=== PATIENT | female | born 1965 | race African-American/Black ===

== ENCOUNTER 2018-04-07 16:48 | Emergency (ER) | payer OTHER ==
[~2018-04-07] VITALS: Ht 157.5 cm; Wt 99.8 kg
--- OUTSIDE RECORDS SUMMARY | 2018-04-07 16:50 | XMS REPORT | Clinical Summary ---
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 Active potassium chloride Take 10 mEq 0 (K-DUR,KLOR-CON) 10 MEQ by mouth CR tablet daily. Active BUMETanide (BUMEX) 2 MG Take 1 mg by 0 tablet mouth daily. Active eletriptan (RELPAX) 40 MG Take 40 mg by 0 tablet mouth once as needed for migraine. May repeat in 2 hours if unresolved. Do not exceed 80 mg in 24 hours. Active diazePAM (VALIUM) 5 MG Take 10 mg by 0 tablet mouth every 6 (six) hours as needed for anxiety. Active ipratropium-albuterol Inhale 2 0 (COMBIVENT RESPIMAT) puffs 4 20-100 mcg/actuation mist (four) times inhaler a day. Active lxlaerj-jjuxmrxonfrkx-ztm Take 1 tablet 0 feine (EXCEDRIN MIGRAINE) by mouth 250-250-65 mg per tablet every 6 (six) hours as needed for headaches. Active meropenem 1 g in sodium Infuse 1 g 1 each 0 chloride 0.9 % MBP 100 mL into a venous 9 IVPB catheter every 8 (eight) hours. 02/28/2018 Discontinued esomeprazole (NexIUM) 20 Take 40 mg by 0 MG capsule mouth daily before breakfast. 07/29/2017 traMADol (ULTRAM) 50 mg Take 1 tablet 20 tablet 0 tablet (50 mg total) 8 by mouth every 6 (six) hours as needed for moderate pain for up to 10 doses. 08/23/2017 ibuprofen (ADVIL,MOTRIN) Take 1 tablet 30 tablet 0 600 MG tablet (600 mg 8 total) by mouth every 6 (six) hours as needed for moderate pain for up to 30 days. 08/23/2017 methocarbamol (ROBAXIN) Take 1 tablet 20 tablet 0 500 MG tablet (500 mg 8 total) by mouth 2 (two) times a day for 30 days. 02/28/2018 Discontinued meloxicam (MOBIC) 7.5 mg Take 15 mg by 0 tablet mouth daily as needed. 02/28/2018 Discontinued acetaminophen-codeine Take 1 tablet 0 (TYLENOL WITH CODEINE #4) by mouth 2 300-60 mg per tablet (two) times a day as needed for moderate pain. 03/27/2018 acetaminophen (TYLENOL) Take 2 0 325 MG tablet tablets (650 9 mg total) by mouth every 4 (four) hours as needed for mild pain, headaches or fever for up to 30 days. 03/27/2018 meclizine (ANTIVERT) 25 Take 1 tablet 0 mg tablet (25 mg total) 9 by mouth every 8 (eight) hours as needed for dizziness for up to 30 days. 03/27/2018 ondansetron ODT Take 1 tablet 0 (ZOFRAN-ODT) 4 MG (4 mg total) 9 disintegrating tablet by mouth every 8 (eight) hours as needed for nausea or vomiting for up to 30 days. 03/27/2018 ondansetron (ZOFRAN) 4 Infuse 2 mL 20 mL 0 mg/2 mL injection (4 mg total) 9 into a venous catheter every 8 (eight) hours as needed for nausea or vomiting for up to 30 days. 03/05/2018 fluconazole (DIFLUCAN) Take 1 tablet 0 200 MG tablet (200 mg 9 total) by mouth daily for 7 days. 03/27/2018 clonIDINE (CATAPRES) 0.1 Take 1 tablet 0 MG tablet (0.1 mg 9 total) by mouth every 8 (eight) hours as needed for high blood pressure (SBP > 160) for up to 30 days. 03/27/2018 hydrALAZINE (APRESOLINE) Take 1 tablet 0 25 MG tablet (25 mg total) 9 by mouth every 6 (six) hours as needed (SBP > 180) for up to 30 days. 03/27/2018 enoxaparin (LOVENOX) 40 Inject 0.4 mL 12 mL 0 mg/0.4 mL syringe (40 mg total) 9 under the skin daily for 30 days. 03/27/2018 sennosides-docusate Take 1 tablet 60 tablet 0 sodium (SENOKOT-S) 8.6-50 by mouth 2 9 mg per tablet (two) times a day for 30 days. 03/11/2018 HYDROcodone-acetaminophen Take 1 tablet 0 (NORCO) 5-325 mg per by mouth 9 tablet every 6 (six) hours as needed for severe pain for up to 14 days. Max Daily Amount: 4 tablets 03/28/2018 pantoprazole (PROTONIX) Take 1 tablet 30 tablet 0 40 MG EC tablet (40 mg total) 9 by mouth daily for 30 days. 03/27/2018 sodium chloride 0.45 % Infuse 125 500 mL 0 solution mL/hr into a 9 venous catheter continuously for 30 days. 02/28/2018 phenazopyridine Take 1 tablet 10 tablet 0 (PYRIDIUM) 100 MG tablet (100 mg 9 total) by mouth 3 (three) times daily after meals for 3 days. Active Problems Problem Noted Date Pyelonephritis 02/23/2018 Acute left-sided thoracic back pain 02/23/2018 Essential hypertension 02/23/2018 Encounters Care Team Description Date Type Specialty N/A 02/28/2018 Intake Access Niya Whitmore MD 02/27/2018 Telephone Urology 02/23/2018 Travel Azalia Bunn DO Asbury, James F., MD Pyelonephritis (Primary Dx) 02/22/2018 [facility] General Internal Medicine - Encounter 02/28/2018 Consuelo Coronel MD Flank pain (Primary Dx); Sciatica of left side; Peripheral edema 07/24/2017 Emergency Emergency Medicine after 04/06/2017 Social History Date Tobacco Use Types Packs/Day Years Used Never Smoker Smokeless Tobacco: Never Used Tobacco Cessation: Counseling Given: No Alcohol Use Drinks/Week oz/Week Comments No Sex Assigned at Date Recorded Not on file Industry Job Start Date Occupation Not on file Not on file Not on file Travel End Travel History Travel Start No recent travel history available. Last Filed Vital Signs Time Taken Vital Sign Reading 02/28/2018 7:39 AM PLAYER SERVICES REPRESENTATIVE Blood Pressure 133/75 02/28/2018 1:05 PM PLAYER SERVICES REPRESENTATIVE Pulse 99 02/28/2018 7:39 AM PLAYER SERVICES REPRESENTATIVE Temperature 36.4 C (97.6 F) 02/28/2018 1:05 PM PLAYER SERVICES REPRESENTATIVE Respiratory Rate 19 02/28/2018 7:39 AM PLAYER SERVICES REPRESENTATIVE Oxygen Saturation 95% - Inhaled Oxygen - Concentration 02/27/2018 4:50 AM PLAYER SERVICES REPRESENTATIVE Weight 90.4 kg (199 lb 4.8 oz) 02/22/2018 9:36 PM PLAYER SERVICES REPRESENTATIVE Height 160 cm (5' 3") 02/27/2018 4:50 AM PLAYER SERVICES REPRESENTATIVE Body Mass Index 35.3 Plan of Treatment Health Maintenance Due Date Last Done Comments CERVICAL CANCER SCREENING 1986 BREAST CANCER SCREENING 12/13/2015 COLON CANCER SCREENING 12/13/2015 SHINGLES VACCINES (1 of 12/13/2015 2) INFLUENZA VACCINE 09/17/2017 Procedures Comments Procedure Name Priority Date/Time Associated Diagnosis CT UROGRAM Routine 02/28/2018 11:03 AM PLAYER SERVICES REPRESENTATIVE ESTIMATED GFR Routine 02/28/2018 6:03 AM PLAYER SERVICES REPRESENTATIVE COMPREHENSIVE METABOLIC Routine 02/28/2018 PANEL 6:03 AM PLAYER SERVICES REPRESENTATIVE HC COMPLETE BLD COUNT Routine 02/28/2018 W/AUTO DIFF 6:03 AM PLAYER SERVICES REPRESENTATIVE HC COMPLETE BLD COUNT Routine 02/25/2018 W/AUTO DIFF 7:43 AM PLAYER SERVICES REPRESENTATIVE ESTIMATED GFR Routine 02/25/2018 4:00 AM PLAYER SERVICES REPRESENTATIVE BASIC METABOLIC PANEL Routine 02/25/2018 4:00 AM PLAYER SERVICES REPRESENTATIVE URINALYSIS SCREEN AND Routine 02/24/2018 MICROSCOPY, WITH REFLEX 4:30 PM PLAYER SERVICES REPRESENTATIVE TO CULTURE URINE CULTURE Routine 02/24/2018 4:30 PM PLAYER SERVICES REPRESENTATIVE GRAM STAIN Routine 02/24/2018 4:30 PM PLAYER SERVICES REPRESENTATIVE ESTIMATED GFR Routine 02/24/2018 4:50 AM PLAYER SERVICES REPRESENTATIVE VITAMIN D 25 HYDROXY Routine 02/24/2018 LEVEL 4:50 AM PLAYER SERVICES REPRESENTATIVE THYROID STIMULATING Routine 02/24/2018 HORMONE 4:50 AM PLAYER SERVICES REPRESENTATIVE PREALBUMIN LEVEL Routine 02/24/2018 4:50 AM PLAYER SERVICES REPRESENTATIVE PHOSPHORUS LEVEL Routine 02/24/2018 4:50 AM PLAYER SERVICES REPRESENTATIVE MAGNESIUM LEVEL Routine 02/24/2018 4:50 AM PLAYER SERVICES REPRESENTATIVE BASIC METABOLIC PANEL Routine 02/24/2018 4:50 AM PLAYER SERVICES REPRESENTATIVE HC COMPLETE BLD COUNT Routine 02/24/2018 W/AUTO DIFF 4:50 AM PLAYER SERVICES REPRESENTATIVE STREP SCREEN CULTURE Routine 02/22/2018 11:28 PM PLAYER SERVICES REPRESENTATIVE GROUP A STREP, RAPID Routine 02/22/2018 ANTIGEN 11:28 PM PLAYER SERVICES REPRESENTATIVE GGT Routine 02/22/2018 11:27 PM PLAYER SERVICES REPRESENTATIVE ESTIMATED GFR STAT 02/22/2018 11:27 PM PLAYER SERVICES REPRESENTATIVE AMYLASE LEVEL STAT 02/22/2018 11:27 PM PLAYER SERVICES REPRESENTATIVE COMPREHENSIVE METABOLIC STAT 02/22/2018 PANEL 11:27 PM PLAYER SERVICES REPRESENTATIVE HC COMPLETE BLD COUNT STAT 02/22/2018 W/AUTO DIFF 11:27 PM [employer]ER [employer] REPRESENTATIVE CT RENAL STONE PROTOCOL STAT 02/22/2018 10:30 PM PLAYER SERVICES REPRESENTATIVE URINALYSIS STAT 02/22/2018 9:48 PM PLAYER SERVICES REPRESENTATIVE US DUPLEX VENOUS LOWER STAT 07/24/2017 EXTREMITY LEFT 7:[address] RENAL STONE PROTOCOL STAT 07/24/2017 6:39 PM CDT ZZESTIMATED GFR STAT 07/24/2017 6:26 PM CDT AMYLASE LEVEL STAT 07/24/2017 6:26 PM CDT COMPREHENSIVE METABOLIC STAT 07/24/2017 PANEL 6:26 PM CDT HC COMPLETE BLD COUNT STAT 07/24/2017 W/AUTO DIFF 6:26 PM CDT URINALYSIS STAT 07/24/2017 5:30 PM CDT after 04/06/2017 Results * CT Urogram (02/28/2018 11:03 AM PLAYER SERVICES REPRESENTATIVE) Narrative Performed At EXAMINATION:CT UROGRAM RADIANT CLINICAL HISTORY:Hematuriaunknown cause, CT UROGRAM TECHNIQUE:CT of the abdomen and pelvis was performed without contrast utilizing renal stone protocol. Subsequently, postcontrast CT of the abdomen and pelvis was obtained with multiphase renal mass and CT urogram protocol. Sagittal and coronal computerized reformatted images were also obtained. CT scans are performed using radiation dose reduction techniques. Technical factors are evaluated and adjusted to ensure appropriate moderation of exposure. Automated dose management technology is applied to adjust radiation exposure while achieving a diagnostic quality image. COMPARISON:CT stone protocol 02/22/2018 IMPRESSION: Abdomen: 1.Precontrast imaging demonstrates no nephrolithiasis or hydronephrosis. Post contrast imaging demonstrates no renal mass. There is a focal scarring at the mid to upper pole the right kidney. There are subcentimeter cysts bilaterally. No enhancing urothelial lesions are seen. Excretory/urographic phase images demonstrate no filling defects in the renal collecting systems or ureters bilaterally. There is satisfactory opacification of the ureters. 2.Liver, spleen, pancreas, adrenals are within normal limits. The gallbladder is unremarkable. 3.The bowel is unobstructed. The appendix is normal in appearance. 4.The abdominal aorta is normal in caliber. There is no regional adenopathy. Pelvis: 1.The urinary bladder is unremarkable. 2.The uterus is grossly unremarkable. There is no adnexal mass. 3.No suspicious osseous lesions are seen. [facility]-[id number] Procedure Note Interface, Radiology Results Incoming - 02/28/2018 1:03 PM PLAYER SERVICES REPRESENTATIVE EXAMINATION: CT UROGRAM CLINICAL HISTORY: Hematuria unknown cause, CT UROGRAM TECHNIQUE: CT of the abdomen and pelvis was performed without contrast utilizing renal stone protocol. Subsequently, postcontrast CT of the abdomen and pelvis was obtained with multiphase renal mass and CT urogram protocol. Sagittal and coronal computerized reformatted images were also obtained. CT scans are performed using radiation dose reduction techniques. Technical factors are evaluated and adjusted to ensure appropriate moderation of exposure. Automated dose management technology is applied to adjust radiation exposure while achieving a diagnostic quality image. COMPARISON: CT stone protocol 02/22/2018 IMPRESSION: Abdomen: 1. Precontrast imaging demonstrates no nephrolithiasis or hydronephrosis. Post contrast imaging demonstrates no renal mass. There is a focal scarring at the mid to upper pole the right kidney. There are subcentimeter cysts bilaterally. No enhancing urothelial lesions are seen. Excretory/urographic phase images demonstrate no filling defects in the renal collecting systems or ureters bilaterally. There is satisfactory opacification of the ureters. 2. Liver, spleen, pancreas, adrenals are within normal limits. The gallbladder is unremarkable. 3. The bowel is unobstructed. The appendix is normal in appearance. 4. The abdominal aorta is normal in caliber. There is no regional adenopathy. Pelvis: 1. The urinary bladder is unremarkable. 2. The uterus is grossly unremarkable. There is no adnexal mass. 3. No suspicious osseous lesions are seen. [facility]-[id number] Performing Organization Address City/State/Zipcode Phone Number [facility] [address] [place] [address] * Estimated GFR (02/28/2018 6:03 AM PLAYER SERVICES REPRESENTATIVE) Only the most recent of 4 results within the time period is included. Estimated GFR 90 mL/min/1.73 m2 [facility] Comment: HOSPITAL CatergoryUnitsInte rpretation G1 >=90 Normal or high G2 60-89Mildly decreased [id number] Mildly to moderately decreased [id number] Moderately to severely decreased G4 15-29Severely decreased G5 <15Kidney failure The eGFR was calculated using the Chronic Kidney Disease Epidemiology Collaboration (CKD-EPI) equation. Interpretation is based on recommendations of the National Kidney Foundation-Kidney Disease Outcomes Quality Initiative (NKF-KDOQI) published in 2014. Specimen Plasma specimen Performing Organization Address City/State/Zipcode Phone Number [facility] DEPARTMENT [address] [place] [address] PATHOLOGY AND GENOMIC MEDICINE [address] * CBC with platelet and differential (02/28/2018 6:03 AM PLAYER SERVICES REPRESENTATIVE) Only the most recent of 5 results within the time period is included. WBC 8.19 4.50 - 11.00 k/uL [facility] RBC 4.85 4.20 - 5.50 m/uL [facility] HGB 13.6 12.0 - 16.0 g/dL [facility] HCT 43.0 37.0 - 47.0 % [facility] MCV 88.7 82.0 - 100.0 fL [facility] MCH 28.0 27.0 - 34.0 pg [facility] MCHC 31.6 31.0 - 37.0 g/dL [facility] RDW - SD 42.4 37.0 - 55.0 fL [facility] MPV 9.9 8.8 - 13.2 fL [facility] Platelet count 425 (H) 150 - 400 k/uL [facility] Nucleated RBC 0.00 /100 WBC [facility] Neutrophils 44.3 39.0 - 69.0 % [facility] Lymphocytes 42.7 25.0 - 45.0 % [facility] Monocytes 9.5 0.0 - 10.0 % [facility] Eosinophils 2.6 0.0 - 5.0 % [facility] Basophils 0.5 0.0 - 1.0 % [facility] Immature granulocytes 0.4Comment: "Immature 0.0 - 1.0 % [facility] granulocytes" (promyelocytes, HOSPITAL myelocytes, metamyelocytes) Specimen Blood Performing Organization Address City/[facility]/Zipcode Phone Number [facility] [address] [place] [address] PATHOLOGY AND GENOMIC MEDICINE [address] * Comprehensive metabolic panel (02/28/2018 6:03 AM PLAYER SERVICES REPRESENTATIVE) Only the most recent of 3 results within the time period is included. Sodium 127 (L) 135 - 148 mEq/L [facility] Potassium 4.3 3.5 - 5.0 mEq/L [facility] Chloride 92 (L) 98 - 112 mEq/L [facility] CO2 27 24 - 31 mEq/L [facility] Anion gap 8@ANIO 7 - 15 mEq/L [facility] BUN 14 6 - 20 mg/dL [facility] Creatinine 0.86 0.50 - 0.90 mg/dL [facility] Glucose 127 (H) 65 - 99 mg/dL [facility] Calcium 10.2 8.3 - 10.2 mg/dL [facility] Protein 8.0 6.3 - 8.3 g/dL [facility] Comment: HOSPITAL 4.6-7.0 g/dL 1 week 4.4-7.6 g/dL 7 months-1year 5.1-7.3 g/dL 1-2 years5.6-7 .5 g/dL >3 years6.0-8 .0 g/dL 18-150 6.3-8.3 g/dL Albumin 3.7 3.5 - 5.0 g/dL [facility] A/G ratio 0.9 0.7 - 3.8 [facility] Alkaline phosphatase 99 35 - 104 U/L [facility] AST 29 10 - 35 U/L [facility] ALT 47 5 - 50 U/L [facility] Total bilirubin 0.6 0.0 - 1.2 mg/dL [facility] Specimen Plasma specimen Performing Organization Address City/State/Zipcode Phone Number [facility] DEPARTMENT OF [address] [place] [address] PATHOLOGY AND GENOMIC MEDICINE [address] * Basic metabolic panel (02/25/2018 4:00 AM PLAYER SERVICES REPRESENTATIVE) Only the most recent of 2 results within the time period is included. Sodium 141 135 - 148 mEq/L [facility] Potassium 4.1 3.5 - 5.0 mEq/L [facility] Chloride 101 98 - 112 mEq/L [facility] CO2 28 24 - 31 mEq/L [facility] Anion gap 12@ANIO 7 - 15 mEq/L [facility] BUN 21 (H) 6 - 20 mg/dL [facility] Creatinine 1.05 (H) 0.50 - 0.90 mg/dL [facility] Glucose 89 65 - 99 mg/dL [facility] Calcium 9.4 8.3 - 10.2 mg/dL [facility] Specimen Plasma specimen Performing Organization Address City/[facility]/Zipcode Phone Number [facility] DEPARTMENT [address] [address] PATHOLOGY AND GENOMIC MEDICINE [address] * Urinalysis screen and microscopy, with reflex to culture (02/24/2018 4:30 PM PLAYER SERVICES REPRESENTATIVE) Specimen site Catheterized [facility] Color, UA Dania [facility] Appearance, UA Clear [facility] Specific gravity, UA 1.015 1.001 - 1.035 [facility] pH, UA 5.0 5.0 - 8.5 [facility] Protein, UA Negative Negative [facility] Glucose, UA Negative Negative [facility] Ketones, UA Negative Negative [facility] Bilirubin, UA Negative Negative [facility] Blood, UA Small (A) Negative [facility] Nitrite, UA Positive (A) Negative [facility] Urobilinogen, UA 4.0 (A) <2.0 [facility] Leukocyte esterase, UA Small (A) Negative [facility] Epithelial cells, UA 1 /HPF [facility] WBC, UA 8 (H) 0 - 4 /HPF [facility] RBC, UA 2 0 - 5 /HPF [facility] Bacteria, UA Few None seen [facility] Yeast, UA None seen [facility] Yeast with pseudohyphae, None seen [facility] Specimen Urine Performing Organization Address City/[facility] Phone Number [facility] DEPARTMENT [address] [address] PATHOLOGY AND GENOMIC MEDICINE [address] * Gram stain (02/24/2018 4:30 PM PLAYER SERVICES REPRESENTATIVE) Gram stain result Few WBC's [facility] Few Gram positive rods [facility] Comment: Specimen Information Specimen Source: Urine Specimen Site: Catheterized Specimen Urine - Catheterized Performing Organization Address City/[facility]/Zipcode Phone Number [facility] DEPARTMENT [address] [address] PATHOLOGY AND GENOMIC MEDICINE [address] * Urine culture (02/24/2018 4:30 PM PLAYER SERVICES REPRESENTATIVE) Urine culture isolate Mixed ba <=10-3 col/cc [facility] Comment: HOSPITAL Specimen Information Specimen Source: Urine Specimen Site: Catheterized Specimen Urine - Catheterized Performing Organization Address [facility]r Phone Number [facility] [place] [address] PATHOLOGY AND GENOMIC MEDICINE [address] * Vitamin D 25 hydroxy level (02/24/2018 4:50 AM PLAYER SERVICES REPRESENTATIVE) Vitamin D, 25-hydroxy 16.1 (L) 30.0 - 150.0 ng/mL [facility] Comment: HOSPITAL This assay reports the sum of 25-hydroxy vitamin D3 and 25-hydroxy vitamin D2. Reference range: 0-17 years: Deficiency: less than 20ng/mL Optimum level: greater than or equal to 20 ng/mL. 18 years and older: Deficiency: less than 20ng/mL Insufficiency: 20-29 ng/mL Optimum Level: 30-80 ng/mL The assay reportable range is 3.4155.9 ng/mL. Levels higher than 150 ng/mL may be associated with toxicity. If toxicity is clinically suspected and the reported result is >155.9 ng/mL,contact lab for alternative methods to obtain a definitivelevel. If separate quantitation of 25-hydroxy vitamin D3 and 25-hydroxy vitamin D2 is needed, please contact lab for alternative methods. Specimen Blood Performing Organization Address [facility] Phone Number [facility] [place] [address] PATHOLOGY AND GENOMIC MEDICINE [address] * Thyroid stimulating hormone (02/24/2018 4:50 AM PLAYER SERVICES REPRESENTATIVE) TSH 0.16 (L) 0.27 - 4.20 uIU/mL [facility] Specimen Plasma specimen Performing Organization Address [facility] Centercode Phone Number [facility] [place] [place] [address] PATHOLOGY AND GENOMIC MEDICINE [address] * Prealbumin level (02/24/2018 4:50 AM PLAYER SERVICES REPRESENTATIVE) Prealbumin 22 16 - 32 mg/dL [facility] Specimen Serum Performing Organization Address City/State/Zipcode Phone Number [facility] [place] [place] [address] PATHOLOGY AND GENOMIC MEDICINE [address] * Phosphorus level (02/24/2018 4:50 AM PLAYER SERVICES REPRESENTATIVE) Phosphorus 3.5 2.4 - 4.5 mg/dL [facility] Specimen Plasma specimen Performing Organization Address City/[facility]/Zipcode Phone Number [facility] [place] [place] [address] PATHOLOGY AND GENOMIC MEDICINE [address] * Magnesium level (02/24/2018 4:50 AM PLAYER SERVICES REPRESENTATIVE) Magnesium 2.0 1.6 - 2.6 mg/dL [facility] Specimen Plasma specimen Performing Organization Address City/[facility] Phone Number [facility] [place] [place] [address] PATHOLOGY AND GENOMIC MEDICINE [address] * Group A strep, rapid antigen (02/22/2018 11:28 PM PLAYER SERVICES REPRESENTATIVE) Group A strep, rapid Negative for Group A [facility] antigen result Streptococcus antigen. [facility] Comment: [facility] Specimen Information Specimen Source: Throat Specimen Site: Not otherwise specified Specimen Throat - Not otherwise specified Performing Organization Address City/[facility] [place] [address] PATHOLOGY AND GENOMIC MEDICINE, [address] * Strep screen culture (02/22/2018 11:28 PM PLAYER SERVICES REPRESENTATIVE) Strep screen culture No beta hemolytic Streptococci [facility] Comment: Specimen Information Specimen Source: Throat Specimen Site: Not otherwise specified Specimen Throat - Not otherwise specified Performing Organization Address City/[facility]/Zipcode Phone Number [facility] [place] [place] [address] PATHOLOGY AND GENOMIC MEDICINE [address] * GGT (02/22/2018 11:27 PM PLAYER SERVICES REPRESENTATIVE) GGT 117 (H) 0 - 39 U/L [facility] Specimen Plasma specimen Performing Organization Address City/State/Zipcode Phone Number [facility] DEPARTMENT OF [address] [place] [address] PATHOLOGY AND GENOMIC MEDICINE [facility] [address] [place] [address] HOSPITAL * Amylase level (02/22/2018 11:27 PM PLAYER SERVICES REPRESENTATIVE) Only the most recent of 2 results within the time period is included. Amylase 76 14 - 97 U/L [facility] Specimen Plasma specimen Performing Organization Address City/State/[place]code [place] [address] [place] [address] PATHOLOGY AND GENOMIC MEDICINE, [facility] [id number] [place] [address] [facility] * CT Renal Stone Protocol (02/22/2018 10:30 PM PLAYER SERVICES REPRESENTATIVE) Only the most recent of 2 results within the time period is included. Narrative Performed At EXAMINATION:CT RENAL STONE PROTOCOL [facility] CLINICAL HISTORY:left flank pain COMPARISON:CT renal stone protocol dated 07/24/2017 TECHNIQUE:CT of the abdomen and pelvis without intravenous contrast. Absence of intravenous contrast decreases sensitivity for detection of focal lesions and vascular pathology. CT imaging was performed with iterative reconstruction techniques and/or automated exposure control to reduce radiation dose. FINDINGS: LOWER THORAX:The visualized heart and pericardium appear unremarkable.There is minimal subpleural atelectasis/scarring in the dependent portions of both lungs.There is no pleural effusion. There are a few tiny subpleural nodules in the left lower lobe, likely infectious/inflammatory in etiology. HEPATOBILIARY:The liver appears unremarkable.The gallbladder appears unremarkable.There is no biliary ductal dilatation. SPLEEN:No splenomegaly. PANCREAS:No focal masses or ductal dilation. ADRENALS:No adrenal nodules. KIDNEYS:There is no urolithiasis.There is no hydroureter/hydronephrosis.There is no solid mass. PELVIC ORGANS:Unremarkable. GI TRACT:L tiny There is no gastrointestinal distention to suggest obstruction. There is no definite pathologic gastrointestinal wall thickening, with note made that the absence of enteral contrast and underdistention limit evaluation. There is no pneumatosis intestinalis. There are a few scattered small colonic diverticula without evidence of acute diverticulitis.A radiodense tablet is seen within a loop of small bowel in the lower abdomen (series 2 image 124); correlate with ingestion history. There is increased fecal retention, suggestive of constipation. The appendix appears normal. PERITONEUM/RETROPERITONEUM:There is no free intraperitoneal air. There is no free fluid or focal drainable collection. LYMPHATIC: There is no lymphadenopathy. VESSELS: Unremarkable. BONES AND SOFT TISSUES:Unremarkable. IMPRESSION: No evidence of urolithiasis or hydroureter/hydronephrosis. No acute gastrointestinal pathology. [facility]-[id number] Procedure Note Interface, Radiology Results Incoming - 02/22/2018 10:44 PM PLAYER SERVICES REPRESENTATIVE EXAMINATION: CT RENAL STONE PROTOCOL CLINICAL HISTORY: left flank pain COMPARISON: CT renal stone protocol dated 07/24/2017 TECHNIQUE: CT of the abdomen and pelvis without intravenous contrast. Absence of intravenous contrast decreases sensitivity for detection of focal lesions and vascular pathology. CT imaging was performed with iterative reconstruction techniques and/or automated exposure control to reduce radiation dose. FINDINGS: LOWER THORAX: The visualized heart and pericardium appear unremarkable. There is minimal subpleural atelectasis/scarring in the dependent portions of both lungs. There is no pleural effusion. There are a few tiny subpleural nodules in the left lower lobe, likely infectious/inflammatory in etiology. HEPATOBILIARY: The liver appears unremarkable. The gallbladder appears unremarkable. There is no biliary ductal dilatation. SPLEEN: No splenomegaly. PANCREAS: No focal masses or ductal dilation. ADRENALS: No adrenal nodules. KIDNEYS: There is no urolithiasis. There is no hydroureter/hydronephrosis. There is no solid mass. PELVIC ORGANS: Unremarkable. GI TRACT: L tiny There is no gastrointestinal distention to suggest obstruction. There is no definite pathologic gastrointestinal wall thickening, with note made that the absence of enteral contrast and underdistention limit evaluation. There is no pneumatosis intestinalis. There are a few scattered small colonic diverticula without evidence of acute diverticulitis. A radiodense tablet is seen within a loop of small bowel in the lower abdomen (series 2 image 124); correlate with ingestion history. There is increased fecal retention, suggestive of constipation. The appendix appears normal. PERITONEUM/RETROPERITONEUM: There is no free intraperitoneal air. There is no free fluid or focal drainable collection. LYMPHATIC: There is no lymphadenopathy. VESSELS: Unremarkable. BONES AND SOFT TISSUES: Unremarkable. IMPRESSION: No evidence of urolithiasis or hydroureter/hydronephrosis. No acute gastrointestinal pathology. [facility]-[id number] Performing Organization Address City/State/Zipcode Phone Number [facility] [address] [place] [address] * Urinalysis (02/22/2018 9:48 PM PLAYER SERVICES REPRESENTATIVE) Only the most recent of 2 results within the time period is included. Glucose, UA Negative Negative [facility] Bilirubin, UA Negative Negative [facility] Ketones, UA Negative Negative [facility] Specific gravity, UA 1.015 1.001 - 1.035 [facility] Blood, UA Small (A) Negative [facility] pH, UA 6.0 5.0 - 8.5 [facility] Protein, UA Negative Negative [facility] Urobilinogen, UA <2.0 <2.0 [facility] Nitrite, UA Negative Negative [facility] Leukocyte esterase, UA Trace (A) Negative [facility] Color, UA Yellow [facility] Appearance, UA Clear [facility] Specimen Urine Performing Organization Address City/State/Zipcode Phone Number DEPARTMENT OF [address] [place] [address] PATHOLOGY AND GENOMIC MEDICINE, [address] * Pv duplex venous lower extremity (07/24/2017 7:23 PM CDT) Narrative Performed At EXAMINATION:US DUPLEX VENOUS LOWER EXTREMITY LEFT [facility] CLINICAL HISTORY: Leftr o dvt COMPARISON:None. TECHNIQUE:Grayscale, color Doppler, and spectral waveform analysis of the left lower extremity deep venous system was performed. The common femoral, superficial femoral, proximal deep femoral, greater saphenous, and popliteal veins were evaluated. The calf veins were also evaluated. FINDINGS: The left common femoral, superficial femoral, and popliteal veins are compressible. They demonstrate normal venous waveforms and response to augmentation. There is flow in the visualized calf veins.The right common femoral vein is patent. There is no evidence of a popliteal or Quinn's cyst. IMPRESSION: Normal left lower extremity venous Doppler examination. There is no evidence of deep venous thrombosis. [id number] Procedure Note Interface, Radiology Results Incoming - 07/24/2017 7:29 PM CDT EXAMINATION: US DUPLEX VENOUS LOWER EXTREMITY LEFT CLINICAL HISTORY: Left r o dvt COMPARISON: None. TECHNIQUE: Grayscale, color Doppler, and spectral waveform analysis of the left lower extremity deep venous system was performed. The common femoral, superficial femoral, proximal deep femoral, greater saphenous, and popliteal veins were evaluated. The calf veins were also evaluated. FINDINGS: The left common femoral, superficial femoral, and popliteal veins are compressible. They demonstrate normal venous waveforms and response to augmentation. There is flow in the visualized calf veins.The right common femoral vein is patent. There is no evidence of a popliteal or Quinn's cyst. IMPRESSION: Normal left lower extremity venous Doppler examination. There is no evidence of deep venous thrombosis. [id number] Performing Organization Address City/State/Zipcode Phone Number [facility] [address] [place] [address] * Estimated GFR (07/24/2017 6:26 PM CDT) GFR Non Af Amer 58 (A) mL/min/1.73 m2 DEPARTMENT OF PATHOLOGY AND GENOMIC MEDICINE, [facility] GFR Af Amer 71 mL/min/1.73 m2 DEPARTMENT OF Comment: PATHOLOGY AND Chronic kidney disease: <60 [facility], mL/min/1.73m2 [facility] Kidney failure: <15 [facility] mL/min/1.73m2 The estimated GFR is calculated from the IDMS-traceable Modification of Diet in Renal Disease Equation. The accuracy of the calculation is poor when the creatinine is normal. Calculated values >90 mL/min/1.73m2 are not reported. This equation has not been validated in children (<18 years), women, the elderly (>70 years), or ethnic groups other than Caucasians and Americans. Specimen Plasma specimen Performing Organization Address City/State/Zipcode Phone Number [place] [place] [phone] [place] [address] PATHOLOGY AND GENOMIC MEDICINE, [facility] after 04/06/2017 Insurance Payer Benefit Subscriber ID Type Phone Address Plan / Group [employer] xxxxxxxxx [facility] [facility] Advance Directives Patient has advance care planning documents, and code status on file. For more i nformation, please contact: Jose Rowley [address] [place] [address] Date Inactivated Comments Code Status Date Activated 03/01/2018 1:40 AM Full Code 02/23/2018 8:01 AM Code Status decision reached by: Patient
--- OUTSIDE RECORDS SUMMARY | 2018-04-07 16:51 | XMS REPORT | Continuity of Care Document ---
Author Author [facility] Interface Address Unknown Phone Unavailable Problems Problem Status Onset Date Classification Date Reported Comments Source SOB Active Problem 11/22/2015 [facility] HTN Active Problem 11/22/2015 [facility] Chest pain Active Problem 11/22/2015 [facility] Obesity Active Problem 11/22/2015 [facility] Edema Active Problem 11/22/2015 [facility] Pre-operative cardiovascular examination Active Diagnosis 10/19/2015 [facility] Medications Medication Details Route Status Patient Instructions Ordering Provider Order Date Source Toprol XL 1 tablet orally Active 25 MG orally Once a day [facility] 07/28/2015 [facility] Cons Relpax 1 tablet as needed one time Orally Active 40 MG Orally Once a day [facility] Cons Cefprozil 1 tablet Orally Active 500 MG Orally Once a day [facility] Cons Vitamin D2 1 tablet Orally Active 53183 Orally one a week [facility] Cons MethylPREDNISolone Unknown Orally Active 4 MG Orally [facility] Losartan Potassium 1 tablet Orally No Longer Active 50 MG Orally Once a day [facility] Acetaminophen-Codeine 1 tablet as needed Orally Active 300-60 MG Orally every 6 hrs [facility] Cons Tramadol-Acetaminophen 2 tablets as needed Orally Active 37.5- 325 MG Orally every 6 hrs [facility] Naproxen 1 tablet as needed Orally Active 500 MG Orally every 12 hrs [facility] Combivent Respimat 1 puff Inhalation Active 20-100 MCG/ACT Inhalation Four times a day [facility] Cons Nexium 1 capsule Orally Active 40 MG Orally Once a day [facility] Cons Singulair 1 tablet in the evening Orally Active 10 MG Orally Once a day [facility] Diazepam 1 tablet Orally Active 5 MG Orally as needed (prn) [facility] Ibuprofen 1 tablet Orally Active 800 MG Orally prn [facility] Aspirin 1 tablet Orally Active 81 MG Orally Once a day [facility] Cons Allergies, Adverse Reactions, Alerts Substance Category Reaction Severity Reaction type Status Date Reported Comments Source N.K.D.A. Adverse Reaction Info Not Available Adverse Reaction Active 10/17/2015 [facility] Immunizations Immunization Date Given Site Status Last Updated Comments Source Results Order Name Results Value Reference Range Date Interpretation Comments Source Vital Signs Vital Sign Value Date Comments Source Weight 198 10/17/2015 [facility] Height 62.5 10/17/2015 [facility] Heart Rate 76 10/17/2015 [facility] Diastolic (mm Hg) 70 10/17/2015 [facility] Systolic (mm Hg) 118 10/17/2015 [facility] Weight 195 07/28/2015 [facility] Height 62.5 07/28/2015 [facility] Heart Rate 76 07/28/2015 [facility] Diastolic (mm Hg) 80 07/28/2015 [facility] Systolic (mm Hg) 126 07/28/2015 [facility] Weight 195 07/04/2015 [facility] Height 62.5 07/04/2015 [facility] Heart Rate 75 07/04/2015 [facility] Diastolic (mm Hg) 82 07/04/2015 [facility] Systolic (mm Hg) 120 07/04/2015 [facility] Encounters Location Location Details Encounter Type Encounter Number Reason For Visit Attending Provider ADM Date DC Date Status Source [employer], JAKE Consult [id number] 07/04/2015 07/04/2015 [facility] Cons [employer], JAKE Consult [id number] 07/04/2015 07/04/2015 [facility] [employer], JAKE Consult [id number] 07/04/2015 07/04/2015 [facility] [employer], JAKE Consult [id number] 07/04/2015 07/04/2015 [facility] [employer], JAKE Consult [id number] 07/04/2015 07/04/2015 [facility] [employer], JAKE Consult [id number] 07/04/2015 07/04/2015 [facility] [place] [employer] [place] Consult [id number] 07/04/2015 07/04/2015 Cardiology [facility] Sn[facility]inder, [place] Consult [id number] 07/04/2015 07/04/2015 Cardiology [facility] Snag [employer]inder, [place] [facility] follow-up [id number] 07/28/2015 07/28/2015 Cardiology [facility] Snag [employer]inder, [place] [facility] follow-up [id number] 07/28/2015 07/28/2015 Cardiology [facility] Snag [employer]inder, [place] [facility] follow-up [id number] 07/28/2015 07/28/2015 Cardiology [facility] Snag [employer]inder, [place] [facility] follow-up [id number] 07/28/2015 07/28/2015 Cardiology [facility] Snag Grinder, PA [facility] follow-up [id number] 07/28/2015 07/28/2015 Cardiology [facility] Snag [employer]inder, [place] [facility] follow-up [id number] 07/28/2015 07/28/2015 Cardiology [facility] Snag [employer]inder, [place] [facility] follow-up [id number] 07/28/2015 07/28/2015 Cardiology [facility] [employer], [place] Refill [id number] 08/31/2015 08/31/2015 Cardiology [facility] [employer], [place] Refill [id number] 08/31/2015 08/31/2015 [facility] [employer] [place] Refill [id number] 08/31/2015 08/31/2015 [facility]iology [facility] [employer] [place] Refill [id number] 08/31/2015 08/31/2015 [facility] [employer] [place] Refill [id number] 08/31/2015 08/31/2015 [facility]iology [facility] [facility] [place] Refill [id number] 08/31/2015 08/31/2015 Cardiology [facility] Sn[employer], [place] Unknown [id number] 09/19/2015 09/19/2015 Cardiology [facility] [employer], [place] Unknown [id number] 09/19/2015 09/19/2015 Cardiology [facility], [place] Unknown [id number] 09/19/2015 09/19/2015 Cardiology [facility], [place] Unknown [id number] 09/19/2015 09/19/2015 Cardiology [facility], [place] Unknown [id number] 09/19/2015 09/19/2015 Cardiology [facility], [place] Refill [id number] 10/09/2015 10/09/2015 [facility] [employer] [place] Refill [id number] 10/09/2015 10/09/2015 [facility]iology [facility] [employer] [place] Refill [id number] 10/09/2015 10/09/2015 [facility]iology Cons [facility] [employer] [place] Refill [id number] 10/09/2015 10/09/2015 Cardiology [facility] [place] [employer] [place] Follow-Up [id number] 10/17/2015 10/17/2015 [facility]iology [facility] [place] [employer] [place] Follow-Up [id number] 10/17/2015 10/17/2015 Cardiology Cons [place] [employer] Follow-Up [id number] 10/17/2015 10/17/2015 Cardiology Cons [place] [employer] refill [id number] 11/16/2015 11/16/2015 Cardiology Cons [place] [employer] refill [id number] 11/16/2015 11/16/2015 Cardiology Cons [place] [employer] Unknown [id number] 11/21/2015 11/21/2015 [facility] Cons Procedures Procedure Code Date Perfomer Comments Source
--- OUTSIDE RECORDS SUMMARY | 2018-04-07 16:51 | XMS REPORT ---
Author Cathy Dunlap Organization [employer] Address Unknown Phone Unavailable Care Team Providers Care General Laborer Name Role Phone Cathy Abarca Unavailable Encounters Encounter Location Date Consult [employer] Machine Operator, JAKE July 04, 2015 C-lite follow-up [employer] Machine Operator, JAKE July 28, 2015 Refill [facility] [employer], [place] August 31, 2015 Problems Problem Type Condition ICD-9 Code Onset Dates Condition Status Problem SOB (shortness of breath) R06.02 Active Problem HTN (hypertension) I10 Active Problem Chest pain R07.9 Active Assessment Chest pain R07.9 Active Problem Obesity E66.9 Active Problem Edema R60.9 Active Medications Medication Code System Code Instructions Start Date End Date Status Dosage Toprol XL [facility] [address]-64 25 MG orally Once a day July 28, 2015 Active 1 tablet Social History Social History Element Qualifiers Date Reported Tobacco: . Status: nonsmoker August 22, 2015 Marital Status: . August 22, 2015 Alcohol: . Non Drinker August 22, 2015 Occupation: . student August 22, 2015 Summary Purpose [employer] Submission
--- OUTSIDE RECORDS SUMMARY | 2018-04-07 16:51 | XMS REPORT ---
Author Author Cathy Abarca [facility] [employer] Address Unknown Phone Unavailable Care Team Providers Care Ship Steward Name Role Phone Cathy Abarca Unavailable Allergies, Adverse Reactions, Alerts Substance Reaction Event Type N.K.D.A. Info Not Available Non Drug Allergy Encounters Encounter Location Date Unknown [facility] [employer], JAKE Sep 19, 2015 Refill [facility] [employer]keeper [employer], JAKE Oct 09, 2015 Follow-Up [facility] [employer] [facility], JAKE Oct 17, 2015 Consult [facility] [employer]keeper Head, JAKE July 04, 2015 C-lite follow-up [facility] [employer]keeper Head, JAKE July 28, 2015 Refill [facility] [employer], JAKE August 31, 2015 Problems Problem Type Condition ICD-9 Code Onset Dates Condition Status Assessment Edema R60.9 Active Assessment HTN (hypertension) I10 Active Assessment Obesity E66.9 Active Assessment Pre-operative cardiovascular examination Z01.810 Active Problem SOB (shortness of breath) R06.02 Active Problem HTN (hypertension) I10 Active Problem Chest pain R07.9 Active Assessment Chest pain R07.9 Active Assessment SOB (shortness of breath) R06.02 Active Problem Obesity E66.9 Active Problem Edema R60.9 Active Medications Medication Code System Code Instructions Start Date End Date Status Dosage Nexium [facility] [address]-67 40 MG Orally Once a day Active 1 capsule Vitamin D2 [facility] 69351-[address] 08228 Orally one a week Active 1 tablet Aspirin [facility] [address]-07 81 MG Orally Once a day Active 1 tablet Singulair [facility] [address]-84 10 MG Orally Once a day Active 1 tablet in the evening Combivent Respimat [facility] [address]-22 20-100 MCG/ACT Inhalation Four times a day Active 1 puff Relpax [facility] [address]-16 40 MG Orally Once a day Active 1 tablet as needed one time Diazepam [facility] [address]-94 5 MG Orally as needed (prn) Active 1 tablet Toprol XL [facility] [address]-63 25 MG orally Once a day July 28, 2015 Active 1 tablet Acetaminophen-Codeine [facility] [address]-91 300-60 MG Orally every 6 hrs Active 1 tablet as needed Social History Social History Element Qualifiers Date Reported Tobacco: . Status: nonsmoker Oct 17, 2015 Marital Status: . Oct 17, 2015 Alcohol: . Non Drinker Oct 17, 2015 Occupation: . student Oct 17, 2015 Vital Signs Date/Time: Oct 17, 2015 Weight 198 lbs Height 62.5 in Cardiac Monitoring Heart Rate 76 /min Blood Pressure Diastolic 70 mm Hg Blood Pressure Systolic 118 mm Hg Summary Purpose eClinicalWorks Submission
--- OUTSIDE RECORDS SUMMARY | 2018-04-07 16:51 | XMS REPORT ---
Author Cathy Dunlap Organization [employer] Address Unknown Phone Unavailable Care Team Providers Care Shear Operator Name Role Phone Cathy Abarca Unavailable Encounters Encounter Location Date Unknown [place] [employer], [place] Sep 19, 2015 Refill [facility] [employer] [facility] [place] Oct 09, 2015 Consult [facility] [employer] Conductor, JAKE July 04, 2015 C-[facility] follow-up [facility] [employer] Conductor, JAKE July 28, 2015 Refill [place] [employer] [place] August 31, 2015 Problems Problem Type Condition ICD-9 Code Onset Dates Condition Status Problem SOB (shortness of breath) R06.02 Active Problem HTN (hypertension) I10 Active Problem Chest pain R07.9 Active Problem Obesity E66.9 Active Problem Edema R60.9 Active Medications Medication Code System Code Instructions Start Date End Date Status Dosage Toprol XL MEDISPAN [address]-62 25 MG orally Once a day July 28, 2015 Active 1 tablet Social History Social History Element Qualifiers Date Reported Tobacco: . Status: nonsmoker Sep 29, 2015 Marital Status: . Sep 29, 2015 Alcohol: . Non Drinker Sep 29, 2015 Occupation: . student Sep 29, 2015 Summary Purpose eClinicalWorks Submission
--- OUTSIDE RECORDS SUMMARY | 2018-04-07 16:51 | XMS REPORT ---
Author Author Cathy Abarca [facility] [place] eClinicalWorks Address Unknown Phone Unavailable Care Team Providers Care Time Piece Repairer Name Role Phone Cathy Abarca CP Unavailable Allergies, Adverse Reactions, Alerts Substance Reaction Event Type N.K.D.A. Info Not Available Non Drug Allergy Encounters Encounter Location Date Consult [place] Assembly Manager, JAKE July 04, 2015 C-lite follow-up [place] Assembly Manager, JAKE July 28, 2015 Problems Problem Type Condition ICD-9 Code Onset Dates Condition Status Assessment Edema R60.9 Active Assessment HTN (hypertension) I10 Active Assessment Obesity E66.9 Active Problem SOB (shortness of breath) R06.02 Active Problem HTN (hypertension) I10 Active Problem Chest pain R07.9 Active Assessment Chest pain R07.9 Active Assessment SOB (shortness of breath) R06.02 Active Problem Obesity E66.9 Active Problem Edema R60.9 Active Medications Medication Code System Code Instructions Start Date End Date Status Dosage Nexium [facility] [address]-75 40 MG Orally Once a day Active 1 capsule Relpax [facility] [address]-26 40 MG Orally Once a day Active 1 tablet as needed one time Losartan Potassium [facility] [address]-33 50 MG Orally Once a day Inactive 1 tablet Singulair [facility] [address]-10 10 MG Orally Once a day Active 1 tablet in the evening Aspirin [facility] [address]-22 81 MG Orally Once a day Active 1 tablet Vitamin D2 [facility] 682[address]84[address] 95173 Orally one a week Active 1 tablet Acetaminophen-Codeine [facility] [address]-78 300-60 MG Orally every 6 hrs Active 1 tablet as needed Toprol XL [facility] [address]-65 25 MG orally Once a day July 28, 2015 Active 1 tablet Combivent Respimat [facility] [address]-47 20-100 MCG/ACT Inhalation Four times a day Active 1 puff Diazepam [facility] [address]-96 5 MG Orally as needed (prn) Active 1 tablet Social History Social History Element Qualifiers Date Reported Tobacco: . Status: nonsmoker July 28, 2015 Marital Status: . July 28, 2015 Alcohol: . Non Drinker July 28, 2015 Occupation: . student July 28, 2015 Vital Signs Date/Time: July 28, 2015 Weight 195 lbs Height 62.5 in Cardiac Monitoring Heart Rate 76 /min Blood Pressure Diastolic 80 mm Hg Blood Pressure Systolic 126 mm Hg Summary Purpose eClinicalWorks Submission
--- OUTSIDE RECORDS SUMMARY | 2018-04-07 16:51 | XMS REPORT ---
Author Cathy Dunlap Organization eClinicalWorks Address Unknown Phone Unavailable Care Team Providers Care Stationary Engineer Apprentice Name Role Phone Cathy Abarca Unavailable Encounters Encounter Location Date Unknown [place] [employer] [place] Sep 19, 2015 Refill [place] [facility] Oct 09, 2015 Follow-Up [place] [employer] [facility], [place] Oct 17, 2015 refill [place] [employer] [facility] Nov 16, 2015 Consult [place] [employer] [facility], JAKE July 04, 2015 [facility] follow[place] [facility] [place] July 28, 2015 Refill [place] [facility] [place] August 31, 2015 Unknown [place] [facility] [place] Nov 21, 2015 Problems Problem Type Condition ICD-9 Code Onset Dates Condition Status Problem SOB (shortness of breath) R06.02 Active Problem HTN (hypertension) I10 Active Problem Chest pain R07.9 Active Problem Obesity E66.9 Active Problem Edema R60.9 Active Social History Social History Element Qualifiers Date Reported Tobacco: . Status: nonsmoker Oct 17, 2015 Marital Status: . Oct 17, 2015 Alcohol: . Non Drinker Oct 17, 2015 Occupation: . student Oct 17, 2015 Summary Purpose eClinicalWorks Submission
--- OUTSIDE RECORDS SUMMARY | 2018-04-07 16:51 | XMS REPORT ---
Author Author Cathy Abarca Organization eClinicalWorks Address Unknown Phone Unavailable Care Team Providers Care Sales And Retail Management Recruiter Name Role Phone Cathy Abarca CP Unavailable Encounters Encounter Location Date Unknown [place] [employer] Roller Person, [place]KE Sep 19, 2015 Refill [place] [employer] Roller Person, [place]KE Oct 09, 2015 Follow-Up [place] Asphalt Roller Person, JAKE Oct 17, 2015 refill [place] [employer] Roller Person, [place]KE Nov 16, 2015 Consult [place] Asphalt Roller Person, JAKE July 04, 2015 [facility] follow-up [place] As[employer] Roller Person, JAKE July 28, 2015 Refill [place] [place] [place] August 31, 2015 Problems Problem Type Condition ICD-9 Code Onset Dates Condition Status Problem SOB (shortness of breath) R06.02 Active Problem HTN (hypertension) I10 Active Problem Chest pain R07.9 Active Problem Obesity E66.9 Active Problem Edema R60.9 Active Medications Medication Code System Code Instructions Start Date End Date Status Dosage Toprol XL [facility] [address]-44 25 MG orally Once a day July 28, 2015 Active 1 tablet Social History Social History Element Qualifiers Date Reported Tobacco: . Status: nonsmoker Oct 17, 2015 Marital Status: . Oct 17, 2015 Alcohol: . Non Drinker Oct 17, 2015 Occupation: . student Oct 17, 2015 Summary Purpose eClinicalWorks Submission
--- OUTSIDE RECORDS SUMMARY | 2018-04-07 16:51 | XMS REPORT ---
Author Author Cathy Abarca [facility] eClinicalWorks Address Unknown Phone Unavailable Care Team Providers Care Sales Representative Publications Name Role Phone Cathy Abarca CP Unavailable Allergies, Adverse Reactions, Alerts Substance Reaction Event Type N.K.D.A. 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 Problems Problem Type Condition ICD-9 Code Onset Dates Condition Status Assessment SOB (shortness of breath) R06.02 Active Assessment HTN (hypertension) I10 Active Assessment Chest pain R07.9 Active Assessment Obesity E66.9 Active Assessment Edema R60.9 Active Medications Medication Code System Code Instructions Start Date End Date Status Dosage Relpax [facility] [address]-94 40 MG Orally Once a day Active 1 tablet as needed one time Cefprozil [facility] [address]-56 500 MG Orally Once a day Active 1 tablet Vitamin D2 [facility] 24548-984[address] 88247 Orally one a week Active 1 tablet MethylPREDNISolone [facility] [address]-80 4 MG Orally Active Unknown Losartan Potassium [facility] [address]-63 50 MG Orally Once a day Active 1 tablet Acetaminophen-Codeine [facility] [address]-14 300-60 MG Orally every 6 hrs Active 1 tablet as needed Tramadol-Acetaminophen [facility] [address]-59 37.5-325 MG Orally every 6 hrs Active 2 tablets as needed Naproxen [facility] [address]-34 500 MG Orally every 12 hrs Active 1 tablet as needed Combivent Respimat [facility] [address]-15 20-100 MCG/ACT Inhalation Four times a day Active 1 puff Nexium [facility] [address]-43 40 MG Orally Once a day Active 1 capsule Singulair [facility] [address]-73 10 MG Orally Once a day Active 1 tablet in the evening Diazepam [facility] [address]-16 5 MG Orally daily Active 1 tablet Ibuprofen [facility] [address]-01 800 MG Orally prn Active 1 tablet Social History Social History Element Qualifiers Date Reported Tobacco: . Status: nonsmoker July 04, 2015 Marital Status: . July 04, 2015 Alcohol: . Non Drinker July 04, 2015 Occupation: . student July 04, 2015 Vital Signs Date/Time: July 04, 2015 Weight 195 lbs Height 62.5 in Cardiac Monitoring Heart Rate 75 /min Blood Pressure Diastolic 82 mm Hg Blood Pressure Systolic 120 mm Hg Summary Purpose eClinicalWorks Submission
--- OUTSIDE RECORDS SUMMARY | 2018-04-07 16:51 | XMS REPORT ---
Author Cathy Dunlap Organization eClinicalWorks Address Unknown Phone Unavailable Care Team Providers Care Guest Relations Coordinator Name Role Phone Cathy Abarca Unavailable Encounters Encounter Location Date Unknown [place] Flute Polisher, JAKE Sep 19, 2015 Consult [place] Flute Polisher, JAKE July 04, 2015 C-[facility] follow-up [place] [employer] July 28, 2015 Refill [place] Flute Polisher, JAKE August 31, 2015 Problems Problem Type Condition ICD-9 Code Onset Dates Condition Status Problem SOB (shortness of breath) R06.02 Active Problem HTN (hypertension) I10 Active Problem Chest pain R07.9 Active Problem Obesity E66.9 Active Problem Edema R60.9 Active Medications Medication Code System Code Instructions Start Date End Date Status Dosage Toprol XL [facility] [address]-42 25 MG orally Once a day July 28, 2015 Active 1 tablet Social History Social History Element Qualifiers Date Reported Tobacco: . Status: nonsmoker August 22, 2015 Marital Status: . August 22, 2015 Alcohol: . Non Drinker August 22, 2015 Occupation: . student August 22, 2015 Summary Purpose eClinicalWorks Submission
[2018-04-07] MEDS ORDERED: HYDROCODONE/APAP 5MG-325MG TAB PO ONE (17:15)
[2018-04-07] MEDS ORDERED: DEXAMETHASONE 10MG/ML PF INJ INJ ONE (17:15)
== END 2018-04-07 17:39 | disposition home or self-care (01) ==
LOC: FSED 16:48
DX: M54.42 Lumbago with sciatica, left side (principal); S39.012A Strain of muscle, fascia and tendon of lower back, initial encounter
CPT/HCPCS: 99284

== ENCOUNTER 2018-05-26 17:40 | Emergency (ER) | payer OTHER ==
[~2018-05-26] VITALS: Ht 157.5 cm; Wt 89.8 kg
--- OUTSIDE RECORDS SUMMARY | 2018-05-26 17:43 | XMS REPORT | Clinical Summary ---
Author Author [facility] Address Unknown Phone Unavailable Care Team Providers Care [employer] Name Role Phone Micaela Pierson MD PCP [...] mist (four) times inhaler a day. Active jmocuwq-bvsmeomrishva-cld Take 1 tablet 0 feine (EXCEDRIN MIGRAINE) [...] James F., MD Pyelonephritis (Primary Dx) 02/22/2018 [facility] General Internal Medicine - Encounter 02/28/2018 Consuelo Coronel MD Flank pain (Primary Dx); Sciatica of left side; Peripheral edema 07/24/2017 Emergency Emergency Medicine after 05/25/2017 Social History Date Tobacco Use Types Packs/Day [...] Taken Vital Sign Reading 02/28/2018 7:39 AM ADMINISTRATIVE SUPPORT COORDINATOR Blood Pressure 133/75 02/28/2018 1:05 PM ADMINISTRATIVE SUPPORT COORDINATOR Pulse 99 02/28/2018 7:39 AM ADMINISTRATIVE SUPPORT COORDINATOR Temperature 36.4 C (97.6 F) 02/28/2018 1:05 PM ADMINISTRATIVE SUPPORT COORDINATOR Respiratory Rate 19 02/28/2018 7:39 AM ADMINISTRATIVE SUPPORT COORDINATOR Oxygen Saturation 95% - Inhaled Oxygen - Concentration 02/27/2018 4:50 AM ADMINISTRATIVE SUPPORT COORDINATOR Weight 90.4 kg (199 lb 4.8 oz) 02/22/2018 9:36 PM ADMINISTRATIVE SUPPORT COORDINATOR Height 160 cm (5' 3") 02/27/2018 4:50 AM ADMINISTRATIVE SUPPORT COORDINATOR Body Mass Index 35.3 Plan of Treatment Health Maintenance Due Date Last Done Comments CERVICAL CANCER SCREENING 1986 BREAST CANCER SCREENING 12/13/2015 COLON CANCER SCREENING 12/13/2015 SHINGLES VACCINES (#1) 12/13/2015 INFLUENZA VACCINE 09/17/2018 Procedures Comments Procedure Name Priority Date/Time Associated Diagnosis CT UROGRAM Routine 02/28/2018 11:03 AM ADMINISTRATIVE SUPPORT COORDINATOR ESTIMATED GFR Routine 02/28/2018 6:03 AM ADMINISTRATIVE SUPPORT COORDINATOR COMPREHENSIVE METABOLIC Routine 02/28/2018 PANEL 6:03 AM ADMINISTRATIVE SUPPORT COORDINATOR HC COMPLETE BLD COUNT Routine 02/28/2018 W/AUTO DIFF 6:03 AM ADMINISTRATIVE SUPPORT COORDINATOR HC COMPLETE BLD COUNT Routine 02/25/2018 W/AUTO DIFF 7:43 AM ADMINISTRATIVE SUPPORT COORDINATOR ESTIMATED GFR Routine 02/25/2018 4:00 AM ADMINISTRATIVE SUPPORT COORDINATOR BASIC METABOLIC PANEL Routine 02/25/2018 4:00 AM ADMINISTRATIVE SUPPORT COORDINATOR URINALYSIS SCREEN AND Routine 02/24/2018 MICROSCOPY, WITH REFLEX 4:30 PM ADMINISTRATIVE SUPPORT COORDINATOR TO CULTURE URINE CULTURE Routine 02/24/2018 4:30 PM ADMINISTRATIVE SUPPORT COORDINATOR GRAM STAIN Routine 02/24/2018 4:30 PM ADMINISTRATIVE SUPPORT COORDINATOR ESTIMATED GFR Routine 02/24/2018 4:50 AM ADMINISTRATIVE SUPPORT COORDINATOR VITAMIN D 25 HYDROXY Routine 02/24/2018 LEVEL 4:50 AM ADMINISTRATIVE SUPPORT COORDINATOR THYROID STIMULATING Routine 02/24/2018 HORMONE 4:50 AM ADMINISTRATIVE SUPPORT COORDINATOR PREALBUMIN LEVEL Routine 02/24/2018 4:50 AM ADMINISTRATIVE SUPPORT COORDINATOR PHOSPHORUS LEVEL Routine 02/24/2018 4:50 AM ADMINISTRATIVE SUPPORT COORDINATOR MAGNESIUM LEVEL Routine 02/24/2018 4:50 AM ADMINISTRATIVE SUPPORT COORDINATOR BASIC METABOLIC PANEL Routine 02/24/2018 4:50 AM ADMINISTRATIVE SUPPORT COORDINATOR HC COMPLETE BLD COUNT Routine 02/24/2018 W/AUTO DIFF 4:50 AM ADMINISTRATIVE SUPPORT COORDINATOR STREP SCREEN CULTURE Routine 02/22/2018 11:28 PM ADMINISTRATIVE SUPPORT COORDINATOR GROUP A STREP, RAPID Routine 02/22/2018 ANTIGEN 11:28 PM ADMINISTRATIVE SUPPORT COORDINATOR GGT Routine 02/22/2018 11:27 PM ADMINISTRATIVE SUPPORT COORDINATOR ESTIMATED GFR STAT 02/22/2018 11:27 PM ADMINISTRATIVE SUPPORT COORDINATOR AMYLASE LEVEL STAT 02/22/2018 11:27 PM ADMINISTRATIVE SUPPORT COORDINATOR COMPREHENSIVE METABOLIC STAT 02/22/2018 PANEL 11:27 PM ADMINISTRATIVE SUPPORT COORDINATOR HC COMPLETE BLD COUNT STAT 02/22/2018 W/AUTO DIFF 11:27 PM ADMINISTRATIVE SUPPORT COORDINATOR CT RENAL STONE PROTOCOL STAT 02/22/2018 10:30 PM ADMINISTRATIVE SUPPORT COORDINATOR URINALYSIS STAT 02/22/2018 9:48 PM ADMINISTRATIVE SUPPORT COORDINATOR US DUPLEX VENOUS LOWER STAT 07/24/2017 EXTREMITY LEFT 7:[address] RENAL STONE PROTOCOL STAT 07/24/2017 6:39 PM CDT ZZESTIMATED GFR STAT 07/24/2017 6:26 PM CDT AMYLASE LEVEL STAT 07/24/2017 6:26 PM CDT COMPREHENSIVE METABOLIC STAT 07/24/2017 PANEL 6:26 PM CDT HC COMPLETE BLD COUNT STAT 07/24/2017 W/AUTO DIFF 6:26 PM CDT URINALYSIS STAT 07/24/2017 5:30 PM CDT after 05/25/2017 Results * CT Urogram (02/28/2018 11:03 AM ADMINISTRATIVE SUPPORT COORDINATOR) Narrative Performed At EXAMINATION:CT UROGRAM [facility] [...] mass. 3.No suspicious osseous lesions are seen. [facility]-[id number] Procedure Note Interface, Radiology Results Incoming - 02/28/2018 1:03 PM ADMINISTRATIVE SUPPORT COORDINATOR EXAMINATION: CT UROGRAM CLINICAL HISTORY: Hematuria unknown [...] 3. No suspicious osseous lesions are seen. [facility]-[id number] Performing Organization Address City/State/Zipcode Phone Number [facility] [address] [place] [address] * Estimated GFR (02/28/2018 6:03 AM ADMINISTRATIVE SUPPORT COORDINATOR) Only the most recent of 4 results within the time period is included. Estimated GFR 90 mL/min/1.73 m2 [facility] Comment: HOSPITAL CatergoryUnitsInte rpretation G1 >=90 Normal or high G2 60-89Mildly decreased [id number] Mildly to moderately decreased T3v10-44 Moderately to severely decreased G4 15-29Severely decreased G5 <15Kidney failure The eGFR was calculated using the Chronic Kidney Disease Epidemiology Collaboration (CKD-EPI) equation. Interpretation is based on recommendations of the National Kidney Foundation-Kidney Disease Outcomes Quality Initiative (NKF-KDOQI) published in 2014. Specimen Plasma specimen Performing Organization Address City/State/Zipcode Phone Number [facility] DEPARTMENT [address] [place] [address] PATHOLOGY AND GENOMIC MEDICINE [address] * CBC with platelet and differential (02/28/2018 6:03 AM ADMINISTRATIVE SUPPORT COORDINATOR) Only the most recent of 5 results within the time period is included. WBC 8.19 4.50 - 11.00 k/uL [facility] RBC 4.85 4.20 - 5.50 m/uL [facility] HGB 13.6 12.0 - 16.0 g/dL [facility] HCT 43.0 37.0 - 47.0 % [facility] MCV 88.7 82.0 - 100.[address] [facility] MCH 28.0 27.0 - 34.[address] [facility] MCHC 31.6 31.0 - 37.0 g/dL [facility] RDW - SD 42.4 37.0 - 55.[address] [facility] MPV 9.9 8.8 - 13.[address] [facility] Platelet count 425 (H) 150 - 400 k/uL [facility] Nucleated RBC 0.00 /[address] [facility] Neutrophils 44.3 39.0 - 69.0 % [facility] Lymphocytes 42.7 25.0 - 45.0 % [facility] Monocytes 9.5 0.0 - 10.0 % [facility] Eosinophils 2.6 0.0 - 5.0 % [facility] Basophils 0.5 0.0 - 1.0 % [facility] Immature granulocytes 0.4Comment: "Immature 0.0 - 1.0 % [facility] granulocytes" (promyelocytes, HOSPITAL myelocytes, metamyelocytes) Specimen Blood Performing Organization Address City/State/Zipcode Phone Number [facility] DEPARTMENT [address] [place] [address] PATHOLOGY AND GENOMIC MEDICINE [address] * Comprehensive metabolic panel (02/28/2018 6:03 AM ADMINISTRATIVE SUPPORT COORDINATOR) Only the most recent of 3 results within the time period is included. Sodium 127 (L) 135 - 148 mEq/L [facility] Potassium 4.3 3.5 - 5.0 mEq/L [facility] Chloride 92 (L) 98 - 112 mEq/L [facility] CO2 27 24 - 31 mEq/L [facility] Anion gap 8@ANIO 7 - 15 mEq/L [facility] BUN 14 6 - 20 mg/dL [facility] Creatinine 0.86 0.50 - 0.90 mg/dL [facility] Glucose 127 (H) 65 - 99 mg/dL [facility] Calcium 10.2 8.3 - 10.2 mg/dL [facility] Protein 8.0 6.3 - 8.3 g/dL [facility] Comment: HOSPITAL 4.6-7.0 g/dL 1 week 4.4-7.6 g/dL 7 months-1year 5.1-7.3 g/dL 1-2 years5.6-7 .5 g/dL >3 years6.0-8 .0 g/dL 18-150 6.3-8.3 g/dL Albumin 3.7 3.5 - 5.0 g/dL [facility] A/G ratio 0.9 0.7 - 3.8 [facility] Alkaline phosphatase 99 35 - 104 U/L [facility] AST 29 10 - 35 U/L [facility] ALT 47 5 - 50 U/L [facility] Total bilirubin 0.6 0.0 - 1.2 mg/dL [facility] Specimen Plasma specimen Performing Organization Address City/State/Zipcode Phone Number [facility] DEPARTMENT OF [address] [place] [address] PATHOLOGY AND GENOMIC MEDICINE [address] * Basic metabolic panel (02/25/2018 4:00 AM ADMINISTRATIVE SUPPORT COORDINATOR) Only the most recent of 2 results within the time period is included. Sodium 141 135 - 148 mEq/L [facility] Potassium 4.1 3.5 - 5.0 mEq/L [facility] Chloride 101 98 - 112 mEq/L [facility] CO2 28 24 - 31 mEq/L [facility] Anion gap 12@ANIO 7 - 15 mEq/L [facility] BUN 21 (H) 6 - 20 mg/dL [facility] Creatinine 1.05 (H) 0.50 - 0.90 mg/dL [facility] Glucose 89 65 - 99 mg/dL [facility] Calcium 9.4 8.3 - 10.2 mg/dL [facility] Specimen Plasma specimen Performing Organization Address City/[facility] Phone Number [facility] [place] [address] PATHOLOGY AND GENOMIC MEDICINE [address] * Urinalysis screen and microscopy, with reflex to culture (02/24/2018 4:30 PM ADMINISTRATIVE SUPPORT COORDINATOR) Specimen site Catheterized [facility] Color, UA Dania [facility] Appearance, UA Clear [facility] Specific gravity, UA 1.015 1.001 - 1.035 [facility] pH, UA 5.0 5.0 - 8.5 [facility] Protein, UA Negative Negative [facility] Glucose, UA Negative Negative [facility] Ketones, UA Negative Negative [facility] Bilirubin, UA Negative Negative [facility] Blood, UA Small (A) Negative [facility] Nitrite, UA Positive (A) Negative [facility] Urobilinogen, UA 4.0 (A) <2.0 [facility] Leukocyte esterase, UA Small (A) Negative [facility] Epithelial cells, UA 1 /HPF [facility] WBC, UA 8 (H) 0 - 4 /HPF [facility] RBC, UA 2 0 - 5 /HPF [facility] Bacteria, UA Few None seen [facility] Yeast, UA None seen [facility] Yeast with pseudohyphae, None seen [facility] Specimen Urine Performing Organization Address City/[facility] Hospital[facility] Phone Number [facility] DEPARTMENT [address] [address] PATHOLOGY AND GENOMIC MEDICINE [address] * Gram stain (02/24/2018 4:30 PM ADMINISTRATIVE SUPPORT COORDINATOR) Gram stain result Few WBC's [facility] Gram positive rods [facility] Comment: Specimen Information Specimen Source: Urine Specimen Site: Catheterized Specimen Urine - Catheterized Performing Organization Address City/[facility]/Zipcode Phone Number [facility] DEPARTMENT [address] [address] PATHOLOGY AND GENOMIC MEDICINE [address] * Urine culture (02/24/2018 4:30 PM ADMINISTRATIVE SUPPORT COORDINATOR) Urine culture isolate Mixed ba <=10-3 col/cc [facility] Comment: HOSPITAL Specimen Information Specimen Source: Urine Specimen Site: Catheterized Specimen Urine - Catheterized Performing Organization Address [facility] Phone Number [facility] [place] [address] PATHOLOGY AND GENOMIC MEDICINE [address] * Vitamin D 25 hydroxy level (02/24/2018 4:50 AM ADMINISTRATIVE SUPPORT COORDINATOR) Vitamin D, 25-hydroxy 16.1 (L) 30.0 - 150.0 ng/mL [facility] Comment: HOSPITAL This assay reports the sum [...] alternative methods. Specimen Blood Performing Organization Address [facility] Phone Number [facility] [place] [address] PATHOLOGY AND GENOMIC MEDICINE [address] * Thyroid stimulating hormone (02/24/2018 4:50 AM ADMINISTRATIVE SUPPORT COORDINATOR) TSH 0.16 (L) 0.27 - 4.20 uIU/mL [facility] Specimen Plasma specimen Performing Organization Address City/[facility]/Zipcode Phone Number [facility] [place] [address] PATHOLOGY AND GENOMIC MEDICINE [address] * Prealbumin level (02/24/2018 4:50 AM ADMINISTRATIVE SUPPORT COORDINATOR) Prealbumin 22 16 - 32 mg/dL [facility] Specimen Serum Performing Organization Address City/State/Zipcode Phone Number [facility] [place] [address] PATHOLOGY AND GENOMIC MEDICINE [address] * Phosphorus level (02/24/2018 4:50 AM ADMINISTRATIVE SUPPORT COORDINATOR) Phosphorus 3.5 2.4 - 4.5 mg/dL [facility] Specimen Plasma specimen Performing Organization Address City/[facility]/Zipcode Phone Number [facility] [place] [address] PATHOLOGY AND GENOMIC MEDICINE [address] * Magnesium level (02/24/2018 4:50 AM ADMINISTRATIVE SUPPORT COORDINATOR) Magnesium 2.0 1.6 - 2.6 mg/dL [facility] Specimen Plasma specimen Performing Organization Address City/[facility] [place] Phone Number [facility] [place] [address] PATHOLOGY [address] [facility] MEDICINE [address] * Group A strep, rapid antigen (02/22/2018 11:28 PM ADMINISTRATIVE SUPPORT COORDINATOR) Group A strep, rapid Negative for Group A [facility] antigen result Streptococcus antigen. [facility] Comment: [facility] Specimen Information Specimen Source: Throat Specimen Site: Not otherwise specified Specimen Throat - Not otherwise specified Performing Organization Address City/[facility] [place] [address] PATHOLOGY AND GENOMIC MEDICINE, [address] * Strep screen culture (02/22/2018 11:28 PM ADMINISTRATIVE SUPPORT COORDINATOR) Strep screen culture No beta hemolytic Streptococci [facility] Comment: Specimen Information Specimen Source: Throat Specimen Site: Not otherwise specified Specimen Throat - Not otherwise specified Performing Organization Address City/[facility]/Zipcode Phone Number [facility] [place] [address] PATHOLOGY AND GENOMIC MEDICINE [address] * GGT (02/22/2018 11:27 PM ADMINISTRATIVE SUPPORT COORDINATOR) GGT 117 (H) 0 - 39 U/L [facility] Specimen Plasma specimen Performing Organization Address City/State/Zipcode Phone Number [facility] DEPARTMENT OF [address] [place] [address] PATHOLOGY AND GENOMIC MEDICINE [facility] [address] [place] [address] HOSPITAL * Amylase level (02/22/2018 11:27 PM ADMINISTRATIVE SUPPORT COORDINATOR) Only the most recent of 2 results within the time period is included. Amylase 76 14 - 97 U/L [facility] Specimen Plasma specimen Performing Organization Address City/State/Zipcode Phone Number [facility] [place] [address] [place] [address] PATHOLOGY AND GENOMIC MEDICINE, [facility] [id number] [place] [address] [facility] * CT Renal Stone Protocol (02/22/2018 10:30 PM ADMINISTRATIVE SUPPORT COORDINATOR) Only the most recent of 2 results [...] urolithiasis or hydroureter/hydronephrosis. No acute gastrointestinal pathology. [facility]-[id number] Procedure Note Interface, Radiology Results Incoming - 02/22/2018 10:44 PM ADMINISTRATIVE SUPPORT COORDINATOR EXAMINATION: CT RENAL STONE PROTOCOL CLINICAL HISTORY: [...] urolithiasis or hydroureter/hydronephrosis. No acute gastrointestinal pathology. [facility]-[id number] Performing Organization Address City/State/Zipcode Phone Number [facility] [address] [place] [address] * Urinalysis (02/22/2018 9:48 PM ADMINISTRATIVE SUPPORT COORDINATOR) Only the most recent of 2 results within the time period is included. Glucose, UA Negative Negative [facility] Bilirubin, UA Negative Negative [facility] Ketones, UA Negative Negative [facility] Specific gravity, UA 1.015 1.001 - 1.035 [facility] Blood, UA Small (A) Negative [facility] pH, UA 6.0 5.0 - 8.5 [facility] Protein, UA Negative Negative [facility] Urobilinogen, UA <2.0 <2.0 [facility] Nitrite, UA Negative Negative [facility] Leukocyte esterase, UA Trace (A) Negative [facility] Color, UA Yellow [facility] Appearance, UA Clear [facility] Specimen Urine Performing Organization Address City/State/Zipcode Phone Number DEPARTMENT OF [address] [place] [address] PATHOLOGY AND GENOMIC MEDICINE, [address] * Pv duplex venous lower extremity [...] is no evidence of deep venous thrombosis. [id number] Procedure Note Interface, Radiology Results Incoming - [...] is no evidence of deep venous thrombosis. [id number] Performing Organization Address City/State/Zipcode Phone Number [facility] [address] [place] [address] * Estimated GFR (07/24/2017 6:26 PM CDT) GFR Non Af Amer 58 (A) mL/min/1.73 m2 DEPARTMENT OF PATHOLOGY AND GENOMIC MEDICINE, [facility] GFR Af Amer 71 mL/min/1.73 m2 DEPARTMENT OF Comment: PATHOLOGY AND Chronic kidney disease: <60 [facility], mL/min/1.73m2 [facility] Kidney failure: <15 [facility] mL/min/1.73m2 The estimated GFR is calculated [...] specimen Performing Organization Address City/State/Zipcode Phone Number [address] [address] [facility] after 05/25/2017 Insurance Payer Benefit Subscriber ID Type Phone Address Plan / Group [employer] xxxxxxxxx [facility] [facility] Advance Directives Patient has advance care planning documents, and code status on file. For more i nformation, please contact: Jose Rowley [address] [place] [address] Date Inactivated Comments Code Status Date Activated 03/01/2018 1:40 AM Full Code 02/23/2018 8:01 AM Code Status decision reached by: Patient
--- OUTSIDE RECORDS SUMMARY | 2018-05-26 17:44 | XMS REPORT | CCD ---
Author Author Auto Generated Organization [facility] Address Unknown Phone Unavailable Care Team Providers Care Reinstatement Clerk Name Role Phone Harsha Emmanuel CP Allergies, Adverse Reactions, Alerts Substance Reaction Status NKDA Active Medications Medication Instructions Start Date End Date Status DuoNeb inhalation 3 ml, Route: INHALATION, Drug Form: 10/10/2012 10/11/2012 Discontinued solution SOLN, Dosing Weight 83.636, kg, PRN, PRN Respiratory Protocol, Start date: 10/10/12 18:27:00, Duration: 30 day, Stop date: 11/09/12 18:26:00 ipratropium CFC free 2 puff, INHALATION, QID, 13 gm, 10/10/2012 Ordered 17 mcg/inh Substitution Allowed, Maintenance, inhalation aerosol AERO dexamethasone 8 mg, Route: IM, ONCE, Dosing 10/10/2012 10/10/2012 Completed Weight 83.636, kg, Priority: STAT, Start date: 10/10/12 19:23:00, Stop date: 10/10/12 19:23:00 Tylenol 650 mg, Route: PO, Drug form: LIQ, 10/10/2012 10/10/2012 Completed ONCE, Dosing Weight 83.636, kg, Start date: 10/10/12 19:31:00, Stop date: 10/10/12 19:31:00 acetaminophen-hydroc 15 ml, Route: PO, Drug Form: ELIX, 10/10/2012 10/10/2012 Completed odone 334 mg-5 mg/10 Dosing Weight 83.636, kg, ONCE, mL oral elixir STAT, Start date: 10/10/12 18:44:00, Stop date: 10/10/12 18:44:00 Zofran ODT 4 mg, 1 tab, Route: PO, Drug form: 10/10/2012 10/10/2012 Completed TABDIS, ONCE, Dosing Weight 83.636, kg, Priority: STAT, Start date: 10/10/12 18:44:00, Stop date: 10/10/12 18:44:00 Zithromax Z-Sumit 250 250 mg, PO, Daily, Take 2 tablets 10/10/2012 10/15/2012 Ordered mg oral tablet by mouth the first day then 1 tablet by mouth days 2-5, 6 tab, Substitution Allowed Take 2 tablets by mouth the first day then 1 tablet by mouth days 2-5 predniSONE 20 mg 60 mg, 3 tab, PO, Daily, Take 3 10/10/2012 10/15/2012 Ordered oral tablet tablets for 60 mg dose, 15 tab, Substitution Allowed Take 3 tablets for 60 mg dose Vital Signs Most recent to oldest [Reference Range]: 1 2 Height 157.48 cm (10/10/2012 16:44:00) Temperature Oral [96.4-99.1 DegF] 97.9 DegF (10/10/2012 20:37:00) 97.8 DegF (10/10/2012 16:44:00) Systolic Blood Pressure [90-140 mmHg] 128 mmHg (10/10/2012 20:37:00) 104 mmHg (10/10/2012 16:44:00) Diastolic Blood Pressure [60-90 mmHg] 84 mmHg (10/10/2012 20:37:00) 73 mmHg (10/10/2012 16:44:00) Respiratory Rate [14-20 BRMIN] 18 BRMIN (10/10/2012 20:37:00) 18 BRMIN (10/10/2012 16:44:00) Peripheral Pulse Rate [60-100 bpm] 84 bpm (10/10/2012 20:37:00) 90 bpm (10/10/2012 16:44:00) Weight 83.636 kg (10/10/2012 16:44:00)
--- OUTSIDE RECORDS SUMMARY | 2018-05-26 17:44 | XMS REPORT | Summary of Care ---
Author Organization Unknown Address Unknown Phone Unavailable Encounter [facility] Casandra(JAVI) [id number] Date(s): 07/27/13 - 07/27/13 [facility] [address] Discharge Disposition: Home Physician Attending: Jefferson Sheets MD Physician_Referring: Jefferson Sheets MD Reason for Visit 784.8 Vital Signs 1 2 3 Most recent to oldest [Reference Range]: 157.48 cm (07/26/13 4:03 PM) Height 129 mmHg (07/27/13 1:30 PM) 129 mmHg (07/27/13 1:15 PM) 119 mmHg (07/27/13 1:00 PM) Systolic Blood Pressure [90-140 mmHg] 74 mmHg (07/27/13 1:30 PM) 74 mmHg (07/27/13 1:15 PM) 71 mmHg (07/27/13 1:00 PM) Diastolic Blood Pressure [60-90 mmHg] 18 BRMIN (07/27/13 11:45 AM) 18 BRMIN (07/27/13 11:37 AM) 14 BRMIN (07/27/13 11:15 AM) Respiratory Rate [14-20 BRMIN] 85 kg (07/26/13 4:03 PM) Weight 34.27 m2 (07/26/13 4:03 PM) Body Mass Index Problem List Condition Effective Dates Status Health Status Informant Acid Active reflux(Confirmed) Anemia(Confirmed) Active Asthma(Confirmed) Active Frequent Active UTI(Confirmed) Allergies, Adverse Reactions, Alerts Substance Reaction Severity Status NKDA Active Medications acetaminophen 1,000 mg, 100 mL, Route: IVPB, Drug form: INJ, ONCE, Dosing Weight 85, kg, PRN P ain Score 1-3, Start date: 07/27/13 10:51:00, Duration: 1 doses or times, Stop d ate: Limited # of times Notes: Infuse over 15 minutes Do not exceed 4gm/day of acetaminophen Start Date: 07/27/13 Stop Date: 07/27/13 Status: Completed dexamethasone 4 mg, 1 mL, Route: IVP, Drug form: INJ, ONCE, Dosing Weight 85, kg, PRN Nausea & Vomiting, Start date: 07/27/13 10:51:00 Notes: Concentration: 4mg/ml Start Date: 07/27/13 Stop Date: 07/27/13 Status: Discontinued fentaNYL 50 microgram, 1 mL, Route: IVP, Drug form: INJ, Q5Min, Dosing Weight 85, kg, PRN Pain Score 7-10, Start date: 07/27/13 10:51:00, Duration: 2 doses or times, Stop date: Limited # of times Notes: (Same as: Sublimaze) Preservative free. Start Date: 07/27/13 Stop Date: 07/27/13 Status: Discontinued flumazenil 0.2 mg, 2 mL, Route: IVP, Drug form: INJ, PRN, Dosing Weight 85, kg, PRN Benzodi azepine Reversal, Initial dose, Start date: 07/27/13 10:51:00, Duration: 30 day, Stop date: 08/26/13 10:50:00 Notes: (Same as: Romazicon) Start Date: 07/27/13 Stop Date: 07/27/13 Status: Discontinued hydrALAZINE 10 mg, 0.5 mL, Route: IVP, Drug form: INJ, Q20Min, Dosing Weight 85, kg, PRN Natalia vated BP, Start date: 07/27/13 10:51:00, Duration: 2 doses or times, Stop date: Limited # of times Notes: (Same as: Apresoline)Push over 5 minutes Start Date: 07/27/13 Stop Date: 07/27/13 Status: Discontinued ketorolac 30 mg, 1 mL, Route: IVP, Drug form: INJ, ONCE, Dosing Weight 85, kg, Start date: 07/27/13 10:51:00, Duration: 1 doses or times, Stop date: 07/27/13 10:51:00 Notes: (Same as:Toradol) IV bolus must be given >15 seconds. Give IM administration slowly and deeply into the muscle. Not for use > 4 days Start Date: 07/27/13 Stop Date: 07/27/13 Status: Completed Lactated Ringers Injection IV 1,000 mL 1,000 mL, Rate: 125 ml/hr, Infuse over: 8 hr, Route: IV, Dosing Weight 85 kg, To norbert Volume: 1,000, Start date: 07/27/13 10:51:00, Duration: 30 day, Stop date: 0 08/26/13 10:50:00 Start Date: 07/27/13 Stop Date: 07/27/13 Status: Discontinued meperidine 12.5 mg, 0.25 mL, Route: IVP, Drug form: INJ, Q30Min, Dosing Weight 85, kg, PRN Other -See Comment, For shivering, Start date: 07/27/13 10:51:00, Duration: 2 do ses or times, Stop date: Limited # of times Notes: (Same As: Demerol) Start Date: 07/27/13 Stop Date: 07/27/13 Status: Discontinued metoprolol 1 mg, 1 mL, Route: IVP, Drug form: INJ, Q5Min, Dosing Weight 85, kg, PRN Other - See Comment, Start date: 07/27/13 10:51:00, Duration: 5 doses or times, Stop sukhi e: Limited # of times Notes: (Same as: Lopressor)Push over 2 minutes Start Date: 07/27/13 Stop Date: 07/27/13 Status: Discontinued morphine Sulfate 2 mg, 1 mL, Route: IVP, Drug form: INJ, Q5Min, Dosing Weight 85, kg, PRN Pain Sc ore 4-6, Start date: 07/27/13 10:51:00, Duration: 5 doses or times, Stop date: L imited # of times Notes: (Same as:MORPhine Sulfate) Start Date: 07/27/13 Stop Date: 07/27/13 Status: Discontinued naloxone 0.04 mg, 0.1 mL, Route: IVP, Drug form: INJ, Q2MIN, Dosing Weight 85, kg, PRN Na rcotic Reversal, Start date: 07/27/13 10:51:00, Duration: 8 doses or times, Stop date: Limited # of times Notes: (Same as: Narcan) Start Date: 07/27/13 Stop Date: 07/27/13 Status: Discontinued ondansetron 4 mg, 2 mL, Route: IVP, Drug form: INJ, ONCE, Dosing Weight 85, kg, PRN Nausea & Vomiting, Start date: 07/27/13 10:51:00 Notes: (Same as: Zofran) Start Date: 07/27/13 Stop Date: 07/27/13 Status: Discontinued oxyCODONE 10 mg, 2 tab, Route: PO, Drug form: TAB, Q4H, Dosing Weight 85, kg, PRN Pain Sco re 7-10, Start date: 07/27/13 10:51:00, Duration: 30 day, Stop date: 08/26/13 10 :50:00 Notes: (Same as: OxyIR) Start Date: 07/27/13 Stop Date: 07/27/13 Status: Discontinued oxyCODONE 5 mg, 1 tab, Route: PO, Drug form: TAB, Q4H, Dosing Weight 85, kg, PRN Pain Scor e 4-6, Start date: 07/27/13 10:51:00, Duration: 30 day, Stop date: 08/26/13 10:5 0:00 Notes: (Same as: OxyIR) Start Date: 07/27/13 Stop Date: 07/27/13 Status: Discontinued promethazine 6.25 mg, 0.25 mL, Route: IM, Drug form: INJ, ONCE, Dosing Weight 85, kg, PRN Ronan sea & Vomiting, Start date: 07/27/13 10:51:00 Notes: Do not give IV push. (Same as: Phenergan) Start Date: 07/27/13 Stop Date: 07/27/13 Status: Discontinued Results URINE CHEM Most recent to 1 oldest [Reference Range]: U Preg [Negative] Negative (07/27/13 7:05 AM) Medications Administered During Your Visit No data available for this section Immunizations No data available for this section Social History Social History Type Response Smoking Status Former smoker, Exposure to Tobacco Smoke None, Cigarette Smoking Last 365 Days No, Reg Smoking Cessation Counseling Yes
--- OUTSIDE RECORDS SUMMARY | 2018-05-26 17:44 | XMS REPORT | Summary of Care ---
Author Author [facility] Organization [facility] Address Unknown Phone Unavailable Encounter HQ Casandra(JAVI) [id number] Date(s): 04/14/18 - 04/15/18 [facility] [address] [place] [address]- Discharge Disposition: Home or Self Care Attending Physician: Jyotsna Toscano MD Admitting Physician: Jyotsna Toscano MD Referring Physician: Jyotsna Toscano MD Vital Signs 1 2 3 Most recent to oldest [Reference Range]: 158.75 cm (04/10/18 11:11 AM) Height 98.2 DegF (04/15/18 4:00 PM) 98.5 DegF (04/15/18 7:52 AM) 98.4 DegF (04/14/18 10:46 PM) Temperature Oral [96.4-99.1 DegF] 130/76 mmHg (04/15/18 4:00 PM) 132/86 mmHg (04/15/18 7:52 AM) 130/76 mmHg (04/14/18 10:46 PM) Blood Pressure [90-140/60-90 mmHg] 16 BRMIN (04/15/18 4:00 PM) 18 BRMIN (04/15/18 8:45 AM) 18 BRMIN (04/15/18 7:52 AM) Respiratory Rate [14-20 BRMIN] 64 bpm (04/15/18 7:52 AM) 86 bpm (04/14/18 10:46 PM) 87 bpm (04/14/18 4:56 PM) Peripheral Pulse Rate [60-100 bpm] 92.983 kg (04/10/18 11:11 AM) Weight 36.9 m2 (04/10/18 11:11 AM) Body Mass Index Problem List Condition Effective Dates Status Health Status Informant Acid Active reflux(Confirmed) Anemia(Confirmed) Active Anxiety Active depression(Confirmed ) Asthma(Confirmed) Active Cervical Active dysplasia(Confirmed) Frequent Active UTI(Confirmed) HTN - Active Hypertension(Confirm ed) SOBOE - Shortness of Active breath on exertion(Confirmed) Allergies, Adverse Reactions, Alerts Substance Reaction Severity Status Ashli Active Medications acetaminophen 1,000 mg, 2 tab, Route: PO, Drug form: TAB, Q6Hnow, Dosing Weight 92.983, kg, St art date: 04/14/18 11:00:00 PRODUCT STRATEGY DIRECTOR, Duration: 30 day, Stop date: 05/14/18 5:00:00 C DT Notes: Max acetaminophen 4000 mg/day (4 gm/day). (Same as: Tylenol Extra Streng ) Start Date: 04/14/18 Stop Date: 04/15/18 Status: Discontinued Al hydroxide/Mg hydroxide/simethicone 200 mg-200 mg-20 mg/5 mL oral suspension 30 mL, Route: PO, Drug Form: SUSP, Dosing Weight 92.983, kg, Q4H, PRN Indigestio n, Start date: 04/14/18 10:19:00 PRODUCT STRATEGY DIRECTOR, Duration: 30 day, Stop date: 05/14/18 10:1 8:00 CDT Notes: (aluminum hydroxide-magnesium hyd-simethicone 561-032-49hd/5ml 30 ml ud S US) Start Date: 04/14/18 Stop Date: 04/15/18 Status: Discontinued albuterol 0.083% inhalation solution 2.5 mg, 3.01 mL, Route: NEB, Drug form: SOLN, RQ4H, Dosing Weight 92.983, kg, WI N Respiratory Pathway, Start date: 04/14/18 18:22:00 PRODUCT STRATEGY DIRECTOR, Duration: 30 day, Stop date: 05/14/18 18:21:00 CDT Notes: SEE RT DOCUMENTATION (Same as: Isabelle) Start Date: 04/14/18 Stop Date: 04/15/18 Status: Discontinued albuterol 0.5% inhalation solution NEB, RQ4H, PRN Respiratory Pathway, 0 Refill(s) Start Date: 04/15/18 Status: Ordered ANES acetaminophen 1,000 mg, 2 tab, Route: PO, Drug form: TAB, ONCE, Dosing Weight 92.983, kg, PRN Pain Score 1-3, Start date: 04/14/18 10:49:00 PRODUCT STRATEGY DIRECTOR Notes: Max acetaminophen 4000 mg/day (4 gm/day). (Same as: Tylenol Extra Streng th) Start Date: 04/14/18 Stop Date: 04/14/18 Status: Discontinued ANES diphenhydrAMINE 12.5 mg, 0.25 mL, Route: IVP, Drug form: INJ, Q6H, Dosing Weight 92.983, kg, PRN Itching, Start date: 04/14/18 10:49:00 PRODUCT STRATEGY DIRECTOR, Stop date: 04/15/18 0:00:00 PRODUCT STRATEGY DIRECTOR Notes: (Same as: Benadryl) Start Date: 04/14/18 Stop Date: 04/14/18 Status: Discontinued ANES fentaNYL 50 microgram, 1 mL, Route: IVP, Drug form: INJ, Q5Min, Dosing Weight 92.983, kg, PRN Pain Score 7-10, Priority: Routine, Start date: 04/14/18 10:49:00 PRODUCT STRATEGY DIRECTOR, Dura tion: 2 doses or times, Stop date: 04/15/18 0:00:00 PRODUCT STRATEGY DIRECTOR Notes: (Same as: Sublimaze) Preservative free. Start Date: 04/14/18 Stop Date: 04/14/18 Status: Discontinued ANES flumazenil 0.2 mg, 2 mL, Route: IVP, Drug form: INJ, PRN, Dosing Weight 92.983, kg, PRN Rusty zodiazepine Reversal, Initial dose, Start date: 04/14/18 10:49:00 PRODUCT STRATEGY DIRECTOR, Stop date : 04/15/18 0:00:00 PRODUCT STRATEGY DIRECTOR Notes: (Same as: Romazicon) Start Date: 04/14/18 Stop Date: 04/14/18 Status: Discontinued ANES hydrALAZINE 10 mg, 0.5 mL, Route: IVP, Drug form: INJ, Q20Min, Dosing Weight 92.983, kg, PRN Elevated BP, Start date: 04/14/18 10:49:00 PRODUCT STRATEGY DIRECTOR, Duration: 2 doses or times, Stop date: 04/15/18 0:00:00 PRODUCT STRATEGY DIRECTOR Notes: (Same as: Apresoline)Push over 5 minutes Start Date: 04/14/18 Stop Date: 04/14/18 Status: Discontinued ANES HYDROmorphone 0.5 mg, 0.5 mL, Route: IVP, Drug form: INJ, Q5Min, Dosing Weight 92.983, kg, PRN Pain Score 7-10, Start date: 04/14/18 10:49:00 PRODUCT STRATEGY DIRECTOR, Duration: 4 doses or times, Stop date: 04/15/18 0:00:00 PRODUCT STRATEGY DIRECTOR Notes: Same as: Dilaudid Start Date: 04/14/18 Stop Date: 04/14/18 Status: Discontinued ANES labetalol 10 mg, 2 mL, Route: IVP, Drug form: INJ, Q5Min, Dosing Weight 92.983, kg, PRN El evated BP, Start date: 04/14/18 10:49:00 PRODUCT STRATEGY DIRECTOR, Duration: 5 doses or times, Stop d ate: 04/15/18 0:00:00 PRODUCT STRATEGY DIRECTOR Notes: (Same as: Normodyne, Trandate)Push over 2 minutes Give bolus over 2-3 mi nutes. Start Date: 04/14/18 Stop Date: 04/14/18 Status: Discontinued ANES meperidine 12.5 mg, 0.25 mL, Route: IVP, Drug form: INJ, Q30Min, Dosing Weight 92.983, kg, PRN Other -See Comment, For shivering, Start date: 04/14/18 10:49:00 PRODUCT STRATEGY DIRECTOR, Durati on: 2 doses or times, Stop date: 04/15/18 0:00:00 PRODUCT STRATEGY DIRECTOR Notes: (Same As: Demerol) Start Date: 04/14/18 Stop Date: 04/14/18 Status: Discontinued ANES naloxone 0.4 mg, 1 mL, Route: IVP, Drug form: INJ, Q2MIN, Dosing Weight 92.983, kg, PRN N arcotic Reversal, Start date: 04/14/18 10:49:00 PRODUCT STRATEGY DIRECTOR, Duration: 8 doses or times, Stop date: 04/15/18 0:00:00 PRODUCT STRATEGY DIRECTOR Notes: Same as Narcan Start Date: 04/14/18 Stop Date: 04/14/18 Status: Discontinued ANES ondansetron 4 mg, Route: IVP, ONCE, Dosing Weight 92.983, kg, PRN Nausea & Vomiting, Start date: 04/14/18 10:49:00 PRODUCT STRATEGY DIRECTOR Start Date: 04/14/18 Stop Date: 04/14/18 Status: Completed ANES oxyCODONE 5 mg, 1 tab, Route: PO, Drug form: TAB, Q4H, Dosing Weight 92.983, kg, PRN Pain Score 4-6, Start date: 04/14/18 10:49:00 PRODUCT STRATEGY DIRECTOR, Stop date: 04/15/18 0:00:00 PRODUCT STRATEGY DIRECTOR Notes: (Same as: Roxicodone) Start Date: 04/14/18 Stop Date: 04/14/18 Status: Discontinued ANES oxyCODONE 10 mg, 2 tab, Route: PO, Drug form: TAB, Q4H, Dosing Weight 92.983, kg, PRN Pain Score 7-10, Start date: 04/14/18 10:49:00 PRODUCT STRATEGY DIRECTOR, Stop date: 04/15/18 0:00:00 PRODUCT STRATEGY DIRECTOR Notes: (Same as: Roxicodone) Start Date: 04/14/18 Stop Date: 04/14/18 Status: Discontinued bumetanide 1 mg oral tablet 1 mg=1 tab, PO, Daily, # 30 tab, 0 Refill(s) Start Date: 04/10/18 Status: Ordered cefOXitin (ANES) Route: IV, Drug form: INJ, ONCE, Stop date: 04/14/18 9:18:00 PRODUCT STRATEGY DIRECTOR Start Date: 04/14/18 Stop Date: 04/14/18 Status: Completed cefOXitin + sterile water 20 mL 2 gm, Route: IVPB, ABXQ6H, Dosing Weight 92.983, kg, Start date: 04/14/18 14:00: 00 PRODUCT STRATEGY DIRECTOR, Duration: 3 doses or times, Stop date: 04/15/18 2:00:00 PRODUCT STRATEGY DIRECTOR, ABX Indicat ion: Surgical Prophylaxis Notes: (Same As: Mefoxin) MEDICATION WASTE Product Size: 2000 mgProduct Wasted: ___ mg Start Date: 04/14/18 Stop Date: 04/15/18 Status: Completed Combivent Respimat CFC free 100 mcg-20 mcg/inh inhalation aerosol Route: INHALATION, Drug Form: AERO, Dosing Weight 92.983, kg, PRN, PRN Wheezing, Start date: 04/14/18 17:09:00 PRODUCT STRATEGY DIRECTOR, Duration: 30 day, Stop date: 05/14/18 18:08: 00 CDT Start Date: 04/14/18 Stop Date: 04/14/18 Status: Deleted dexamethasone (ANES) Route: IV, Drug form: INJ, ONCE, Stop date: 04/14/18 9:59:00 PRODUCT STRATEGY DIRECTOR Start Date: 04/14/18 Stop Date: 04/14/18 Status: Completed docusate-senna 50 mg-8.6 mg oral tablet 1 tab, PO, BID, 0 Refill(s) Start Date: 04/15/18 Status: Ordered docusate-senna 50 mg-8.6 mg oral tablet 1 tab, Route: PO, Drug Form: TAB, Dosing Weight 92.983, kg, BID, Start date: 9:00:00 PRODUCT STRATEGY DIRECTOR, Duration: 30 day, Stop date: 05/14/18 17:00:00 CDT Notes: (Same as Kathryn) Equiv. to Yasmine-Colace. Start Date: 04/15/18 Stop Date: 04/15/18 Status: Discontinued DuoNeb inhalation solution 3 mL, Route: NEB, Drug Form: SOLN, RBID, PRN Wheezing, Start date: 04/14/18 18:2 3:00 PRODUCT STRATEGY DIRECTOR, Duration: 30 day, Stop date: 05/14/18 18:22:00 CDT Notes: (Same as: Duoneb) Start Date: 04/14/18 Stop Date: 04/15/18 Status: Discontinued fentaNYL (ANES) Route: IV, Drug form: INJ, ONCE, Stop date: 04/14/18 9:03:00 PRODUCT STRATEGY DIRECTOR Start Date: 04/14/18 Stop Date: 04/14/18 Status: Completed glycopyrrolate (ANES) Route: IV, Drug form: INJ, ONCE, Stop date: 04/14/18 10:39:00 PRODUCT STRATEGY DIRECTOR Start Date: 04/14/18 Stop Date: 04/14/18 Status: Completed ibuprofen 600 mg oral tablet 600 mg=1 tab, PO, Q6H, PRN Pain, take with food, # 30 tab, 0 Refill(s) Start Date: 04/15/18 Stop Date: 04/26/18 Status: Ordered ketOROLAC 30 mg, 1 mL, Route: IVP, Drug form: INJ, Q6Hnow, Dosing Weight 92.983, kg, Start date: 04/14/18 11:00:00 PRODUCT STRATEGY DIRECTOR, Duration: 24 hr, Stop date: 04/15/18 5:00:00 PRODUCT STRATEGY DIRECTOR Notes: (Same as:Toradol) IV bolus must be given >15 seconds. Give IM administration slowly and deeply into the muscle.Not for use > 4 days MEDICATION WASTE Product Size: 30 mgProduct Wasted: ___ mg Start Date: 04/14/18 Stop Date: 04/15/18 Status: Completed ketOROLAC (ANES) IV, ONCE Start Date: 04/14/18 Stop Date: 04/14/18 Status: Completed Lactated Ringers Injection IV (ANES) 1000 mL Route: IV, Total Volume: 1,000, Start date: 04/14/18 7:52:00 PRODUCT STRATEGY DIRECTOR, Stop date: 8:52:00 PRODUCT STRATEGY DIRECTOR Start Date: 04/14/18 Stop Date: 04/14/18 Status: Completed Lactated Ringers Injection IV 1,000 mL 1,000 mL, Rate: 25 ml/hr, Infuse over: 40 hr, Route: IV, Dosing Weight 92.983 kg , Total Volume: 1,000, Start date: 04/14/18 7:29:00 PRODUCT STRATEGY DIRECTOR, Duration: 1 day, Stop d ate: 04/15/18 7:28:00 PRODUCT STRATEGY DIRECTOR, 2.06, m2 Start Date: 04/14/18 Stop Date: 04/14/18 Status: Discontinued Lactated Ringers Injection IV 1,000 mL 1,000 mL, Rate: 125 ml/hr, Infuse over: 8 hr, Route: IV, Dosing Weight 92.983 kg , Total Volume: 1,000, Start date: 04/14/18 10:19:00 PRODUCT STRATEGY DIRECTOR, Duration: 30 day, Stop date: 05/14/18 10:18:00 CDT, 2.06, m2 Start Date: 04/14/18 Stop Date: 04/15/18 Status: Discontinued lidocaine (ANES) Route: IV, Drug form: INJ, ONCE, Stop date: 04/14/18 9:03:00 PRODUCT STRATEGY DIRECTOR Start Date: 04/14/18 Stop Date: 04/14/18 Status: Completed losartan 50 mg, 1 tab, Route: PO, Drug form: TAB, Daily, Dosing Weight 92.983, kg, Start date: 04/15/18 9:00:00 PRODUCT STRATEGY DIRECTOR, Duration: 30 day, Stop date: 05/14/18 9:00:00 CDT Notes: (Same as: Eyal) Start Date: 04/15/18 Stop Date: 04/15/18 Status: Discontinued meperidine (ANES) Route: IV, Drug form: INJ, ONCE, Stop date: 04/14/18 10:39:00 PRODUCT STRATEGY DIRECTOR Start Date: 04/14/18 Stop Date: 04/14/18 Status: Completed midazolam (ANES) Route: IV, Drug form: SOLN, ONCE, Stop date: 04/14/18 8:28:00 PRODUCT STRATEGY DIRECTOR Start Date: 04/14/18 Stop Date: 04/14/18 Status: Completed morphine Sulfate 2 mg, 1 mL, Route: IVP, Drug form: SOLN, Q4H, Dosing Weight 92.983, kg, PRN Pain Score 7-10, Start date: 04/14/18 10:19:00 PRODUCT STRATEGY DIRECTOR, Duration: 30 day, Stop date: 10:18:00 CDT Start Date: 04/14/18 Stop Date: 04/15/18 Status: Discontinued Motrin 600 mg, 1 tab, Route: PO, Drug form: TAB, Q6H-02, Dosing Weight 92.983, kg, Star t date: 04/15/18 8:00:00 PRODUCT STRATEGY DIRECTOR, Duration: 30 day, Stop date: 05/15/18 2:00:00 CDT Notes: (Same as: Motrin)"Do Not Crush" Take with food. Start Date: 04/15/18 Stop Date: 04/15/18 Status: Discontinued neostigmine (ANES) Route: IV, Drug form: INJ, ONCE, Stop date: 04/14/18 10:39:00 PRODUCT STRATEGY DIRECTOR Start Date: 04/14/18 Stop Date: 04/14/18 Status: Completed ondansetron 4 mg, 2 mL, Route: IVP, Drug form: INJ, Q8H, Dosing Weight 92.983, kg, PRN Nause a & Vomiting, Start date: 04/14/18 10:19:00 PRODUCT STRATEGY DIRECTOR, Duration: 30 day, Stop date: 05/14/18 10:18:00 CDT Notes: (Same as: Zofran) MEDICATION WASTE Product Size: 4 mgProduct Was jennifer: ___ mg Start Date: 04/14/18 Stop Date: 04/15/18 Status: Discontinued ondansetron (ANES) Route: IV, Drug form: INJ, ONCE, Stop date: 04/14/18 10:14:00 PRODUCT STRATEGY DIRECTOR Start Date: 04/14/18 Stop Date: 04/14/18 Status: Completed oxyCODONE 5 mg immediate release 5 mg, 1 tab, Route: PO, Drug form: TAB, Q4H, Dosing Weight 92.983, kg, PRN Pain Score 4-6, Start date: 04/14/18 10:19:00 PRODUCT STRATEGY DIRECTOR, Duration: 30 day, Stop date: 05/14 10:18:00 CDT Notes: (Same as: Roxicodone) Start Date: 04/14/18 Stop Date: 04/15/18 Status: Discontinued oxyCODONE 5 mg immediate release 10 mg, 2 tab, Route: PO, Drug form: TAB, Q4H, Dosing Weight 92.983, kg, PRN Pain Score 7-10, Start date: 04/14/18 10:19:00 PRODUCT STRATEGY DIRECTOR, Duration: 30 day, Stop date: 10:18:00 CDT Notes: (Same as: Roxicodone) Start Date: 04/14/18 Stop Date: 04/15/18 Status: Discontinued potassium chloride 20 mEq oral tablet, extended release 20 mEq=1 tab, PO, Daily, # 30 tab, 3 Refill(s) Start Date: 04/10/18 Status: Ordered promethazine 12.5 mg, 1 tab, Route: PO, Drug form: TAB, Q4H, Dosing Weight 92.983, kg, PRN Na usea & Vomiting, Start date: 04/14/18 10:19:00 PRODUCT STRATEGY DIRECTOR, Duration: 30 day, Stop date: 05/14/18 10:18:00 CDT Notes: (Same as: Phenergan) Start Date: 04/14/18 Stop Date: 04/15/18 Status: Discontinued propofol (ANES) Route: IV, Drug form: INJ, ONCE, Stop date: 04/14/18 9:03:00 PRODUCT STRATEGY DIRECTOR Start Date: 04/14/18 Stop Date: 04/14/18 Status: Completed Proventil HFA 90 mcg/inh inhalation aerosol with adapter 180 microgram, 2 puff, Route: INHALER, Drug Form: AERO/A, Dosing Weight 92.983, kg, Q4H, PRN as needed for wheezing, Start date: 04/14/18 17:09:00 PRODUCT STRATEGY DIRECTOR, Duration : 30 day, Stop date: 05/14/18 17:08:00 CDT Start Date: 04/14/18 Stop Date: 04/14/18 Status: Deleted rocuronium (ANES) Route: IV, Drug form: INJ, ONCE, Stop date: 04/14/18 8:58:00 PRODUCT STRATEGY DIRECTOR Start Date: 04/14/18 Stop Date: 04/14/18 Status: Completed Tylenol with Codeine #4 oral tablet 1 - 2 tab, PO, Q6H, PRN Pain, X 4 day, # 32 tab, 0 Refill(s) Start Date: 04/15/18 Stop Date: 04/19/18 Status: Ordered Tylenol with Codeine #4 oral tablet 1 tab, PO, Q4H, PRN Pain Score 4-6, # 30 tab, 0 Refill(s) Start Date: 04/15/18 Stop Date: 04/26/18 Status: Ordered Tylenol with Codeine #4 oral tablet 1 tab, Route: PO, Drug Form: TAB, Dosing Weight 92.983, kg, Q4H, PRN Pain Score 4-6, Start date: 04/15/18 7:53:00 PRODUCT STRATEGY DIRECTOR, Duration: 30 day, Stop date: 05/15/18 7:5 2:00 CDT Notes: Do not exceed 4gm/day of acetaminophen. (Same as: Tylenol with Codeine # 4) Start Date: 04/15/18 Stop Date: 04/15/18 Status: Discontinued Results BLOOD BANK RESULTS Most recent to 1 2 oldest [Reference Range]: ABO/Rh B POS *Unknown* (04/10/18 11:38 AM) Antibody Scrn Negative (04/10/18 11:38 AM) ELECTROLYTES Most recent to 1 2 oldest [Reference Range]: Sodium Lvl [135-145 144 mEq/L mEq/L] (04/10/18 11:38 AM) Potassium Lvl 3.5 mEq/L [3.5-5.1 mEq/L] (04/10/18 11:38 AM) Chloride Lvl [95-109 107 mEq/L mEq/L] (04/10/18 11:38 AM) CO2 [24-32 mEq/L] 27 mEq/L (04/10/18 11:38 AM) AGAP [10.0-20.0 13.5 mEq/L mEq/L] (04/10/18 11:38 AM) CHEM PANEL Most recent to 1 2 oldest [Reference Range]: Creatinine Lvl 0.93 mg/dL [0.50-1.40 mg/dL] (04/10/18 11:38 AM) eGFR 82 mL/min/1.73m2 1 *NA* (04/10/18 11:38 AM) BUN [7-22 mg/dL] 26 mg/dL *HI* (04/10/18 11:38 AM) B/C Ratio [6-25] 28 *HI* (04/10/18 11:38 AM) Glucose Lvl [70-99 84 mg/dL mg/dL] (04/10/18 11:38 AM) Total Protein 7.2 g/dL [6.4-8.4 g/dL] (04/10/18 11:38 AM) Albumin Lvl [3.5-5.0 3.2 g/dL g/dL] *LOW* (04/10/18 11:38 AM) Globulin [2.7-4.2 4.0 g/dL g/dL] (04/10/18 11:38 AM) A/G Ratio [0.7-1.6] 0.8 (04/10/18 11:38 AM) Calcium Lvl 8.3 mg/dL [8.5-10.5 mg/dL] *LOW* (04/10/18 11:38 AM) ALT [0-65 unit/L] 25 unit/L (04/10/18 11:38 AM) AST [0-37 unit/L] 17 unit/L (04/10/18 11:38 AM) Alk Phos [39-136 73 unit/L unit/L] (04/10/18 11:38 AM) Bili Total [0.2-1.3 0.3 mg/dL mg/dL] (04/10/18 11:38 AM) 1Result Comment: The eGFR is calculated using the CKD-EPI formula. In most young, healthy individuals the eGFR will be >90 mL/min/1.73m2. The eGFR declines with age. An eGFR of 60-89 may be normal in some populations, particularly the elderly, for whom the CKD-EPI formula has not been extensively validated. Use of the eGFR is not recommended in the following populations: Individuals with unstable creatinine concentrations, including patients and those with serious co-morbid conditions. Patients with extremes in muscle mass or diet. The data above are obtained from the National Kid[employer] Disease Education Program ( NKDEP) which additionally recommends that when the eGFR is used in patients with extremes of body mass index for purposes of drug dosing, the eGFR should be mul tiplied by the estimated BMI. URINE CHEM Most recent to 02 18 oldest [Reference Range]: U Preg [Negative] Negative (04/14/18 6:38 AM) IMMUNOLOGY Most recent to 02 18 oldest [Reference Range]: Treponemal Ab Reactive [Non-Reactive] *ABN* (04/10/18 11:38 AM) RPR [Non-Reactive] Non-Reactive (04/10/18 11:38 AM) T pallidum Ab [Non Reactive Reactive] *ABN* (04/10/18 11:38 AM) HIV Ag/Ab 4th Gen Negative [Negative] *NA* (04/10/18 11:38 AM) Hep Bs Ag [Negative] Negative *NA* (04/10/18 11:38 AM) Hep C Ab Negative *NA* (04/10/18 11:38 AM) HEMATOLOGY Most recent to 02 18 oldest [Reference Range]: WBC [3.7-10.4 K/CMM] 14.5 K/CMM 11.9 K/CMM *HI* *HI* (04/15/18 4:05 AM) (04/10/18 11:38 AM) RBC [4.20-5.40 4.07 M/CMM 4.33 M/CMM M/CMM] *LOW* (04/10/18 11:38 AM) (04/15/18 4:05 AM) Hgb [12.0-16.0 g/dL] 11.6 g/dL 12.3 g/dL *LOW* (04/10/18 11:38 AM) (04/15/18 4:05 AM) Hct [36.0-48.0 %] 34.5 % 37.4 % *LOW* (04/10/18 11:38 AM) (04/15/18 4:05 AM) MCV [80.0-98.0 fL] 84.8 fL 86.3 fL (04/15/18 4:05 AM) (04/10/18 11:38 AM) MCH [27.0-31.0 pg] 28.4 pg 28.4 pg (04/15/18 4:05 AM) (04/10/18 11:38 AM) MCHC [32.0-36.0 33.5 g/dL 32.9 g/dL g/dL] (04/15/18 4:05 AM) (04/10/18 11:38 AM) RDW [11.5-14.5 %] 14.2 % 14.1 % (04/15/18 4:05 AM) (04/10/18 11:38 AM) MPV [7.4-10.4 fL] 8.0 fL 8.3 fL (04/15/18 4:05 AM) (04/10/18 11:38 AM) Platelet [133-450 383 K/CMM 438 K/CMM K/CMM] (04/15/18 4:05 AM) (04/10/18 11:38 AM) Segs [45.0-75.0 %] 75.6 % 37.8 % *HI* *LOW* (04/15/18 4:05 AM) (04/10/18 11:38 AM) Lymphocytes 16.3 % 51.5 % [20.0-40.0 %] *LOW* *HI* (04/15/18 4:05 AM) (04/10/18 11:38 AM) Monocytes [2.0-12.0 7.5 % 8.9 % %] (04/15/18 4:05 AM) (04/10/18 11:38 AM) Eosinophils [0.0-4.0 0.2 % 1.0 % %] (04/15/18 4:05 AM) (04/10/18 11:38 AM) Basophils [0.0-1.0 0.4 % 0.8 % %] (04/15/18 4:05 AM) (04/10/18 11:38 AM) Neutrophils # 10.9 K/CMM 4.5 K/CMM [1.5-8.1 K/CMM] *HI* (04/10/18 11:38 AM) (04/15/18 4:05 AM) Lymphocytes # 2.4 K/CMM 6.1 K/CMM [1.0-5.5 K/CMM] (04/15/18 4:05 AM) *HI* (04/10/18 11:38 AM) Monocytes # [0.0-0.8 1.1 K/CMM 1.1 K/CMM K/CMM] *HI* *HI* (04/15/18 4:05 AM) (04/10/18 11:38 AM) Eosinophils # 0.1 K/CMM [0.0-0.5 K/CMM] (04/10/18 11:38 AM) Basophils # [0.0-0.2 0.1 K/CMM 0.1 K/CMM K/CMM] (04/15/18 4:05 AM) (04/10/18 11:38 AM) Immunizations No data available for this section Procedures Procedure Date Related Diagnosis Body Site Status Excision of vocal cord polyp 07/27/14 Completed Ankle joint operations 2004 Completed Dilation and curettage Completed Fibroids Completed Social History Social History Type Response Employment/School Status: Unemployed. Alcohol Current, Type Wine. Frequency: 1-2 times per month. Smoking Status Former smoker; Exposure to Tobacco Smoke None; Cigarette Smoking Last 365 Days No; Reg Smoking Cessation Counseling Yes entered on: 04/14/18 Assessment and Plan No data available for this section
--- OUTSIDE RECORDS SUMMARY | 2018-05-26 17:44 | XMS REPORT | Continuity of Care Document ---
Author Author [facility] Interface Address Unknown Phone Unavailable Problems Problem Status Onset Date Classification Date Reported Comments Source UNK Active 03/18/2018 [facility] UNK Active 03/18/2018 [facility] ACUTE PYELONEPHRITIS Active 02/28/2018 [facility] ACUTE PYELONEPHRITIS Active 02/28/2018 [facility] Radial styloid tenosynovitis [de Quervain] 10/12/2017 04/24/2018 [facility] Strain of muscle, fascia and tendon of lower back, subsequent encounter 09/12/2017 03/26/2018 [facility] STRAIN OF MUSCLE FACIA, TENDON LB Active 08/04/2017 [facility] Pelvic and perineal pain 05/06/2017 08/06/2017 [facility] DX: R10.2=PELVIC AND PERINEAL PAIN Active 04/24/2017 [facility] R87.810 Active 10/12/2015 [facility] 795.05 Active 09/22/2014 [facility] 784.8 Active 07/26/2013 [facility] 784.8/ 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 07/08/2013 [facility] SORE THROAT Active 10/08/2012 [facility] Low back pain 03/26/2018 [facility] Muscle weakness 03/26/2018 [facility] Lumbago with sciatica, left side 03/26/2018 [facility] Acid reflux Active Problem 04/17/2018 [facility] Anemia Active Problem 04/17/2018 [facility] Anxiety depression Active Problem 04/17/2018 [facility] Asthma Active Problem 04/17/2018 [facility] Cervical dysplasia Active Problem 04/17/2018 [facility] Frequent UTI Active Problem 04/17/2018 [facility] HTN - Hypertension Active Problem 04/17/2018 [facility] SOBOE - Shortness of breath on exertion Active Problem 04/17/2018 [facility] Other specified joint disorders, right wrist 04/24/2018 [facility] Primary osteoarthritis, right wrist 04/24/2018 [facility] Localized edema 04/24/2018 [facility] Acid reflux Active Problem 04/24/2018 [facility] Anemia Active Problem 04/24/2018 [facility] Anxiety depression Active Problem 04/24/2018 [facility] Asthma Active Problem 04/24/2018 [facility] Cervical dysplasia Active Problem 04/24/2018 [facility] Frequent UTI Active Problem 04/24/2018 [facility] HTN - Hypertension Active Problem 04/24/2018 [facility] SOBOE - Shortness of breath on exertion Active Problem 04/24/2018 [facility] SOB Active Problem 11/22/2015 [facility] HTN Active Problem 11/22/2015 [facility] Chest pain Active Problem 11/22/2015 [facility] Obesity Active Problem 11/22/2015 [facility] Edema Active Problem 11/22/2015 [facility] Pre-operative cardiovascular examination Active Diagnosis 10/19/2015 [facility] Medications Medication Details Route Status Patient Instructions Ordering Provider Order Date Source Docusate Sodium 50 MG / sennosides, ALF 8.6 MG Oral Tablet 1 tab, PO, BID, 0 Refill(s) Active 04/15/2018 [facility] Acetaminophen 300 MG / Codeine Phosphate 60 MG Oral Tablet [Tylenol with Codeine #4] 1 - 2 tab, PO, Q6H, PRN Pain, X 4 day, # 32 tab, 0 Refill(s) Active 04/15/2018 [facility] Albuterol 1 MG/ML Inhalant Solution NEB, RQ4H, PRN Respiratory Pathway, 0 Refill(s) Active 04/15/2018 [facility] ibuprofen 600 mg oral tablet 600 mg=1 tab, PO, Q6H, PRN Pain, take with food, # 30 tab, 0 Refill(s) Active 04/15/2018 [facility] Docusate Sodium 50 MG / sennosides, ALF 8.6 MG Oral Tablet 1 tab, Route: PO, Drug Form: TAB, Dosing Weight 92.983, kg, BID, Start date: 04/15/18 9:00:00 CL[employer] STRETCHER, Duration: 30 day, Stop date: 05/14/18 17:00:00 CDTNotes: (Same as Anabellaot-S) Equiv. to Yasmine-Colace. Inactive 04/15/2018 [facility] Losartan 50 mg, 1 tab, Route: PO, Drug form: TAB, Daily, Dosing Weight 92.983, kg, Start date: 04/15/18 9:00:00 CLOTH STRETCHER, Duration: 30 day, Stop date: 05/14/18 9:00:00 CDTNotes: (Same as: Cozaar) Inactive 04/15/2018 [facility] Motrin 600 mg, 1 tab, Route: PO, Drug form: TAB, Q6H-02, Dosing Weight 92.983, kg, Start date: 04/15/18 8:00:00 CL[employer] STRETCHER, Duration: 30 day, Stop date: 05/15/18 2:00:00 CDTNotes: (Same as: Motrin) "Do Not Crush" Take with food. Inactive 04/15/2018 [facility] Acetaminophen 300 MG / Codeine Phosphate 60 MG Oral Tablet [Tylenol with Codeine #4] 1 tab, Route: PO, Drug Form: TAB, Dosing Weight 92.983, kg, Q4H, PRN Pain Score 4-6, Start date: 04/15/18 7:53:00 CLOTH STRETCHER, Duration: 30 day, Stop date: 05/15/18 7:52:00 CDTNotes: Do not exceed 4gm/day of ac etaminophen. (Same as: Tylenol with Codeine # 4) Inactive 04/15/2018 [facility] DuoNeb inhalation solution 3 mL, Route: NEB, Drug Form: SOLN, RBID, PRN Wheezing, Start date: 04/14/18 18:23:00 CL[employer] STRETCHER, Duration: 30 day, Stop date: 05/14/18 18:22:00 CDTNotes: (Same as: Duoneb) No Longer Active 04/15/2018 [facility] Albuterol 0.83 MG/ML Inhalant Solution 2.5 mg, 3.01 mL, Route: NEB, Drug form: SOLN, RQ4H, Dosing Weight 92.983, kg, PRN Respiratory Pathway, Start date: 04/14/18 18:22:00 CLOTH STRETCHER, Duration: 30 day, Stop date: 05/14/18 18:21:00 CDTNotes: SEE RT DOCUMENTATION (Same as: Proventil) No Longer Active 04/15/2018 [facility] 120 ACTUAT Albuterol 0.1 MG/ACTUAT / Ipratropium Beck[place] 0.02 MG/ACTUAT Metered Dose Inhaler [Combivent 20/100] Route: INHALATION, Drug Form: AERO, Dosing Weight 92.983, kg, PRN, PRN Wheezing, Start date: 04/14/18 17:09:00 CLOTH STRETCHER, Duration: 30 day, Stop date: 05/14/18 18:08:00 CDT Inactive 04/14/2018 [facility] 200 ACTUAT Albuterol 0.09 MG/ACTUAT Metered Dose Inhaler [Proventil] 180 microgram, 2 puff, Route: INHALER, Drug Form: AERO/A, Dosing Weight 92.983, kg, Q4H, PRN as needed for wheezing, Start date: 04/14/18 17:09:00 CLOTH STRETCHER, Duration: 30 day, Stop date: 05/14/18 17:08:00 CDT Inactive 04/14/2018 [facility] Cefoxitin 2 gm, Route: IVPB, ABXQ6H, Dosing Weight 92.983, kg, Start date: 04/14/18 14:00:00 CLOTH STRETCHER, Duration: 3 doses or times, Stop date: 04/15/18 2:00:00 CLOTH STRETCHER, ABX Indication: Surgical ProphylaxisNotes: (Same As: Mefoxin) MEDICATION WASTE Product Size: 2000 mg Product Wasted: ___ mg No Longer Active 04/14/2018 [facility] Acetaminophen 1,000 mg, 2 tab, Route: PO, Drug form: TAB, Q6Hnow, Dosing Weight 92.983, kg, Start date: 04/14/18 11:00:00 CLOTH STRETCHER, Duration: 30 day, Stop date: 05/14/18 5:00:00 CDTNotes: Max acetaminophen 4000 mg/day (4 gm/day). (Same as: Tylenol Extra Strength) No Longer Active 04/14/2018 [facility] Ketorolac 30 mg, 1 mL, Route: IVP, Drug form: INJ, Q6Hnow, Dosing Weight 92.983, kg, Start date: 04/14/18 11:00:00 CLOTH STRETCHER, Duration: 24 hr, Stop date: 04/15/18 5:00:00 CSTNotes: (Same as:Toradol) IV bolus must be given > 15 seconds. Give IM administration slowly and deeply into the muscle. Not for use > 4 days MEDICATION WASTE Product Size: 30 mg Product Wasted: ___ mg No Longer Active 04/14/2018 [facility] Meperidine 12.5 mg, 0.25 mL, Route: IVP, Drug form: INJ, Q30Min, Dosing Weight 92.983, kg, PRN Other -See Comment, For shivering, Start date: 04/14/18 10:49:00 CL[employer] STRETCHER, Duration: 2 doses or times, Stop date: 04/15/18 0:00:00 CSTNotes: (Same As: Demerol) Inactive 04/14/2018 [facility] Ondansetron 4 mg, Route: IVP, ONCE, Dosing Weight 92.983, kg, PRN Nausea & Vomiting, Start date: 04/14/18 10:49:00 CL[employer] STRETCHER Inactive 04/14/2018 [facility] Labetalol 10 mg, 2 mL, Route: IVP, Drug form: INJ, Q5Min, Dosing Weight 92.983, kg, PRN Elevated BP, Start date: 04/14/18 10:49:00 CL[employer] STRETCHER, Duration: 5 doses or times, Stop date: 04/15/18 0:00:00 CSTNotes: (Same as: Normodyne, Trandate) Push over 2 minutes Give bolus over 2-3 minutes. Inactive 04/14/2018 [facility] Hydralazine 10 mg, 0.5 mL, Route: IVP, Drug form: INJ, Q20Min, Dosing Weight 92.983, kg, PRN Elevated BP, Start date: 04/14/18 10:49:00 CL[employer] STRETCHER, Duration: 2 doses or times, Stop date: 04/15/18 0:00:00 CSTNotes: (Same as: Apresoline) Push over 5 minutes Inactive 04/14/2018 [facility] Oxycodone 5 mg, 1 tab, Route: PO, Drug form: TAB, Q4H, Dosing Weight 92.983, kg, PRN Pain Score 4-6, Start date: 04/14/18 10:49:00 CLOTH STRETCHER, Stop date: 04/15/18 0:00:00 CSTNotes: (Same as: Roxicodone) Inactive 04/14/2018 [facility] Flumazenil 0.2 mg, 2 mL, Route: IVP, Drug form: INJ, PRN, Dosing Weight 92.983, kg, PRN Benzodiazepine Reversal, Initial dose, Start date: 04/14/18 10:49:00 CLOTH STRETCHER, Stop date: 04/15/18 0:00:00 CSTNotes: (Same as: Romazicon) Inactive 04/14/2018 [facility] Acetaminophen 1,000 mg, 2 tab, Route: PO, Drug form: TAB, ONCE, Dosing Weight 92.983, kg, PRN Pain Score 1-3, Start date: 04/14/18 10:49:00 CSTNotes: Max acetaminophen 4000 mg/day (4 gm/day). (Same as: Tylenol Extra Strength) Inactive 04/14/2018 [facility] Diphenhydramine 12.5 mg, 0.25 mL, Route: IVP, Drug form: INJ, Q6H, Dosing Weight 92.983, kg, PRN Itching, Start date: 04/14/18 10:49:00 CLOTH STRETCHER, Stop date: 04/15/18 0:00:00 CSTNotes: (Same as: Benadryl) Inactive 04/14/2018 [facility] Fentanyl 50 microgram, 1 mL, Route: IVP, Drug form: INJ, Q5Min, Dosing Weight 92.983, kg, PRN Pain Score 7-10, Priority: Routine, Start date: 04/14/18 10:49:00 CLOTH STRETCHER, Duration: 2 doses or times, Stop date: 04/15/18 0:00:00 CSTNotes: (Same as: Sublimaze) Preservative free. Inactive 04/14/2018 [facility] Hydromorphone 0.5 mg, 0.5 mL, Route: IVP, Drug form: INJ, Q5Min, Dosing Weight 92.983, kg, PRN Pain Score 7-10, Start date: 04/14/18 10:49:00 CLOTH STRETCHER, Duration: 4 doses or times, Stop date: 04/15/18 0:00:00 CSTNotes: Same as: Dilaudid Inactive 04/14/2018 [facility] Naloxone 0.4 mg, 1 mL, Route: IVP, Drug form: INJ, Q2MIN, Dosing Weight 92.983, kg, PRN Narcotic Reversal, Start date: 04/14/18 10:49:00 CLOTH STRETCHER, Duration: 8 doses or times, Stop date: 04/15/18 0:00:00 CSTNotes: Same as Narcan Inactive 04/14/2018 [facility] glycopyrrolate (ANES) Route: IV, Drug form: INJ, ONCE, Stop date: 04/14/18 10:39:00 CLOTH STRETCHER Inactive 04/14/2018 [facility] meperidine (ANES) Route: IV, Drug form: INJ, ONCE, Stop date: 04/14/18 10:39:00 CLOTH STRETCHER Inactive 04/14/2018 [facility] neostigmine (ANES) Route: IV, Drug form: INJ, ONCE, Stop date: 04/14/18 10:39:00 CLOTH STRETCHER Inactive 04/14/2018 [facility] Aluminum Hydroxide 40 MG/ML / Magnesium Hydroxide 40 MG/ML / Simethicone 4 MG/ML Oral Suspension 30 mL, Route: PO, Drug Form: SUSP, Dosing Weight 92.983, kg, Q4H, PRN Indigestion, Start date: 04/14/18 10:19:00 CL[employer] STRETCHER, Duration: 30 day, Stop date: 05/14/18 10:18:00 CDTNotes: (aluminum hydroxide-magnesium hyd-simethicone [phone]/5ml 30 ml ud TREVON) No Longer Active 04/14/2018 [facility] Ondansetron 4 mg, 2 mL, Route: IVP, Drug form: INJ, Q8H, Dosing Weight 92.983, kg, PRN Nausea & Vomiting, Start date: 04/14/18 10:19:00 CLOTH STRETCHER, Duration: 30 day, Stop date: 05/14/18 10:18:00 CDTNotes: (Same as: Zofran) MEDICATION WASTE Product Size: 4 mg Product Wasted: ___ mg No Longer Active 04/14/2018 [facility] Promethazine 12.5 mg, 1 tab, Route: PO, Drug form: TAB, Q4H, Dosing Weight 92.983, kg, PRN Nausea & Vomiting, Start date: 04/14/18 10:19:00 CLOTH STRETCHER, Duration: 30 day, Stop date: 05/14/18 10:18:00 CDTNotes: (Same as: Phenergan) No Longer Active 04/14/2018 [facility] Morphine 2 mg, 1 mL, Route: IVP, Drug form: SOLN, Q4H, Dosing Weight 92.983, kg, PRN Pain Score 7-10, Start date: 04/14/18 10:19:00 CLOTH STRETCHER, Duration: 30 day, Stop date: 05/14/18 10:18:00 CDT No Longer Active 04/14/2018 [facility] Oxycodone Hydrochloride 5 MG Oral Tablet 5 mg, 1 tab, Route: PO, Drug form: TAB, Q4H, Dosing Weight 92.983, kg, PRN Pain Score 4-6, Start date: 04/14/18 10:19:00 CLOTH STRETCHER, Duration: 30 day, Stop date: 05/14/18 10:18:00 CDTNotes: (Same as: Roxicodone) No Longer Active 04/14/2018 [facility] Calcium Chloride 0.0014 MEQ/ML / Potassium Chloride 0.004 MEQ/ML / Sodium Chloride 0.103 MEQ/ML / Sodium Lactate 0.028 MEQ/ML Injectable Solution 1,000 mL, Rate: 125 ml/hr, Infuse over: 8 hr, Route: IV, Dosing Weight 92.983 kg, Total Volume: 1,000, Start date: 04/14/18 10:19:00 CLOTH STRETCHER, Duration: 30 day, Stop date: 05/14/18 10:18:00 CDT, 2.06, m2 No Longer Active 04/14/2018 [facility] ketOROLAC (ANES) IV, ONCE Inactive 04/14/2018 [facility] ondansetron (ANES) Route: IV, Drug form: INJ, ONCE, Stop date: 04/14/18 10:14:00 CLOTH STRETCHER Inactive 04/14/2018 [facility] dexamethasone (ANES) Route: IV, Drug form: INJ, ONCE, Stop date: 04/14/18 9:59:00 CLOTH STRETCHER Inactive 04/14/2018 [facility] cefOXitin (ANES) Route: IV, Drug form: INJ, ONCE, Stop date: 04/14/18 9:18:00 CLOTH STRETCHER Inactive 04/14/2018 [facility] propofol (ANES) Route: IV, Drug form: INJ, ONCE, Stop date: 04/14/18 9:03:00 CLOTH STRETCHER Inactive 04/14/2018 [facility] fentaNYL (ANES) Route: IV, Drug form: INJ, ONCE, Stop date: 04/14/18 9:03:00 CLOTH STRETCHER Inactive 04/14/2018 [facility] lidocaine (ANES) Route: IV, Drug form: INJ, ONCE, Stop date: 04/14/18 9:03:00 CLOTH STRETCHER Inactive 04/14/2018 [facility] rocuronium (ANES) Route: IV, Drug form: INJ, ONCE, Stop date: 04/14/18 8:58:00 CLOTH STRETCHER Inactive 04/14/2018 [facility] midazolam (ANES) Route: IV, Drug form: SOLN, ONCE, Stop date: 04/14/18 8:28:00 CLOTH STRETCHER Inactive 04/14/2018 [facility] Lactated Ringers Injection IV (ANES) 1000 mL Route: IV, Total Volume: 1,000, Start date: 04/14/18 7:52:00 CLOTH STRETCHER, Stop date: 04/14/18 8:52:00 CLOTH STRETCHER Inactive 04/14/2018 [facility] Calcium Chloride 0.0014 MEQ/ML / Potassium Chloride 0.004 MEQ/ML / Sodium Chloride 0.103 MEQ/ML / Sodium Lactate 0.028 MEQ/ML Injectable Solution 1,000 mL, Rate: 25 ml/hr, Infuse over: 40 hr, Route: IV, Dosing Weight 92.983 kg, Total Volume: 1,000, Start date: 04/14/18 7:29:00 CLOTH STRETCHER, Duration: 1 day, Stop date: 04/15/18 7:28:00 CLOTH STRETCHER, 2.06, m2 Inactive 04/14/2018 [facility] potassium chloride 20 mEq oral tablet, extended release 20 mEq=1 tab, PO, Daily, # 30 tab, 3 Refill(s) Active 04/10/2018 [facility] bumetanide 1 mg oral tablet 1 mg=1 tab, PO, Daily, # 30 tab, 0 Refill(s) Active 04/10/2018 [facility] Toprol XL 1 tablet orally Active 25 MG orally Once a day [place] 07/28/2015 [facility] Ketorolac 30 mg, Route: IVP, Q6H, Dosing Weight 86.818, kg, Start date: 11/15/14 12:00:00, Duration: 4 day, Stop date: 11/19/14 6:00:00 No Longer Active 11/15/2014 [facility] Ondansetron 4 mg, Route: IVP, ONCE, Dosing Weight 86.818, kg, PRN Nausea & Vomiting, Start date: 11/15/14 9:00:00 Inactive 11/15/2014 [facility] Naloxone 0.04 mg, Route: IVP, Q2MIN, Dosing Weight 86.818, kg, PRN Narcotic Reversal, Start date: 11/15/14 9:00:00, Duration: 8 doses or times, Stop date: Limited # of times Inactive 11/15/2014 [facility] Flumazenil 0.2 mg, Route: IVP, PRN, Dosing Weight 86.818, kg, PRN Benzodiazepine Reversal, Initial dose, Start date: 11/15/14 9:00:00, Duration: 30 day, Stop date: 12/15/14 8:59:00 Inactive 11/15/2014 [facility] Meperidine 12.5 mg, Route: IVP, Q30Min, Dosing Weight 86.818, kg, PRN Other -See Comment, For shivering, Start date: 11/15/14 9:00:00, Duration: 2 doses or times, Stop date: Limited # of times Inactive 11/15/2014 [facility] Hydromorphone 0.5 mg, Route: IVP, Q5Min, Dosing Weight 86.818, kg, PRN Pain Score 7-10, Start date: 11/15/14 9:00:00, Duration: 4 doses or times, Stop date: Limited # of times Inactive 11/15/2014 [facility] Fentanyl 25 microgram, Route: IVP, Q5Min, Dosing Weight 86.818, kg, PRN Pain Score 4-6, Start date: 11/15/14 9:00:00, Duration: 4 doses or times, Stop date: Limited # of times Inactive 11/15/2014 [facility] Oxycodone 5 mg, Route: PO, Drug form: TAB, Q4H, Dosing Weight 86.818, kg, PRN Pain Score 4-6, Start date: 11/15/14 9:00:00, Duration: 30 day, Stop date: 12/15/14 8:59:00 Inactive 11/15/2014 [facility] Labetalol 10 mg, Route: IVP, Q5Min, Dosing Weight 86.818, kg, PRN Elevated BP, Start date: 11/15/14 9:00:00, Duration: 5 doses or times, Stop date: Limited # of times Inactive 11/15/2014 [facility] Hydralazine 10 mg, Route: IVP, Q20Min, Dosing Weight 86.818, kg, PRN Elevated BP, Start date: 11/15/14 9:00:00, Duration: 2 doses or times, Stop date: Limited # of times Inactive 11/15/2014 [facility] Promethazine 6.25 mg, Route: IVPB, ONCE, Dosing Weight 86.818, kg, PRN Nausea & Vomiting, Start date: 11/15/14 9:00:00 Inactive 11/15/2014 [facility] Acetaminophen 300 MG / Codeine Phosphate 30 MG Oral Tablet [Tylenol with Codeine #3] 1 - 2 tab, PO, Q4H, PRN Pain, X 3 day, # 20 tab, 0 Refill(s) Active 11/15/2014 [facility] Morphine 2 mg, Route: IVP, Q3H, Dosing Weight 86.818, kg, PRN Pain Score 1-3, Start date: 11/15/14 8:51:00, Duration: 30 day, Stop date: 12/15/14 8:50:00 No Longer Active 11/15/2014 [facility] Acetaminophen 650 mg, Route: PO, Drug form: TAB, Q4H, Dosing Weight 86.818, kg, PRN Pain 1-3/Temp > 100.4 F, Start date: 11/15/14 8:51:00, Duration: 30 day, Stop date: 12/15/14 8:50:00 No Longer Active 11/15/2014 [facility] acetaminophen-codeine #3 2 tab, Route: PO, Drug Form: TAB, Dosing Weight 86.818, kg, Q4H, PRN Pain Score 4-6, Start date: 11/15/14 8:51:00, Duration: 30 day, Stop date: 12/15/14 8:50:00 No Longer Active 11/15/2014 [facility] Calcium Chloride 0.0014 MEQ/ML / Potassium Chloride 0.004 MEQ/ML / Sodium Chloride 0.103 MEQ/ML / Sodium Lactate 0.028 MEQ/ML Injectable Solution 1,000 mL, Rate: 25 ml/hr, Infuse over: 40 hr, Route: IV, Dosing Weight 86.818 kg, Total Volume: 1,000, Start date: 11/15/14 7:23:00, Duration: 30 day, Stop date: 12/15/14 7:22:00 Inactive 11/15/2014 [facility] Cefazolin 2 gm, Route: IVPB, ONCALL, Dosing Weight 86.818, kg, Start date: 11/15/14 7:00:00, Duration: 30 day, Stop date: 12/15/14 6:59:00 Inactive 11/15/2014 [facility] Excedrine migraine Excedrine migraine, PO, PRN, Refill(s) 0 Active 10/28/2014 [facility] Albuterol 0.83 MG/ML Inhalant Solution 2.49 mg=3 mL, NEB, Q6H, PRN as needed for shortness of breath, # 120 ea, 3 Refill(s) Active 10/28/2014 [facility] Ibuprofen 200 MG / Pseudoephedrine Hydrochloride 30 MG Oral Tablet [Advil Cold and Sinus] 1 tab, PO, BID, PRN Cough/Congestion, # 60 tab, 0 Refill(s) Active 10/28/2014 [facility] diazepam 10 mg oral tablet 10 mg=1 tab, PO, Daily, 0 Refill(s) Active 10/28/2014 [facility] ibuprofen 600 mg oral tablet 600 mg=1 tab, PO, Q8H, PRN pain, # 30 tab, 0 Refill(s) Active 10/28/2014 [facility] Mobic 7.5 mg, PO, Daily, 0 Refill(s) Active 10/28/2014 [facility] Ciprofloxacin 500 MG Oral Tablet [Cipro] 500 mg=1 tab, PO, Q12H, # 28 tab, 0 Refill(s) Active 10/28/2014 [facility] lisinopril 10 mg oral tablet 10 mg=1 tab, PO, Daily, # 30 tab, 0 Refill(s) Active 10/28/2014 [facility] tramadol hydrochloride 50 MG Oral Tablet 50 mg=1 tab, PO, Q6H, PRN Pain, # 40 tab, 0 Refill(s) Active 10/28/2014 [facility] Naloxone 0.04 mg, 0.1 mL, Route: IVP, Drug form: INJ, Q2MIN, Dosing Weight 85, kg, PRN Narcotic Reversal, Start date: 07/27/13 10:51:00, Duration: 8 doses or times, Stop date: Limited # of timesNotes: (Same as: Narcan) Inactive 07/27/2013 [facility] Promethazine 6.25 mg, 0.25 mL, Route: IM, Drug form: INJ, ONCE, Dosing Weight 85, kg, PRN Nausea & Vomiting, Start date: 07/27/13 10:51:00Notes: Do not give IV push. (Same as: Phenergan) Inactive 07/27/2013 [facility] Ondansetron 4 mg, 2 mL, Route: IVP, Drug form: INJ, ONCE, Dosing Weight 85, kg, PRN Nausea & Vomiting, Start date: 07/27/13 10:51:00Notes: (Same as: Zofran) Inactive 07/27/2013 [facility] Dexamethasone 4 mg, 1 mL, Route: IVP, Drug form: INJ, ONCE, Dosing Weight 85, kg, PRN Nausea & Vomiting, Start date: 07/27/13 10:51:00Notes: Concentration: 4mg/ml Inactive 07/27/2013 [facility] Oxycodone 10 mg, 2 tab, Route: PO, Drug form: TAB, Q4H, Dosing Weight 85, kg, PRN Pain Score 7-10, Start date: 07/27/13 10:51:00, Duration: 30 day, Stop date: 08/26/13 10:50:00Notes: (Same as: OxyIR) Inactive 07/27/2013 [facility] Meperidine 12.5 mg, 0.25 mL, Route: IVP, Drug form: INJ, Q30Min, Dosing Weight 85, kg, PRN Other -See Comment, For shivering, Start date: 07/27/13 10:51:00, Duration: 2 doses or times, Stop date: Limited # of t imesNotes: (Same As: Demerol) Inactive 07/27/2013 [facility] Morphine 2 mg, 1 mL, Route: IVP, Drug form: INJ, Q5Min, Dosing Weight 85, kg, PRN Pain Score 4-6, Start date: 07/27/13 10:51:00, Duration: 5 doses or times, Stop date: Limited # of timesNotes: (Same as:MORPhi ne Sulfate) Inactive 07/27/2013 [facility] Flumazenil 0.2 mg, 2 mL, Route: IVP, Drug form: INJ, PRN, Dosing Weight 85, kg, PRN Benzodiazepine Reversal, Initial dose, Start date: 07/27/13 10:51:00, Duration: 30 day, Stop date: 08/26/13 10:50:00Notes: (Same as: Romazicon) Inactive 07/27/2013 [facility] Ketorolac 30 mg, 1 mL, Route: IVP, Drug form: INJ, ONCE, Dosing Weight 85, kg, Start date: 07/27/13 10:51:00, Duration: 1 doses or times, Stop date: 07/27/13 10:51:00Notes: (Same as:Toradol) IV bolus must be g iven >15 seconds. Give IM administration slowly and deeply into the muscle. Not for use > 4 days Inactive 07/27/2013 [facility] Fentanyl 50 microgram, 1 mL, Route: IVP, Drug form: INJ, Q5Min, Dosing Weight 85, kg, PRN Pain Score 7-10, Start date: 07/27/13 10:51:00, Duration: 2 doses or times, Stop date: Limited # of timesNotes: (Same as: Sublimaze) Preservative free. Inactive 07/27/2013 [facility] Hydralazine 10 mg, 0.5 mL, Route: IVP, Drug form: INJ, Q20Min, Dosing Weight 85, kg, PRN Elevated BP, Start date: 07/27/13 10:51:00, Duration: 2 doses or times, Stop date: Limited # of timesNotes: (Same as: Apre soline) Push over 5 minutes Inactive 07/27/2013 [facility] Calcium Chloride 0.0014 MEQ/ML / Potassium Chloride 0.004 MEQ/ML / Sodium Chloride 0.103 MEQ/ML / Sodium Lactate 0.028 MEQ/ML Injectable Solution 1,000 mL, Rate: 125 ml/hr, Infuse over: 8 hr, Route: IV, Dosing Weight 85 kg, Total Volume: 1,000, Start date: 07/27/13 10:51:00, Duration: 30 day, Stop date: 08/26/13 10:50:00 Inactive 07/27/2013 [facility] Acetaminophen 1,000 mg, 100 mL, Route: IVPB, Drug form: INJ, ONCE, Dosing Weight 85, kg, PRN Pain Score 1-3, Start date: 07/27/13 10:51:00, Duration: 1 doses or times, Stop date: Limited # of timesNotes: Infuse over 15 minutes Do not exceed 4gm/day of acetaminophen Inactive 07/27/2013 [facility] Metoprolol 1 mg, 1 mL, Route: IVP, Drug form: INJ, Q5Min, Dosing Weight 85, kg, PRN Other -See Comment, Start date: 07/27/13 10:51:00, Duration: 5 doses or times, Stop date: Limited # of timesNotes: (Same as: L opressor) Push over 2 minutes Inactive 07/27/2013 [facility] albuterol-ipratropium 2 puff, Route: INHALER, Drug Form: AERO, PRN, PRN Shortness of breath, Start date: 07/21/13 11:50:00, Duration: 30 day, Stop date: 08/20/13 11:49:00Notes: Same as: Combivent Respimat Inactive 07/21/2013 [facility] Acetaminophen 10 MG/ML Injectable Solution 1,000 mg, Route: IV, Drug form: INJ, ONCE, Dosing Weight 86.364, kg, PRN Pain, For > or=50 kg, Start date: 07/21/13 11:30:00 Inactive 07/21/2013 [facility] Acetaminophen 300 MG / Codeine Phosphate 60 MG Oral Tablet [Tylenol with Codeine #4] 0 Refill(s) Inactive 07/21/2013 [facility] Acetaminophen 300 MG / Codeine Phosphate 60 MG Oral Tablet [Tylenol with Codeine #4] PO, PRN, 0 Refill(s) Active 07/20/2013 [facility] montelukast 10 MG Oral Tablet [Singulair] PO, QPM, 0 Refill(s) Active 07/20/2013 [facility] Potassium Chloride 10 mEq, PO, Daily, 0 Refill(s) Active 07/20/2013 [facility] bumetanide 2 mg oral tablet PO, Daily, 0 Refill(s) Active 07/20/2013 [facility] eletriptan 40 MG Oral Tablet [Relpax] PO, Daily, 0 Refill(s) Active 07/20/2013 [facility] 120 ACTUAT Albuterol 0.1 MG/ACTUAT / Ipratropium [place] 0.02 MG/ACTUAT Metered Dose Inhaler [Combivent 20/100] INHALATION, QID, 0 Refill(s) Active 07/20/2013 [facility] ipratropium CFC free 17 mcg/inh inhalation aerosol 2 puff, INHALATION, QID, 13 gm, Substitution Allowed, Maintenance, AERO INHALATION Active Short 10/11/2012 [facility] Zithromax Z-Sumit 250 mg oral tablet 250 mg, PO, Daily, Take 2 tablets by mouth the first day then 1 tablet by mouth days 2-5, 6 tab, Substitution AllowedTake 2 tablets by mouth the first day then 1 tablet by mouth days 2-5 PO Active Short 10/11/2012 [facility] predniSONE 20 mg oral tablet 60 mg, 3 tab, PO, Daily, Take 3 tablets for 60 mg dose, 15 tab, Substitution AllowedTake 3 tablets for 60 mg dose PO Active Short 10/11/2012 [facility] Tylenol 650 mg, Route: PO, Drug form: LIQ, ONCE, Dosing Weight 83.636, kg, Start date: 10/10/12 19:31:00, Stop date: 10/10/12 19:31:00 PO No Longer Active Short 10/11/2012 [facility] dexamethasone 8 mg, Route: IM, ONCE, Dosing Weight 83.636, kg, Priority: STAT, Start date: 10/10/12 19:23:00, Stop date: 10/10/12 19:23:00 IM No Longer Active Short 10/11/2012 [facility] acetaminophen-hydrocodone 334 mg-5 mg/10 mL oral elixir 15 ml, Route: PO, Drug Form: ELIX, Dosing Weight 83.636, kg, ONCE, STAT, Start date: 10/10/12 18:44:00, Stop date: 10/10/12 18:44:00 PO No Longer Active Short 10/10/2012 [facility] Zofrerrol ODT 4 mg, 1 tab, Route: PO, Drug form: TABDIS, ONCE, Dosing Weight 83.636, kg, Priority: STAT, Start date: 10/10/12 18:44:00, Stop date: 10/10/12 18:44:00 PO No Longer Active Short 10/10/2012 [facility] DuoNeb inhalation solution 3 ml, Route: INHALATION, Drug Form: SOLN, Dosing Weight 83.636, kg, PRN, PRN Respiratory Protocol, Start date: 10/10/12 18:27:00, Duration: 30 day, Stop date: 11/09/12 18:26:00 INHALATION No Longer Active Short 10/10/2012 [facility] Nexium 1 capsule Orally Active 40 MG Orally Once a day [facility] Cons Relpax 1 tablet as needed one time Orally Active 40 MG Orally Once a day [facility] Cons Losartan Potassium 1 tablet Orally No Longer Active 50 MG Orally Once a day [facility] Cons Singulair 1 tablet in the evening Orally Active 10 MG Orally Once a day [facility] Cons Aspirin 1 tablet Orally Active 81 MG Orally Once a day [facility] Cons Vitamin D2 1 tablet Orally Active [id number] Orally one a week [facility] Cons Acetaminophen-Codeine 1 tablet as needed Orally Active 300-60 MG Orally every 6 hrs [facility] Cons Combivent Respimat 1 puff Inhalation Active 20-100 MCG/ACT Inhalation Four times a day [facility] Cons Diazepam 1 tablet Orally Active 5 MG Orally as needed (prn) [facility] Cons Cefprozil 1 tablet Orally Active 500 MG Orally Once a day [facility] Cons MethylPREDNISolone Unknown Orally Active 4 MG Orally [facility] Cons Tramadol-Acetaminophen 2 tablets as needed Orally Active 37.5- 325 MG Orally every 6 hrs [facility] Cons Naproxen 1 tablet as needed Orally Active 500 MG Orally every 12 hrs [facility] Cons Ibuprofen 1 tablet Orally Active 800 MG Orally prn [facility] Cons Allergies, Adverse Reactions, Alerts Substance Category Reaction Severity Reaction type Status Date Reported Comments Source N.K.D.A. Adverse Reaction Info Not Available Adverse Reaction Active 10/17/2015 [facility] Ashli Assertion Drug allergy Active [facility] Immunizations Immunization Date Given Site Status Last Updated Comments Source Results Order Name Results Value Reference Range Date Interpretation Comments Source HEMATOLOGY MCHC 33.5 g/dL 32.0 - 36.0 04/15/2018 [facility] HEMATOLOGY Hct 34.5 % 36.0 - 48.0 04/15/2018 [facility] MCH 28.4 pg 27.0 - 31.0 04/15/2018 [facility] Platelet 383 K/CMM 133 - 450 04/15/2018 [facility] HEMATOLOGY RDW 14.2 % 11.5 - 14.5 04/15/2018 [facility] MPV 8.0 fL 7.4 - 10.4 04/15/2018 [facility] HEMATOLOGY WBC 14.5 K/CMM 3.7 - 10.4 04/15/2018 [facility] MCV 84.8 fL 80.0 - 98.0 04/15/2018 [facility] RBC 4.07 M/CMM 4.20 - 5.40 04/15/2018 [facility] Hgb 11.6 g/dL 12.0 - 16.0 04/15/2018 [facility] Neutrophils # 10.9 K/CMM 1.5 - 8.1 04/15/2018 [facility] Lymphocytes # 2.4 K/CMM 1.0 - 5.5 04/15/2018 [facility] Basophils 0.4 % 0.0 - 1.0 04/15/2018 [facility] Monocytes # 1.1 K/CMM 0.0 - 0.8 04/15/2018 [facility] Basophils # 0.1 K/CMM 0.0 - 0.2 04/15/2018 [facility] HEMATOLOGY Eosinophils 0.2 % 0.0 - 4.0 04/15/2018 [facility] Monocytes 7.5 % 2.0 - 12.0 04/15/2018 [facility] Lymphocytes 16.3 % 20.0 - 40.0 04/15/2018 [facility] HEMATOLOGY Segs 75.6 % 45.0 - 75.0 04/15/2018 [facility] URINE CHEM U Preg Negative (04/14/18 6:38 AM) Negative 04/14/2018 [facility] BLOOD BANK RESULTS Antibody Scrn Negative (04/10/18 11:38 AM) 04/10/2018 [facility] BLOOD BANK RESULTS ABO/Rh B POS 04/10/2018 [facility] CHEM PANEL Globulin 4.0 g/dL 2.7 - 4.2 04/10/2018 [facility] CHEM PANEL A/G Ratio 0.8 0.7 - 1.6 04/10/2018 [facility] CHEM PANEL B/C Ratio 28 6 - 25 04/10/2018 [facility] CHEM PANEL AGAP 13.5 meq/L 10.0 - 20.0 04/10/2018 [facility] CHEM PANEL eGFR 82 mL/min/1.73m2 04/10/2018 Result Comment: The eGFR is calculated using the [...] from the National Kidney Disease Education Program (NKDEP) which additionally recommends that when the eGFR is used in patients with extremes of body mass index for purposes of drug dosing, the eGFR should be multiplied by the estimated BMI. [facility] CHEM PANEL Potassium Lvl 3.5 meq/L 3.5 - 5.1 04/10/2018 [facility] CHEM PANEL CO2 27 meq/L 24 - 32 04/10/2018 [facility] CHEM PANEL Chloride Lvl 107 meq/L 95 - 109 04/10/2018 [facility] CHEM PANEL Calcium Lvl 8.3 mg/dL 8.5 - 10.5 04/10/2018 [facility] CHEM PANEL Total Protein 7.2 g/dL 6.4 - 8.4 04/10/2018 [facility] CHEM PANEL Albumin Lvl 3.2 g/dL 3.5 - 5.0 04/10/2018 [facility] CHEM PANEL ALT 25 unit/L 0 - 65 04/10/2018 [facility] CHEM PANEL Alk Phos 73 unit/L 39 - 136 04/10/2018 [facility] CHEM PANEL AST 17 unit/L 0 - 37 04/10/2018 [facility] CHEM PANEL Bili Total 0.3 mg/dL 0.2 - 1.3 04/10/2018 [facility] CHEM PANEL BUN 26 mg/dL 7 - 22 04/10/2018 [facility] CHEM PANEL Glucose Lvl 84 mg/dL 70 - 99 04/10/2018 [facility] CHEM PANEL Sodium Lvl 144 meq/L 135 - 145 04/10/2018 [facility] CHEM PANEL Creatinine Lvl 0.93 mg/dL 0.50 - 1.40 04/10/2018 [facility] HEMATOLOGY Eosinophils 1.0 % 0.0 - 4.0 04/10/2018 [facility] HEMATOLOGY Neutrophils # 4.5 K/CMM 1.5 - 8.1 04/10/2018 [facility] HEMATOLOGY Basophils 0.8 % 0.0 - 1.0 04/10/2018 [facility] Monocytes 8.9 % 2.0 - 12.0 04/10/2018 [facility] Lymphocytes # 6.1 K/CMM 1.0 - 5.5 04/10/2018 [facility] Monocytes # 1.1 K/CMM 0.0 - 0.8 04/10/2018 [facility] Segs 37.8 % 45.0 - 75.0 04/10/2018 [facility] Lymphocytes 51.5 % 20.0 - 40.0 04/10/2018 [facility] Eosinophils # 0.1 K/CMM 0.0 - 0.5 04/10/2018 [facility] Basophils # 0.1 K/CMM 0.0 - 0.2 04/10/2018 [facility] Platelet 438 K/CMM 133 - 450 04/10/2018 [facility] MCH 28.4 pg 27.0 - 31.0 04/10/2018 [facility] MCHC 32.9 g/dL 32.0 - 36.0 04/10/2018 [facility] RDW 14.1 % 11.5 - 14.5 04/10/2018 [facility] MPV 8.3 fL 7.4 - 10.4 04/10/2018 [facility] RBC 4.33 M/CMM 4.20 - 5.40 04/10/2018 [facility] WBC 11.9 K/CMM 3.7 - 10.4 04/10/2018 [facility] MCV 86.3 fL 80.0 - 98.0 04/10/2018 [facility] Hgb 12.3 g/dL 12.0 - 16.0 04/10/2018 [facility] Hct 37.4 % 36.0 - 48.0 04/10/2018 [facility] IMMUNOLOGY T pallidum Ab Reactive *ABN* (04/10/18 11:38 AM) Non Reactive 04/10/2018 [facility] RPR Non-Reactive (04/10/18 11:38 AM) Non 04/10/2018 [facility] Hep Bs Ag Negative *NA* (04/10/18 11:38 AM) Negative 04/10/2018 [facility] HIV Ag/Ab 4th Gen Negative *NA* (04/10/18 11:38 AM) Negative 04/10/2018 [facility] Hep C Ab Negative *NA* (04/10/18 11:38 AM) 04/10/2018 [facility] Treponemal Ab Reactive *ABN* (04/10/18 11:38 AM) Non 04/10/2018 [facility] Retroperitoneal Complete US Retroperitoneal Complete US EXAM: US RENAL DATE: 03/01/2018 8:46 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 COMPARISON: None. TECHNIQUE: Multiplanar grayscale and color Doppler ultrasound of the kidneys and urinary bladder. DISCUSSION: Right kidney: Hydronephrosis: None. Size: 10.4 x 5.4 x 4.1 cm. Echogenicity: Normal. Calculi: None. Cysts: None. Masses: None. Left kidney: Hydronephrosis: None. Size: 11.3 x 5.4 x 4.0 cm. Echogenicity: Normal. Calculi: None. Cysts: None. Masses: None. Bladder: Normal. IMPRESSION: 1. Normal renal ultrasound. 03/01/2018 - - Read by: Neal Barksdale MD Dictated Date/time: 03/02/18 07:17 Electronically Signed by: Neal Barksdale MD 03/02/18 07:20 FINAL REPORT [facility] Wrist wo contrast MRI Wrist wo contrast MRI EXAMINATION: MRI of the right wrist without contrast HISTORY: M65.4 Radial styloid tenosynovitis; de Quervain's tenosynovitis; right wrist pain COMPARISON: There are no radiographs available for review. TECHNIQUE: Multiplanar, multisequence magnetic resonance imaging of the right wrist is performed with an extremity coil without contrast. FINDINGS: Cartilage: There is a small focal area of mild arthrosis along the far volar and radial aspect of the scaphotrapezial joint with associated focal chondrosis and foci of subchondral edema and cystic change (series 601, image 3). The joint spaces and cartilage within the wrist are otherwise within normal limits. The distal radioulnar joint appears normal. Fluid: There is no substantial distal radioulnar, radiocarpal, or midcarpal joint effusion. Bone: The alignment is normal. Again, there is a small focal area of subchondral edema and cystic change along the far volar and radial aspect of the scaphotrapezial joint. There is also a small focus of subchondral edema within the ulnar and proximal aspect of the capitate without definite overlying chondrosis. The bone marrow signal intensity is otherwise normal and there is no acute fracture. Intrinsic Ligaments: --SL and LT Ligament: The scapholunate ligament including dorsal, volar, and central triangular ligamentous structures are intact throughout their entirety. The fibers of the lunotriquetral ligament are intact. --TFCC: The triangular fibrocartilage complex is normal. Tendons: There is a small to moderate amount of fluid within the 1st extensor tendon compartment with overlying inflammatory changes and subcutaneous edema, most prominent at the level of the radial styloid. There is partial-thickness, longitudinal split tearing of the distal aspect of the abductor pollicis longus tendon, along the radial aspect of the wrist. There is underlying moderate to severe tendinosis of the abductor pollicis longus and mild to moderate tendinosis of the extensor pollicis brevis tendon. There is also a 5 x 3 x 5 mm cyst along the radial aspect of the 1st extensor tendon compartment at the level of the radial styloid, most consistent with a small ganglion cyst (series 601, image 6 and series 801, image 3). The second, third, fourth, fifth, and sixth extensor tendon compartments are normal. The flexor tendons are normal in signal and morphology. Muscles: The visualized musculature is normal in signal and bulk. Soft tissue: Ulnar and median nerves demonstrate normal signal and morphology. The carpal tunnel and Guyon's canal are normal. IMPRESSION: 1. Small to moderate amount of fluid within the 1st extensor tendon compartment of the right wrist with overlying inflammatory changes and subcutaneous edema, most prominent at the level of the radial styloid, in keeping with de Quervain's tenosynovitis. There is partial-thickness, longitudinal split tearing of the distal aspect of the right abductor pollicis longus tendon, along the radial aspect of the wrist, and there is underlying moderate to severe tendinosis of the abductor pollicis longus tendon and mild to moderate tendinosis of the extensor pollicis brevis tendon. 2. Small, 5 x 3 x 5 mm, cyst along the radial aspect of the 1st extensor tendon compartment at the level of the radial styloid of the right wrist, most consistent with a small ganglion cyst. 3. Small focal area of mild arthrosis along the far volar and radial aspect of the scaphotrapezial joint of the right wrist with associated focal chondrosis and foci of subchondral edema and cystic change. 4. Intact intrinsic ligaments of the right wrist. 10/05/2017 - - Read by: Enzo Adair MD Dictated Date/time: 10/06/17 08:32 Electronically Signed by: Enzo Adair MD 10/06/17 09:26 FINAL REPORT [facility] Pelvis w Pelvis Transvaginal US Pelvis w Pelvis Transvaginal US Pelvic Ultrasound HISTORY: - R10.2 Pelvic and perineal pain. . FINDINGS: Transabdominal sonographic images of the pelvis are obtained. Uterus measures 9.2 x 5.0 x 6.6 cm. Endometrium is estimated at 5 mm. Right ovary appear within normal limits. Left ovary not visualized. Transvaginal sonography was performed to attempt to better visualize endometrial stripe and adnexal regions. This appears unremarkable. Endometrium is approximately 4 mm. Limited assessment of the ovaries without definite abnormality. No free pelvic fluid. IMPRESSION: No acute sonographic findings. SL: [id number] 04/30/2017 - - Read by: Aj Dumont MD Dictated Date/time: 04/30/17 13:50 Electronically Signed by: Aj Dumont 04/30/17 13:53 FINAL REPORT [facility] BLOOD BANK RESULTS Antibody Scrn Negative (11/14/14 3:07 PM) 11/14/2014 [facility] BLOOD BANK RESULTS ABO/Rh B POS 11/14/2014 [facility] ENDOCRINOLOGY S Preg Negative *NA* (11/14/14 3:07 PM) Negative 11/14/2014 [facility] BLOOD BANK RESULTS ABO/Rh B POS 10/28/2014 [facility] BLOOD BANK RESULTS Antibody Scrn Negative (10/28/14 12:35 PM) 10/28/2014 [facility] ELECTROLYTES AGAP 7.9 meq/L 10.0 - 20.0 10/28/2014 [facility] ELECTROLYTES Globulin 4.4 g/dL 2.0 - 4.0 10/28/2014 [facility] ELECTROLYTES B/C Ratio 18 6 - 25 10/28/2014 [facility] ELECTROLYTES A/G Ratio 0.8 0.7 - 1.6 10/28/2014 [facility] ELECTROLYTES eGFR 77 mL/min/1.73m2 10/28/2014 Result Comment: The eGFR is calculated using the [...] from the National Kidney Disease Education Program (NKDEP) which additionally recommends that when the eGFR is used in patients with extremes of body mass index for purposes of drug dosing, the eGFR should be multiplied by the estimated BMI. [facility] ELECTROLYTES ALT 34 unit/L 0 - 65 10/28/2014 [facility] ELECTROLYTES AST 17 unit/L 0 - 37 10/28/2014 [facility] ELECTROLYTES Alk Phos 96 unit/L 39 - 136 10/28/2014 [facility] ELECTROLYTES Bili Total 0.5 mg/dL 0.2 - 1.3 10/28/2014 [facility] ELECTROLYTES Creatinine Lvl 1.0 mg/dL 0.5 - 1.4 10/28/2014 [facility] ELECTROLYTES BUN 18 mg/dL 7 - 22 10/28/2014 [facility] ELECTROLYTES CO2 30 meq/L 24 - 32 10/28/2014 [facility] ELECTROLYTES Calcium Lvl 9.0 mg/dL 8.5 - 10.5 10/28/2014 [facility] ELECTROLYTES Albumin Lvl 3.7 g/dL 3.5 - 5.0 10/28/2014 [facility] Total Protein 8.1 g/dL 6.4 - 8.4 10/28/2014 [facility] ELECTROLYTES Glucose Lvl 139 mg/dL 70 - 99 10/28/2014 [facility] ELECTROLYTES Potassium Lvl 3.9 meq/L 3.5 - 5.1 10/28/2014 [facility] ELECTROLYTES Sodium Lvl 137 meq/L 135 - 145 10/28/2014 [facility] ELECTROLYTES Chloride Lvl 103 meq/L 95 - 109 10/28/2014 [facility] HEMATOLOGY Platelet 382 K/CMM 133 - 450 10/28/2014 [facility] HEMATOLOGY MPV 8.6 fL 7.4 - 10.4 10/28/2014 [facility] MCH 27.3 pg 27.0 - 31.0 10/28/2014 [facility] MCHC 32.7 g/dL 32.0 - 36.0 10/28/2014 [facility] HEMATOLOGY RDW 14.2 % 11.5 - 14.5 10/28/2014 [facility] HEMATOLOGY RBC 4.54 M/CMM 4.20 - 5.40 10/28/2014 [facility] Hgb 12.4 g/dL 12.0 - 16.0 10/28/2014 [facility] MCV 83.4 fL 80.0 - 98.0 10/28/2014 [facility] Hct 37.8 % 36.0 - 48.0 10/28/2014 [facility] WBC 6.0 K/CMM 3.7 - 10.4 10/28/2014 [facility] HEMATOLOGY Monocytes # 0.4 K/CMM 0.0 - 0.8 10/28/2014 [facility] HEMATOLOGY Eosinophils # 0.1 K/CMM 0.0 - 0.5 10/28/2014 [facility] HEMATOLOGY Basophils 0.6 % 0.0 - 1.0 10/28/2014 [facility] HEMATOLOGY Segs-Bands # 3.2 K/CMM 1.5 - 8.1 10/28/2014 [facility] Lymphocytes # 2.3 K/CMM 1.0 - 5.5 10/28/2014 [facility] HEMATOLOGY Segs 53.7 % 45.0 - 75.0 10/28/2014 [facility] HEMATOLOGY Monocytes 5.8 % 2.0 - 12.0 10/28/2014 [facility] HEMATOLOGY Lymphocytes 37.5 % 20.0 - 40.0 10/28/2014 [facility] Eosinophils 2.4 % 0.0 - 4.0 10/28/2014 [facility] T pallidum Ab Reactive *ABN* (10/28/14 12:35 PM) Non Reactive 10/28/2014 [facility] Hep C Ab Negative *NA* (10/28/14 12:35 PM) 10/28/2014 [facility] Treponemal Scr Reactive *ABN* (10/28/14 12:35 PM) Non Reactive 10/28/2014 [facility] HIV 1/2 Ab Negative *NA* (10/28/14 12:35 PM) Negative 10/28/2014 [facility] Hep Bs Ag Negative *NA* (10/28/14 12:35 PM) Negative 10/28/2014 [facility] RPR Non Reactive (10/28/14 12:35 PM) Non Reactive 10/28/2014 [facility] URINE CHEM U Preg Negative (10/28/14 12:35 PM) Negative 10/28/2014 [facility] URINE CHEM U Preg Negative (07/27/13 7:05 AM) Negative 07/27/2013 [facility] MPV 8.0 fL 7.4 - 10.4 07/20/2013 [facility] Hgb 12.6 g/dL 12.0 - 16.0 07/20/2013 [facility] RBC 4.57 M/CMM 4.20 - 5.40 07/20/2013 [facility] Platelet 416 K/CMM 133 - 450 07/20/2013 [facility] Hct 38.1 % 36.0 - 48.0 07/20/2013 [facility] MCH 27.5 pg 27.0 - 31.0 07/20/2013 [facility] MCV 83.4 fL 81.0 - 99.0 07/20/2013 [facility] WBC 10.8 K/CMM 3.7 - 10.4 07/20/2013 [facility] RDW 15.5 % 11.5 - 14.5 07/20/2013 [facility] MCHC 32.9 g/dL 32.0 - 36.0 07/20/2013 [facility] Basophils # 0.0 K/CMM 0.0 - 0.2 07/20/2013 [facility] Eosinophils # 0.2 K/CMM 0.0 - 0.5 07/20/2013 [facility] Monocytes # 0.3 K/CMM 0.0 - 0.8 07/20/2013 [facility] Lymphocytes # 2.8 K/CMM 1.0 - 5.5 07/20/2013 [facility] Segs-Bands # 7.4 K/CMM 1.5 - 8.1 07/20/2013 [facility] Basophils 0.4 % 0.0 - 1.0 07/20/2013 [facility] HEMATOLOGY Eosinophils 1.6 % 0.0 - 4.0 07/20/2013 [facility] HEMATOLOGY Lymphocytes 26.1 % 20.0 - 40.0 07/20/2013 [facility] HEMATOLOGY Segs 68.8 % 45.0 - 75.0 07/20/2013 [facility] Plt Morph Normal (07/20/13 2:15 PM) 07/20/2013 [facility] HEMATOLOGY RBC Morph Normal (07/20/13 2:15 PM) 07/20/2013 [facility] HEMATOLOGY Monocytes 3.1 % 2.0 - 12.0 07/20/2013 [facility] URINE CHEM U Preg Negative (07/20/13 2:00 PM) Negative 07/20/2013 [facility] Chest 2 views Chest 2 views REASON FOR EXAM: Bronchitis. COMPARISON: Chest x-ray 10/10/2012. FINDINGS: Two view chest x-ray. The cardiac silhouette is upper limits of normal on the PA view, unchanged. The mediastinal silhouette, selin and lungs are unremarkable. There is no demonstrable infiltrate, vascular congestion, pneumothorax or pleural effusion. Minimal thoracic spondylosis. There is a 5 mm calcification in the soft tissues adjacent to the right humeral head on the PA view likely calcific tendinosis of the rotator cuff. No free air beneath the diaphragm. IMPRESSION: 1. The cardiac silhouette is upper limits of normal. 2. There is no demonstrable acute pulmonary abnormality. Please correlate clinically and consider follow-up imaging as indicated. Dictation code: 15 01/07/2013 - - Read by: Kiko Parham Dictated Date/time: 01/07/13 22:16 Electronically Signed by: Kiko Parham MD 01/07/13 22:24 FINAL REPORT [facility] Chest 2 views Chest 2 views PROCEDURE: Chest 2 views REASON FOR EXAM: See Clinic Indication CLINICAL INDICATION: Coughing COMPARISON: None. FINDINGS: No acute process. No focal consolidation, pleural effusion, or pneumothorax. Normal cardiac silhouette and mediastinum. SL: 12 10/10/2012 - - Read by: Jose Cornejo Dictated Date/time: 10/10/12 18:31 Electronically Signed by: Jose Cornejo MD 10/10/12 18:31 FINAL REPORT [facility] Vital Signs Vital Sign Value Date Comments Source Temperature Oral (F) 98.2 F 04/15/2018 [facility] Systolic (mm Hg) 130 04/15/2018 [facility] Diastolic (mm Hg) 76 04/15/2018 [facility] Respitory Rate 16 04/15/2018 [facility] Respitory Rate 18 04/15/2018 [facility] Systolic (mm Hg) 132 04/15/2018 [facility] Diastolic (mm Hg) 86 04/15/2018 [facility] Respitory Rate 18 04/15/2018 [facility] Heart Rate 64 04/15/2018 [facility] Temperature Oral (F) 98.5 F 04/15/2018 [facility] Temperature Oral (F) 98.4 F 04/15/2018 [facility] Systolic (mm Hg) 130 04/15/2018 [facility] Diastolic (mm Hg) 76 04/15/2018 [facility] Heart Rate 86 04/15/2018 [facility] Heart Rate 87 04/14/2018 [facility] Weight 92.983 04/10/2018 [facility] BMI Calculated 36.9 04/10/2018 [facility] Height 158.75 cm 04/10/2018 [facility] Weight 198 10/17/2015 [facility] Height [...] (mm Hg) 120 07/04/2015 [facility] Systolic (mm Hg) 134 11/15/2014 [facility] Diastolic (mm Hg) 74 11/15/2014 [facility] Systolic (mm Hg) 137 11/15/2014 [facility] Diastolic (mm Hg) 70 11/15/2014 [facility] Respitory Rate 14 11/15/2014 [facility] Systolic (mm Hg) 134 11/15/2014 [facility] Diastolic (mm Hg) 78 11/15/2014 [facility] Respitory Rate 15 11/15/2014 [facility] Respitory Rate 17 11/15/2014 [facility] Heart Rate 76 11/15/2014 [facility] Heart Rate 78 10/28/2014 [facility] Temperature Oral (F) 98.0 F 10/28/2014 [facility] Weight 86.818 10/28/2014 [facility] BMI Calculated 35.01 10/28/2014 [facility] Height 157.48 cm 10/28/2014 [facility] Diastolic (mm Hg) 74 07/27/2013 [facility] Systolic (mm Hg) 129 07/27/2013 [facility] Systolic (mm Hg) 129 07/27/2013 [facility] Diastolic (mm Hg) 74 07/27/2013 [facility] Systolic (mm Hg) 119 07/27/2013 [facility] Diastolic (mm Hg) 71 07/27/2013 [facility] Respitory Rate 18 07/27/2013 [facility] Respitory Rate 18 07/27/2013 [facility] Respitory Rate 14 07/27/2013 [facility] Height 157.48 cm 07/26/2013 [facility] BMI Calculated 34.27 07/26/2013 [facility] Weight 85 07/26/2013 [facility] Respitory Rate 18 07/21/2013 [facility] Diastolic (mm Hg) 70 07/21/2013 [facility] Systolic (mm Hg) 123 07/21/2013 [facility] Systolic (mm Hg) 120 07/21/2013 [facility] Diastolic (mm Hg) 66 07/21/2013 [facility] Respitory Rate 17 07/21/2013 [facility] Systolic (mm Hg) 129 07/21/2013 [facility] Diastolic (mm Hg) 69 07/21/2013 [facility] Respitory Rate 18 07/21/2013 [facility] Heart Rate 87 07/21/2013 [facility] Heart Rate 68 07/20/2013 [facility] Temperature Oral (F) 97 F 07/20/2013 [facility] Weight 86.364 07/20/2013 [facility] BMI Calculated 34.82 07/20/2013 [facility] Height 157.48 cm 07/20/2013 [facility] Respitory Rate 18 10/11/2012 [facility] Systolic (mm Hg) 128 10/11/2012 [facility] Diastolic (mm Hg) 84 10/11/2012 [facility] Temperature Oral (F) 97.9 F 10/11/2012 [facility] Heart Rate 84 10/11/2012 [facility] Systolic (mm Hg) 104 10/10/2012 [facility] Diastolic (mm Hg) 73 10/10/2012 [facility] Heart Rate 90 10/10/2012 [facility] Respitory Rate 18 10/10/2012 [facility] Temperature Oral (F) 97.8 F 10/10/2012 [facility] Weight 83.636 10/10/2012 [facility] Height 157.48 cm 10/10/2012 [facility] Encounters Location Location Details Encounter Type Encounter Number Reason For Visit Attending Provider ADM Date DC Date Status Source [facility] Emergency [id number] GRACE BELTRAN 10/10/2012 10/10/2012 Active [id number]2013 07/21/2013 [facility] OBS Day Surgery [id number] [facility] 07/27/2013 07/27/2013 [facility] OBS Day Surgery [id number] Jyotsna Toscano 11/15/2014 11/15/2014 [facility] 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, [place] Consult [id number] 07/04/2015 07/04/2015 [facility] [place] 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, [place] Consult [id number] 07/04/2015 07/04/2015 [facility] [place] 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, [place] Consult [id number] 07/04/2015 07/04/2015 [facility] [place] 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, [place] Consult [id number] 07/04/2015 07/04/2015 [facility] [place] 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, [place] Consult [id number] 07/04/2015 07/04/2015 [facility] [place] 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, [place] Consult [id number] 07/04/2015 07/04/2015 [facility] [place] 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, [place] Consult [id number] 07/04/2015 07/04/2015 [facility] [place] 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, [place] Consult [id number] 07/04/2015 07/04/2015 [facility] [place] 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, [place] C-lite follow-up [id number] 07/28/2015 07/28/2015 [facility] [place] 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, [place] C-lite follow-up [id number] 07/28/2015 07/28/2015 [facility] [place] 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, [place] C-lite follow-up [id number] 07/28/2015 07/28/2015 [facility] 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, [place]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-lite 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-up [id number] 07/28/2015 07/28/2015 [facility] 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, [place] C-lite follow-up [id number] 07/28/2015 07/28/2015 [facility] 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, [place] C-lite follow-up [id number] 07/28/2015 07/28/2015 [facility] 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, [place] C-lite follow-up [id number] 07/28/2015 07/28/2015 [facility] 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, [place] Refill [id number] 08/31/2015 08/31/2015 [facility] [place] 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, [place] Refill [id number] 08/31/2015 08/31/2015 [facility] [place] 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, [place] Refill [id number] 08/31/2015 08/31/2015 [facility] [place] 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, [place] Refill [id number] 08/31/2015 08/31/2015 [facility] [place] 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, [place] Refill [id number] 08/31/2015 08/31/2015 [facility] [place] 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, [place] Refill [id number] 08/31/2015 08/31/2015 [facility] 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, [place] Unknown [id number] 09/19/2015 09/19/2015 [facility] 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, [place] Unknown [id number] 09/19/2015 09/19/2015 [facility] 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, [place] Unknown [id number] 09/19/2015 09/19/2015 [facility] 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, [place] Unknown [id number] 09/19/2015 09/19/2015 [facility] 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, [place] Unknown [id number] 09/19/2015 09/19/2015 [facility] 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, [place] Refill [id number] 10/09/2015 10/09/2015 [facility] 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, [place] Refill [id number] 10/09/2015 10/09/2015 [facility] [place] 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, [place] Refill [id number] 10/09/2015 10/09/2015 [facility] [place] 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, PA Refill [id number] 10/09/2015 10/09/2015 [facility] [place] 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, [place] Follow-Up [id number] 10/17/2015 10/17/2015 [facility] [place] 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, [place] Follow-Up [id number] 10/17/2015 10/17/2015 [facility] [place] 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, [place] Follow-Up [id number] 10/17/2015 10/17/2015 [facility] [place] 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, PA refill [id number] 11/16/2015 11/16/2015 [facility] [place] 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, PA refill [id number] 11/16/2015 11/16/2015 [facility] [place] 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, [place] Unknown [id number] 11/21/2015 11/21/2015 [facility] [id number] Jyotsna Toscano 04/30/2017 05/01/2017 [facility] OP Therapy Patients [id number] Kiko Rivera 08/08/2017 09/07/2017 [facility] Outpatient Imaging [facility] Outpt Diag Services [id number] Geni Ward 10/05/2017 10/06/2017 [facility] Day Surgery [id number] Jyotsna Toscano 04/14/2018 04/15/2018 [facility] Procedures Procedure Code Date Perfomer Comments Source Excision of vocal cord polyp [id number] 07/27/2014 [facility] Excision of vocal cord polyp [id number] 07/27/2014 [facility] Excision of vocal cord polyp [id number] 07/27/2014 [facility] Ankle joint operations [id number] 02/18/2004 [facility] Ankle joint operations [id number] 02/18/2004 [facility] Ankle joint operations [id number] 02/18/2004 [facility] Fibroids [id number] [facility] Fibroids [id number] [facility] Fibroids [id number] [facility] Dilation and curettage [id number] [facility] Fibroids [id number] [facility] Dilation and curettage [id number] [facility]
--- OUTSIDE RECORDS SUMMARY | 2018-05-26 17:44 | XMS REPORT | Summary of Care ---
Author Organization Unknown Address Unknown Phone Unavailable Encounter HQ Em_andrea(JAVI) [id number] Date(s): 07/21/13 - 07/21/13 [facility] [address] Discharge Disposition: Home Physician Attending: Jefferson Sheets MD Physician_Referring: Jefferson Sheets MD Reason for Visit 784.8/ 478.4 DIRECT LARYNGOSOCPY AND BIOPSY Vital Signs 1 2 3 Most recent to oldest [Reference Range]: 157.48 cm (07/20/13 2:03 PM) Height 97 DegF (07/20/13 2:09 PM) Temperature Oral [96.4-99.1 DegF] 123 mmHg (07/21/13 12:30 PM) 120 mmHg (07/21/13 12:00 PM) 129 mmHg (07/21/13 11:45 AM) Systolic Blood Pressure [90-140 mmHg] 70 mmHg (07/21/13 12:30 PM) 66 mmHg (07/21/13 12:00 PM) 69 mmHg (07/21/13 11:45 AM) Diastolic Blood Pressure [60-90 mmHg] 18 BRMIN (07/21/13 12:30 PM) 17 BRMIN (07/21/13 12:00 PM) 18 BRMIN (07/21/13 11:45 AM) Respiratory Rate [14-20 BRMIN] 87 bpm (07/21/13 8:10 AM) 68 bpm (07/20/13 2:09 PM) Peripheral Pulse Rate [60-100 bpm] 86.364 kg (07/20/13 2:03 PM) Weight 34.82 m2 (07/20/13 2:03 PM) Body Mass Index Problem List Condition Effective Dates Status Health Status Informant Acid Active reflux(Confirmed) Anemia(Confirmed) Active Asthma(Confirmed) Active Frequent Active UTI(Confirmed) Allergies, Adverse Reactions, Alerts Substance Reaction Severity Status NKDA Active Medications acetaminophen-10 mg/mL INTRAVENOUS solution 1,000 mg, Route: IV, Drug form: INJ, ONCE, Dosing Weight 86.364, kg, PRN Pain, F or > or=50 kg, Start date: 07/21/13 11:30:00 Start Date: 07/21/13 Stop Date: 07/21/13 Status: Completed albuterol-ipratropium 2 puff, Route: INHALER, Drug Form: AERO, PRN, PRN Shortness of breath, Start sukhi e: 07/21/13 11:50:00, Duration: 30 day, Stop date: 08/20/13 11:49:00 Notes: Same as: Combivent Respimat Start Date: 07/21/13 Stop Date: 07/21/13 Status: Discontinued bumetanide 2 mg oral tablet PO, Daily, 0 Refill(s) Start Date: 07/20/13 Status: Ordered Combivent Respimat CFC free 100 mcg-20 mcg/inh inhalation aerosol INHALATION, QID, 0 Refill(s) Start Date: 07/20/13 Status: Ordered potassium chloride 10 mEq, PO, Daily, 0 Refill(s) Start Date: 07/20/13 Status: Ordered Relpax 40 mg oral tablet PO, Daily, 0 Refill(s) Start Date: 07/20/13 Status: Ordered Singulair 10 mg oral tablet PO, QPM, 0 Refill(s) Start Date: 07/20/13 Status: Ordered Tylenol with Codeine #4 oral tablet PO, PRN, 0 Refill(s) Start Date: 07/20/13 Status: Ordered Tylenol with Codeine #4 oral tablet 0 Refill(s) Start Date: 07/21/13 Stop Date: 07/21/13 Status: Deleted Results URINE CHEM Most recent to 1 oldest [Reference Range]: U Preg [Negative] Negative (07/20/13 2:00 PM) HEMATOLOGY Most recent to 1 oldest [Reference Range]: WBC [3.7-10.4 K/CMM] 10.8 K/CMM *HI* (07/20/13 2:15 PM) RBC [4.20-5.40 4.57 M/CMM M/CMM] (07/20/13 2:15 PM) Hgb [12.0-16.0 g/dL] 12.6 g/dL (07/20/13 2:15 PM) Hct [36.0-48.0 %] 38.1 % (07/20/13 2:15 PM) MCV [81.0-99.0 fL] 83.4 fL (07/20/13 2:15 PM) MCH [27.0-31.0 pg] 27.5 pg (07/20/13 2:15 PM) MCHC [32.0-36.0 32.9 g/dL g/dL] (07/20/13 2:15 PM) RDW [11.5-14.5 %] 15.5 % *HI* (07/20/13 2:15 PM) Platelet [133-450 416 K/CMM K/CMM] (07/20/13 2:15 PM) MPV [7.4-10.4 fL] 8.0 fL (07/20/13 2:15 PM) Segs [45.0-75.0 %] 68.8 % (07/20/13 2:15 PM) Lymphocytes 26.1 % [20.0-40.0 %] (07/20/13 2:15 PM) Monocytes [2.0-12.0 3.1 % %] (07/20/13 2:15 PM) Eosinophils [0.0-4.0 1.6 % %] (07/20/13 2:15 PM) Basophils [0.0-1.0 0.4 % %] (07/20/13 2:15 PM) Segs-Bands # 7.4 K/CMM [1.5-8.1 K/CMM] (07/20/13 2:15 PM) Lymphocytes # 2.8 K/CMM [1.0-5.5 K/CMM] (07/20/13 2:15 PM) Monocytes # [0.0-0.8 0.3 K/CMM K/CMM] (07/20/13 2:15 PM) Eosinophils # 0.2 K/CMM [0.0-0.5 K/CMM] (07/20/13 2:15 PM) Basophils # [0.0-0.2 0.0 K/CMM K/CMM] (07/20/13 2:15 PM) RBC Morph Normal (07/20/13 2:15 PM) Plt Morph Normal (07/20/13 2:15 PM) Medications Administered During Your Visit No data available for this section Immunizations No data available for this section Procedures Procedure Type Body Site Date of Procedure Related Diagnosis Fibroids Social History Social History Type Response Smoking Status Former smoker, Exposure to Tobacco Smoke None, Cigarette Smoking Last 365 Days No, Reg Smoking Cessation Counseling Yes
--- OUTSIDE RECORDS SUMMARY | 2018-05-26 17:44 | XMS REPORT | Summary of Care ---
Author Author [facility] Organization [facility] Address Unknown Phone Unavailable Encounter CODY Guajardo(JAVI) [id number] Date(s): 11/15/14 - 11/15/14 [facility] [address] [place] [address]- Discharge Disposition: Home Attending Physician: Jyotsna Toscano MD Referring Physician: Jyotsna Toscano MD Vital Signs 1 2 3 Most recent to oldest [Reference Range]: 157.48 cm (10/28/14 11:47 AM) Height 1 2 3 Most recent to oldest [Reference Range]: 98.0 DegF (10/28/14 1:11 PM) Temperature Oral [96.4-99.1 DegF] 1 2 3 Most recent to oldest [Reference Range]: 134/74 mmHg (11/15/14 10:45 AM) 137/70 mmHg (11/15/14 9:45 AM) 134/78 mmHg (11/15/14 9:30 AM) Blood Pressure [90-140/60-90 mmHg] 1 2 3 Most recent to oldest [Reference Range]: 14 BRMIN (11/15/14 9:45 AM) 15 BRMIN (11/15/14 9:30 AM) 17 BRMIN (11/15/14 9:15 AM) Respiratory Rate [14-20 BRMIN] 1 2 3 Most recent to oldest [Reference Range]: 76 bpm (11/15/14 7:25 AM) 78 bpm (10/28/14 1:11 PM) Peripheral Pulse Rate [60-100 bpm] 1 2 3 Most recent to oldest [Reference Range]: 86.818 kg (10/28/14 11:47 AM) Weight 1 2 3 Most recent to oldest [Reference Range]: 35.01 m2 (10/28/14 11:47 AM) Body Mass Index Problem List Condition Effective Dates Status Health Status Informant Acid Active reflux(Confirmed) Anemia(Confirmed) Active Anxiety Active depression(Confirmed ) Asthma(Confirmed) Active Cervical Active dysplasia(Confirmed) Frequent Active UTI(Confirmed) HTN - Active Hypertension(Confirm ed) SOBOE - Shortness of Active breath on exertion(Confirmed) Allergies, Adverse Reactions, Alerts Substance Reaction Severity Status Ashli Active Medications acetaminophen 650 mg, Route: PO, Drug form: TAB, Q4H, Dosing Weight 86.818, kg, PRN Pain 1-3/T emp > 100.4 F, Start date: 11/15/14 8:51:00, Duration: 30 day, Stop date: 12/15/14 8:50:00 Start Date: 11/15/14 Stop Date: 11/16/14 Status: Discontinued acetaminophen 1,000 mg, Route: IV, Q6H, Dosing Weight 86.818, kg, PRN Pain 1-3/Temp > 100.4 F, Start date: 11/15/14 8:51:00, Duration: 30 day, Stop date: 12/15/14 8:50:00 Start Date: 11/15/14 Stop Date: 11/16/14 Status: Discontinued acetaminophen-codeine #3 2 tab, Route: PO, Drug Form: TAB, Dosing Weight 86.818, kg, Q4H, PRN Pain Score 4-6, Start date: 11/15/14 8:51:00, Duration: 30 day, Stop date: 12/15/14 8:50:00 Start Date: 11/15/14 Stop Date: 11/16/14 Status: Discontinued Advil Cold and Sinus oral tablet 1 tab, PO, BID, PRN Cough/Congestion, # 60 tab, 0 Refill(s) Start Date: 10/28/14 Status: Ordered albuterol 0.083% inhalation solution 2.49 mg=3 mL, NEB, Q6H, PRN as needed for shortness of breath, # 120 ea, 3 Refil l(s) Start Date: 10/28/14 Stop Date: 11/27/14 Status: Ordered ceFAZolin 2 gm, Route: IVPB, ONCALL, Dosing Weight 86.818, kg, Start date: 11/15/14 7:00:0 0, Duration: 30 day, Stop date: 12/15/14 6:59:00 Start Date: 11/15/14 Stop Date: 11/15/14 Status: Completed Cipro 500 mg oral tablet 500 mg=1 tab, PO, Q12H, # 28 tab, 0 Refill(s) Start Date: 10/28/14 Stop Date: 11/11/14 Status: Ordered diazepam 10 mg oral tablet 10 mg=1 tab, PO, Daily, 0 Refill(s) Start Date: 10/28/14 Status: Ordered Excedrine migraine Excedrine migraine, PO, PRN, Refill(s) 0 Start Date: 10/28/14 Status: Ordered fentaNYL 25 microgram, Route: IVP, Q5Min, Dosing Weight 86.818, kg, PRN Pain Score 4-6, S tart date: 11/15/14 9:00:00, Duration: 4 doses or times, Stop date: Limited # of times Start Date: 11/15/14 Stop Date: 11/15/14 Status: Discontinued flumazenil 0.2 mg, Route: IVP, PRN, Dosing Weight 86.818, kg, PRN Benzodiazepine Reversal, Initial dose, Start date: 11/15/14 9:00:00, Duration: 30 day, Stop date: 5 8:59:00 Start Date: 11/15/14 Stop Date: 11/15/14 Status: Discontinued hydrALAZINE 10 mg, Route: IVP, Q20Min, Dosing Weight 86.818, kg, PRN Elevated BP, Start date : 11/15/14 9:00:00, Duration: 2 doses or times, Stop date: Limited # of times Start Date: 11/15/14 Stop Date: 11/15/14 Status: Discontinued hydromorphone 0.5 mg, Route: IVP, Q5Min, Dosing Weight 86.818, kg, PRN Pain Score 7-10, Start date: 11/15/14 9:00:00, Duration: 4 doses or times, Stop date: Limited # of time s Start Date: 11/15/14 Stop Date: 11/15/14 Status: Discontinued ibuprofen 600 mg oral tablet 600 mg=1 tab, PO, Q8H, PRN pain, # 30 tab, 0 Refill(s) Start Date: 10/28/14 Status: Ordered ketOROLAC 30 mg, Route: IVP, Q6H, Dosing Weight 86.818, kg, Start date: 11/15/14 12:00:00, Duration: 4 day, Stop date: 11/19/14 6:00:00 Start Date: 11/15/14 Stop Date: 11/16/14 Status: Discontinued labetalol 10 mg, Route: IVP, Q5Min, Dosing Weight 86.818, kg, PRN Elevated BP, Start date: 11/15/14 9:00:00, Duration: 5 doses or times, Stop date: Limited # of times Start Date: 11/15/14 Stop Date: 11/15/14 Status: Discontinued Lactated Ringers Injection IV 1000 mL 1,000 mL, Rate: 25 ml/hr, Infuse over: 40 hr, Route: IV, Dosing Weight 86.818 kg , Total Volume: 1,000, Start date: 11/15/14 7:23:00, Duration: 30 day, Stop date : 12/15/14 7:22:00 Start Date: 11/15/14 Stop Date: 11/15/14 Status: Discontinued lisinopril 10 mg oral tablet 10 mg=1 tab, PO, Daily, # 30 tab, 0 Refill(s) Start Date: 10/28/14 Status: Ordered meperidine 12.5 mg, Route: IVP, Q30Min, Dosing Weight 86.818, kg, PRN Other -See Comment, F or shivering, Start date: 11/15/14 9:00:00, Duration: 2 doses or times, Stop sukhi e: Limited # of times Start Date: 11/15/14 Stop Date: 11/15/14 Status: Discontinued Mobic 7.5 mg, PO, Daily, 0 Refill(s) Start Date: 10/28/14 Status: Ordered morphine Sulfate 2 mg, Route: IVP, Q3H, Dosing Weight 86.818, kg, PRN Pain Score 1-3, Start date: 11/15/14 8:51:00, Duration: 30 day, Stop date: 12/15/14 8:50:00 Start Date: 11/15/14 Stop Date: 11/16/14 Status: Discontinued naloxone 0.04 mg, Route: IVP, Q2MIN, Dosing Weight 86.818, kg, PRN Narcotic Reversal, Sta rt date: 11/15/14 9:00:00, Duration: 8 doses or times, Stop date: Limited # of t imes Start Date: 11/15/14 Stop Date: 11/15/14 Status: Discontinued ondansetron 4 mg, Route: IVP, ONCE, Dosing Weight 86.818, kg, PRN Nausea & Vomiting, Start date: 11/15/14 9:00:00 Start Date: 11/15/14 Stop Date: 11/15/14 Status: Discontinued oxyCODONE 5 mg, Route: PO, Drug form: TAB, Q4H, Dosing Weight 86.818, kg, PRN Pain Score 4 -6, Start date: 11/15/14 9:00:00, Duration: 30 day, Stop date: 12/15/14 8:59:00 Start Date: 11/15/14 Stop Date: 11/15/14 Status: Discontinued oxyCODONE 10 mg, Route: PO, Drug form: TAB, Q4H, Dosing Weight 86.818, kg, PRN Pain Score 7-10, Start date: 11/15/14 9:00:00, Duration: 30 day, Stop date: 12/15/14 8:59:0 0 Start Date: 11/15/14 Stop Date: 11/15/14 Status: Discontinued promethazine 6.25 mg, Route: IVPB, ONCE, Dosing Weight 86.818, kg, PRN Nausea & Vomiting, Start date: 11/15/14 9:00:00 Start Date: 11/15/14 Stop Date: 11/15/14 Status: Discontinued tramadol 50 mg oral tablet 50 mg=1 tab, PO, Q6H, PRN Pain, # 40 tab, 0 Refill(s) Start Date: 10/28/14 Stop Date: 11/07/14 Status: Ordered Tylenol with Codeine #3 oral tablet 1 - 2 tab, PO, Q4H, PRN Pain, X 3 day, # 20 tab, 0 Refill(s) Start Date: 11/15/14 Stop Date: 11/18/14 Status: Ordered Results BLOOD BANK RESULTS Most recent to 1 2 oldest [Reference Range]: ABO/Rh B POS B POS *Unknown* *Unknown* (11/14/14 3:07 PM) (10/28/14 12:35 PM) Antibody Scrn Negative Negative (11/14/14 3:07 PM) (10/28/14 12:35 PM) ELECTROLYTES Most recent to 1 2 oldest [Reference Range]: Sodium Lvl [135-145 137 mEq/L mEq/L] (10/28/14 12:35 PM) Potassium Lvl 3.9 mEq/L [3.5-5.1 mEq/L] (10/28/14 12:35 PM) Chloride Lvl [95-109 103 mEq/L mEq/L] (10/28/14 12:35 PM) CO2 [24-32 mEq/L] 30 mEq/L (10/28/14 12:35 PM) AGAP [10.0-20.0 7.9 mEq/L mEq/L] *LOW* (10/28/14 12:35 PM) CHEM PANEL Most recent to 1 2 oldest [Reference Range]: Creatinine Lvl 1.0 mg/dL [0.5-1.4 mg/dL] (10/28/14 12:35 PM) eGFR 77 mL/min/1.73m2 1 *NA* (10/28/14 12:35 PM) BUN [7-22 mg/dL] 18 mg/dL (10/28/14 12:35 PM) B/C Ratio [6-25] 18 (10/28/14 12:35 PM) Glucose Lvl [70-99 139 mg/dL mg/dL] *HI* (10/28/14 12:35 PM) Total Protein 8.1 g/dL [6.4-8.4 g/dL] (10/28/14 12:35 PM) Albumin Lvl [3.5-5.0 3.7 g/dL g/dL] (10/28/14 12:35 PM) Globulin [2.0-4.0 4.4 g/dL g/dL] *HI* (10/28/14 12:35 PM) A/G Ratio [0.7-1.6] 0.8 (10/28/14 12:35 PM) Calcium Lvl 9.0 mg/dL [8.5-10.5 mg/dL] (10/28/14 12:35 PM) ALT [0-65 unit/L] 34 unit/L (10/28/14 12:35 PM) AST [0-37 unit/L] 17 unit/L (10/28/14 12:35 PM) Alk Phos [39-136 96 unit/L unit/L] (10/28/14 12:35 PM) Bili Total [0.2-1.3 0.5 mg/dL mg/dL] (10/28/14 12:35 PM) 1Result Comment: The eGFR is calculated using [...] be mul tiplied by the estimated BMI. ENDOCRINOLOGY Most recent to 1 2 oldest [Reference Range]: S Preg [Negative] Negative *NA* (11/14/14 3:07 PM) URINE CHEM Most recent to 1 2 oldest [Reference Range]: U Preg [Negative] Negative (10/28/14 12:35 PM) IMMUNOLOGY Most recent to 1 2 oldest [Reference Range]: Treponemal Scr [Non Reactive Reactive] *ABN* (10/28/14 12:35 PM) RPR [Non Reactive] Non Reactive (10/28/14 12:35 PM) T pallidum Ab [Non Reactive Reactive] *ABN* (10/28/14 12:35 PM) HIV 1/2 Ab Negative [Negative] *NA* (10/28/14 12:35 PM) Hep Bs Ag [Negative] Negative *NA* (10/28/14 12:35 PM) Hep C Ab Negative *NA* (10/28/14 12:35 PM) HEMATOLOGY Most recent to 1 2 oldest [Reference Range]: WBC [3.7-10.4 K/CMM] 6.0 K/CMM (10/28/14 12:35 PM) RBC [4.20-5.40 4.54 M/CMM M/CMM] (10/28/14 12:35 PM) Hgb [12.0-16.0 g/dL] 12.4 g/dL (10/28/14 12:35 PM) Hct [36.0-48.0 %] 37.8 % (10/28/14 12:35 PM) MCV [80.0-98.0 fL] 83.4 fL (10/28/14 12:35 PM) MCH [27.0-31.0 pg] 27.3 pg (10/28/14:35 PM) MCHC [32.0-36.0 32.7 g/dL g/dL] (10/28/14 12:35 PM) RDW [11.5-14.5 %] 14.2 % (10/28/14 12:35 PM) Platelet [133-450 382 K/CMM K/CMM] (10/28/14 12:35 PM) MPV [7.4-10.4 fL] 8.6 fL (10/28/14 12:35 PM) Segs [45.0-75.0 %] 53.7 % (10/28/14 12:35 PM) Lymphocytes 37.5 % [20.0-40.0 %] (10/28/14 12:35 PM) Monocytes [2.0-12.0 5.8 % %] (10/28/14 12:35 PM) Eosinophils [0.0-4.0 2.4 % %] (10/28/14 12:35 PM) Basophils [0.0-1.0 0.6 % %] (10/28/14 12:35 PM) Segs-Bands # 3.2 K/CMM [1.5-8.1 K/CMM] (10/28/14 12:35 PM) Lymphocytes # 2.3 K/CMM [1.0-5.5 K/CMM] (10/28/14 12:35 PM) Monocytes # [0.0-0.8 0.4 K/CMM K/CMM] (10/28/14 12:35 PM) Eosinophils # 0.1 K/CMM [0.0-0.5 K/CMM] (10/28/14 12:35 PM) Immunizations No data available for this section Procedures Procedure Date Related Diagnosis Body Site Excision of vocal cord polyp 07/27/14 Ankle joint operations 2005 Fibroids Social History Social History Type Response Smoking Status Former smoker; Exposure to Tobacco Smoke None; Cigarette Smoking Last 365 Days No; Reg Smoking Cessation Counseling Yes Assessment and Plan No data available for this section
--- OUTSIDE RECORDS SUMMARY | 2018-05-26 17:44 | XMS REPORT | CCD ---
Author Author Auto Generated Organization [facility] Outpatient Imaging [place] Address Unknown Phone Unavailable Care Team Providers Care Cable Weaver Name Role Phone Micaela Pierson CP Allergies, Adverse Reactions, Alerts Substance Reaction Status NKDA Active
--- OUTSIDE RECORDS SUMMARY | 2018-05-26 17:44 | XMS REPORT | Summary of Care ---
Author Author [facility] Address Unknown Phone Unavailable Encounter HQ Casandra(FIN) [id number] Date(s): 08/08/17 - 09/06/17 [facility] Encounter Diagnosis Strain of muscle, fascia and tendon of lower back, subsequent encounter (Final) - 09/11/17 Low back pain (Final) - Muscle weakness (generalized) (Final) - Lumbago with sciatica, left side (Final) - Discharge Disposition: Home or Self Care Attending Physician: Kiko Rivera MD Vital Signs No data available for this section Problem List Condition Effective Dates Status Health Status Informant Acid Active reflux(Confirmed) Anemia(Confirmed) Active Anxiety Active depression(Confirmed ) Asthma(Confirmed) Active Cervical Active dysplasia(Confirmed) Frequent Active UTI(Confirmed) HTN - Active Hypertension(Confirm ed) SOBOE - Shortness of Active breath on exertion(Confirmed) Allergies, Adverse Reactions, Alerts Substance Reaction Severity Status Ashli Active Medications No data available for this section Results No data available for this section Immunizations No data available for this section Procedures Procedure Date Related Diagnosis Body Site Status Excision of vocal cord polyp 07/27/14 Completed Ankle joint operations 2004 Completed Fibroids Completed Social History Social History Type Response Employment/School Status: Unemployed. Alcohol Current, Type Wine. Frequency: 1-2 times per month. Smoking Status Former smoker; Exposure to Tobacco Smoke None; Cigarette Smoking Last 365 Days No; Reg Smoking Cessation Counseling Yes entered on: 02/28/18 Assessment and Plan No data available for this section
--- OUTSIDE RECORDS SUMMARY | 2018-05-26 17:44 | XMS REPORT | Summary of Care ---
Author Author [facility] Organization [facility] Address Unknown Phone Unavailable Encounter HQ Em_andrea(FIN) [id number] Date(s): 04/30/17 - 04/30/17 [facility] [address] [place] [address]- Encounter Diagnosis Pelvic and perineal pain (Final) - 05/05/17 Discharge Disposition: Home or Self Care Attending Physician: Jyotsna Toscano MD Referring Physician: Jyotsna Toscano MD Vital Signs No data available for [...] 365 Days No; Reg Smoking Cessation Counseling No entered on: 11/01/16 Assessment and Plan No data available for this section
--- OUTSIDE RECORDS SUMMARY | 2018-05-26 17:44 | XMS REPORT | Summary of Care ---
Author Author [facility] Unknown Phone Unavailable Encounter HQ Jorgentr_andrea(FIN) [id number] Date(s): 08/08/17 - 09/06/17 [facility] hospital Discharge Disposition: Home or Self Care Attending [...]
--- OUTSIDE RECORDS SUMMARY | 2018-05-26 17:44 | XMS REPORT | Summary of Care ---
Author Author [facility] Outpatient Imaging [facility] Outpatient Imaging [facility] Address Unknown Phone Unavailable Encounter HQ Casandra(FIN) [id number] Date(s): 10/05/17 - 10/05/17 [facility] Outpatient Imaging [place] [place] [phone] Encounter Diagnosis Radial styloid tenosynovitis [de Quervain] (Final) - 10/11/17 Other specified joint disorders, right wrist (Final) - Primary osteoarthritis, right wrist (Final) - Localized edema (Final) - Discharge Disposition: Home or Self Care Attending Physician: Geni Ward MD Referring Physician: Geni Ward MD Vital Signs No data available for [...]
--- NOTE | 2018-05-26 18:53 | NUR ---
REPORT TO AUR[facility] PALACIOS ALL QUESTIONS ANSWERED
[2018-05-26] MEDS ORDERED: DEXAMETHASONE SOD PHOS 10 MG/1 ML VIAL IM ONE (19:15)
[2018-05-26] MEDS ORDERED: KETOROLAC TROMETHAMINE 60 MG/2 ML VIAL IM ONE (19:15)
== END 2018-05-26 19:32 | disposition home or self-care (01) ==
LOC: FSED 17:40
DX: M54.42 Lumbago with sciatica, left side (principal); I10 Essential (primary) hypertension; J45.909 Unspecified asthma, uncomplicated
CPT/HCPCS: 81003; 99282; J1100; J1885

== ENCOUNTER 2018-10-18 03:48 | Emergency (ER) | payer OTHER ==
[~2018-10-18] VITALS: Ht 157.5 cm; Wt 86.2 kg
--- OUTSIDE RECORDS SUMMARY | 2018-10-18 03:51 | XMS REPORT | Clinical Summary ---
Author Author Jose [facility] Organization [facility] Address Unknown Phone Unavailable Care Team Providers Care Operation Manager Name Role Phone Micaela Pierson MD PCP [...] mist (four) times inhaler a day. Active rotuncs-nodksuxbvokad-fbi Take 1 tablet 0 feine (EXCEDRIN MIGRAINE) by mouth 250-250-65 mg per tablet every 6 (six) hours as needed for headaches. Active meropenem 1 g in sodium Infuse 1 g 1 each 0 chloride 0.9 % MBP 100 mL into a venous 9 IVPB catheter every 8 (eight) hours. 02/28/2018 Discontinued (Stop Taking at Discharge) esomeprazole (NexIUM) 20 Take 40 mg by 0 MG capsule mouth daily before breakfast. 02/28/2018 Discontinued (Stop Taking at Discharge) meloxicam (MOBIC) 7.5 mg Take 15 mg by 0 tablet mouth daily as needed. 02/28/2018 Discontinued (Stop Taking at Discharge) acetaminophen-codeine Take 1 tablet 0 (TYLENOL WITH [...] James F., MD Pyelonephritis (Primary Dx) 02/22/2018 [facility] General Internal Medicine - Encounter 02/28/2018 after 10/17/2017 Social History Date Tobacco Use Types Packs/Day Years Used Never Smoker Smokeless Tobacco: Never Used Tobacco Cessation: Counseling Given: No Drinks/Week oz/Week Comments Alcohol Use No Sex Assigned at Date Recorded Not on file Industry Job Start Date Occupation Not on file Not on file Not on file Travel End Travel History Travel Start No recent travel history available. Last Filed Vital Signs Reading Time Taken Comments Vital Sign 133/75 02/28/2018 7:39 AM [facility] Blood Pressure 99 02/28/2018 1:05 PM [facility] Pulse 36.4 C (97.6 F) 02/28/2018 7:39 AM [facility] Temperature 19 02/28/2018 1:05 PM [facility] Respiratory Rate 95% 02/28/2018 7:39 AM [facility] Oxygen Saturation - - Inhaled Oxygen Concentration 90.4 kg (199 lb 4.8 oz) 02/27/2018 4:50 AM [facility] Weight 160 cm (5' 3") 02/22/2018 9:36 PM [facility] Height 35.3 02/22/2018 9:36 PM [facility] Body Mass Index Plan of Treatment Health Maintenance Due Date Last Done Comments CERVICAL CANCER SCREENING 1986 BREAST CANCER SCREENING 12/13/2015 COLONOSCOPY SCREENING 12/13/2015 SHINGLES VACCINES (#1) 12/13/2015 INFLUENZA VACCINE 09/17/2018 Procedures Comments Procedure Name Priority Date/Time Associated Diagnosis CT UROGRAM Routine 02/28/2018 11:03 AM [facility] ESTIMATED GFR Routine 02/28/2018 6:03 AM [facility] COMPREHENSIVE METABOLIC Routine 02/28/2018 PANEL 6:03 AM [facility] HC COMPLETE BLD COUNT Routine 02/28/2018 W/AUTO DIFF 6:03 AM [facility] HC COMPLETE BLD COUNT Routine 02/25/2018 W/AUTO DIFF 7:43 AM [facility] ESTIMATED GFR Routine 02/25/2018 4:00 AM [facility] BASIC METABOLIC PANEL Routine 02/25/2018 4:00 AM [facility] URINALYSIS SCREEN AND Routine 02/24/2018 MICROSCOPY, WITH REFLEX 4:30 PM [facility] TO CULTURE URINE CULTURE Routine 02/24/2018 4:30 PM [facility] GRAM STAIN Routine 02/24/2018 4:30 PM [facility] ESTIMATED GFR Routine 02/24/2018 4:50 AM [facility] VITAMIN D 25 HYDROXY Routine 02/24/2018 LEVEL 4:50 AM [facility] THYROID STIMULATING Routine 02/24/2018 HORMONE 4:50 AM [facility] PREALBUMIN LEVEL Routine 02/24/2018 4:50 AM [facility] PHOSPHORUS LEVEL Routine 02/24/2018 4:50 AM [facility] MAGNESIUM LEVEL Routine 02/24/2018 4:50 AM [facility] BASIC METABOLIC PANEL Routine 02/24/2018 4:50 AM [facility] HC COMPLETE BLD COUNT Routine 02/24/2018 W/AUTO DIFF 4:50 AM [facility] STREP SCREEN CULTURE Routine 02/22/2018 11:28 PM [facility] GROUP A STREP, RAPID Routine 02/22/2018 ANTIGEN 11:28 PM [facility] GGT Routine 02/22/2018 11:27 PM [facility] ESTIMATED GFR STAT 02/22/2018 11:27 PM [facility] AMYLASE LEVEL STAT 02/22/2018 11:27 PM [facility] COMPREHENSIVE METABOLIC STAT 02/22/2018 PANEL 11:27 PM [facility] HC COMPLETE BLD COUNT STAT 02/22/2018 W/AUTO DIFF 11:[address] RENAL STONE PROTOCOL STAT 02/22/2018 10:30 PM [facility] URINALYSIS STAT 02/22/2018 9:48 PM [facility]NER after 10/17/2017 Results * CT Urogram (02/28/2018 11:03 AM STILL [facility]NER) Specimen Narrative Performed At EXAMINATION:CT UROGRAM HM RADIANT CLINICAL HISTORY:Hematuriaunknown cause, CT UROGRAM TECHNIQUE:CT [...] mass. 3.No suspicious osseous lesions are seen. [facility]-[id number] Procedure Note Interface, Radiology Results Incoming - 02/28/2018 1:03 PM [facility] EXAMINATION: CT UROGRAM CLINICAL HISTORY: Hematuria unknown [...] 3. No suspicious osseous lesions are seen. [facility]-[id number] Performing Organization Address City/State/Zipcode Phone Number [facility] [address] [place] [address] * Estimated GFR (02/28/2018 6:03 AM STILL [facility]NER) Only the most recent of 4 results within the time period is included. [facility] Estimated GFR 90 mL/min/1.73 m2 [facility] Comment: [facility] rpretation G1 >=90 Normal or high G2 60-89Mildly decreased [id number] Mildly to moderately decreased [id number] Moderately to severely decreased G4 15-29Severely decreased G5 <15Kidney failure The eGFR was calculated using the Chronic Kidney Disease Epidemiology Collaboration (CKD-EPI) equation. Interpretation is based on recommendations of the National Kidney Foundation-Kidney Disease Outcomes Quality Initiative (NKF-KDOQI) published in 2014. Specimen Plasma specimen Performing Organization Address City/State/Zipcode Phone Number [facility] DEPARTMENT OF [address] [place] [address] PATHOLOGY AND GENOMIC MEDICINE [address] * CBC with platelet and differential (02/28/2018 6:03 AM STILL [facility]NER) Only the most recent of 4 results within the time period is included. [facility] WBC 8.19 4.50 - 11.00 k/uL [facility] RBC 4.85 4.20 - 5.50 m/uL [facility] HGB 13.6 12.0 - 16.0 g/dL [facility] HCT 43.0 37.0 - 47.0 % [facility] MCV 88.7 82.0 - 100.[address] [facility] MCH 28.0 27.0 - 34.[address] [facility] MCHC 31.6 31.0 - 37.0 g/dL [facility] RDW - SD 42.4 37.0 - 55.[address] [facility] MPV 9.9 8.8 - 13.[address] [facility] Platelet count 425 (H) 150 - 400 k/uL [facility] Nucleated RBC 0.00 /[address] [facility] Neutrophils 44.3 39.0 - 69.0 % [facility] Lymphocytes 42.7 25.0 - 45.0 % [facility] Monocytes 9.5 0.0 - 10.0 % [facility] Eosinophils 2.6 0.0 - 5.0 % [facility] Basophils 0.5 0.0 - 1.0 % [facility] Immature 0.4Comment: "Immature 0.0 - 1.0 % [facility] granulocytes granulocytes" (promyelocytes, SCIENTOLOGIST myelocytes, metamyelocytes) [facility] Specimen Blood Performing Organization Address City/[facility] Phone Number [facility] DEPARTMENT OF [address] [place] [address] PATHOLOGY AND GENOMIC MEDICINE [address] * Comprehensive metabolic panel (02/28/2018 6:03 AM ST[facility]NER) Only the most recent of 2 results within the time period is included. Sodium 127 (L) 135 - 148 mEq/L [facility] Potassium 4.3 3.5 - 5.0 mEq/L [facility] Chloride 92 (L) 98 - 112 mEq/L [facility] CO2 27 24 - 31 mEq/L [facility] Anion gap 8@ANIO 7 - 15 mEq/L [facility] BUN 14 6 - 20 mg/dL [facility] Creatinine 0.86 0.50 - 0.90 mg/dL [facility] Glucose 127 (H) 65 - 99 mg/dL [facility] Calcium 10.2 8.3 - 10.2 mg/dL [facility] Protein 8.0 6.3 - 8.3 g/dL [facility] Comment: [facility] 4.6-7.0 g/dL 1 week 4.4-7.6 g/dL 7 months-1year 5.1-7.3 g/dL 1-2 years5.6-7 .5 g/dL >3 years6.0-8 .0 g/dL 18-150 6.3-8.3 g/dL Albumin 3.7 3.5 - 5.0 g/dL [facility] A/G ratio 0.9 0.7 - 3.[address] [facility] Alkaline 99 35 - 104 U/L [facility] phosphatase [facility] AST 29 10 - 35 U/L [facility] ALT 47 5 - 50 U/L [facility] Total bilirubin 0.6 0.0 - 1.2 mg/dL [facility] Specimen Plasma specimen Performing Organization Address City/[facility] Cent[facility]ode Phone Number [facility] DEPARTMENT OF [address] [place] [address] PATHOLOGY AND GENOMIC MEDICINE [address] * Basic metabolic panel (02/25/2018 4:00 AM STILL [facility]NER) Only the most recent of 2 results within the time period is included. Sodium 141 135 - 148 mEq/L [facility] Potassium 4.1 3.5 - 5.0 mEq/L [facility] Chloride 101 98 - 112 mEq/L [facility] CO2 28 24 - 31 mEq/L [facility] Anion gap 12@ANIO 7 - 15 mEq/L [facility] BUN 21 (H) 6 - 20 mg/dL [facility] Creatinine 1.05 (H) 0.50 - 0.90 mg/dL [facility] Glucose 89 65 - 99 mg/dL [facility] Calcium 9.4 8.3 - 10.2 mg/dL [facility] Specimen Plasma specimen Performing Organization Address City/State/Zipcode Phone Number [facility] DEPARTMENT OF [address] [place] [address] PATHOLOGY AND GENOMIC MEDICINE [address] * Urinalysis screen and microscopy, with reflex to culture (02/24/2018 4:30 PM STILL [facility]NER) Pathologist [facility] Specimen site Catheterized [facility] Color, UA Dania [facility] Appearance, UA Clear [facility] Specific 1.015 1.001 - 1.035 [facility] gravity, [facility] pH, UA 5.0 5.0 - 8.[address] [facility] Protein, UA Negative Negative [facility] Glucose, UA Negative Negative [facility] Ketones, UA Negative Negative [facility] Bilirubin, UA Negative Negative [facility] Blood, UA Small (A) Negative [facility] Nitrite, UA Positive (A) Negative [facility] Urobilinogen, 4.0 (A) <2.0 [facility] Leukocyte Small (A) Negative [facility] Epithelial 1 /HPF [facility] cells, [facility] WBC, UA 8 (H) 0 - 4 /HPF [facility] RBC, UA 2 0 - 5 /HPF [facility] Bacteria, UA Few None seen [facility] Yeast, UA None seen [facility] Yeast with None seen [facility] pseudohyphae, [facility] Specimen Urine Performing Organization Address City/[facility] Cent[facility]ode Phone Number [facility] DEPARTMENT OF [address] [place] [address] PATHOLOGY AND [facility] SCIENTOLOGIST [address] [place] [address] * Gram stain (02/24/2018 4:30 PM STILL [facility]NER) Pathologist [facility] Gram stain Few WBC's [facility] result Few Gram positive rods SCIENTOLOGIST Comment: HOSPITAL Specimen Information Specimen Source: Urine Specimen Site: Catheterized Specimen Urine - Catheterized Performing Organization Address [facility] Centercode Phone Number [facility] DEPARTMENT [address] SCIENTOLOGIST [address] [place] [address] * Urine culture (02/24/2018 4:30 PM STILL [facility]NER) [facility] Urine culture Mixed ba <=10-3 col/cc [facility] isolate Comment: SCIENTOLOGIST Specimen Information [facility] Specimen Source: Urine Specimen Site: Catheterized Specimen Urine - Catheterized Performing Organization Address [facility] Phone Number [facility] DEPARTMENT OF [address] [place] [address] PATHOLOGY [facility] SCIENTOLOGIST [address] [place] [address] * Vitamin D 25 hydroxy level (02/24/2018 4:50 AM STILL [facility]NER) [facility] Vitamin D, 16.1 (L) 30.0 - 150.0 ng/mL [facility] 25-hydroxy Comment: SCIENTOLOGIST This assay reports the sum of HOSPITAL 25-hydroxy vitamin D3 and 25-hydroxy vitamin D2. [...] alternative methods. Specimen Blood Performing Organization Address City/[facility]/Zipcode Phone Number [facility] DEPARTMENT OF [address] [place] [address] PATHOLOGY AND [facility] MEDICINE [address] * Thyroid stimulating hormone (02/24/2018 4:50 AM STILL [facility]NER) TSH 0.16 (L) 0.27 - 4.20 uIU/mL [facility] Specimen Plasma specimen Performing Organization Address City/State/Zipcode Phone Number [facility] [place] [address] PATHOLOGY AND [facility] MEDICINE [address] * Prealbumin level (02/24/2018 4:50 AM STILL [facility]NER) Prealbumin 22 16 - 32 mg/dL [facility] Specimen Serum Performing Organization Address [facility] Phone Number [facility] [place] [address] PATHOLOGY AND [facility] MEDICINE [address] * Phosphorus level (02/24/2018 4:50 AM STILL [facility]NER) Phosphorus 3.5 2.4 - 4.5 mg/dL [facility] Specimen Plasma specimen Performing Organization Address City/[facility] Cent[facility]ode Phone Number [facility] [place] [address] PATHOLOGY AND GENOMIC MEDICINE [address] * Magnesium level (02/24/2018 4:50 AM STILL RUNNER) Magnesium 2.0 1.6 - 2.6 mg/dL [facility] Specimen Plasma specimen Performing Organization Address City/[facility] Cent[facility]ode Phone Number [facility] [place] [address] PATHOLOGY AND [facility] MEDICINE [address] * Group A strep, rapid antigen (02/22/2018 11:28 PM STILL [facility]NER) Group A strep, Negative for Group A [facility] rapid antigen Streptococcus antigen. SCIENTOLOGIST result Comment: [place] Specimen [facility] EMERGENCY CARE Specimen Source: Throat CENTER Specimen Site: Not otherwise specified Specimen Throat - Not otherwise specified Performing Organization Address City/State/Zipcode Phone Number [address] [address] PATHOLOGY AND GENOMIC MEDICINE, [facility] [address] * Strep screen culture (02/22/2018 11:28 PM STILL [facility]NER) Strep screen No beta hemolytic Streptococci [facility] culture isolate isolated SCIENTOLOGIST Comment: HOSPITAL Specimen Information Specimen Source: Throat Specimen Site: Not otherwise specified Specimen Throat - Not otherwise specified Performing Organization Address City/[facility]/Zipcode Phone Number [facility] [place] [address] PATHOLOGY AND GENOMIC MEDICINE [address] * GGT (02/22/2018 11:27 PM STILL RUNNER) GGT 117 (H) 0 - 39 U/L [facility] Specimen Plasma specimen Performing Organization Address City/[facility] Cent[facility]ode Phone Number [facility] [place] [address] PATHOLOGY AND GENOMIC MEDICINE [address] * Amylase level (02/22/2018 11:27 PM STILL RUNNER) Amylase 76 14 - 97 U/L [facility] Specimen Plasma specimen Performing Organization Address City/[facility] Centercode Phone [place] [address] PATHOLOGY AND GENOMIC MEDICINE[address] * CT Renal Stone Protocol (02/22/2018 10:30 PM STILL RUNNER) Specimen Narrative Performed At EXAMINATION:CT RENAL STONE PROTOCOL [...] urolithiasis or hydroureter/hydronephrosis. No acute gastrointestinal pathology. [facility]-[id number] Procedure Note [facility], Radiology Results Incoming - 02/22/2018 10:44 PM STILL [facility]NER EXAMINATION: CT RENAL STONE PROTOCOL CLINICAL HISTORY: [...] urolithiasis or hydroureter/hydronephrosis. No acute gastrointestinal pathology. [facility]-[id number] Performing Organization Address City/[facility] Centercode Phone Number [facility] [address] [place] [address] * Urinalysis (02/22/2018 9:48 PM STILL RUNNER) Glucose, UA Negative Negative [facility] Bilirubin, UA Negative Negative [facility] Ketones, UA Negative Negative [facility] Specific 1.015 1.001 - 1.035 [facility] gravity, UA [facility] Blood, UA Small (A) Negative [facility] pH, UA 6.0 5.0 - 8.5 [facility] Protein, UA Negative Negative [facility] Urobilinogen, <2.0 <2.0 [facility] Nitrite, UA Negative Negative [facility] Leukocyte Trace (A) Negative [facility] esterase, UA [facility] Color, UA Yellow [facility] Appearance, UA Clear [facility] Specimen Urine Performing Organization Address City/[facility] Centercode Phone Number [place] [phone] [place] [address] PATHOLOGY AND GENOMIC MEDICINE, [address] after 10/17/2017 Insurance Type Payer Benefit Subscriber ID Effective Phone Address Plan / Dates Group HMO [employer] xxxxxxxxx [id number] [place] resent Advance Directives For more information, please contact: [phone] Patient Operations Supervisor Explanation Type Date Recorded Advance Directives, Living Will and Medical Power of Horticultural Therapist Date Inactivated Comments Code Status Date Activated 03/01/2018 1:40 AM Full Code 02/23/2018 8:01 AM Code Status decision reached by: Patient
--- OUTSIDE RECORDS SUMMARY | 2018-10-18 03:53 | XMS REPORT | Continuity of Care Document ---
Author Author [facility] Organization [facility] Address Unknown Phone Unavailable Care Team Providers Care [employer] Architect Name Role Phone nextsocial Information [place] Unavailable Unavailable Problems Problem Status Onset Date Classification Date Reported Comments Source CERVICAL AND LUMBAR SPINE DEGENERATION Active 06/11/2018 [facility] UNK Active 03/18/2018 [facility] Urinary tract infection, site not specified 03/10/2018 09/19/2018 [facility] ACUTE PYELONEPHRITIS Active 02/28/2018 [facility] CERVICALGIA Active 02/17/2018 [facility] Radial styloid tenosynovitis [de Quervain] 10/12/2017 04/24/[address] [facility] Strain of muscle, fascia and tendon of lower back, subsequent encounter 09/12/2017 03/26/2018 [facility] STRAIN OF MUSCLE FACIA, TENDON LB Active 08/04/2017 [facility] Pelvic and perineal pain 05/06/2017 08/06/2017 [facility] DX: R10.2=PELVIC AND PERINEAL PAIN Active 04/24/2017 [facility] R87.810 Active 10/12/2015 [facility] 795.05 Active 09/22/2014 [facility] 784.8 Active 07/26/2013 [facility] 784.8/ 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 07/08/2013 [facility] SORE THROAT Active 10/08/2012 [facility] Low back pain 03/26/2018 [facility] Muscle weakness (generalized) 03/26/2018 [facility] Lumbago with sciatica, left side 03/26/2018 [facility] Other specified joint disorders, right wrist 04/24/[address] [facility] Primary osteoarthritis, right wrist 04/24/[address] [facility] Localized edema 04/24/[address] [facility] Essential (primary) hypertension 09/19/2018 [facility] Gastro-esophageal reflux disease without esophagitis 09/19/2018 [facility] Unspecified asthma, uncomplicated 09/19/2018 [facility] Other specified anxiety disorders 09/19/2018 [facility] Personal history of nicotine dependence 09/19/2018 [facility] Other microscopic hematuria 09/19/2018 [facility] Personal history of urinary (tract) infections 09/19/2018 [facility] Migraine, unspecified, not intractable, without status migrainosus 09/19/2018 [facility] Anemia, unspecified 09/19/2018 [facility] Gastroesophageal reflux disease (disorder) Active Problem 09/19/2018 [facility] Anemia (disorder) Active Problem 09/19/2018 [facility] Mixed anxiety and depressive disorder (disorder) Active Problem 09/19/2018 [facility] Asthma (disorder) Active Problem 09/19/2018 [facility] Dysplasia of cervix (disorder) Active Problem 09/19/2018 [facility] Recurrent urinary tract infection (disorder) Active Problem 09/19/2018 [facility] Hypertensive disorder, systemic arterial (disorder) Active Problem 09/19/2018 [facility] Dyspnea on exertion (finding) Active Problem 09/19/2018 [facility] SOB (shortness of breath) Active Diagnosis 08/19/2018 [facility] HTN (hypertension) Active Diagnosis 08/19/2018 [facility] Chest pain Active Problem 08/19/2018 [facility] Obesity Active Diagnosis 08/19/2018 [facility] Edema Active Diagnosis 08/19/2018 [facility] Pre-operative cardiovascular examination Active Diagnosis 10/19/2015 [facility] Medications Medication Details Route Status Patient Instructions Ordering Provider Order Date Source Docusate Sodium 50 MG / sennosides, INTERMEDIATE 8.6 MG Oral Tablet 1 tab, PO, BID, 0 Refill(s) Active 04/15/2018 [facility] Acetaminophen 300 MG / Codeine Phosphate 60 MG Oral Tablet [Tylenol with Codeine #4] 1 - 2 tab, PO, Q6H, PRN Pain, X 4 day, # 32 tab, 0 Refill(s) Active 04/15/2018 [facility] Albuterol 1 MG/ML Inhalant Solution NEB, RQ4H, PRN Respiratory Pathway, 0 Refill(s) Active 04/15/2018 [facility] ibuprofen 600 mg oral tablet 600 mg=1 tab, PO, Q6H, PRN Pain, take with food, # 30 tab, 0 Refill(s) Active 04/15/2018 [facility] Docusate Sodium 50 MG / sennosides, INTERMEDIATE 8.6 MG Oral Tablet 1 tab, Route: PO, Drug Form: TAB, Dosing Weight 92.983, kg, BID, Start date: 04/15/18 9:00:00 [employer] SPECIALIST, Duration: 30 day, Stop date: 05/14/18 17:00:00 CDTNotes: (Same as Kathryn) Equiv. to Yasmine-Colace. Inactive 04/15/2018 [facility] Losartan 50 mg, 1 tab, Route: PO, Drug form: TAB, Daily, Dosing Weight 92.983, kg, Start date: 04/15/18 9:00:00 [employer] SPECIALIST, Duration: 30 day, Stop date: 05/14/18 9:00:00 CDTNotes: (Same as: Eyal) Inactive 04/15/2018 [facility] Motrin 600 mg, 1 tab, Route: PO, Drug form: TAB, Q6H-02, Dosing Weight 92.983, kg, Start date: 04/15/18 8:00:00 [employer] SPECIALIST, Duration: 30 day, Stop date: 05/15/18 2:00:00 CDTNotes: (Same as: Motrin) "Do Not Crush" Take with food. Inactive 04/15/2018 [facility] Acetaminophen 300 MG / Codeine Phosphate 60 MG Oral Tablet [Tylenol with Codeine #4] 1 tab, Route: PO, Drug Form: TAB, Dosing Weight 92.983, kg, Q4H, PRN Pain Score 4-6, Start date: 04/15/18 7:53:00 [employer] SPECIALIST, Duration: 30 day, Stop date: 05/15/18 7:52:00 CDTNotes: Do not exceed 4gm/day of ac etaminophen. (Same as: Tylenol with Codeine # 4) Inactive 04/15/2018 [facility] DuoNeb inhalation solution 3 mL, Route: NEB, Drug Form: SOLN, RBID, PRN Wheezing, Start date: 04/14/18 18:23:00 [employer]IST, Duration: 30 day, Stop date: 05/14/18 18:22:00 CDTNotes: (Same as: Duoneb) No Longer Active 04/15/2018 [facility] Albuterol 0.83 MG/ML Inhalant Solution 2.5 mg, 3.01 mL, Route: NEB, Drug form: SOLN, RQ4H, Dosing Weight 92.983, kg, PRN Respiratory Pathway, Start date: 04/14/18 18:22:00 [employer] SPECIALIST, Duration: 30 day, Stop date: 05/14/18 18:21:00 CDTNotes: SEE RT DOCUMENTATION (Same as: Proventil) No Longer Active 04/15/2018 [facility] 120 ACTUAT Albuterol 0.1 MG/ACTUAT / Ipratropium [place] 0.02 MG/ACTUAT Metered Dose Inhaler [Combivent 20/100] Route: INHALATION, Drug Form: AERO, Dosing Weight 92.983, kg, PRN, PRN Wheezing, Start date: 04/14/18 17:09:00 [employer] SPECIALIST, Duration: 30 day, Stop date: 05/14/18 18:08:00 CDT Inactive 04/14/2018 [facility] 200 ACTUAT Albuterol 0.09 MG/ACTUAT Metered Dose Inhaler [Proventil] 180 microgram, 2 puff, Route: INHALER, Drug Form: AERO/A, Dosing Weight 92.983, kg, Q4H, PRN as needed for wheezing, Start date: 04/14/18 17:09:00 [employer] SPECIALIST, Duration: 30 day, Stop date: 05/14/18 17:08:00 CDT Inactive 04/14/2018 [facility] Cefoxitin 2 gm, Route: IVPB, ABXQ6H, Dosing Weight 92.983, kg, Start date: 04/14/18 14:00:00 [employer] SPECIALIST, Duration: 3 doses or times, Stop date: 04/15/18 2:00:00 [employer] SPECIALIST, ABX Indication: Surgical ProphylaxisNotes: (Same As: Mefoxin) MEDICATION WASTE Product Size: 2000 mg Product Wasted: ___ mg No Longer Active 04/14/2018 [facility] Acetaminophen 1,000 mg, 2 tab, Route: PO, Drug form: TAB, Q6Hnow, Dosing Weight 92.983, kg, Start date: 04/14/18 11:00:00 [employer] SPECIALIST, Duration: 30 day, Stop date: 05/14/18 5:00:00 CDTNotes: Max acetaminophen 4000 mg/day (4 gm/day). (Same as: Tylenol Extra Strength) No Longer Active 04/14/2018 [facility] Ketorolac 30 mg, 1 mL, Route: IVP, Drug form: INJ, Q6Hnow, Dosing Weight 92.983, kg, Start date: 04/14/18 11:00:00 [employer] SPECIALIST, Duration: 24 hr, Stop date: 04/15/18 5:00:00 CSTNotes: (Same as:Toradol) IV bolus must be given > 15 seconds. Give IM administration slowly and deeply into the muscle. Not for use > 4 days MEDICATION WASTE Product Size: 30 mg Product Wasted: ___ mg No Longer Active 04/14/2018 [facility] Meperidine 12.5 mg, 0.25 mL, Route: IVP, Drug form: INJ, Q30Min, Dosing Weight 92.983, kg, PRN Other -See Comment, For shivering, Start date: 04/14/18 10:49:00 [employer]IST, Duration: 2 doses or times, Stop date: 04/15/18 0:00:00 CSTNotes: (Same As: Demerol) Inactive 04/14/2018 [facility] Ondansetron 4 mg, Route: IVP, ONCE, Dosing Weight 92.983, kg, PRN Nausea & Vomiting, Start date: 04/14/18 10:49:00 [employer] SPECIALIST Inactive 04/14/2018 [facility] Labetalol 10 mg, 2 mL, Route: IVP, Drug form: INJ, Q5Min, Dosing Weight 92.983, kg, PRN Elevated BP, Start date: 04/14/18 10:49:00 [employer] SPECIALIST, Duration: 5 doses or times, Stop date: 04/15/18 0:00:00 CSTNotes: (Same as: Normodyne, Trandate) Push over 2 minutes Give bolus over 2-3 minutes. Inactive 04/14/2018 [facility] Hydralazine 10 mg, 0.5 mL, Route: IVP, Drug form: INJ, Q20Min, Dosing Weight 92.983, kg, PRN Elevated BP, Start date: 04/14/18 10:49:00 [employer]IST, Duration: 2 doses or times, Stop date: 04/15/18 0:00:00 CSTNotes: (Same as: Apresoline) Push over 5 minutes Inactive 04/14/2018 [facility] Oxycodone 5 mg, 1 tab, Route: PO, Drug form: TAB, Q4H, Dosing Weight 92.983, kg, PRN Pain Score 4-6, Start date: 04/14/18 10:49:00 [employer] SPECIALIST, Stop date: 04/15/18 0:00:00 CSTNotes: (Same as: Roxicodone) Inactive 04/14/2018 [facility] Flumazenil 0.2 mg, 2 mL, Route: IVP, Drug form: INJ, PRN, Dosing Weight 92.983, kg, PRN Benzodiazepine Reversal, Initial dose, Start date: 04/14/18 10:49:00 [employer] SPECIALIST, Stop date: 04/15/18 0:00:00 CSTNotes: (Same as: Romazicon) Inactive 04/14/2018 [facility] Acetaminophen 1,000 mg, 2 tab, Route: PO, Drug form: TAB, ONCE, Dosing Weight 92.983, kg, PRN Pain Score 1-3, Start date: 04/14/18 10:49:00 CSTNotes: Max acetaminophen 4000 mg/day (4 gm/day). (Same as: Tylenol Extra Strength) Inactive 04/14/2018 [facility] Diphenhydramine 12.5 mg, 0.25 mL, Route: IVP, Drug form: INJ, Q6H, Dosing Weight 92.983, kg, PRN Itching, Start date: 04/14/18 10:49:00 [employer] SPECIALIST, Stop date: 04/15/18 0:00:00 CSTNotes: (Same as: Benadryl) Inactive 04/14/2018 [facility] Fentanyl 50 microgram, 1 mL, Route: IVP, Drug form: INJ, Q5Min, Dosing Weight 92.983, kg, PRN Pain Score 7-10, Priority: Routine, Start date: 04/14/18 10:49:00 [employer] SPECIALIST, Duration: 2 doses or times, Stop date: 04/15/18 0:00:00 CSTNotes: (Same as: Sublimaze) Preservative free. Inactive 04/14/2018 [facility] Hydromorphone 0.5 mg, 0.5 mL, Route: IVP, Drug form: INJ, Q5Min, Dosing Weight 92.983, kg, PRN Pain Score 7-10, Start date: 04/14/18 10:49:00 [employer] SPECIALIST, Duration: 4 doses or times, Stop date: 04/15/18 0:00:00 CSTNotes: Same as: Dilaudid Inactive 04/14/2018 [facility] Naloxone 0.4 mg, 1 mL, Route: IVP, Drug form: INJ, Q2MIN, Dosing Weight 92.983, kg, PRN Narcotic Reversal, Start date: 04/14/18 10:49:00 [employer]IST, Duration: 8 doses or times, Stop date: 04/15/18 0:00:00 CSTNotes: Same as Narcan Inactive 04/14/2018 [facility] glycopyrrolate (ANES) Route: IV, Drug form: INJ, ONCE, Stop date: 04/14/18 10:39:00 [employer] SPECIALIST Inactive 04/14/2018 [facility] meperidine (ANES) Route: IV, Drug form: INJ, ONCE, Stop date: 04/14/18 10:39:00 CONTRACT [employer] SPECIALIST Inactive 04/14/2018 [facility] neostigmine (ANES) Route: IV, Drug form: INJ, ONCE, Stop date: 04/14/18 10:39:00 [employer] SPECIALIST Inactive 04/14/2018 [facility] Aluminum Hydroxide 40 MG/ML / Magnesium Hydroxide 40 MG/ML / Simethicone 4 MG/ML Oral Suspension 30 mL, Route: PO, Drug Form: SUSP, Dosing Weight 92.983, kg, Q4H, PRN Indigestion, Start date: 04/14/18 10:19:00 [employer] SPECIALIST, Duration: 30 day, Stop date: 05/14/18 10:18:00 CDTNotes: (aluminum hydroxide-magnesium hyd-simethicone [phone]/5ml 30 ml ud TREVON) No Longer Active 04/14/2018 [facility] Ondansetron 4 mg, 2 mL, Route: IVP, Drug form: INJ, Q8H, Dosing Weight 92.983, kg, PRN Nausea & Vomiting, Start date: 04/14/18 10:19:00 [employer] SPECIALIST, Duration: 30 day, Stop date: 05/14/18 10:18:00 CDTNotes: (Same as: Zofran) MEDICATION WASTE Product Size: 4 mg Product Wasted: ___ mg No Longer Active 04/14/2018 [facility] Promethazine 12.5 mg, 1 tab, Route: PO, Drug form: TAB, Q4H, Dosing Weight 92.983, kg, PRN Nausea & Vomiting, Start date: 04/14/18 10:19:00 [employer] SPECIALIST, Duration: 30 day, Stop date: 05/14/18 10:18:00 CDTNotes: (Same as: Phenergan) No Longer Active 04/14/2018 [facility] Morphine 2 mg, 1 mL, Route: IVP, Drug form: SOLN, Q4H, Dosing Weight 92.983, kg, PRN Pain Score 7-10, Start date: 04/14/18 10:19:00 [employer] SPECIALIST, Duration: 30 day, Stop date: 05/14/18 10:18:00 CDT No Longer Active 04/14/2018 [facility] Oxycodone Hydrochloride 5 MG Oral Tablet 5 mg, 1 tab, Route: PO, Drug form: TAB, Q4H, Dosing Weight 92.983, kg, PRN Pain Score 4-6, Start date: 04/14/18 10:19:00 [employer] SPECIALIST, Duration: 30 day, Stop date: 05/14/18 10:18:00 CDTNotes: (Same as: Roxicodone) No Longer Active 04/14/2018 [facility] Calcium Chloride 0.0014 MEQ/ML / Potassium Chloride 0.004 MEQ/ML / Sodium Chloride 0.103 MEQ/ML / Sodium Lactate 0.028 MEQ/ML Injectable Solution 1,000 mL, Rate: 125 ml/hr, Infuse over: 8 hr, Route: IV, Dosing Weight 92.983 kg, Total Volume: 1,000, Start date: 04/14/18 10:19:00 [employer] SPECIALIST, Duration: 30 day, Stop date: 05/14/18 10:18:00 CDT, 2.06, m2 No Longer Active 04/14/2018 [facility] ketOROLAC (ANES) IV, ONCE Inactive 04/14/2018 [facility] ondansetron (ANES) Route: IV, Drug form: INJ, ONCE, Stop date: 04/14/18 10:14:00 [employer] SPECIALIST Inactive 04/14/2018 [facility] dexamethasone (ANES) Route: IV, Drug form: INJ, ONCE, Stop date: 04/14/18 9:59:00 CONTRACT LAW SPECIALIST Inactive 04/14/2018 [facility] cefOXitin (ANES) Route: IV, Drug form: INJ, ONCE, Stop date: 04/14/18 9:18:00 CONTRACT LAW SPECIALIST Inactive 04/14/2018 [facility] propofol (ANES) Route: IV, Drug form: INJ, ONCE, Stop date: 04/14/18 9:03:00 CONTRACT LAW SPECIALIST Inactive 04/14/2018 [facility] fentaNYL (ANES) Route: IV, Drug form: INJ, ONCE, Stop date: 04/14/18 9:03:00 CONTRACT LAW SPECIALIST Inactive 04/14/2018 [facility] lidocaine (ANES) Route: IV, Drug form: INJ, ONCE, Stop date: 04/14/18 9:03:00 CONTRACT LAW SPECIALIST Inactive 04/14/2018 [facility] rocuronium (ANES) Route: IV, Drug form: INJ, ONCE, Stop date: 04/14/18 8:58:00 CONTRACT LAW SPECIALIST Inactive 04/14/2018 [facility] midazolam (ANES) Route: IV, Drug form: SOLN, ONCE, Stop date: 04/14/18 8:28:00 CONTRACT LAW SPECIALIST Inactive 04/14/2018 [facility] Lactated Ringers Injection IV (ANES) 1000 mL Route: IV, Total Volume: 1,000, Start date: 04/14/18 7:52:00 CONTRACT LAW SPECIALIST, Stop date: 04/14/18 8:52:00 CONTRACT LAW SPECIALIST Inactive 04/14/2018 [facility] Calcium Chloride 0.0014 MEQ/ML / Potassium Chloride 0.004 MEQ/ML / Sodium Chloride 0.103 MEQ/ML / Sodium Lactate 0.028 MEQ/ML Injectable Solution 1,000 mL, Rate: 25 ml/hr, Infuse over: 40 hr, Route: IV, Dosing Weight 92.983 kg, Total Volume: 1,000, Start date: 04/14/18 7:29:00 CONTRACT LAW SPECIALIST, Duration: 1 day, Stop date: 04/15/18 7:28:00 CONTRACT LAW SPECIALIST, 2.06, m2 Inactive 04/14/2018 [facility] potassium chloride 20 mEq oral tablet, extended release 20 mEq=1 tab, PO, Daily, # 30 tab, 3 Refill(s) Active 04/10/2018 [facility] bumetanide 1 mg oral tablet 1 mg=1 tab, PO, Daily, # 30 tab, 0 Refill(s) Active 04/10/2018 [facility] Nasonex 2 spray, Route: NASAL, Daily, Start date: 03/03/18 9:00:00 [employer] SPECIALIST, Duration: 7 day, Stop date: 03/09/18 9:00:00 CONTRACT LAW SPECIALIST No Longer Active 03/03/2018 [facility] fluticasone nasal 2 spray, Route: NASAL, Drug Form: SPRY, QPM, Start date: 03/02/18 17:00:00 [employer] SPECIALIST, Duration: 30 day, Stop date: 03/31/18 17:00:00 CSTNotes: (Same as: Flonase) Inactive 03/02/2018 [facility] Fluticasone propionate 0.05 MG/ACTUAT Metered Dose Nasal Coleman [Flonase] 2 spray, NASAL, BID, In each nostril as needed for congestion., # 16 gm, 0 Refill(s) No Longer Active 03/02/2018 [facility] Acetaminophen 300 MG / Codeine Phosphate 60 MG Oral Tablet [Tylenol with Codeine #4] 1 tab, Route: PO, Drug Form: TAB, Dosing Weight 90.483, kg, Q6H, PRN Pain Score 4-6, NOW, Start date: 03/02/18 13:32:00 [employer] SPECIALIST, Duration: 30 day, Stop date: 04/01/18 13:31:00 CSTNotes: Do not exceed 4gm/day of acetaminophen. (Same as: Tylenol with Codeine # 4) Inactive 03/02/2018 [facility] meropenem 500 mg, Route: IVPB, Drug form: PDR/INJ, ABXQ6H, Start date: 03/01/18 15:00:00 CONTRACT LAW SPECIALIST, Duration: 30 day, Stop date: 03/31/18 9:00:00 CONTRACT [employer] SPECIALIST, ABX Indication: Urinary Tract InfectionNotes: Same as Merrem MEDICATION WASTE Product Size: 500 mg Product Wasted: ___ mg No Longer Active 03/01/2018 [facility] 120 ACTUAT Albuterol 0.1 MG/ACTUAT / Ipratropium [place] 0.02 MG/ACTUAT Metered Dose Inhaler [Combivent 20/100] 2-4 PUFF, INHALATION, PRN, 0 Refill(s) Active 03/01/2018 [facility] bumetanide 1 mg oral tablet 1 mg=1 tab, PO, QAM, NEEDED FOR FLUID, 0 Refill(s) Active 03/01/2018 [facility] meloxicam 15 mg oral tablet 15 mg=1 tab, PO, Daily, NEEDED FOR INFLAMMATION, 0 Refill(s) No Longer Active 03/01/2018 [facility] Acetaminophen 300 MG / Codeine Phosphate 60 MG Oral Tablet [Tylenol with Codeine #4] 1 tab, PO, BID, NEEDED FOR PAIN, 0 Refill(s) No Longer Active 03/01/2018 [facility] Albuterol 0.83 MG/ML Inhalant Solution 2.5 mg=3 mL, NEB, Q4H, NEEDED, 0 Refill(s) Active 03/01/2018 [facility] 200 ACTUAT Albuterol 0.09 MG/ACTUAT Metered Dose Inhaler [Proventil] 2 puff, INHALER, Q4H, PRN wheezing, coughing, or shortness of breath Active 03/01/2018 [facility] Dilaudid 1 mg, 0.5 mL, Route: IV, Drug form: INJ, Q8H, Dosing Weight 90.483, kg, PRN Pain Score 7-10, Start date: 03/01/18 12:49:00 [employer] SPECIALIST, Duration: 30 day, Stop date: 03/31/18 12:48:00 CSTNotes: Same as Dilaudid No Longer Active 03/01/2018 [facility] Tylenol 650 mg, 20.3 mL, Route: PO, Drug form: LIQ, Q6H, Dosing Weight 90.483, kg, PRN Pain Score 4-6, Start date: 03/01/18 12:30:00 [employer] SPECIALIST, Duration: 30 day, Stop date: 03/31/18 12:29:00 CSTNotes: Max acetaminoph io=0308ls/day (4 gm/day). (Same as: Tylenol) Inactive 03/01/2018 [facility] Oxycodone Hydrochloride 5 MG Oral Tablet 5 mg, 1 tab, Route: PO, Drug form: TAB, Q6H, Dosing Weight 90.483, kg, PRN Pain Score 4-6, Start date: 03/01/18 12:30:00 [employer] SPECIALIST, Duration: 30 day, Stop date: 03/31/18 12:29:00 CSTNotes: (Same as: Roxicodone) No Longer Active 03/01/2018 [facility] Dilaudid 1 mg, 0.5 mL, Route: IV, Drug form: INJ, Q6H, Dosing Weight 90.483, kg, Start date: 03/01/18 12:00:00 CONTRACT LAW SPECIALIST, Duration: 30 day, Stop date: 03/31/18 6:00:00 CSTNotes: Same as Dilaudid Inactive 03/01/2018 [facility] Dilaudid 1 mg, 1 mL, Route: PO, Drug form: LIQ, Q6H, Dosing Weight 90.483, kg, Start date: 03/01/18 10:00:00 CONTRACT LAW SPECIALIST, Duration: 30 day, Stop date: 03/31/18 6:00:00 CSTNotes: (Same as: Dilaudid-5) Inactive 03/01/2018 [facility] Dilaudid 2 mg, Route: PO, Q6H, Dosing Weight 90.483, kg, Start date: 03/01/18 9:49:00 CONTRACT LAW SPECIALIST, Duration: 30 day, Stop date: 03/31/18 6:00:00 CONTRACT LAW SPECIALIST Inactive 03/01/2018 [facility] Losartan 50 mg, 1 tab, Route: PO, Drug form: TAB, Daily, Dosing Weight 90.483, kg, Start date: 03/01/18 9:00:00 [employer] LAW SPECIALIST, Duration: 30 day, Stop date: 03/30/18 9:00:00 CSTNotes: (Same as: Cozaar) Inactive 03/01/2018 [facility] Bumetanide 2 mg, 2 tab, Route: PO, Drug form: TAB, Daily, Dosing Weight 90.483, kg, Start date: 03/01/18 9:00:00 CONTRACT LAW SPECIALIST, Duration: 30 day, Stop date: 03/30/18 9:00:00 CSTNotes: (Same As: Bumex) Inactive 03/01/2018 [facility] Aspirin 81 MG Enteric Coated Tablet 81 mg, 1 tab, Route: PO, Drug form: ECTAB, Daily, Dosing Weight 90.483, kg, Start date: 03/01/18 9:00:00 [employer] SPECIALIST, Duration: 30 day, Stop date: 03/30/18 9:00:00 CSTNotes: Do not crush or chew. (Same As: Ecotrin) No Longer Active 03/01/2018 [facility] Enoxaparin 40 mg, 0.4 mL, Route: SUB-Q, Drug form: INJ, Q12H, Dosing Weight 90.483, kg, Start date: 03/01/18 9:00:00 [employer] LAW SPECIALIST, Duration: 30 day, Stop date: 03/30/18 21:00:00 CSTNotes: (Same as: Lovenox) No Longer Active 03/01/2018 [facility] Docusate 100 mg, 1 cap, Route: PO, Drug form: CAP, BID, Dosing Weight 90.483, kg, Start date: 03/01/18 9:00:00 [employer] SPECIALIST, Duration: 30 day, Stop date: 03/30/18 17:00:00 CSTNotes: (Same as: Colace) (Do Not Crush) No Longer Active 03/01/2018 [facility] Albuterol 0.1 MG/ACTUAT / Ipratropium [place] 0.02 MG/ACTUAT Metered Dose Inhaler 1 puff, Route: INHALATION, Drug Form: AERO, Dosing Weight 90.483, kg, Q12H, Start date: 03/01/18 9:00:00 [employer] LAW SPECIALIST, Duration: 30 day, Stop date: 03/30/18 21:00:00 CSTNotes: Same as: Combivent Respimat WASTE: Aerosol - Return to Pharmacy No Longer Active 03/01/2018 [facility] Docusate Sodium 50 MG / sennosides, INTERMEDIATE 8.6 MG Oral Tablet 1 tab, Route: PO, Drug Form: TAB, Dosing Weight 90.483, kg, BID, Start date: 03/01/18 9:00:00 [employer] SPECIALIST, Duration: 30 day, Stop date: 03/30/18 17:00:00 CSTNotes: (Same as Senokot-S) Equiv. to Yasmine-Colace. No Longer Active 03/01/2018 [facility] pantoprazole 40 mg, 1 tab, Route: PO, Drug form: ECTAB, Daily, Dosing Weight 90.483, kg, Start date: 03/01/18 9:00:00 [employer] SPECIALIST, Duration: 30 day, Stop date: 03/30/18 9:00:00 CSTNotes: Tablet should not be chewed or cr ushed. (Same as: Protonix) No Longer Active 03/01/2018 [facility] morphine 0.5 mg/mL preservative-free injectable solution 2 mg, 0.5 mL, Route: IVP, Drug form: SOLN, Q4H, Dosing Weight 90.483, kg, PRN Pain Score 7-10, Start date: 03/01/18 4:00:00 [employer], Duration: 30 day, Stop date: 03/31/18 3:59:00 CSTNotes: (Same as:MORPhine Sulfate) Inactive 03/01/2018 [facility] potassium phosphate 30 mmol, 10 mL, Route: IVPB, PRN, Dosing Weight 90.483, kg, PRN Abnormal Lab Result, For NON-ICU Patients Only., Start date: 03/01/18 2:08:00 [employer], Duration: 30 day, Stop date: 03/31/18 2:07:00 CSTNot es: (Same as: K Phosphate.) Do not infuse phosphorous concurrently in the same line as TPN or IVF that contains calcium. For double lumen central lines, phosphorous may be infused in a separate lumen from TPN. 1 mMol phoshate has 1.47 mEq potassium Infuse over 4 hours No Longer Active 03/01/2018 [facility] Calcium Gluconate 3 gm, 30 mL, Route: IVPB, PRN, Dosing Weight 90.483, kg, PRN Abnormal Lab Result, For NON-ICU Patients Only., Start date: 03/01/18 2:08:00 [employer], Duration: 30 day, Stop date: 03/31/18 2:07:00 CSTNotes: WASTE: F/P - Sink; E - Municipal Trash Bin No Longer Active 03/01/2018 [facility] Magnesium Oxide 800 mg, 2 tab, Route: PO, Drug form: TAB, PRN, Dosing Weight 90.483, kg, PRN Abnormal Lab Result, For NON-ICU Patients Only., Start date: 03/01/18 2:08:00 [employer], Duration: 30 day, Stop date: 03/31/18 2 :07:00 CSTNotes: (Same as: Mag-Ox 400) Magnesium oxide [id number] elemental magnesium Dose=____mg magnesium oxide (___mg elemental magnesium) No Longer Active 03/01/2018 [facility] Potassium Chloride 20 mEq, 15 mL, Route: NJ, Drug form: LIQ, PRN, Dosing Weight 90.483, kg, PRN Abnormal Lab Result, For NON-ICU Patients Only, Start date: 03/01/18 2:08:00 [employer], Duration: 30 day, Stop date: 03/31/18 2:07:00 CSTNotes: (Same as: Potassium Chloride) No Longer Active 03/01/2018 [facility] potassium phosphate-sodium phosphate 250 mg-280 mg-160 mg oral powder for reconstitution 2 pkt, Route: PO, Drug Form: PDR/REC, Dosing Weight 90.483, kg, PRN, PRN Abnormal Lab Result, For NON-ICU Patients Only, Start date: 03/01/18 2:08:00 [employer], Duration: 30 day, Stop date: 03/31/18 2:07:00 CSTNotes: (Same as: Phos-NaK) Each 1.5 gm pkt has 250mg phosphorous. Mix w/2.5oz water and stir. No Longer Active 03/01/2018 [facility] sodium phosphate 30 mmol, 10 mL, Route: IVPB, PRN, Dosing Weight 90.483, kg, PRN Abnormal Lab Result, For NON-ICU Patients Only., Start date: 03/01/18 2:08:00 [employer], Duration: 30 day, Stop date: 03/31/18 2:07:00 CSTNot es: Infuse over 4 hour. Do not infuse phosphorous concurrently in the same line as TPN or IVF that contains calcium. For double lumen central lines, phosphorous may be infused in a separate lumen from TPN. No Longer Active 03/01/2018 [facility] Magnesium Sulfate 2 gm, 50 mL, Route: IVPB, Drug form: INJ, PRN, Dosing Weight 90.483, kg, PRN Abnormal Lab Result, For NON-ICU Patients Only., Start date: 03/01/18 2:08:00 [employer], Duration: 30 day, Stop date: 03/31/18 2:07:00 CSTNotes: WASTE: F/P - Sink; E - Municipal Trash Bin No Longer Active 03/01/2018 [facility] meropenem 1,000 mg, Route: IV, Drug form: PDR/INJ, ABXQ8H, Dosing Weight 90.483, kg, Start date: 03/01/18 0:00:00 [employer], Duration: 30 day, Stop date: 03/30/18 16:00:00 [employer]IST, ABX Indication: Other (specify in Comment s)Notes: (Same as: Merrem) . MEDICATION WASTE Product Size: 1000 mg Product Wasted: 0 mg Inactive 03/01/2018 [facility] Ondansetron 4 mg, 2 mL, Route: IV, Drug form: INJ, Q8H, Dosing Weight 90.483, kg, PRN Nausea, Start date: 02/28/18 22:30:00 [employer], Duration: 30 day, Stop date: 03/30/18 22:29:00 CSTNotes: (Same as: Zofran) MEDICATION WASTE Product Size: 4 mg Product Wasted: ___ mg No Longer Active 03/01/2018 [facility] Acetaminophen 250 MG / Aspirin 250 MG / Caffeine 65 MG Oral Tablet 1 tab, Route: PO, Drug Form: TAB, Dosing Weight 90.483, kg, Q6H, PRN Headache 1-5, Start date: 02/28/18 22:30:00 [employer], Duration: 30 day, Stop date: 03/30/18 22:29:00 [employer] No Longer Active 03/01/2018 [facility] eletriptan 40 mg, Route: PO, Drug form: TAB, Daily, Dosing Weight 90.483, kg, PRN Headache 4-6, Start date: 02/28/18 22:30:00 [employer], Duration: 30 day, Stop date: 03/30/18 22:29:00 [employer]IST No Longer Active 03/01/2018 [facility] Acetaminophen 325 MG Oral Tablet 650 mg, 2 tab, Route: PO, Drug form: TAB, Q4H, Dosing Weight 90.483, kg, PRN Pain Score 1-3, Start date: 02/28/18 22:30:00 [employer], Duration: 30 day, Stop date: 03/30/18 22:29:00 CSTNotes: Do not exceed 4 gm/day. (Same as: Tylenol) No Longer Active 03/01/2018 [facility] Acetaminophen 325 MG / Hydrocodone Bitartrate 5 MG Oral Tablet [[place] 5/325] 1 tab, Route: PO, Drug Form: TAB, Dosing Weight 90.483, kg, Q6H, PRN Pain Score 4-6, Start date: 02/28/18 22:30:00 [employer], Duration: 30 day, Stop date: 03/30/18 22:29:00 CSTNotes: (Same as: [place] 325/5) Do not exceed 4gm/day of acetaminophen. No Longer Active 03/01/2018 [facility] Diazepam 5 mg, 1 tab, Route: PO, Drug form: TAB, QID, Dosing Weight 90.483, kg, PRN Anxiety, Start date: 02/28/18 22:30:00 [employer], Duration: 30 day, Stop date: 03/30/18 22:29:00 CSTNotes: (Same as: Valium) No Longer Active 03/01/2018 [facility] Phenazopyridine 100 mg, 1 tab, Route: PO, Drug form: TAB, TID, Dosing Weight 90.483, kg, PRN Bladder Spasm, Start date: 02/28/18 22:30:00 [employer], Duration: 30 day, Stop date: 03/30/18 22:29:00 CSTNotes: Give with meals. (Same as: Pyridium) No Longer Active 03/01/2018 [facility] Morphine 2 mg, 0.5 mL, Route: IVP, Drug form: SOLN, ONCE, Dosing Weight 90.483, kg, Start date: 02/28/18 22:25:00 [employer], Stop date: 01/12/19 22:25:00 CSTNotes: (Same as:MORPhine Sulfate) Inactive 03/01/2018 [facility] phenazopyridine 100 mg oral tablet 100 mg=1 tab, PO, TID, PRN dysuria, # 6 tab, 0 Refill(s) No Longer Active 03/01/2018 [facility] Acetaminophen 250 MG / Aspirin 250 MG / Caffeine 65 MG Oral Tablet [Excedrin] 2 tab, PO, Q6H, PRN for headache, # 50 tab, 0 Refill(s) Active 03/01/2018 [facility] meclizine 25 mg oral tablet 25 mg, PO, PRN, Q8H PRN, 0 Refill(s) Active 03/01/2018 [facility] bumetanide 2 mg oral tablet 2 mg=1 tab, PO, Daily, # 30 tab, 0 Refill(s) No Longer Active 03/01/2018 [facility] Ondansetron 4 MG Disintegrating Tablet 4 mg, PO, PRN, Q8H PRN, 0 Refill(s) No Longer Active 03/01/2018 [facility] Hydralazine Hydrochloride 25 MG Oral Tablet 25 mg=1 tab, PO, PRN, Q6H PRN, # 120 tab, 0 Refill(s) Active 03/01/2018 [facility] meropenem 1 g intravenous injection 1 gm, IV, Q8H, 0 Refill(s) No Longer Active 03/01/2018 [facility] Acetaminophen 325 MG / Hydrocodone Bitartrate 5 MG Oral Tablet [[place] 5/325] 1 tab, PO, Q6H, PRN Pain, # 60 tab, 0 Refill(s) No Longer Active 03/01/2018 [facility] Clonidine Hydrochloride 0.1 MG Oral Tablet 0.1 mg, PO, PRN, Q8H PRN, 0 Refill(s) No Longer Active 03/01/2018 [facility] pantoprazole 40 mg oral enteric coated tablet 40 mg=1 tab, PO, Daily, # 30 tab, 0 Refill(s) No Longer Active 03/01/2018 [facility] eletriptan 40 mg oral tablet 40 mg=1 tab, PO, Daily, PRN for migraine headache, may repeat dose once in 2 hours, # 6 tab, 0 Refill(s) Active 03/01/2018 [facility] potassium chloride 10 mEq oral tablet, extended release =1 cap, PO, Daily, # 30 cap, 1 Refill(s) No Longer Active 03/01/2018 [facility] Acetaminophen 325 MG Oral Tablet 650 mg=2 tab, PO, Q4H, PRN Pain, # 120 tab, 0 Refill(s) No Longer Active 03/01/2018 [facility] ondansetron 2 mg/mL injectable solution 4 mg=2 ml, IV, PRN, PRN Nausea & Vomiting, Q8H PRN, # 1 ea, 0 Refill(s) No Longer Active 03/01/2018 [facility] diazepam 5 mg oral tablet 5 mg=1 tab, PO, QID, PRN Anxiety, 0 Refill(s) No Longer Active 03/01/2018 [facility] fluconazole 200 mg oral tablet 200 mg=1 tab, PO, Daily, # 7 tab, 0 Refill(s) No Longer Active 03/01/2018 [facility] Albuterol 0.1 MG/ACTUAT / Ipratropium [place] 0.02 MG/ACTUAT Metered Dose Inhaler 0 Refill(s) No Longer Active 03/01/2018 [facility] losartan 50 mg oral tablet 50 mg=1 tab, PO, Daily, # 30 tab, 0 Refill(s) No Longer Active 03/01/2018 [facility] Docusate Sodium 50 MG / sennosides, INTERMEDIATE 8.6 MG Oral Tablet 1 tab, PO, BID, 0 Refill(s) Active 03/01/2018 [facility] enoxaparin 40 mg/0.4 mL subcutaneous solution 40 mg=0.4 mL, SUB-Q, Q12H, # 14 syr, 0 Refill(s) No Longer Active 03/01/2018 [facility] Morphine 2 mg, 0.5 mL, Route: IVP, Drug form: SOLN, ONCE, Dosing Weight 90.483, kg, Start date: 02/28/18 21:12:00 [employer], Stop date: 02/28/18 21:12:00 CSTNotes: (Same as:MORPhine Sulfate) Inactive 03/01/2018 [facility] sennosides, INTERMEDIATE 17.2 mg, 2 tab, Route: PO, Drug Form: TAB, Dosing Weight 90.483, kg, Bedtime, Start date: 02/28/18 21:00:00 [employer], Duration: 30 day, Stop date: 03/29/18 21:00:00 CSTNotes: (Same as: [place]) Inactive 03/01/2018 [facility] Acetaminophen 650 mg, 2 tab, Route: PO, Drug form: TAB, Q4H, Dosing Weight 90.483, kg, PRN For Temp > 100.4 F, Start date: 02/28/18 20:38:00 [employer], Duration: 30 day, Stop date: 03/30/18 20:37:00 CSTNotes: Do not exceed 4 gm/day. (Same as: Tylenol) Inactive 03/01/2018 [facility] Ondansetron 4 mg, 2 mL, Route: IVP, Drug form: INJ, Q8H, Dosing Weight 90.483, kg, PRN Nausea & Vomiting, Start date: 02/28/18 20:38:00 [employer], Duration: 30 day, Stop date: 03/30/18 20:37:00 CSTNotes: (Same as: Jose) MEDICATION WASTE Product Size: 4 mg Product Wasted: ___ mg No Longer Active 03/01/2018 [facility] Dextrose 50% Syringe 12.5 gm, 25 mL, Route: IVP, Drug Form: INJ, Dosing Weight 90.483, kg, PRN, PRN Blood Glucose Results, Start date: 02/28/18 20:38:00 [employer], Duration: 30 day, Stop date: 03/30/18 20:37:00 [employer]IST No Longer Active 03/01/2018 [facility] Glucagon 1 mg, Route: IM, Drug form: PDR/INJ, PRN, Dosing Weight 90.483, kg, PRN Blood Glucose Results, Start date: 02/28/18 20:38:00 [employer]IST, Duration: 30 day, Stop date: 03/30/18 20:37:00 [employer]IST No Longer Active 03/01/2018 [facility] Toprol XL 1 tablet orally Active 25 MG orally Once a day Rima 07/28/2015 [facility] Ketorolac 30 mg, Route: IVP, Q6H, Dosing Weight 86.818, kg, Start date: 11/15/14 12:00:00, Duration: 4 day, Stop date: 11/19/14 6:00:00 No Longer Active 11/15/2014 [facility] Ondansetron 4 mg, Route: IVP, ONCE, Dosing Weight 86.818, kg, PRN Nausea & Vomiting, Start date: 11/15/14 9:00:00 Inactive 11/15/2014 [facility] Naloxone 0.04 mg, Route: IVP, Q2MIN, Dosing Weight 86.818, kg, PRN Narcotic Reversal, Start date: 11/15/14 9:00:00, Duration: 8 doses or times, Stop date: Limited # of times Inactive 11/15/2014 [facility] Flumazenil 0.2 mg, Route: IVP, PRN, Dosing Weight 86.818, kg, PRN Benzodiazepine Reversal, Initial dose, Start date: 11/15/14 9:00:00, Duration: 30 day, Stop date: 12/15/14 8:59:00 Inactive 11/15/2014 [facility] Meperidine 12.5 mg, Route: IVP, Q30Min, Dosing Weight 86.818, kg, PRN Other -See Comment, For shivering, Start date: 11/15/14 9:00:00, Duration: 2 doses or times, Stop date: Limited # of times Inactive 11/15/2014 [facility] Hydromorphone 0.5 mg, Route: IVP, Q5Min, Dosing Weight 86.818, kg, PRN Pain Score 7-10, Start date: 11/15/14 9:00:00, Duration: 4 doses or times, Stop date: Limited # of times Inactive 11/15/2014 [facility] Fentanyl 25 microgram, Route: IVP, Q5Min, Dosing Weight 86.818, kg, PRN Pain Score 4-6, Start date: 11/15/14 9:00:00, Duration: 4 doses or times, Stop date: Limited # of times Inactive 11/15/2014 [facility] Oxycodone 5 mg, Route: PO, Drug form: TAB, Q4H, Dosing Weight 86.818, kg, PRN Pain Score 4-6, Start date: 11/15/14 9:00:00, Duration: 30 day, Stop date: 12/15/14 8:59:00 Inactive 11/15/2014 [facility] Labetalol 10 mg, Route: IVP, Q5Min, Dosing Weight 86.818, kg, PRN Elevated BP, Start date: 11/15/14 9:00:00, Duration: 5 doses or times, Stop date: Limited # of times Inactive 11/15/2014 [facility] Hydralazine 10 mg, Route: IVP, Q20Min, Dosing Weight 86.818, kg, PRN Elevated BP, Start date: 11/15/14 9:00:00, Duration: 2 doses or times, Stop date: Limited # of times Inactive 11/15/2014 [facility] Promethazine 6.25 mg, Route: IVPB, ONCE, Dosing Weight 86.818, kg, PRN Nausea & Vomiting, Start date: 11/15/14 9:00:00 Inactive 11/15/2014 [facility] Acetaminophen 300 MG / Codeine Phosphate 30 MG Oral Tablet [Tylenol with Codeine #3] 1 - 2 tab, PO, Q4H, PRN Pain, X 3 day, # 20 tab, 0 Refill(s) Active 11/15/2014 [facility] Morphine 2 mg, Route: IVP, Q3H, Dosing Weight 86.818, kg, PRN Pain Score 1-3, Start date: 11/15/14 8:51:00, Duration: 30 day, Stop date: 12/15/14 8:50:00 No Longer Active 11/15/2014 [facility] Acetaminophen 650 mg, Route: PO, Drug form: TAB, Q4H, Dosing Weight 86.818, kg, PRN Pain 1-3/Temp > 100.4 F, Start date: 11/15/14 8:51:00, Duration: 30 day, Stop date: 12/15/14 8:50:00 No Longer Active 11/15/2014 [facility] acetaminophen-codeine #3 2 tab, Route: PO, Drug Form: TAB, Dosing Weight 86.818, kg, Q4H, PRN Pain Score 4-6, Start date: 11/15/14 8:51:00, Duration: 30 day, Stop date: 12/15/14 8:50:00 No Longer Active 11/15/2014 [facility] Calcium Chloride 0.0014 MEQ/ML / Potassium Chloride 0.004 MEQ/ML / Sodium Chloride 0.103 MEQ/ML / Sodium Lactate 0.028 MEQ/ML Injectable Solution 1,000 mL, Rate: 25 ml/hr, Infuse over: 40 hr, Route: IV, Dosing Weight 86.818 kg, Total Volume: 1,000, Start date: 11/15/14 7:23:00, Duration: 30 day, Stop date: 12/15/14 7:22:00 Inactive 11/15/2014 [facility] Cefazolin 2 gm, Route: IVPB, ONCALL, Dosing Weight 86.818, kg, Start date: 11/15/14 7:00:00, Duration: 30 day, Stop date: 12/15/14 6:59:00 Inactive 11/15/2014 [facility] Excedrine migraine Excedrine migraine, PO, PRN, Refill(s) 0 Active 10/28/2014 [facility] Albuterol 0.83 MG/ML Inhalant Solution 2.49 mg=3 mL, NEB, Q6H, PRN as needed for shortness of breath, # 120 ea, 3 Refill(s) Active 10/28/2014 [facility] Ibuprofen 200 MG / Pseudoephedrine Hydrochloride 30 MG Oral Tablet [Advil Cold and Sinus] 1 tab, PO, BID, PRN Cough/Congestion, # 60 tab, 0 Refill(s) Active 10/28/2014 [facility] diazepam 10 mg oral tablet 10 mg=1 tab, PO, Daily, 0 Refill(s) Active 10/28/2014 [facility] ibuprofen 600 mg oral tablet 600 mg=1 tab, PO, Q8H, PRN pain, # 30 tab, 0 Refill(s) Active 10/28/2014 [facility] Mobic 7.5 mg, PO, Daily, 0 Refill(s) Active 10/28/2014 [facility] Ciprofloxacin 500 MG Oral Tablet [Cipro] 500 mg=1 tab, PO, Q12H, # 28 tab, 0 Refill(s) Active 10/28/2014 [facility] lisinopril 10 mg oral tablet 10 mg=1 tab, PO, Daily, # 30 tab, 0 Refill(s) Active 10/28/2014 [facility] tramadol hydrochloride 50 MG Oral Tablet 50 mg=1 tab, PO, Q6H, PRN Pain, # 40 tab, 0 Refill(s) Active 10/28/2014 [facility] Naloxone 0.04 mg, 0.1 mL, Route: IVP, Drug form: INJ, Q2MIN, Dosing Weight 85, kg, PRN Narcotic Reversal, Start date: 07/27/13 10:51:00, Duration: 8 doses or times, Stop date: Limited # of timesNotes: (Same as: Narcan) Inactive 07/27/2013 [facility] Promethazine 6.25 mg, 0.25 mL, Route: IM, Drug form: INJ, ONCE, Dosing Weight 85, kg, PRN Nausea & Vomiting, Start date: 07/27/13 10:51:00Notes: Do not give IV push. (Same as: Phenergan) Inactive 07/27/2013 [facility] Ondansetron 4 mg, 2 mL, Route: IVP, Drug form: INJ, ONCE, Dosing Weight 85, kg, PRN Nausea & Vomiting, Start date: 07/27/13 10:51:00Notes: (Same as: Zofran) Inactive 07/27/2013 [facility] Dexamethasone 4 mg, 1 mL, Route: IVP, Drug form: INJ, ONCE, Dosing Weight 85, kg, PRN Nausea & Vomiting, Start date: 07/27/13 10:51:00Notes: Concentration: 4mg/ml Inactive 07/27/2013 [facility] Oxycodone 10 mg, 2 tab, Route: PO, Drug form: TAB, Q4H, Dosing Weight 85, kg, PRN Pain Score 7-10, Start date: 07/27/13 10:51:00, Duration: 30 day, Stop date: 08/26/13 10:50:00Notes: (Same as: OxyIR) Inactive 07/27/2013 [facility] Meperidine 12.5 mg, 0.25 mL, Route: IVP, Drug form: INJ, Q30Min, Dosing Weight 85, kg, PRN Other -See Comment, For shivering, Start date: 07/27/13 10:51:00, Duration: 2 doses or times, Stop date: Limited # of t imesNotes: (Same As: Demerol) Inactive 07/27/2013 [facility] Morphine 2 mg, 1 mL, Route: IVP, Drug form: INJ, Q5Min, Dosing Weight 85, kg, PRN Pain Score 4-6, Start date: 07/27/13 10:51:00, Duration: 5 doses or times, Stop date: Limited # of timesNotes: (Same as:MORPhi ne Sulfate) Inactive 07/27/2013 [facility] Flumazenil 0.2 mg, 2 mL, Route: IVP, Drug form: INJ, PRN, Dosing Weight 85, kg, PRN Benzodiazepine Reversal, Initial dose, Start date: 07/27/13 10:51:00, Duration: 30 day, Stop date: 08/26/13 10:50:00Notes: (Same as: Romazicon) Inactive 07/27/2013 [facility] Ketorolac 30 mg, 1 mL, Route: IVP, Drug form: INJ, ONCE, Dosing Weight 85, kg, Start date: 07/27/13 10:51:00, Duration: 1 doses or times, Stop date: 07/27/13 10:51:00Notes: (Same as:Toradol) IV bolus must be g iven >15 seconds. Give IM administration slowly and deeply into the muscle. Not for use > 4 days Inactive 07/27/2013 [facility] Fentanyl 50 microgram, 1 mL, Route: IVP, Drug form: INJ, Q5Min, Dosing Weight 85, kg, PRN Pain Score 7-10, Start date: 07/27/13 10:51:00, Duration: 2 doses or times, Stop date: Limited # of timesNotes: (Same as: Sublimaze) Preservative free. Inactive 07/27/2013 [facility] Hydralazine 10 mg, 0.5 mL, Route: IVP, Drug form: INJ, Q20Min, Dosing Weight 85, kg, PRN Elevated BP, Start date: 07/27/13 10:51:00, Duration: 2 doses or times, Stop date: Limited # of timesNotes: (Same as: Apre soline) Push over 5 minutes Inactive 07/27/2013 [facility] Calcium Chloride 0.0014 MEQ/ML / Potassium Chloride 0.004 MEQ/ML / Sodium Chloride 0.103 MEQ/ML / Sodium Lactate 0.028 MEQ/ML Injectable Solution 1,000 mL, Rate: 125 ml/hr, Infuse over: 8 hr, Route: IV, Dosing Weight 85 kg, Total Volume: 1,000, Start date: 07/27/13 10:51:00, Duration: 30 day, Stop date: 08/26/13 10:50:00 Inactive 07/27/2013 [facility] Acetaminophen 1,000 mg, 100 mL, Route: IVPB, Drug form: INJ, ONCE, Dosing Weight 85, kg, PRN Pain Score 1-3, Start date: 07/27/13 10:51:00, Duration: 1 doses or times, Stop date: Limited # of timesNotes: Infuse over 15 minutes Do not exceed 4gm/day of acetaminophen Inactive 07/27/2013 [facility] Metoprolol 1 mg, 1 mL, Route: IVP, Drug form: INJ, Q5Min, Dosing Weight 85, kg, PRN Other -See Comment, Start date: 07/27/13 10:51:00, Duration: 5 doses or times, Stop date: Limited # of timesNotes: (Same as: L opressor) Push over 2 minutes Inactive 07/27/2013 [facility] albuterol-ipratropium 2 puff, Route: INHALER, Drug Form: AERO, PRN, PRN Shortness of breath, Start date: 07/21/13 11:50:00, Duration: 30 day, Stop date: 08/20/13 11:49:00Notes: Same as: Combivent Respimat Inactive 07/21/2013 [facility] Acetaminophen 10 MG/ML Injectable Solution 1,000 mg, Route: IV, Drug form: INJ, ONCE, Dosing Weight 86.364, kg, PRN Pain, For > or=50 kg, Start date: 07/21/13 11:30:00 Inactive 07/21/2013 [facility] Acetaminophen 300 MG / Codeine Phosphate 60 MG Oral Tablet [Tylenol with Codeine #4] 0 Refill(s) Inactive 07/21/2013 [facility] Acetaminophen 300 MG / Codeine Phosphate 60 MG Oral Tablet [Tylenol with Codeine #4] PO, PRN, 0 Refill(s) Active 07/20/2013 [facility] montelukast 10 MG Oral Tablet [Singulair] PO, QPM, 0 Refill(s) Active 07/20/2013 [facility] Potassium Chloride 10 mEq, PO, Daily, 0 Refill(s) Active 07/20/2013 [facility] bumetanide 2 mg oral tablet PO, Daily, 0 Refill(s) Active 07/20/2013 [facility] eletriptan 40 MG Oral Tablet [Relpax] PO, Daily, 0 Refill(s) Active 07/20/2013 [facility] 120 ACTUAT Albuterol 0.1 MG/ACTUAT / Ipratropium [place] 0.02 MG/ACTUAT Metered Dose Inhaler [Combivent 20/100] INHALATION, QID, 0 Refill(s) Active 07/20/2013 [facility] ipratropium CFC free 17 mcg/inh inhalation aerosol 2 puff, INHALATION, QID, 13 gm, Substitution Allowed, Maintenance, AERO INHALATION Active Short 10/11/2012 [facility] Zithromax Z-Sumit 250 mg oral tablet 250 mg, PO, Daily, Take 2 tablets by mouth the first day then 1 tablet by mouth days 2-5, 6 tab, Substitution AllowedTake 2 tablets by mouth the first day then 1 tablet by mouth days 2-5 PO Active Short 10/11/2012 [facility] predniSONE 20 mg oral tablet 60 mg, 3 tab, PO, Daily, Take 3 tablets for 60 mg dose, 15 tab, Substitution AllowedTake 3 tablets for 60 mg dose PO Active Short 10/11/2012 [facility] Tylenol 650 mg, Route: PO, Drug form: LIQ, ONCE, Dosing Weight 83.636, kg, Start date: 10/10/12 19:31:00, Stop date: 10/10/12 19:31:00 PO No Longer Active Short 10/11/2012 [facility] dexamethasone 8 mg, Route: IM, ONCE, Dosing Weight 83.636, kg, Priority: STAT, Start date: 10/10/12 19:23:00, Stop date: 10/10/12 19:23:00 IM No Longer Active Short 10/11/2012 [facility] acetaminophen-hydrocodone 334 mg-5 mg/10 mL oral elixir 15 ml, Route: PO, Drug Form: ELIX, Dosing Weight 83.636, kg, ONCE, STAT, Start date: 10/10/12 18:44:00, Stop date: 10/10/12 18:44:00 PO No Longer Active Short 10/10/2012 [facility] Zofran ODT 4 mg, 1 tab, Route: PO, Drug form: TABDIS, ONCE, Dosing Weight 83.636, kg, Priority: STAT, Start date: 10/10/12 18:44:00, Stop date: 10/10/12 18:44:00 PO No Longer Active Short 10/10/2012 [facility] DuoNeb inhalation solution 3 ml, Route: INHALATION, Drug Form: SOLN, Dosing Weight 83.636, kg, PRN, PRN Respiratory Protocol, Start date: 10/10/12 18:27:00, Duration: 30 day, Stop date: 11/09/12 18:26:00 INHALATION No Longer Active Short 10/10/2012 [facility] Relpax 1 tablet as needed one time Orally Active 40 MG Orally Once a day [facility] Cefprozil 1 tablet Orally Active 500 MG Orally Once a day [facility] Vitamin D2 1 tablet Orally Active 28922 Orally one a week [facility] Cardiology Cons MethylPREDNISolone Unknown Orally Active 4 MG Orally [facility] Cons Losartan Potassium 1 tablet Orally No Longer Active 50 MG Orally Once a day [facility] Cons Acetaminophen-Codeine 1 tablet as needed Orally Active 300-60 MG Orally every 6 hrs [facility] Cons Tramadol-Acetaminophen 2 tablets as needed Orally Active 37.5- 325 MG Orally every 6 hrs [facility] Cons Naproxen 1 tablet as needed Orally Active 500 MG Orally every 12 hrs [facility] Cons Combivent Respimat 1 puff Inhalation Active 20-100 MCG/ACT Inhalation Four times a day [facility] Cons Nexium 1 capsule Orally Active 40 MG Orally Once a day [facility] Cons Singulair 1 tablet in the evening Orally Active 10 MG Orally Once a day [facility] Cons Diazepam 1 tablet Orally Active 5 MG Orally as needed (prn) [facility] Cons Ibuprofen 1 tablet Orally Active 800 MG Orally prn [facility] Cons Aspirin 1 tablet Orally Active 81 MG Orally Once a day [facility] Cons Singulair 1 tablet in the evening Orally Active 10 MG Orally Once a day [facility] Cons Acetaminophen-Codeine 1 tablet as needed Orally Active 300-60 MG Orally every 6 hrs [facility] Cons Aspirin 1 tablet Orally Active 81 MG Orally 2xweek [facility] Cons Losartan Potassium 1 tablet Orally Active 50 MG Orally Once a day [facility] Cons Combivent Respimat 1 puff Inhalation Active 20-100 MCG/ACT Inhalation Four times a day [facility] Cons Vitamin D2 1 tablet Orally Active [id number] Orally one a week [facility] Cons Diazepam 1 tablet Orally Active 5 MG Orally as needed (prn) [facility] Cons Relpax 1 tablet as needed one time Orally Active 40 MG Orally Once a day [facility] Cons Bumetanide as directed Orally Active 2 MG Orally PRN [facility] Cons Nexium 1 capsule Orally Active 40 MG Orally Once a day [facility] Cons Allergies, Adverse Reactions, Alerts Substance Category Reaction Severity Reaction type Status Date Reported Comments Source Pseudoephedrine Unknown Allergy to Substance Active 04/07/2018 [facility] Fexofenadine Unknown Allergy to Substance Active 04/07/2018 [facility] nut - unspecified Unknown Allergy to Substance Active 04/07/2018 [facility] Adverse Reaction Info Not Available Adverse Reaction Active 08/18/2018 Cardiology Cons Ashli Assertion Drug allergy Active [facility] Immunizations No Data Provided for This Section Results Order Name Results Value Reference Range Date Interpretation Comments Source HEMATOLOGY MCHC 33.5 32.0 - 36.0 04/15/2018 [facility] Hct 34.5 36.0 - 48.0 04/15/2018 [facility] MCH 28.4 27.0 - 31.0 04/15/2018 [facility] Platelet 383 133 - 450 04/15/2018 [facility] RDW 14.2 11.5 - 14.5 04/15/2018 [facility] MPV 8.0 7.4 - 10.4 04/15/2018 [facility] WBC 14.5 3.7 - 10.4 04/15/2018 [facility] MCV 84.8 80.0 - 98.0 04/15/2018 [facility] RBC 4.07 4.20 - 5.40 04/15/2018 [facility] Hgb 11.6 12.0 - 16.0 04/15/2018 [facility] Neutrophils # 10.9 1.5 - 8.1 04/15/2018 [facility] Lymphocytes # 2.4 1.0 - 5.5 04/15/2018 [facility] Basophils 0.4 0.0 - 1.0 04/15/2018 [facility] Monocytes # 1.1 0.0 - 0.8 04/15/2018 [facility] HEMATOLOGY Basophils # 0.1 0.0 - 0.2 04/15/2018 [facility] HEMATOLOGY Eosinophils 0.2 0.0 - 4.0 04/15/2018 [facility] HEMATOLOGY Monocytes 7.5 2.0 - 12.0 04/15/2018 [facility] HEMATOLOGY Lymphocytes 16.3 20.0 - 40.0 04/15/2018 [facility] HEMATOLOGY Segs 75.6 45.0 - 75.0 04/15/2018 [facility] URINE CHEM U Preg Negative (04/14/18 6:38 AM) Negative 04/14/2018 [facility] BLOOD BANK RESULTS Antibody Scrn Negative (04/10/18 11:38 AM) 04/10/2018 [facility] BLOOD BANK RESULTS ABO/Rh B POS 04/10/2018 [facility] CHEM PANEL Globulin 4.0 2.7 - 4.2 04/10/2018 [facility] CHEM PANEL A/G Ratio 0.8 0.7 - 1.6 04/10/2018 [facility] CHEM PANEL B/C Ratio 28 6 - 25 04/10/2018 [facility] CHEM PANEL AGAP 13.5 10.0 - 20.0 04/10/2018 [facility] CHEM PANEL eGFR 82 04/10/2018 Result Comment: The eGFR is calculated [...] should be multiplied by the estimated BMI. [facility] CHEM PANEL Potassium Lvl 3.5 3.5 - 5.1 04/10/2018 [facility] CHEM PANEL CO2 27 24 - 32 04/10/2018 [facility] CHEM PANEL Chloride Lvl 107 95 - 109 04/10/2018 [facility] CHEM PANEL Calcium Lvl 8.3 8.5 - 10.5 04/10/2018 [facility] CHEM PANEL Total Protein 7.2 6.4 - 8.4 04/10/2018 [facility] CHEM PANEL Albumin Lvl 3.2 3.5 - 5.0 04/10/2018 [facility] CHEM PANEL ALT 25 0 - 65 04/10/2018 [facility] CHEM PANEL Alk Phos 73 39 - 136 04/10/2018 [facility] CHEM PANEL AST 17 0 - 37 04/10/2018 [facility] CHEM PANEL Bili Total 0.3 0.2 - 1.3 04/10/2018 [facility] CHEM PANEL BUN 26 7 - 22 04/10/2018 [facility] CHEM PANEL Glucose Lvl 84 70 - 99 04/10/2018 [facility] CHEM PANEL Sodium Lvl 144 135 - 145 04/10/2018 [facility] CHEM PANEL Creatinine Lvl 0.93 0.50 - 1.40 04/10/2018 [facility] HEMATOLOGY Eosinophils 1.0 0.0 - 4.0 04/10/2018 [facility] HEMATOLOGY Neutrophils # 4.5 1.5 - 8.1 04/10/2018 [facility] HEMATOLOGY Basophils 0.8 0.0 - 1.0 04/10/2018 [facility] HEMATOLOGY Monocytes 8.9 2.0 - 12.0 04/10/2018 [facility] HEMATOLOGY Lymphocytes # 6.1 1.0 - 5.5 04/10/2018 [facility] HEMATOLOGY Monocytes # 1.1 0.0 - 0.8 04/10/2018 [facility] HEMATOLOGY Segs 37.8 45.0 - 75.0 04/10/2018 [facility] HEMATOLOGY Lymphocytes 51.5 20.0 - 40.0 04/10/2018 [facility] HEMATOLOGY Eosinophils # 0.1 0.0 - 0.5 04/10/2018 [facility] HEMATOLOGY Basophils # 0.1 0.0 - 0.2 04/10/2018 [facility] HEMATOLOGY Platelet 438 133 - 450 04/10/2018 [facility] HEMATOLOGY MCH 28.4 27.0 - 31.0 04/10/2018 [facility] HEMATOLOGY MCHC 32.9 32.0 - 36.0 04/10/2018 [facility] HEMATOLOGY RDW 14.1 11.5 - 14.5 04/10/2018 [facility] HEMATOLOGY MPV 8.3 7.4 - 10.4 04/10/2018 [facility] HEMATOLOGY RBC 4.33 4.20 - 5.40 04/10/2018 [facility] HEMATOLOGY WBC 11.9 3.7 - 10.4 04/10/2018 [facility] HEMATOLOGY MCV 86.3 80.0 - 98.0 04/10/2018 [facility] Hgb 12.3 12.0 - 16.0 04/10/2018 [facility] Hct 37.4 36.0 - 48.0 04/10/2018 [facility] T pallidum Ab Reactive *ABN* (04/10/18 11:38 AM) Non Reactive 04/10/2018 [facility] RPR Non-Reactive (04/10/18 11:38 AM) Non 04/10/2018 [facility] Hep Bs Ag Negative *NA* (04/10/18 11:38 AM) Negative 04/10/2018 [facility] HIV Ag/Ab 4th Gen Negative *NA* (04/10/18 11:38 AM) Negative 04/10/2018 [facility] Hep C Ab Negative *NA* (04/10/18 11:38 AM) 04/10/2018 [facility] Treponemal Ab Reactive *ABN* (04/10/18 11:38 AM) Non 04/10/2018 [facility] CHEM PANEL Magnesium Lvl 2.2 1.8 - 2.4 03/02/2018 [facility] CHEM PANEL Phosphorus 3.5 2.5 - 4.5 03/02/2018 [facility] ELECTROLYTES AGAP 12.2 10.0 - 20.0 03/02/2018 [facility] ELECTROLYTES Potassium Lvl 4.2 3.5 - 5.1 03/02/2018 [facility] ELECTROLYTES Sodium Lvl 136 135 - 145 03/02/2018 [facility] ELECTROLYTES Chloride Lvl 101 95 - 109 03/02/2018 [facility] ELECTROLYTES eGFR 99 03/02/2018 Result Comment: The eGFR is calculated using [...] should be multiplied by the estimated BMI. [facility] ELECTROLYTES Creatinine Lvl 0.79 0.50 - 1.40 03/02/2018 [facility] ELECTROLYTES Glucose Lvl 113 70 - 99 03/02/2018 [facility] ELECTROLYTES Calcium Lvl 9.2 8.5 - 10.5 03/02/2018 [facility] ELECTROLYTES BUN 15 7 - 22 03/02/2018 [facility] ELECTROLYTES CO2 27 24 - 32 03/02/2018 [facility] HEMATOLOGY Eosinophils # 0.2 0.0 - 0.5 03/02/2018 [facility] HEMATOLOGY Monocytes 10.7 2.0 - 12.0 03/02/2018 [facility] HEMATOLOGY Neutrophils # 4.1 1.5 - 8.1 03/02/2018 [facility] HEMATOLOGY Lymphocytes # 3.4 1.0 - 5.5 03/02/2018 [facility] HEMATOLOGY Basophils 0.4 0.0 - 1.0 03/02/2018 [facility] HEMATOLOGY Monocytes # 0.9 0.0 - 0.8 03/02/2018 [facility] HEMATOLOGY Eosinophils 2.5 0.0 - 4.0 03/02/2018 [facility] HEMATOLOGY Segs 46.9 45.0 - 75.0 03/02/2018 [facility] HEMATOLOGY Lymphocytes 39.5 20.0 - 40.0 03/02/2018 [facility] HEMATOLOGY WBC 8.7 3.7 - 10.4 03/02/2018 [facility] HEMATOLOGY RBC 4.76 4.20 - 5.40 03/02/2018 [facility] HEMATOLOGY Hgb 13.5 12.0 - 16.0 03/02/2018 [facility] HEMATOLOGY Hct 40.5 36.0 - 48.0 03/02/2018 [facility] HEMATOLOGY MCV 85.0 80.0 - 98.0 03/02/2018 [facility] HEMATOLOGY MCH 28.3 27.0 - 31.0 03/02/2018 [facility] HEMATOLOGY MCHC 33.3 32.0 - 36.0 03/02/2018 [facility] HEMATOLOGY RDW 13.9 11.5 - 14.5 03/02/2018 [facility] HEMATOLOGY Platelet 382 133 - 450 03/02/2018 [facility] HEMATOLOGY MPV 8.4 7.4 - 10.4 03/02/2018 [facility] PARATHYROID PROFILE Ca Norm WB 1.06 1.05 - 1.25 03/02/2018 [facility] PARATHYROID PROFILE Ca Ion WB 1.08 1.05 - 1.25 03/02/2018 [facility] URINE AND STOOL UA Bacteria Occasional /HPF None Seen /HPF 03/01/2018 [facility] URINE AND STOOL UA WBC 6 0 - 5 03/01/2018 [facility] URINE AND STOOL UA RBC 1 0 - 2 03/01/2018 [facility] URINE AND STOOL Micro? Performed *NA* (03/01/18 4:48 PM) 03/01/2018 [facility] URINE AND STOOL UA Urobilinogen <=1.0 mg/dL 0.1 - 1.0 03/01/2018 [facility] URINE AND STOOL UA Renal Epi RARE <=0 03/01/2018 [facility] URINE AND STOOL UA Nitrite Negative (03/01/18 4:48 PM) Negative 03/01/2018 [facility] URINE AND STOOL UA Blood Negative (03/01/18 4:48 PM) Negative 03/01/2018 [facility] URINE AND STOOL UA Sq Epi Occasional /LPF Few /LPF 03/01/2018 [facility] URINE AND STOOL UA Leuk Est Moderate *ABN* (03/01/18 4:48 PM) Negative 03/01/2018 [facility] URINE AND STOOL UA Turbidity Clear (03/01/18 4:48 PM) Clear 03/01/2018 [facility] URINE AND STOOL UA Color Yellow *NA* (03/01/18 4:48 PM) Yellow 03/01/2018 [facility] URINE AND STOOL UA Spec Grav 1.007 <=1.030 03/01/2018 [facility] URINE AND STOOL UA pH 7.0 5.0 - 8.0 03/01/2018 [facility] URINE AND STOOL UA Bili Negative *NA* (03/01/18 4:48 PM) Negative 03/01/2018 [facility] URINE AND STOOL UA Ketones Negative mg/dL Negative mg/dL 03/01/2018 [facility] URINE AND STOOL UA Glucose Negative mg/dL Negative mg/dL 03/01/2018 [facility] URINE AND STOOL UA Protein 20 mg/dL Negative mg/dL 03/01/2018 [facility] Culture: Urine No Growth 03/01/2018 [facility] CHEM PANEL Lactic Acid Lvl 1.0 0.5 - 2.2 03/01/2018 [facility] CHEM PANEL Phosphorus 3.6 2.5 - 4.5 03/01/2018 [facility] CHEM PANEL Magnesium Lvl 2.3 1.8 - 2.4 03/01/2018 [facility] CHEM PANEL Procalcitonin Lvl <0.05 ng/mL 0.00 - 0.10 03/01/2018 [facility] CHEM PANEL AST 29 0 - 37 03/01/2018 [facility] CHEM PANEL Bili Direct <0.1 0.0 - 0.3 03/01/2018 [facility] CHEM PANEL ALT 49 0 - 65 03/01/2018 [facility] CHEM PANEL Albumin Lvl 3.6 3.5 - 5.0 03/01/2018 [facility] CHEM PANEL Bili Indirect Unable to Calculate 0.0 - 1.0 03/01/2018 [facility] CHEM PANEL Bili Total 0.4 0.2 - 1.3 03/01/2018 [facility] CHEM PANEL Total Protein 8.5 6.4 - 8.4 03/01/2018 [facility] CHEM PANEL A/G Ratio 0.7 0.7 - 1.6 03/01/2018 [facility] CHEM PANEL Globulin 4.9 2.7 - 4.2 03/01/2018 [facility] CHEM PANEL Alk Phos 118 39 - 136 03/01/2018 [facility] ELECTROLYTES AGAP 10.3 10.0 - 20.0 03/01/2018 [facility] ELECTROLYTES Calcium Lvl 9.4 8.5 - 10.5 03/01/2018 [facility] ELECTROLYTES Sodium Lvl 133 135 - 145 03/01/2018 [facility] ELECTROLYTES Chloride Lvl 99 95 - 109 03/01/2018 [facility] ELECTROLYTES CO2 28 24 - 32 03/01/2018 [facility] ELECTROLYTES Potassium Lvl 4.3 3.5 - 5.1 03/01/2018 [facility] ELECTROLYTES eGFR 83 03/01/2018 Result Comment: The eGFR is calculated using [...] should be multiplied by the estimated BMI. [facility] ELECTROLYTES Creatinine Lvl 0.92 0.50 - 1.40 03/01/2018 [facility] ELECTROLYTES Glucose Lvl 106 70 - 99 03/01/2018 [facility] ELECTROLYTES BUN 17 7 - 22 03/01/2018 [facility] HEMATOLOGY INR 1.06 0.85 - 1.17 03/01/2018 [facility] HEMATOLOGY PTT 30.7 22.9 - 35.8 03/01/2018 [facility] HEMATOLOGY PT 13.6 12.0 - 14.7 03/01/2018 [facility] HEMATOLOGY MPV 8.5 7.4 - 10.4 03/01/2018 [facility] HEMATOLOGY Platelet 373 133 - 450 03/01/2018 [facility] HEMATOLOGY RDW 14.2 11.5 - 14.5 03/01/2018 [facility] HEMATOLOGY MCHC 33.5 32.0 - 36.0 03/01/2018 [facility] HEMATOLOGY Hct 41.0 36.0 - 48.0 03/01/2018 [facility] HEMATOLOGY MCH 28.4 27.0 - 31.0 03/01/2018 [facility] HEMATOLOGY MCV 84.8 80.0 - 98.0 03/01/2018 [facility] HEMATOLOGY Hgb 13.7 12.0 - 16.0 03/01/2018 [facility] HEMATOLOGY WBC 8.0 3.7 - 10.4 03/01/2018 [facility] HEMATOLOGY RBC 4.83 4.20 - 5.40 03/01/2018 [facility] HEMATOLOGY Basophils # 0.1 0.0 - 0.2 03/01/2018 [facility] HEMATOLOGY Eosinophils # 0.2 0.0 - 0.5 03/01/2018 [facility] HEMATOLOGY Monocytes # 0.9 0.0 - 0.8 03/01/2018 [facility] HEMATOLOGY Lymphocytes # 3.3 1.0 - 5.5 03/01/2018 [facility] HEMATOLOGY Neutrophils # 3.6 1.5 - 8.1 03/01/2018 [facility] HEMATOLOGY Basophils 0.6 0.0 - 1.0 03/01/2018 [facility] HEMATOLOGY Eosinophils 2.7 0.0 - 4.0 03/01/2018 [facility] HEMATOLOGY Monocytes 10.6 2.0 - 12.0 03/01/2018 [facility] HEMATOLOGY Lymphocytes 41.3 20.0 - 40.0 03/01/2018 [facility] HEMATOLOGY Segs 44.8 45.0 - 75.0 03/01/2018 [facility] SPECIAL CHEMISTRY Hgb A1C 6.3 <=5.6 % 03/01/2018 [facility] BLOOD BANK RESULTS Antibody Scrn Negative (11/14/14 3:07 PM) 11/14/2014 [facility] BLOOD BANK RESULTS ABO/Rh B POS 11/14/2014 [facility] ENDOCRINOLOGY S Preg Negative *NA* (11/14/14 3:07 PM) Negative 11/14/2014 [facility] BLOOD BANK RESULTS ABO/Rh B POS 10/28/2014 [facility] BLOOD BANK RESULTS Antibody Scrn Negative (10/28/14 12:35 PM) 10/28/2014 [facility] ELECTROLYTES AGAP 7.9 10.0 - 20.0 10/28/2014 [facility] ELECTROLYTES Globulin 4.4 2.0 - 4.0 10/28/2014 [facility] ELECTROLYTES B/C Ratio 18 6 - 25 10/28/2014 [facility] ELECTROLYTES A/G Ratio 0.8 0.7 - 1.6 10/28/2014 [facility] ELECTROLYTES eGFR 77 10/28/2014 Result Comment: The eGFR is calculated [...] should be multiplied by the estimated BMI. [facility] ELECTROLYTES ALT 34 0 - 65 10/28/2014 [facility] ELECTROLYTES AST 17 0 - 37 10/28/2014 [facility] ELECTROLYTES Alk Phos 96 39 - 136 10/28/2014 [facility] ELECTROLYTES Bili Total 0.5 0.2 - 1.3 10/28/2014 [facility] ELECTROLYTES Creatinine Lvl 1.0 0.5 - 1.4 10/28/2014 [facility] ELECTROLYTES BUN 18 7 - 22 10/28/2014 [facility] ELECTROLYTES CO2 30 24 - 32 10/28/2014 [facility] ELECTROLYTES Calcium Lvl 9.0 8.5 - 10.5 10/28/2014 [facility] ELECTROLYTES Albumin Lvl 3.7 3.5 - 5.0 10/28/2014 [facility] ELECTROLYTES Total Protein 8.1 6.4 - 8.4 10/28/2014 [facility] ELECTROLYTES Glucose Lvl 139 70 - 99 10/28/2014 [facility] ELECTROLYTES Potassium Lvl 3.9 3.5 - 5.1 10/28/2014 [facility] ELECTROLYTES Sodium Lvl 137 135 - 145 10/28/2014 [facility] ELECTROLYTES Chloride Lvl 103 95 - 109 10/28/2014 [facility] Platelet 382 133 - 450 10/28/2014 [facility] HEMATOLOGY MPV 8.6 7.4 - 10.4 10/28/2014 [facility] HEMATOLOGY MCH 27.3 27.0 - 31.0 10/28/2014 [facility] MCHC 32.7 32.0 - 36.0 10/28/2014 [facility] RDW 14.2 11.5 - 14.5 10/28/2014 [facility] RBC 4.54 4.20 - 5.40 10/28/2014 [facility] Hgb 12.4 12.0 - 16.0 10/28/2014 [facility] MCV 83.4 80.0 - 98.0 10/28/2014 [facility] HEMATOLOGY Hct 37.8 36.0 - 48.0 10/28/2014 [facility] HEMATOLOGY WBC 6.0 3.7 - 10.4 10/28/2014 [facility] HEMATOLOGY Monocytes # 0.4 0.0 - 0.8 10/28/2014 [facility] HEMATOLOGY Eosinophils # 0.1 0.0 - 0.5 10/28/2014 [facility] HEMATOLOGY Basophils 0.6 0.0 - 1.0 10/28/2014 [facility] HEMATOLOGY Segs-Bands # 3.2 1.5 - 8.1 10/28/2014 [facility] Lymphocytes # 2.3 1.0 - 5.5 10/28/2014 [facility] Segs 53.7 45.0 - 75.0 10/28/2014 [facility] Monocytes 5.8 2.0 - 12.0 10/28/2014 [facility] Lymphocytes 37.5 20.0 - 40.0 10/28/2014 [facility] Eosinophils 2.4 0.0 - 4.0 10/28/2014 [facility] T pallidum Ab Reactive *ABN* (10/28/14 12:35 PM) Non Reactive 10/28/2014 [facility] Hep C Ab Negative *NA* (10/28/14 12:35 PM) 10/28/2014 [facility] Treponemal Scr Reactive *ABN* (10/28/14 12:35 PM) Non Reactive 10/28/2014 [facility] HIV 1/2 Ab Negative *NA* (10/28/14 12:35 PM) Negative 10/28/2014 [facility] Hep Bs Ag Negative *NA* (10/28/14 12:35 PM) Negative 10/28/2014 [facility] RPR Non Reactive (10/28/14 12:35 PM) Non Reactive 10/28/2014 [facility] URINE CHEM U Preg Negative (10/28/14 12:35 PM) Negative 10/28/2014 [facility] URINE CHEM U Preg Negative (07/27/13 7:05 AM) Negative 07/27/2013 [facility] MPV 8.0 7.4 - 10.4 07/20/2013 [facility] Hgb 12.6 12.0 - 16.0 07/20/2013 [facility] RBC 4.57 4.20 - 5.40 07/20/2013 [facility] Platelet 416 133 - 450 07/20/2013 [facility] Hct 38.1 36.0 - 48.0 07/20/2013 [facility] MCH 27.5 27.0 - 31.0 07/20/2013 [facility] MCV 83.4 81.0 - 99.0 07/20/2013 [facility] WBC 10.8 3.7 - 10.4 07/20/2013 [facility] RDW 15.5 11.5 - 14.5 07/20/2013 [facility] MCHC 32.9 32.0 - 36.0 07/20/2013 [facility] Basophils # 0.0 0.0 - 0.2 07/20/2013 [facility] HEMATOLOGY Eosinophils # 0.2 0.0 - 0.5 07/20/2013 [facility] Monocytes # 0.3 0.0 - 0.8 07/20/2013 [facility] Lymphocytes # 2.8 1.0 - 5.5 07/20/2013 [facility] Segs-Bands # 7.4 1.5 - 8.1 07/20/2013 [facility] Basophils 0.4 0.0 - 1.0 07/20/2013 [facility] Eosinophils 1.6 0.0 - 4.0 07/20/2013 [facility] Lymphocytes 26.1 20.0 - 40.0 07/20/2013 [facility] Segs 68.8 45.0 - 75.0 07/20/2013 [facility] Plt Morph Normal (07/20/13 2:15 PM) 07/20/2013 [facility] RBC Morph Normal (07/20/13 2:15 PM) 07/20/2013 [facility] Monocytes 3.1 2.0 - 12.0 07/20/2013 [facility] URINE CHEM U Preg Negative (07/20/13 2:00 PM) Negative 07/20/2013 [facility] Pathology Reports No Data Provided for This Section Diagnostic Reports Report Value Date Source Retroperitoneal Complete US EXAM: US RENAL DATE: 03/01/2018 8:46 [employer] INDICATION: Flank Pain - bilateral renal ultrasound [...] Normal. IMPRESSION: 1. Normal renal ultrasound. 03/01/2018 [facility] Wrist wo contrast MRI EXAMINATION: MRI of [...] abductor pollicis longus tendon, along the radial a spect of the wrist, and there is underlying [...] intrinsic ligaments of the right wrist. 10/05/[address] [facility] Pelvis w Pelvis Transvaginal US Pelvic Ultrasound [...] fluid. IMPRESSION: No acute sonographic findings. SL: [id number] 04/30/2017 [facility] Chest 2 views REASON FOR EXAM: Bronchitis. [...] imaging as indicated. Dictation code: 15 01/07/2013 DEBO Ontiveros Chest 2 views PROCEDURE: Chest 2 views REASON FOR EXAM: See Clinic Indication CLINICAL INDICATION: Coughing COMPARISON: None. FINDINGS: No acute process. No focal consolidation, pleural effusion, or pneumothorax. Normal cardiac silhouette and mediastinum. SL: 12 10/10/2012 [facility] Consultation Notes No Data Provided for This Section Discharge Summaries No Data Provided for This Section History and Physicals No Data Provided for This Section Vital Signs Vital Sign Value Date Comments Source Weight 194 08/18/2018 [facility] Height 62.5 08/18/2018 [facility] Heart Rate 66 08/18/2018 [facility] Diastolic (mm Hg) 70 08/18/2018 [facility] Systolic (mm Hg) 110 08/18/2018 [facility] Temperature Oral (F) 98.2 F 04/15/2018 [facility] Systolic (mm Hg) 130 04/15/2018 [facility] Diastolic (mm Hg) 76 04/15/2018 [facility] Respitory Rate 16 04/15/2018 [facility] Respitory Rate 18 04/15/2018 [facility] Systolic (mm Hg) 132 04/15/2018 [facility] Diastolic (mm Hg) 86 04/15/2018 [facility] Respitory Rate 18 04/15/2018 [facility] Heart Rate 64 04/15/2018 [facility] Temperature Oral (F) 98.5 F 04/15/2018 [facility] Temperature Oral (F) 98.4 F 04/15/2018 [facility] Systolic (mm Hg) 130 04/15/2018 [facility] Diastolic (mm Hg) 76 04/15/2018 [facility] Heart Rate 86 04/15/2018 [facility] Heart Rate 87 04/14/2018 [facility] Weight 92.983 04/10/2018 [facility] BMI Calculated 36.9 04/10/2018 [facility] Height 158.75 cm 04/10/2018 [facility] Systolic (mm Hg) 135 03/02/2018 [facility] Diastolic (mm Hg) 88 03/02/2018 [facility] Heart Rate 92 03/02/2018 [facility] Respitory Rate 18 03/02/2018 [facility] Temperature Oral (F) 98 F 03/02/2018 [facility] Respitory Rate 18 03/02/2018 [facility] Temperature Oral (F) 97.8 F 03/02/2018 [facility] Heart Rate 89 03/02/2018 [facility] Systolic (mm Hg) 125 03/02/2018 [facility] Diastolic (mm Hg) 80 03/02/2018 [facility] Heart Rate 77 03/02/2018 [facility] Temperature Oral (F) 98 F 03/02/2018 [facility] Systolic (mm Hg) 128 03/02/2018 [facility] Diastolic (mm Hg) 88 03/02/2018 [facility] Respitory Rate 18 03/02/2018 [facility] Height 160.02 cm 03/01/2018 [facility] Weight 90.483 03/01/2018 [facility] BMI Calculated 35.34 03/01/2018 [facility] Weight 198 10/17/2015 [facility] Height [...] [facility] Systolic (mm Hg) 134 11/15/2014 [facility] Diastolic (mm Hg) 74 11/15/2014 [facility] Systolic (mm Hg) 137 11/15/2014 [facility] Diastolic (mm Hg) 70 11/15/2014 [facility] Respitory Rate 14 11/15/2014 [facility] Systolic (mm Hg) 134 11/15/2014 [facility] Diastolic (mm Hg) 78 11/15/2014 [facility] Respitory Rate 15 11/15/2014 [facility] Respitory Rate 17 11/15/2014 [facility] Heart Rate 76 11/15/2014 [facility] Heart Rate 78 10/28/2014 [facility] Temperature Oral (F) 98.0 F 10/28/2014 [facility] Weight 86.818 10/28/2014 [facility] BMI Calculated 35.01 10/28/2014 [facility] Height 157.48 cm 10/28/2014 [facility] Diastolic (mm Hg) 74 07/27/2013 [facility] Systolic (mm Hg) 129 07/27/2013 [facility] Systolic (mm Hg) 129 07/27/2013 [facility] Diastolic (mm Hg) 74 07/27/2013 [facility] Systolic (mm Hg) 119 07/27/2013 [facility] Diastolic (mm Hg) 71 07/27/2013 [facility] Respitory Rate 18 07/27/2013 [facility] Respitory Rate 18 07/27/2013 [facility] Respitory Rate 14 07/27/2013 [facility] Height 157.48 cm 07/26/2013 [facility] BMI Calculated 34.27 07/26/2013 [facility] Weight 85 07/26/2013 [facility] Respitory Rate 18 07/21/2013 [facility] Diastolic (mm Hg) 70 07/21/2013 [facility] Systolic (mm Hg) 123 07/21/2013 [facility] Systolic (mm Hg) 120 07/21/2013 [facility] Diastolic (mm Hg) 66 07/21/2013 [facility] Respitory Rate 17 07/21/2013 [facility] Systolic (mm Hg) 129 07/21/2013 [facility] Diastolic (mm Hg) 69 07/21/2013 [facility] Respitory Rate 18 07/21/2013 [facility] Heart Rate 87 07/21/2013 [facility] Heart Rate 68 07/20/2013 [facility] Temperature Oral (F) 97 F 07/20/2013 [facility] Weight 86.364 07/20/2013 [facility] BMI Calculated 34.82 07/20/2013 [facility] Height 157.48 cm 07/20/2013 [facility] Respitory Rate 18 10/11/2012 [facility] Systolic (mm Hg) 128 10/11/2012 [facility] Diastolic (mm Hg) 84 10/11/2012 [facility] Temperature Oral (F) 97.9 F 10/11/2012 [facility] Heart Rate 84 10/11/2012 [facility] Systolic (mm Hg) 104 10/10/2012 [facility] Diastolic (mm Hg) 73 10/10/2012 [facility] Heart Rate 90 10/10/2012 [facility] Respitory Rate 18 10/10/2012 [facility] Temperature Oral (F) 97.8 F 10/10/2012 [facility] Weight 83.636 10/10/2012 [facility] Height 157.48 cm 10/10/2012 [facility] Encounters Location Location Details Encounter Type Encounter Number Reason For Visit Attending Provider ADM Date DC Date Status Source [facility] Emergency [id number] GRACE DEVIN 10/10/2012 10/10/2012 Discharged [facility] OBS Day Surgery [id number] Jefferson Sheets 07/21/2013 07/21/2013 [facility] OBS Day Surgery [id number] Jefferson Sudeep 07/27/2013 07/27/2013 [facility] OBS Day Surgery [id number] Dengbekah Toscano 11/15/2014 11/15/2014 [facility] [place] Consult [id number] 07/04/2015 07/04/2015 [facility] [place] [employer] [place] Consult [id number] 07/04/2015 07/04/2015 [facility] [place] [employer] [place] Consult [id number] 07/04/2015 07/04/2015 [facility] [place] [employer] [place] Consult [id number] 07/04/2015 07/04/2015 [facility] [place] [employer] [place] Consult [id number] 07/04/2015 07/04/2015 [facility] [place] [employer] [place] Consult [id number] 07/04/2015 07/04/2015 [facility] [place] [employer] [place] Consult [id number] 07/04/2015 07/04/2015 [facility] [place] [employer] [place] Consult [id number] 07/04/2015 07/04/2015 [facility] [place] [employer] C-lite follow-up [id number] 07/28/2015 07/28/2015 Cardiology [facility] [facility] C-lite follow-up [id number] 07/28/2015 07/28/2015 [facility] [employer] [facility] C-lite follow-up [id number] 07/28/2015 07/28/2015 [facility] [employer] C-lite follow-up [id number] 07/28/2015 07/28/2015 [facility] [employer] [facility] C-lite follow-up [id number] 07/28/2015 07/28/2015 [facility] [employer] [facility] C-lite follow-up [id number] 07/28/2015 07/28/2015 [facility] [employer] C-lite follow-up [id number] 07/28/2015 07/28/2015 [facility] [facility] Refill [id number] 08/31/2015 08/31/2015 [facility] [place] [employer] [place] Refill [id number] 08/31/2015 08/31/2015 [facility] [place] [employer] [place] Refill [id number] 08/31/2015 08/31/2015 [facility] [place] [employer] [place] Refill [id number] 08/31/2015 08/31/2015 [facility] [facility] Refill [id number] 08/31/2015 08/31/2015 [facility] [employer] Refill [id number] 08/31/2015 08/31/2015 [facility] [employer] Unknown [id number] 09/19/2015 09/19/2015 [facility] [employer] Unknown [id number] 09/19/2015 09/19/2015 [facility] [employer] Unknown [id number] 09/19/2015 09/19/2015 [facility] [employer] Unknown [id number] 09/19/2015 09/19/2015 [facility] [employer] Unknown [id number] 09/19/2015 09/19/2015 [facility] [employer] Refill [id number] 10/09/2015 10/09/2015 [facility] [employer] Refill [id number] 10/09/2015 10/09/2015 [facility] [place] [employer] Refill [id number] 10/09/2015 10/09/2015 [facility] [place] [employer] Refill [id number] 10/09/2015 10/09/2015 [facility] [place] [employer] [place] Follow-Up [id number] 10/17/2015 10/17/2015 [facility] [place] [employer] [place] Follow-Up [id number] 10/17/2015 10/17/2015 [facility] [place] [employer] [place] Follow-Up [id number] 10/17/2015 10/17/2015 [facility] [place] [employer] refill [id number] 11/16/2015 11/16/2015 [facility] [place] [employer] refill [id number] 11/16/2015 11/16/2015 [facility] [place] [employer] Unknown [id number] 11/21/2015 11/21/2015 Cardiology [facility] Outpatient [id number] Jyotsna Toscano 04/30/2017 05/01/2017 [facility] OP Therapy Patients [id number] Kiko Rivera 08/08/2017 09/07/2017 [facility] Outpatient Imaging [facility] Outpt Diag Services [id number] Geni Ward 10/05/2017 10/06/2017 [facility] Inpatient [id number] Fahad Ceballos 03/01/2018 03/02/2018 [facility] Departed Emergency Room [id number] MARY ANDERSON MD 04/07/2018 04/07/2018 [facility] Day Surgery [id number] Jyotsna Toscano 04/14/2018 04/15/2018 [facility] Departed Emergency Room [id number] MARY ANDERSON MD 05/26/2018 05/26/2018 [facility] OP Therapy Patients [id number] Trace Cupic 06/16/2018 07/16/2018 [facility] OP Therapy Patients [id number] Trace Cupic 07/17/2018 08/16/2018 [facility] Procedures Procedure Code Date Perfomer Comments Source Excision of vocal cord polyp [id number] 07/27/2014 [facility] Ankle joint operations [id number] 02/18/2004 [facility] Dilation and curettage [id number] [facility] Fibroids [id number] [facility] Assessment and Plan Assessment and Plan Date Source Extracted from:Title: Discharge Summary * Author: Jose Trevino MD Date: 03/02/18 Results Review General results Most recent results Discharge Information Admit Date: 02/28/18 Discharge Date: 03/02/18 Admit Attending: Dr. Edna Acosta MD Discharge Attending: Dr. Demar Pena MD Admit Diagnoses: -Complicated UTI -HTN -Allergy-induced asthma -Anxiety -Migraines -GERD Discharge Diagnoses: -Left flank pain -Complicated UTI -HTN -Allergy-induced asthma -Anxiety -Migraines -GERD Physical Examination VS/Measurements Vital Signs (last 24 hrs) Last Charted Temp Oral 98 DegF (MAR 02 12:10) Heart Rate Peripheral 92 bpm (MAR 02 12:10) Resp Rate 18 BRMIN (MAR 02 12:10) SBP 135 mmHg (MAR 02 12:10) DBP 88 mmHg (MAR 02 12:10) SpO2 96 % (MAR 02:) General: awake, alert, mild distress HEENT: NC/AT, no oropharyngeal exudates Cardiovascular: RRR, no GMR Respiratory: CTA bilateral lung romero, normal work of breathing Abdomen: soft, nontender, nondistended : Left-sided flank tenderness, no garrison cath Integumentary: warm, dry, noncyanotic, nondiaphoretic Neurologic: no focal neurologic deficits, moves all extremities Psychiatric: conversant, demonstrates ability to make judgment Hospital Course Patient is a 52-year-old female with a PMH significant for chronic UTI, HTN, migraines, allergy-induced asthma, L sided sciata, R sided De Quervian tenosynovitis, and anxiety who was transferred from [facility] due to hospital machinery issues and initially presented with concerns for L pyelnonephritis. On 02/09/18, patient presented to [facility] ED with hematuria and dysuria, for which she received cefuroxamine for UTI; however, patient did not improve. On 02/22/18, patient presented to [facility] ED for severe L flank pain, persistent dysuria, F/C, dizziness while standing, and nausea and vomiting; she was found to be febrile with leukocytosis. 02/22 UA notable for +leukocyte esterase, nitrites, bacteria, and microcytic hematuria with 8wbc/hpf. 02/22 CT showed no hydronephrosis or nephrolithiasis. 02/28 CT with contrast showed R kidney scarring. 02/23 Patient was started on meropenem 1g Q8h. Upon arrival to [facility], patient was continued on meropenem, and given phenazopyridine and morphine for symptomatic relief. At time of admission, patient endorsed L flank pain. [facility] was called to attain urine culture results on arrival; however, could not be reached. 03/02 renal ultrasound was negative; [facility] was able to be reached, and patient's urine culture from [facility] was found to be negative; meropenem was subsequently discontinued given the negative urine culture from [facility] and normal renal ultrasound and multiple CT scans that do not suggest pyelonephritis. On morning of discharge, patient was able to tolerate PO diet without emesis, stool, and urinate without hematuria. Of note, patient reports chronic UTIs, which has occured multiple times annually for the past 2-3 years. She has been evaluated by urologist Dr. Cook in 2017. Patient was discharged with Tylenol for pain. Patient was recommended to follow up with her urologist and a pain specialist for her left flank pain. Pt was also advised to f/u with [employer] docs for her abnormal PAP smear. She has been advised that even though the CT abdomen did not reveal any lesions, it would be important that she follow up with [employer] docs to clarify that this is not a gynecological origin for her pain. Discharge Plan Discharge Summary Plan Discharge Status: stable. Discharge instructions given: to patient. Discharge disposition: discharge to home. Prescriptions: As noted in discharge medical reconciliation.. Education and Follow-up Counseled: patient. Addendum by Demar Pena MD on 03/02/2018 22:06 ATTENDING NOTE: I saw and examined this medically complex patient ; reviewed the labs; independently visualized radiographic images and reports , and agree with this discharge note. Demar Pena MD Extracted from:Title: Resident Progress Note Author: Shruthi Hayward MD Date: 03/01/18 Ms. Souza is a 52yo woman with PMH chronic UTI, HTN, migraine headaches, allergy-induced asthma, and anxiety who presents as a transfer from [facility] due to concerns for pyelonephritis. She has been admitted to [facility] since 02/22/2018 for complicated UTI - wbc was 10 K and was febrile. CT - no evidence of pyelonephritis or hydronephrosis. No renal stone. UA - positive for nitrates and mildLE, WBC- 8.She is s/p treatment with Meropenam for 7 days. Currrently afebrile with no WBC count. Has L flank pain. No evidence of swelling in that area. ## Complicated UTI - CT - no evidence of pyelonephritis or hydronephrosis. - Currrently afebrile with no WBC count. Has L flank pain. No evidence of swelling in that area - Will continue Meropenem - f/u UA, Urine culture, blood culture, cbc ## HTN - Continue losartan and bumex ##Migraine - continue home meds ## Allergy induced asthma - continue albuterol - ipratropium ##Anxiety - Continue diazepam prn Enoxaparin Pending Diet Regular Shruthi Hayward MD PGY2 [facility] Extracted from:Title: Team A - History and Physical - Transfer Acceptance Author: Jose Trevino MD Date: 03/01/18 Basic Information 02/28/18 Transfer from [facility] Chief Complaint L flank pain, pyelonephritis History of Present Illness Patient is a 52-year-old female with a PMH significant for chronic UTI, HTN, migraines, allergy-induced asthma, L sided sciata, R sided De Quervian tenosynovitis, and anxiety who was transferred from [facility] due to hospital machinery issues and initially presented with concerns for L pyelnonephritis. On 02/09/18, patient presented to [facility] ED with hematuria and dysuria, for which she received cefuroxamine for UTI; however, patient did not improve. On 02/22/18, patient presented to [facility] ED for severe L flank pain, persistent dysuria, F/C, dizziness while standing, and nausea and vomiting; was found to be febrile with leukocytosis. 02/22 UA +LE, nitrites, and bacteria, and microcytic hematuria with 8wbc/hpf. 02/22 CT showed no hydronephrosis or nephrolithiasis. 02/28 CT with contrast showed R kidney scarring. 02/23 Patient was started on meropenem 1g Q8h. Upon arrival to [facility], patient was continued on meropenem, and given phenazopyridine and morphine for symptomatic relief. Patient continues to endorse L flank pain, but no longer has dysuria or hematuria. Continues to have dizziness while standing. Reports swelling in b/l hands and left leg - previous ultrasounds negative for DVTs per patient. Denies F/C/N/V. Able to urinate, stool, and tolerate regular diet. Of note, patient reports chronic UTIs, which has occured multiple times annually for the past 2-3 years. She has been evaluated by urologist Dr. Cook on 2017, but is unsure of her specific findings Review of Systems General: In distress due to pain Eye: no acute vision changes, no pain HENT: denies headaches, hearing changes, bloody nose; reports congestion and postnasal drip Respiratory: denies difficulty breathing, pain with breathing; reports cough productive of yellow sputum Cardiovascular: denies chest pain, palpitations Gastrointestinal: denies abdominal pain, constipation, diarrhea, bloody stool Genitourinary: denies urinary pain, hematuria, reports L flank pain Integumentary: denies skin changes Extremities: reports swelling of her L leg and bilateral hands Neurologic: denies gait changes/difficulty, denies vision/hearing changes Psychiatric: reports anxiety Health Status Allergies: Allergic Reactions (All) Severity Not Documented Ashli- No reactions were documented. Canceled/Inactive Reactions (All) Severity Not Documented Ashli-D 24 Hour- No reactions were documented. NKDA- No reactions were documented., Allergies (1) Active Reaction Ashli None Documented Current medications: (Selected) Inpatient Medications Ordered Acetaminophen/ASA/caffeine 250 mg-250 mg-65 mg oral tablet: 1 tab, PO, Q6H, PRN: Headache 1-5 Dextrose 50% Syringe: 12.5 gm, 25 mL, IVP, PRN, PRN: Blood Glucose Results Dextrose 50% Syringe: 25 gm, 50 mL, IVP, PRN, PRN: Blood Glucose Results [place] 5/325 oral tablet: 1 tab, PO, Q6H, PRN: Pain Score 4-6 acetaminophen 325 mg oral tablet: 650 mg, 2 tab, PO, Q4H, PRN: Pain Score 1-3 albuterol-ipratropium CFC free 100 mcg-20 mcg/inh inhalation aerosol: 1 puff, INHALATION, Q12H aspirin 81 mg tablet, enteric coated: 81 mg, 1 tab, PO, Daily bumetanide: 2 mg, 2 tab, PO, Daily diazepam: 5 mg, 1 tab, PO, QID, PRN: Anxiety docusate-senna 50 mg-8.6 mg oral tablet: 1 tab, PO, BID eletriptan: 40 mg, PO, Daily, PRN: Headache 4-6 enoxaparin: 40 mg, 0.4 mL, SUB-Q, Q12H glucagon: 1 mg, IM, PRN, PRN: Blood Glucose Results losartan: 50 mg, 1 tab, PO, Daily meropenem: 1,000 mg, IV, ABXQ8H ondansetron: 4 mg, 2 mL, IV, Q8H, PRN: Nausea ondansetron: 4 mg, 2 mL, IVP, Q8H, PRN: Nausea and Vomiting pantoprazole: 40 mg, 1 tab, PO, Daily phenazopyridine: 100 mg, 1 tab, PO, TID, PRN: Bladder Spasm Documented Medications Suspended Combivent inhalation aerosol with adapter: 0 Refill(s) Excedrin Migraine 250 mg-250 mg-65 mg oral tablet: 2 tab, PO, Q6H, for 7 day, PRN: for headache, 50 tab, 0 Refill(s) NexIUM 40 mg oral delayed release capsule: 40 mg, 1 cap, PO, Daily, 0 Refill(s) [place] 5/325 oral tablet: 1 tab, PO, Q6H, for 15 day, PRN: Pain, 60 tab, 0 Refill(s) Relpax 40 mg oral tablet: PO, Daily, 0 Refill(s) acetaminophen 325 mg oral tablet: 650 mg, 2 tab, PO, Q4H, for 10 day, PRN: Pain, 120 tab, 0 Refill(s) albuterol-ipratropium CFC free 100 mcg-20 mcg/inh inhalation aerosol: 0 Refill(s) aspirin 81 mg tablet, enteric coated: 81 mg, 1 tab, PO, Daily, 90 tab, 3 Refill(s) bumetanide 2 mg oral tablet: 2 mg, 1 tab, PO, Daily, 30 tab, 0 Refill(s) cefuroxime 250 mg oral tablet: 250 mg, 1 tab, PO, Q12H, 0 Refill(s) cloNIDine 0.1 mg oral tablet: 0.1 mg, PO, PRN, Q8H PRN, 0 Refill(s) diazepam 10 mg oral tablet: 10 mg, 1 tab, PO, Daily, 0 Refill(s) diazepam 5 mg oral tablet: 5 mg, 1 tab, PO, QID, for 7 day, PRN: Anxiety, 0 Refill(s) docusate-senna 50 mg-8.6 mg oral tablet: 1 tab, PO, BID, 0 Refill(s) eletriptan 40 mg oral tablet: 40 mg, 1 tab, PO, Daily, for 3 day, may repeat dose once in 2 hours, PRN: for migraine headache, 6 tab, 0 Refill(s) enoxaparin 40 mg/0.4 mL subcutaneous solution: 40 mg, 0.4 mL, SUB-Q, Q12H, for 7 day, 14 syr, 0 Refill(s) fluconazole 200 mg oral tablet: 200 mg, 1 tab, PO, Daily, for 7 day, 7 tab, 0 Refill(s) hydrALAZINE 25 mg oral tablet: 25 mg, 1 tab, PO, PRN, Q6H PRN, 120 tab, 0 Refill(s) ibuprofen 600 mg oral tablet: 600 mg, 1 tab, PO, PRN: pain, 0 Refill(s) losartan 50 mg oral tablet: 50 mg, 1 tab, PO, Daily, 0 Refill(s) losartan 50 mg oral tablet: 50 mg, 1 tab, PO, Daily, 30 tab, 0 Refill(s) meclizine 25 mg oral tablet: 25 mg, PO, PRN, Q8H PRN, 0 Refill(s) meropenem 1 g intravenous injection: 1 gm, IV, Q8H, 0 Refill(s) ondansetron 2 mg/mL injectable solution: 4 mg, 2 ml, IV, PRN, Q8H PRN, PRN: Nausea and Vomiting, 1 ea, 0 Refill(s) ondansetron 4 mg oral tablet, disintegratin mg, PO, PRN, Q8H PRN, 0 Refill(s) pantoprazole 40 mg oral enteric coated tablet: 40 mg, 1 tab, PO, Daily, 30 tab, 0 Refill(s) phenazopyridine 100 mg oral tablet: 100 mg, 1 tab, PO, TID, for 2 day, PRN: dysuria, 6 tab, 0 Refill(s) potassium chloride 10 mEq oral tablet, extended release: 1 cap, PO, Daily, 30 cap, 1 Refill(s), Medications (19) Active Scheduled: (8) albuterol-ipratropium 100-20 microgram/ 4gm AERO 1 puff, INHALATION, Q12H aspirin 81 mg ECT 81 mg 1 tab, PO, Daily bumetanide 1 mg TAB 2 mg 2 tab, PO, Daily docusate-senna 50-8.6 mg TAB 1 tab, PO, BID enoxaparin 40 mg/0.4 ml INJ 40 mg 0.4 mL, SUB-Q, Q12H losartan 50 mg TAB 50 mg 1 tab, PO, Daily meropenem 1gm INJ VL 1,000 mg, IV, ABXQ8H pantoprazole 40 mg ECT 40 mg 1 tab, PO, Daily Continuous: (0) PRN: (11) acetaminophen 325 mg TABLET 650 mg 2 tab, PO, Q4H acetaminophen-hydrocodone 325 mg-5 mg tab 1 tab, PO, Q6H APAP/ASA/caffeine 1 tab, PO, Q6H Dextrose 50% 50 ml INJ syringe 12.5 gm 25 mL, IVP, PRN Dextrose 50% 50 ml INJ syringe 25 gm 50 mL, IVP, PRN diazepam 5 mg TAB 5 mg 1 tab, PO, QID eletriptan 40 mg, PO, Daily glucagon recombinant 1 mg PDR 1 mg, IM, PRN ondansetron 4 mg/2ml INJ VL 4 mg 2 mL, IVP, Q8H ondansetron 4 mg/2ml INJ VL 4 mg 2 mL, IV, Q8H phenazopyridine 100 mg TAB 100 mg 1 tab, PO, TID Problem list: All Problems Acid reflux / SNOMED CT [id number] / Confirmed Anemia / SNOMED CT 876218993 / Confirmed Anxiety depression / SNOMED CT 010304982 / Confirmed Asthma / SNOMED CT 513068361 / Confirmed Cervical dysplasia / SNOMED CT 551654005 / Confirmed Frequent UTI / SNOMED CT [id number] / Confirmed HTN - Hypertension / SNOMED CT 6913628612 / Confirmed SOBOE - Shortness of breath on exertion / SNOMED CT 8467082296 / Confirmed, Active Problems (8) Acid reflux Anemia Anxiety depression Asthma Cervical dysplasia Frequent UTI HTN - Hypertension SOBOE - Shortness of breath on exertion Histories Past Medical History: Active Asthma (277711345) Frequent UTI ([id number]) Anemia (497106065) Acid reflux ([id number]) Cervical dysplasia (881797323) Anxiety depression (138382680) HTN - Hypertension (2842881612) SOBOE - Shortness of breath on exertion (2047354824) Family History: Cataract Mother Asthma Mother High blood pressure Mother Grandparent Type 2 diabetes mellitus Mother Grandparent Heart attack Grandparent Heartburn Mother Sister Osteoarthritis Mother Cancer of prostate Father Procedure history: Excision of vocal cord polyp (2201266483) on 07/27/2014 at 48 Years. Ankle joint operations (840233817) in 2005 at 39 Years. Fibroids (784799975). Social History Social and Psychosocial Habits Alcohol 02/28/2018 Use: Current Type: Wine Frequency: 1-2 times per month Employment/School 11/01/2016 Status: Unemployed Tobacco 10/28/2014 Use: Former smoker Exposure to Tobacco Smoke None Cigarette Smoking Last 365 Days No Reg Smoking Cessation Counseling No 11/01/2016 Use: Former smoker Exposure to Tobacco Smoke None Cigarette Smoking Last 365 Days No Reg Smoking Cessation Counseling No 02/28/2018 Use: Former smoker Exposure to Tobacco Smoke None Cigarette Smoking Last 365 Days No Reg Smoking Cessation Counseling Yes . Physical Examination VS/Measurements Vital Signs (last 24 hrs) Last Charted Temp Oral 98.3 DegF (FEB 28:38) Heart Rate Peripheral 90 bpm (FEB 28:) Resp Rate 18 BRMIN (FEB 28:) SBP H 145mmHg (FEB 28:) DBP 83 mmHg (FEB 28:38) SpO2 99 % (FEB 28:) Weight 90.483 kg (FEB 28:) Height 160.02 cm (FEB 28:) BMI 35.34 (FEB 28:) , Measurements from flowsheet : Measurements 02/28/2018 20:02 Heparin Dosing Weight (kg) 67.63 02/28/2018 20:02 Height 160.02 cm Height Collection Method Stated Weight 90.483 kg Dosing Weight Difference Percent 6.7 % Dosing Weight Collection Method Measured Body Surface Area 2.0055 m2 Body Mass Index 35.34 m2 General: awake, alert, anxious-appearing, mild distress HEENT: NC/AT, no oropharyngeal exudates, no cervical lymphadenopathy Cardiovascular: RRR, no GMR, pulses 2+ b/l in all extremities Respiratory: CTA bilateral lung romero, normal work of breathing Abdomen: soft, NT/ND, normoactive BS : left sided flank pain, no garrison cath Integumentary: warm, dry, noncyanotic, nondiaphoretic Neurologic: no focal neurologic deficits, moves all extremities Psychiatric: anxious affect, cooperative Review / Management Results review: Labs (Last four charted values) WBC 8.0 (FEB 28) Hgb 13.7 (FEB 28) Hct 41.0 (FEB 28) Plt 373 (FEB 28) Na L 133 (FEB 28) K 4.3 (FEB 28) CO2 28 (FEB 28) Cl 99 (FEB 28) Cr 0.92 (FEB 28) BUN 17 (FEB 28) Glucose Random H 106 (FEB 28) Mg 2.3 (FEB 28) Phos 3.6 (FEB 28) Ca 9.4 (FEB 28) PT 13.6 (FEB 28) INR 1.06 (FEB 28) PTT 30.7 (FEB 28) . Impression and Plan Patient is a 52-year-old female with a PMH significant for chronic UTI, HTN, migraines, allergy-induced asthma, L sided sciata, R sided De Quervian tenosynovitis, and anxiety who was transferred from [facility] due to hospital machinery issues and here for a complicated UTI with concerns for L pyelonephritis. Continues to have L flank pain but clinically improving on meropenem and stable. #Complicated UTI -02/22 UA +LE, nitrites, bacteria, microscopic hematuria, 8wbc/hpf -Urine Gram Stain +GPR, UCx +mixed ba likely 2/2 contamination -02/22 febrile 101.3F on admission to [facility] -leukocytosis downtrending admission 10.4>8.2 -02/22 CT - no hydronephrosis or pyelonephritis -02/28 CT w/ contrast - R kidney scarring only -02/23 Meropenem initiated - Day 6 on day of transfer to [facility] (02/28/18) -Cont. meropenem 1g Q8h -f/u 02/28 UA, UCx, BCx, CBC -Pain control: morphine 2mg IV Q4h, Tylenol 650mg PO Q4h, [place] held (received 1 dose) because patient doesn't like how it makes her feel- Started IV dilaudid prn as morphone was not helping with pain. -Phenazopyridine for dysuria, Zofran PRN for nausea -Ordered a Renal USG to assess any anatomical issues as patient has recurrent UTI's. She will need prophylactic antibiotics on discharge. #HTN -home losartan 50mg QD PO and Bumex 2mg QD PO- Hold for now -ASA 81mg PO QD #Allergy-induced asthma -continue home duoneb #H/O GERD -cont home pantoprazole 40mg QD PO #H/O Anxiety -cont home diazepam 5mg PO QID PRN #H/O Migraines -cont home eletriptan 40mg PO QD PRN, APAP/ASA/caffeine 1 tab PO Q6h PRN Diet: Low Salt Diet DVT Prophylaxis: enoxaparin 40mg SQ Q12hr Dispo: Pending completion of IV Abx, possible transfer back to [facility] Addendum by Edna Acosta MD on 03/01/2018 13:37 INTERNAL MEDICINE ATTENDING NOTE: I saw and evaluated this patient, reviewed the past and current laboratory and radiology data, discussed the case at length with the medicine team A on 03/01/2018 and I agree with the plan documented in the note. 14 point ROS is negative except that is mentioned in the above note. Please also see Team A admitting resident Dr. Hayward's note. Patient was extremely unhappy with her care and was very anxious. She reported having to ring the RN's craft multiple times before the RN responded to the patients needs. She wanted only a single doctor to care for her rather than a medicine team. I adressed all her concerns and answered all her questions regarding her management. 03/02/2018 [facility] Plan of Care Plan of Care Date Source Discharge Date 05/26/18 7:32pm Disposition HOME, SELF-CARE Condition at Discharge Stable Instructions/Education Provided Back Pain Forms Provided Work/School Excuse Prescriptions See Medication Section Referrals Luis Eduardo Pierson Additional Instructions/Education DISCHARGE INSTRUCTIONS No strenuous activity for two days until better. Return to work in two days. Prescription Medications: Tylenol with Codeine Tylenol #4 (60 mg / 300 mg): take 1 tablet orally every 6 hours as needed for acute pain. Dispense thirty (30). Ibuprofen 800 mg tablets: take 1 tablet orally every 8 hours as needed for pain. Dispense thirty (30). No refill. Valium 2 mg tablets: take 1 tablet orally every 8 hours as needed for muscle spasm. Dispense thirty (30). Follow-up: Follow up with an orthopedic surgeon in two weeks if not better. Call for an appointment. Reason for referral: evaluation and treatment. Follow up with your doctor in one week if not better. Call for an appointment. Reason for referral: evaluation and treatment. Understanding of the discharge instructions verbalized by patient. 05/26/2018 [facility] Discharge Date 04/07/18 5:39pm Disposition HOME, SELF-CARE Condition at Discharge Stable Instructions/Education Provided Back Pain Forms Provided Work/School Excuse Prescriptions See Medication Section Referrals Luis Eduardo Pierson Order Date: Call for an appointment Additional Instructions/Education DISCHARGE INSTRUCTIONS No strenuous activity for one weeks as needed. Warnings: GENERAL WARNINGS: Return or contact your physician immediately if your condition worsens or changes unexpectedly, if not improving as expected, or if other problems arise. SPECIFICALLY, return if you develop weakness of the foot or leg, tingling or pain. Prescription Medications: Tylenol with Codeine Tylenol #4 (60 mg / 300 mg): take 1 tablet orally every 6 hours as needed for acute pain. Dispense thirty (30). No refill. Follow-up: Follow up with your doctor in one week if not well. Call for an appointment. Understanding of the discharge instructions verbalized by patient. 04/07/2018 [facility] Social History Social History Date Source Smoking Status Start Date Stop Date Former smoker 05/26/2018 [facility] Social History TypeResponse Employment/School Status: Unemployed. Alcohol Current, Type Wine. Frequency: 1-2 times per month. Smoking Status Former smoker; Exposure to Tobacco Smoke None; Cigarette Smoking Last 365 Days No; Reg Smoking Cessation Counseling Yes entered on: 04/14/18 11/01/2016 [facility] Social History TypeResponse Employment/School Status: Unemployed. Alcohol Current, Type Wine. Frequency: 1-2 times per month. Smoking Status Former smoker; Exposure to Tobacco Smoke None; Cigarette Smoking Last 365 Days No; Reg Smoking Cessation Counseling Yes entered on: 04/14/18 11/01/2016 [facility] Social History TypeResponse Employment/School Status: Unemployed. Alcohol Current, Type Wine. Frequency: 1-2 times per month. Smoking Status Former smoker; Exposure to Tobacco Smoke None; Cigarette Smoking Last 365 Days No; Reg Smoking Cessation Counseling Yes entered on: 04/14/18 11/01/[address] [facility] Social History TypeResponse Employment/School Status: Unemployed. Alcohol Current, Type Wine. Frequency: 1-2 times per month. Smoking Status Former smoker; Exposure to Tobacco Smoke None; Cigarette Smoking Last 365 Days No; Reg Smoking Cessation Counseling Yes entered on: 04/14/18 11/01/2016 [facility] Social History ElementQualifiersDate Reported Tobacco: . Status: nonsmoker Oct 17, 2015 Marital Status: . Oct 17, 2015 Alcohol: . Non Drinker Oct 17, 2015 Occupation: . student Oct 17, 2015 10/17/2015 [facility] Social History TypeResponse Smoking Status Former smoker, Exposure to Tobacco Smoke None, Cigarette Smoking Last 365 Days No, Reg Smoking Cessation Counseling Yes 07/20/2013 [facility] Family History No Data Provided for This Section Advance Directives Order Name Results Value Date Source Advance Directives Advance Directives Directive Response Recorded Date/Time Does the patient have an advance directive? No 04/07/18 5:13pm If yes, is advance directive on file with [facility]? No 04/07/18 5:13pm If not on file with [facility] will patient provide a copy? No 04/07/18 5:13pm Do you have a Directive to Physician? No 05/26/18 6:19pm Do you have a Medical Power of Blueprint Assembler? No 05/26/18 6:19pm Do you have an out of hospital Do Not Resuscitate Order? No 05/26/18 6:19pm Do you have any special needs we should be aware of? No 05/26/18 6:19pm Do you have a support person here with you today? No 05/26/18 6:19pm Did patient receive Notice of Privacy Practices? Yes 05/26/18 6:19pm Did patient receive patient rights and responsibilities? Yes 05/26/18 6:19pm 05/26/2018 [facility] Advance Directives Advance Directives Directive Response Recorded Date/Time Does the patient have an advance directive? No 04/07/18 5:13pm If yes, is advance directive on file with [facility]? No 04/07/18 5:13pm If not on file with [facility] will patient provide a copy? No 04/07/18 5:13pm Do you have a Directive to Physician? No 04/07/18 5:13pm Do you have a Medical Power of Blueprint Assembler? No 04/07/18 5:13pm Do you have an out of hospital Do Not Resuscitate Order? No 04/07/18 5:13pm Do you have any special needs we should be aware of? No 04/07/18 5:13pm Do you have a support person here with you today? Yes 04/07/18 5:13pm Did patient receive Notice of Privacy Practices? Yes 04/07/18 5:13pm Did patient receive patient rights and responsibilities? Yes 04/07/18 5:13pm 04/07/2018 [facility] Functional Status No Data Provided for This Section
--- OUTSIDE RECORDS SUMMARY | 2018-10-18 03:53 | XMS REPORT | Summary of Care ---
Author Author [facility] Unknown Phone Unavailable Encounter HQ Gueror_andrea(FIN) [id number] Date(s): 07/17/18 - 08/15/18 [facility] Discharge Disposition: Home or Self Care Attending Physician: Trace Castaneda MD Vital Signs No data available for [...]
--- OUTSIDE RECORDS SUMMARY | 2018-10-18 03:54 | XMS REPORT ---
Author Author Cathy Abarca Organization [employer] Address Unknown Phone Unavailable Care Team Providers Care Insole Rounder Name Role Phone Cathy Abarca CP Unavailable Allergies, Adverse Reactions, Alerts Substance Reaction Event Type N.K.D.A. Info Not Available Non Drug Allergy Problems Problem Type Condition Code Onset Dates Condition Status Assessment Edema R60.9 Active Assessment HTN (hypertension) I10 Active Assessment Obesity E66.9 Active Problem Chest pain R07.9 Active Problem HTN (hypertension) I10 Active Problem Edema R60.9 Active Assessment SOB (shortness of breath) R06.02 Active Problem Obesity E66.9 Active Problem SOB (shortness of breath) R06.02 Active Medications Medication Code System Code Instructions Start Date End Date Status Dosage Singulair [facility] NAMED [facility] 92190375509 10 MG Orally Once a day Active 1 tablet in the evening Acetaminophen-Codeine FORMER[facility] NAMED [facility] 54705811355 300-60 MG Orally every 6 hrs Active 1 tablet as needed Aspirin FORMER[facility] NAMED [facility] [address]-25 81 MG Orally 2xweek Active 1 tablet Losartan Potassium ND 20537031689 50 MG Orally Once a day Active 1 tablet Combivent Respimat FOR[facility] NAMED [facility] 68832963911 20-100 MCG/ACT Inhalation Four times a day Active 1 puff Vitamin D2 FORMER[facility] NAMED [facility] 47223368754 59368 Orally one a week Active 1 tablet Diazepam ND 58656467792 5 MG Orally as needed (prn) Active 1 tablet Relpax [facility] NAMED [facility] 05407801517 40 MG Orally Once a day Active 1 tablet as needed one time Bumetanide FORMER[facility] NAMED [facility] [address]-61 2 MG Orally PRN Active as directed Nexium ND 09954941398 40 MG Orally Once a day Active 1 capsule Vital Signs Date/Time: August 18, 2018 BMI 34.91 Index Weight 194 lbs Height 62.5 in Cardiac Monitoring Heart Rate 66 /min Blood Pressure Diastolic 70 mm Hg Blood Pressure Systolic 110 mm Hg Results Name Result Date Reference Range Unit Abnormality Flag EKG (IN OFFICE) Summary Purpose [employer] Submission
--- OUTSIDE RECORDS SUMMARY | 2018-10-18 03:54 | XMS REPORT | Summary of Care ---
Author Author [facility] Organization [facility] Address Unknown Phone Unavailable Encounter CODY Guajardo(JAVI) [id number] Date(s): 02/28/18 - 03/02/18 [facility] [address] [employer] provided by [facility] [place] [address]- Encounter Diagnosis Urinary tract infection, site not specified (Final) - 03/09/18 Essential (primary) hypertension (Final) - Gastro-esophageal reflux disease without esophagitis (Final) - Unspecified asthma, uncomplicated (Final) - Other specified anxiety disorders (Final) - Personal history of nicotine dependence (Final) - Other microscopic hematuria (Final) - Personal history of urinary (tract) infections (Final) - Migraine, unspecified, not intractable, without status migrainosus (Final) - Anemia, unspecified (Final) - Discharge Disposition: Home or Self Care Attending Physician: Fahad Ceballos DO Admitting Physician: Fahad Ceballos DO Referring Physician: Kal Massey MD Vital Signs 1 2 3 Most recent to oldest [Reference Range]: 160.02 cm (02/28/18 8:02 PM) Height 98 DegF (03/02/18 12:10 PM) 97.8 DegF (03/02/18 8:38 AM) 98 DegF (03/02/18 5:17 AM) Temperature Oral [96.4-99.1 DegF] 135/88 mmHg (03/02/18 12:10 PM) 125/80 mmHg (03/02/18 8:38 AM) 128/88 mmHg (03/02/18 5:17 AM) Blood Pressure [90-140/60-90 mmHg] 18 BRMIN (03/02/18 12:10 PM) 18 BRMIN (03/02/18 8:38 AM) 18 BRMIN (03/02/18 5:17 AM) Respiratory Rate [14-20 BRMIN] 92 bpm (03/02/18 12:10 PM) 89 bpm (03/02/18 8:38 AM) 77 bpm (03/02/18 5:17 AM) Peripheral Pulse Rate [60-100 bpm] 90.483 kg (02/28/18 8:02 PM) Weight 35.34 m2 (02/28/18 8:02 PM) Body Mass Index Problem List Condition Effective Dates Status Health Status Informant Acid Active reflux(Confirmed) Anemia(Confirmed) Active Anxiety Active depression(Confirmed ) Asthma(Confirmed) Active Cervical Active dysplasia(Confirmed) Frequent Active UTI(Confirmed) HTN - Active Hypertension(Confirm ed) SOBOE - Shortness of Active breath on exertion(Confirmed) Allergies, Adverse Reactions, Alerts Substance Reaction Severity Status Ashli Active Medications acetaminophen 650 mg, 2 tab, Route: PO, Drug form: TAB, Q4H, Dosing Weight 90.483, kg, PRN For Temp > 100.4 F, Start date: 02/28/18 20:38:00 JOIST SETTER, Duration: 30 day, Stop date: 03/30/18 20:37:00 JOIST SETTER Notes: Do not exceed 4 gm/day. (Same as: Tylenol) Start Date: 02/28/18 Stop Date: 02/28/18 Status: Discontinued acetaminophen 325 mg oral tablet 650 mg=2 tab, PO, Q4H, PRN Pain, # 120 tab, 0 Refill(s) Start Date: 02/28/18 Stop Date: 04/15/18 Status: Discontinued acetaminophen 325 mg oral tablet 650 mg, 2 tab, Route: PO, Drug form: TAB, Q4H, Dosing Weight 90.483, kg, PRN Slime n Score 1-3, Start date: 02/28/18 22:30:00 JOIST SETTER, Duration: 30 day, Stop date: 01/05 22:29:00 JOIST SETTER Notes: Do not exceed 4 gm/day. (Same as: Tylenol) Start Date: 02/28/18 Stop Date: 03/02/18 Status: Discontinued Acetaminophen/ASA/caffeine 250 mg-250 mg-65 mg oral tablet 1 tab, Route: PO, Drug Form: TAB, Dosing Weight 90.483, kg, Q6H, PRN Headache 1- 5, Start date: 02/28/18 22:30:00 JOIST SETTER, Duration: 30 day, Stop date: 03/30/18 22:2 9:00 JOIST SETTER Start Date: 02/28/18 Stop Date: 03/01/18 Status: Discontinued albuterol 0.083% inhalation solution 2.5 mg=3 mL, NEB, Q4H, NEEDED, 0 Refill(s) Start Date: 03/01/18 Status: Ordered albuterol-ipratropium CFC free 100 mcg-20 mcg/inh inhalation aerosol 1 puff, Route: INHALATION, Drug Form: AERO, Dosing Weight 90.483, kg, Q12H, Star t date: 03/01/18 9:00:00 JOIST SETTER, Duration: 30 day, Stop date: 03/30/18 21:00:00 JOIST SETTER Notes: Same as: Combivent RespimatWASTE: Aerosol - Return to Pharmacy Start Date: 03/01/18 Stop Date: 03/02/18 Status: Discontinued albuterol-ipratropium CFC free 100 mcg-20 mcg/inh inhalation aerosol 0 Refill(s) Start Date: 02/28/18 Stop Date: 03/01/18 Status: Discontinued aspirin 81 mg tablet, enteric coated 81 mg, 1 tab, Route: PO, Drug form: ECTAB, Daily, Dosing Weight 90.483, kg, Star t date: 03/01/18 9:00:00 JOIST SETTER, Duration: 30 day, Stop date: 03/30/18 9:00:00 JOIST SETTER Notes: Do not crush or chew.(Same As: Ecotrin) Start Date: 03/01/18 Stop Date: 03/02/18 Status: Discontinued bumetanide 2 mg, 2 tab, Route: PO, Drug form: TAB, Daily, Dosing Weight 90.483, kg, Start d ate: 03/01/18 9:00:00 JOIST SETTER, Duration: 30 day, Stop date: 03/30/18 9:00:00 JOIST SETTER Notes: (Same As: Bumex) Start Date: 03/01/18 Stop Date: 03/01/18 Status: Discontinued bumetanide 1 mg oral tablet 1 mg=1 tab, PO, QAM, NEEDED FOR FLUID, 0 Refill(s) Start Date: 03/01/18 Status: Ordered bumetanide 2 mg oral tablet 2 mg=1 tab, PO, Daily, # 30 tab, 0 Refill(s) Start Date: 02/28/18 Stop Date: 03/01/18 Status: Discontinued calcium gluconate + Sodium Chloride 0.9% IV 100 mL 3 gm, 30 mL, Route: IVPB, PRN, Dosing Weight 90.483, kg, PRN Abnormal Lab Result , For NON-ICU Patients Only., Start date: 03/01/18 2:08:00 JOIST SETTER, Duration: 30 day , Stop date: 03/31/18 2:07:00 JOIST SETTER Notes: WASTE: F/P - Sink; E - Municipal Trash Bin Start Date: 03/01/18 Stop Date: 03/02/18 Status: Discontinued calcium gluconate + Sodium Chloride 0.9% IV 100 mL 2 gm, 20 mL, Route: IVPB, PRN, Dosing Weight 90.483, kg, PRN Abnormal Lab Result , For NON-ICU Patients Only., Start date: 03/01/18 2:08:00 JOIST SETTER, Duration: 30 day , Stop date: 03/31/18 2:07:00 JOIST SETTER Notes: WASTE: F/P - Sink; E - Municipal Trash Bin Start Date: 03/01/18 Stop Date: 03/02/18 Status: Discontinued cloNIDine 0.1 mg oral tablet 0.1 mg, PO, PRN, Q8H PRN, 0 Refill(s) Start Date: 02/28/18 Stop Date: 03/02/18 Status: Discontinued Combivent Respimat CFC free 100 mcg-20 mcg/inh inhalation aerosol 2-4 PUFF, INHALATION, PRN, 0 Refill(s) Start Date: 03/01/18 Status: Ordered Dextrose 50% Syringe 12.5 gm, 25 mL, Route: IVP, Drug Form: INJ, Dosing Weight 90.483, kg, PRN, PRN B lood Glucose Results, Start date: 02/28/18 20:38:00 JOIST SETTER, Duration: 30 day, Stop date: 03/30/18 20:37:00 JOIST SETTER Start Date: 02/28/18 Stop Date: 03/02/18 Status: Discontinued Dextrose 50% Syringe 25 gm, 50 mL, Route: IVP, Drug Form: INJ, Dosing Weight 90.483, kg, PRN, PRN Blo od Glucose Results, Start date: 02/28/18 20:38:00 JOIST SETTER, Duration: 30 day, Stop da te: 03/30/18 20:37:00 JOIST SETTER Start Date: 02/28/18 Stop Date: 03/02/18 Status: Discontinued diazepam 5 mg, 1 tab, Route: PO, Drug form: TAB, QID, Dosing Weight 90.483, kg, PRN Anxie ty, Start date: 02/28/18 22:30:00 JOIST SETTER, Duration: 30 day, Stop date: 03/30/18 22: 29:00 JOIST SETTER Notes: (Same as: Valium) Start Date: 02/28/18 Stop Date: 03/02/18 Status: Discontinued diazepam 5 mg oral tablet 5 mg=1 tab, PO, QID, PRN Anxiety, 0 Refill(s) Start Date: 02/28/18 Stop Date: 03/01/18 Status: Discontinued Dilaudid 1 mg, 1 mL, Route: PO, Drug form: LIQ, Q6H, Dosing Weight 90.483, kg, Start date : 03/01/18 10:00:00 JOIST SETTER, Duration: 30 day, Stop date: 03/31/18 6:00:00 JOIST SETTER Notes: (Same as: Dilaudid-5) Start Date: 03/01/18 Stop Date: 03/01/18 Status: Discontinued Dilaudid 1 mg, 0.5 mL, Route: IV, Drug form: INJ, Q6H, Dosing Weight 90.483, kg, Start da te: 03/01/18 12:00:00 JOIST SETTER, Duration: 30 day, Stop date: 03/31/18 6:00:00 JOIST SETTER Notes: Same as Dilaudid Start Date: 03/01/18 Stop Date: 03/01/18 Status: Discontinued Dilaudid 1 mg, 0.5 mL, Route: IV, Drug form: INJ, Q8H, Dosing Weight 90.483, kg, PRN Pain Score 7-10, Start date: 03/01/18 12:49:00 JOIST SETTER, Duration: 30 day, Stop date: 02/04 12:48:00 JOIST SETTER Notes: Same as Dilaudid Start Date: 03/01/18 Stop Date: 03/02/18 Status: Discontinued Dilaudid 2 mg, Route: PO, Q6H, Dosing Weight 90.483, kg, Start date: 03/01/18 9:49:00 JOIST SETTER , Duration: 30 day, Stop date: 03/31/18 6:00:00 JOIST SETTER Start Date: 03/01/18 Stop Date: 03/01/18 Status: Discontinued docusate 100 mg, 1 cap, Route: PO, Drug form: CAP, BID, Dosing Weight 90.483, kg, Start d ate: 03/01/18 9:00:00 JOIST SETTER, Duration: 30 day, Stop date: 03/30/18 17:00:00 JOIST SETTER Notes: (Same as: Colace) (Do Not Crush) Start Date: 03/01/18 Stop Date: 02/28/18 Status: Canceled docusate-senna 50 mg-8.6 mg oral tablet 1 tab, Route: PO, Drug Form: TAB, Dosing Weight 90.483, kg, BID, Start date: 9:00:00 JOIST SETTER, Duration: 30 day, Stop date: 03/30/18 17:00:00 JOIST SETTER Notes: (Same as Senokot-S) Equiv. to Yasmine-Colace. Start Date: 03/01/18 Stop Date: 03/02/18 Status: Discontinued docusate-senna 50 mg-8.6 mg oral tablet 1 tab, PO, BID, 0 Refill(s) Start Date: 02/28/18 Status: Ordered eletriptan 40 mg, Route: PO, Drug form: TAB, Daily, Dosing Weight 90.483, kg, PRN Headache 4-6, Start date: 02/28/18 22:30:00 JOIST SETTER, Duration: 30 day, Stop date: 03/30/18 22 :29:00 JOIST SETTER Start Date: 02/28/18 Stop Date: 03/01/18 Status: Discontinued eletriptan 40 mg oral tablet 40 mg=1 tab, PO, Daily, PRN for migraine headache, may repeat dose once in 2 edgar rs, # 6 tab, 0 Refill(s) Start Date: 02/28/18 Stop Date: 03/03/18 Status: Ordered enoxaparin 40 mg, 0.4 mL, Route: SUB-Q, Drug form: INJ, Q12H, Dosing Weight 90.483, kg, Sta rt date: 03/01/18 9:00:00 JOIST SETTER, Duration: 30 day, Stop date: 03/30/18 21:00:00 CS T Notes: (Same as: Lovenox) Start Date: 03/01/18 Stop Date: 03/02/18 Status: Discontinued enoxaparin 40 mg/0.4 mL subcutaneous solution 40 mg=0.4 mL, SUB-Q, Q12H, # 14 syr, 0 Refill(s) Start Date: 02/28/18 Stop Date: 03/02/18 Status: Discontinued Excedrin Migraine 250 mg-250 mg-65 mg oral tablet 2 tab, PO, Q6H, PRN for headache, # 50 tab, 0 Refill(s) Start Date: 02/28/18 Stop Date: 03/07/18 Status: Ordered Flonase 0.05 mg/inh nasal spray 2 spray, NASAL, BID, In each nostril as needed for congestion., # 16 gm, 0 Refil l(s) Start Date: 03/02/18 Stop Date: 04/15/18 Status: Discontinued fluconazole 200 mg oral tablet 200 mg=1 tab, PO, Daily, # 7 tab, 0 Refill(s) Start Date: 02/28/18 Stop Date: 03/02/18 Status: Discontinued fluticasone nasal 2 spray, Route: NASAL, Drug Form: EDY, QPM, Start date: 03/02/18 17:00:00 JOIST SETTER, Duration: 30 day, Stop date: 03/31/18 17:00:00 JOIST SETTER Notes: (Same as: Flonase) Start Date: 03/02/18 Stop Date: 03/02/18 Status: Discontinued glucagon 1 mg, Route: IM, Drug form: PDR/INJ, PRN, Dosing Weight 90.483, kg, PRN Blood Gl ucose Results, Start date: 02/28/18 20:38:00 JOIST SETTER, Duration: 30 day, Stop date: 0 03/30/18 20:37:00 JOIST SETTER Start Date: 02/28/18 Stop Date: 03/02/18 Status: Discontinued hydrALAZINE 25 mg oral tablet 25 mg=1 tab, PO, PRN, Q6H PRN, # 120 tab, 0 Refill(s) Start Date: 02/28/18 Status: Ordered losartan 50 mg, 1 tab, Route: PO, Drug form: TAB, Daily, Dosing Weight 90.483, kg, Start date: 03/01/18 9:00:00 JOIST SETTER, Duration: 30 day, Stop date: 03/30/18 9:00:00 JOIST SETTER Notes: (Same as: Eyal) Start Date: 03/01/18 Stop Date: 03/01/18 Status: Discontinued losartan 50 mg oral tablet 50 mg=1 tab, PO, Daily, # 30 tab, 0 Refill(s) Start Date: 02/28/18 Stop Date: 03/01/18 Status: Discontinued magnesium oxide 800 mg, 2 tab, Route: PO, Drug form: TAB, PRN, Dosing Weight 90.483, kg, PRN Abn ormal Lab Result, For NON-ICU Patients Only., Start date: 03/01/18 2:08:00 JOIST SETTER, Duration: 30 day, Stop date: 03/31/18 2:07:00 JOIST SETTER Notes: (Same as: Mag-Ox 400)Magnesium oxide [id number] elemental magnesiumDose= ____mg magnesium oxide (___mg elemental magnesium) Start Date: 03/01/18 Stop Date: 03/02/18 Status: Discontinued magnesium sulfate 2 gm, 50 mL, Route: IVPB, Drug form: INJ, PRN, Dosing Weight 90.483, kg, PRN Abn ormal Lab Result, For NON-ICU Patients Only., Start date: 03/01/18 2:08:00 JOIST SETTER, Duration: 30 day, Stop date: 03/31/18 2:07:00 JOIST SETTER Notes: WASTE: F/P - Sink; E - Municipal Trash Bin Start Date: 03/01/18 Stop Date: 03/02/18 Status: Discontinued magnesium sulfate 1 gm, 100 mL, Route: IVPB, Drug form: INJ, PRN, Dosing Weight 90.483, kg, PRN Ab normal Lab Result, For NON-ICU Patients Only., Start date: 03/01/18 2:08:00 JOIST SETTER, Duration: 30 day, Stop date: 03/31/18 2:07:00 JOIST SETTER Notes: WASTE: F/P - Sink; E - Municipal Trash Bin Start Date: 03/01/18 Stop Date: 03/02/18 Status: Discontinued meclizine 25 mg oral tablet 25 mg, PO, PRN, Q8H PRN, 0 Refill(s) Start Date: 02/28/18 Status: Ordered meloxicam 15 mg oral tablet 15 mg=1 tab, PO, Daily, NEEDED FOR INFLAMMATION, 0 Refill(s) Start Date: 03/01/18 Stop Date: 04/15/18 Status: Discontinued meropenem 1,000 mg, Route: IV, Drug form: PDR/INJ, ABXQ8H, Dosing Weight 90.483, kg, Start date: 03/01/18 0:00:00 JOIST SETTER, Duration: 30 day, Stop date: 03/30/18 16:00:00 JOIST SETTER, ABX Indication: Other (specify in Comments) Notes: (Same as: Merrem) . MEDICATION WASTE Product Size: 1000 mgProduc t Wasted: 0 mg Start Date: 03/01/18 Stop Date: 03/01/18 Status: Discontinued meropenem 500 mg, Route: IVPB, Drug form: PDR/INJ, ABXQ6H, Start date: 03/01/18 15:00:[address], Duration: 30 day, Stop date: 03/31/18 9:00:00 JOIST SETTER, ABX Indication: Urinary T ract Infection Notes: Same as Merrem MEDICATION WASTE Product Size: 500 mgProduct Wast ed: ___ mg Start Date: 03/01/18 Stop Date: 03/02/18 Status: Discontinued meropenem 1 g intravenous injection 1 gm, IV, Q8H, 0 Refill(s) Start Date: 02/28/18 Stop Date: 03/02/18 Status: Discontinued morphine 0.5 mg/mL preservative-free injectable solution 2 mg, 0.5 mL, Route: IVP, Drug form: SOLN, Q4H, Dosing Weight 90.483, kg, PRN Pa in Score 7-10, Start date: 03/01/18 4:00:00 JOIST SETTER, Duration: 30 day, Stop date: 3:59:00 JOIST SETTER Notes: (Same as:MORPhine Sulfate) Start Date: 03/01/18 Stop Date: 03/01/18 Status: Discontinued morphine Sulfate 2 mg, 0.5 mL, Route: IVP, Drug form: SOLN, ONCE, Dosing Weight 90.483, kg, Start date: 02/28/18 21:12:00 JOIST SETTER, Stop date: 02/28/18 21:12:00 JOIST SETTER Notes: (Same as:MORPhine Sulfate) Start Date: 02/28/18 Stop Date: 02/28/18 Status: Completed morphine Sulfate 2 mg, 0.5 mL, Route: IVP, Drug form: SOLN, ONCE, Dosing Weight 90.483, kg, Start date: 02/28/18 22:25:00 JOIST SETTER, Stop date: 02/28/18 22:25:00 JOIST SETTER Notes: (Same as:MORPhine Sulfate) Start Date: 02/28/18 Stop Date: 02/28/18 Status: Completed Nasonex 2 spray, Route: NASAL, Daily, Start date: 03/03/18 9:00:00 JOIST SETTER, Duration: 7 day, Stop date: 03/09/18 9:00:00 JOIST SETTER Start Date: 03/03/18 Stop Date: 03/02/18 Status: Deleted Saline 5/325 oral tablet 1 tab, PO, Q6H, PRN Pain, # 60 tab, 0 Refill(s) Start Date: 02/28/18 Stop Date: 03/02/18 Status: Discontinued Saline 5/325 oral tablet 1 tab, Route: PO, Drug Form: TAB, Dosing Weight 90.483, kg, Q6H, PRN Pain Score 4-6, Start date: 02/28/18 22:30:00 JOIST SETTER, Duration: 30 day, Stop date: 03/30/18 22 :29:00 JOIST SETTER Notes: (Same as: Saline 325/5) Do not exceed 4gm/day of acetaminophen. Start Date: 02/28/18 Stop Date: 03/02/18 Status: Discontinued ondansetron 4 mg, 2 mL, Route: IV, Drug form: INJ, Q8H, Dosing Weight 90.483, kg, PRN Nausea , Start date: 02/28/18 22:30:00 JOIST SETTER, Duration: 30 day, Stop date: 03/30/18 22:29 :00 JOIST SETTER Notes: (Same as: Jose) MEDICATION WASTE Product Size: 4 mgProduct Was jennifer: ___ mg Start Date: 02/28/18 Stop Date: 03/02/18 Status: Discontinued ondansetron 4 mg, 2 mL, Route: IVP, Drug form: INJ, Q8H, Dosing Weight 90.483, kg, PRN Nause a & Vomiting, Start date: 02/28/18 20:38:00 JOIST SETTER, Duration: 30 day, Stop date: 03/30/18 20:37:00 JOIST SETTER Notes: (Same as: Jose) MEDICATION WASTE Product Size: 4 mgProduct Was jennifer: ___ mg Start Date: 02/28/18 Stop Date: 03/02/18 Status: Discontinued ondansetron 2 mg/mL injectable solution 4 mg=2 ml, IV, PRN, PRN Nausea & Vomiting, Q8H PRN, # 1 ea, 0 Refill(s) Start Date: 02/28/18 Stop Date: 03/02/18 Status: Discontinued ondansetron 4 mg oral tablet, disintegrating 4 mg, PO, PRN, Q8H PRN, 0 Refill(s) Start Date: 02/28/18 Stop Date: 03/02/18 Status: Discontinued oxyCODONE 5 mg oral tablet 5 mg, 1 tab, Route: PO, Drug form: TAB, Q6H, Dosing Weight 90.483, kg, PRN Pain Score 4-6, Start date: 03/01/18 12:30:00 JOIST SETTER, Duration: 30 day, Stop date: 03/31 12:29:00 JOIST SETTER Notes: (Same as: Roxicodone) Start Date: 03/01/18 Stop Date: 03/02/18 Status: Discontinued pantoprazole 40 mg, 1 tab, Route: PO, Drug form: ECTAB, Daily, Dosing Weight 90.483, kg, Star t date: 03/01/18 9:00:00 JOIST SETTER, Duration: 30 day, Stop date: 03/30/18 9:00:00 JOIST SETTER Notes: Tablet should not be chewed or crushed.(Same as: Protonix) Start Date: 03/01/18 Stop Date: 03/02/18 Status: Discontinued pantoprazole 40 mg oral enteric coated tablet 40 mg=1 tab, PO, Daily, # 30 tab, 0 Refill(s) Start Date: 02/28/18 Stop Date: 03/02/18 Status: Discontinued phenazopyridine 100 mg, 1 tab, Route: PO, Drug form: TAB, TID, Dosing Weight 90.483, kg, PRN Angel dder Spasm, Start date: 02/28/18 22:30:00 JOIST SETTER, Duration: 30 day, Stop date: 03/20 03/07 22:29:00 JOIST SETTER Notes: Give with meals.(Same as: Pyridium) Start Date: 02/28/18 Stop Date: 03/02/18 Status: Discontinued phenazopyridine 100 mg oral tablet 100 mg=1 tab, PO, TID, PRN dysuria, # 6 tab, 0 Refill(s) Start Date: 02/28/18 Stop Date: 03/02/18 Status: Discontinued potassium chloride 20 mEq, 15 mL, Route: NJ, Drug form: LIQ, PRN, Dosing Weight 90.483, kg, PRN Abn ormal Lab Result, For NON-ICU Patients Only, Start date: 03/01/18 2:08:00 JOIST SETTER, D uration: 30 day, Stop date: 03/31/18 2:07:00 JOIST SETTER Notes: (Same as: Potassium Chloride) Start Date: 03/01/18 Stop Date: 03/02/18 Status: Discontinued potassium chloride 10 mEq, 50 mL, Route: IVPB, Drug form: INJ, PRN, Dosing Weight 90.483, kg, PRN A bnormal Lab Result, For NON-ICU Patients Only, Start date: 03/01/18 2:08:00 JOIST SETTER, Duration: 30 day, Stop date: 03/31/18 2:07:00 JOIST SETTER Notes: (Same as: KCL) Infuse over 2 hours. Start Date: 03/01/18 Stop Date: 03/02/18 Status: Discontinued potassium chloride 20 mEq, 1 tab, Route: PO, Drug form: ERTAB, PRN, Dosing Weight 90.483, kg, PRN A bnormal Lab Result, For NON-ICU Patients Only, Start date: 03/01/18 2:08:00 JOIST SETTER, Duration: 30 day, Stop date: 03/31/18 2:07:00 JOIST SETTER Notes: (Same as: K-Dur 20)"Do Not Crush" Give with food and full glass of water For patients unable to swallow tablet, dissolve in one half glass of water. Allo w about 2 minutes for the tablets to disintegrate. Stir before giving to prepare slurry and administer.Please exclude Patients with feeding tube less than 14 [place] (Dobhoff, J-tube etc) and pediatric and patients. Start Date: 03/01/18 Stop Date: 03/02/18 Status: Discontinued potassium chloride 10 mEq oral tablet, extended release =1 cap, PO, Daily, # 30 cap, 1 Refill(s) Start Date: 02/28/18 Stop Date: 03/02/18 Status: Discontinued potassium phosphate + Sodium Chloride 0.9% IV 250 mL 30 mmol, 10 mL, Route: IVPB, PRN, Dosing Weight 90.483, kg, PRN Abnormal Lab Res ult, For NON-ICU Patients Only., Start date: 03/01/18 2:08:00 JOIST SETTER, Duration: 30 day, Stop date: 03/31/18 2:07:00 JOIST SETTER Notes: (Same as: K Phosphate.)Do not infuse phosphorous concurrently in the same line as TPN or IVF that contains calcium. For double lumen central lines, phosp horous may be infused in a separate lumen from TPN. 1 mMol phoshate has 1.47 mE q potassium Infuse over 4 hours Start Date: 03/01/18 Stop Date: 03/02/18 Status: Discontinued potassium phosphate + Sodium Chloride 0.9% IV 250 mL 15 mmol, 5 mL, Route: IVPB, PRN, Dosing Weight 90.483, kg, PRN Abnormal Lab Resu lt, For NON-ICU Patients Only., Start date: 03/01/18 2:08:00 JOIST SETTER, Duration: 30 d ay, Stop date: 03/31/18 2:07:00 JOIST SETTER Notes: (Same as: K Phosphate.)Do not infuse phosphorous concurrently in the same line as TPN or IVF that contains calcium. For double lumen central lines, phosp horous may be infused in a separate lumen from TPN. 1 mMol phoshate has 1.47 mE q potassium Infuse over 4 hours Start Date: 03/01/18 Stop Date: 03/02/18 Status: Discontinued potassium phosphate-sodium phosphate 250 mg-280 mg-160 mg oral powder for recons titution 2 pkt, Route: PO, Drug Form: PDR/REC, Dosing Weight 90.483, kg, PRN, PRN Abnorma l Lab Result, For NON-ICU Patients Only, Start date: 03/01/18 2:08:00 JOIST SETTER, Durat ion: 30 day, Stop date: 03/31/18 2:07:00 JOIST SETTER Notes: (Same as: Phos-NaK) Each 1.5 gm pkt has 250mg phosphorous. Mix w/2.5oz w ater and stir. Start Date: 03/01/18 Stop Date: 03/02/18 Status: Discontinued Proventil HFA 90 mcg/inh inhalation aerosol with adapter 2 puff, INHALER, Q4H, PRN wheezing, coughing, or shortness of breath Start Date: 03/01/18 Status: Ordered senna 17.2 mg, 2 tab, Route: PO, Drug Form: TAB, Dosing Weight 90.483, kg, Bedtime, St art date: 02/28/18 21:00:00 JOIST SETTER, Duration: 30 day, Stop date: 03/29/18 21:00:00 JOIST SETTER Notes: (Same as: Senokot) Start Date: 02/28/18 Stop Date: 02/28/18 Status: Discontinued sodium phosphate + Sodium Chloride 0.9% IV 250 mL 30 mmol, 10 mL, Route: IVPB, PRN, Dosing Weight 90.483, kg, PRN Abnormal Lab Res ult, For NON-ICU Patients Only., Start date: 03/01/18 2:08:00 JOIST SETTER, Duration: 30 day, Stop date: 03/31/18 2:07:00 JOIST SETTER Notes: Infuse over 4 hour. Do not infuse phosphorous concurrently in the same li ne as TPN or IVF that contains calcium. For double lumen central lines, phosphor ous may be infused in a separate lumen from TPN. Start Date: 03/01/18 Stop Date: 03/02/18 Status: Discontinued sodium phosphate + Sodium Chloride 0.9% IV 250 mL 15 mmol, 5 mL, Route: IVPB, PRN, Dosing Weight 90.483, kg, PRN Abnormal Lab Resu lt, For NON-ICU Patients Only., Start date: 03/01/18 2:08:00 JOIST SETTER, Duration: 30 d ay, Stop date: 03/31/18 2:07:00 JOIST SETTER Notes: Infuse over 4 hour. Do not infuse phosphorous concurrently in the same li ne as TPN or IVF that contains calcium. For double lumen central lines, phosphor ous may be infused in a separate lumen from TPN. Start Date: 03/01/18 Stop Date: 03/02/18 Status: Discontinued Tylenol 650 mg, 20.3 mL, Route: PO, Drug form: LIQ, Q6H, Dosing Weight 90.483, kg, PRN P ain Score 4-6, Start date: 03/01/18 12:30:00 JOIST SETTER, Duration: 30 day, Stop date: 0 03/31/18 12:29:00 JOIST SETTER Notes: Max sevkevskctile=7683tb/day (4 gm/day). (Same as: Tylenol) Start Date: 03/01/18 Stop Date: 03/01/18 Status: Discontinued Tylenol with Codeine #4 oral tablet 1 tab, PO, BID, NEEDED FOR PAIN, 0 Refill(s) Start Date: 03/01/18 Stop Date: 03/02/18 Status: Discontinued Tylenol with Codeine #4 oral tablet 1 tab, Route: PO, Drug Form: TAB, Dosing Weight 90.483, kg, Q6H, PRN Pain Score 4-6, NOW, Start date: 03/02/18 13:32:00 JOIST SETTER, Duration: 30 day, Stop date: 13:31:00 JOIST SETTER Notes: Do not exceed 4gm/day of acetaminophen. (Same as: Tylenol with Codeine # 4) Start Date: 03/02/18 Stop Date: 03/02/18 Status: Discontinued Results Most recent to 1 2 oldest [Reference Range]: Procalcitonin Lvl <0.05 ng/mL [0.00-0.10 ng/mL] (02/28/18 10:20 PM) Neutrophils # 4.1 K/CMM 3.6 K/CMM [1.5-8.1 K/CMM] (03/02/18 4:32 AM) (02/28/18 10:20 PM) Lymphocytes # 3.4 K/CMM 3.3 K/CMM [1.0-5.5 K/CMM] (03/02/18 4:32 AM) (02/28/18 10:20 PM) Monocytes # [0.0-0.8 0.9 K/CMM 0.9 K/CMM K/CMM] *HI* *HI* (03/02/18 4:32 AM) (02/28/18 10:20 PM) Eosinophils # 0.2 K/CMM 0.2 K/CMM [0.0-0.5 K/CMM] (03/02/18 4:32 AM) (02/28/18 10:20 PM) Basophils # [0.0-0.2 0.1 K/CMM K/CMM] (02/28/18 10:20 PM) Bili Indirect Unable to Calculate [0.0-1.0] *NA* (02/28/18 10:20 PM) eGFR 99 mL/min/1.73m2 1 83 mL/min/1.73m2 2 *NA* *NA* (03/02/18 4:32 AM) (02/28/18 10:20 PM) A/G Ratio [0.7-1.6] 0.7 (02/28/18 10:20 PM) Albumin Lvl [3.5-5.0 3.6 g/dL g/dL] (02/28/18 10:20 PM) Alk Phos [39-136 118 unit/L unit/L] (02/28/18 10:20 PM) ALT [0-65 unit/L] 49 unit/L (02/28/18 10:20 PM) AGAP [10.0-20.0 12.2 mEq/L 10.3 mEq/L mEq/L] (03/02/18 4:32 AM) (02/28/18 10:20 PM) AST [0-37 unit/L] 29 unit/L (02/28/18 10:20 PM) Basophils [0.0-1.0 0.4 % 0.6 % %] (03/02/18 4:32 AM) (02/28/18 10:20 PM) BUN [7-22 mg/dL] 15 mg/dL 17 mg/dL (03/02/18 4:32 AM) (02/28/18 10:20 PM) Calcium Lvl 9.2 mg/dL 9.4 mg/dL [8.5-10.5 mg/dL] (03/02/18 4:32 AM) (02/28/18 10:20 PM) Chloride Lvl [95-109 101 mEq/L 99 mEq/L mEq/L] (03/02/18 4:32 AM) (02/28/18 10:20 PM) CO2 [24-32 mEq/L] 27 mEq/L 28 mEq/L (03/02/18 4:32 AM) (02/28/18 10:20 PM) Creatinine Lvl 0.79 mg/dL 0.92 mg/dL [0.50-1.40 mg/dL] (03/02/18 4:32 AM) (02/28/18 10:20 PM) Bili Direct [0.0-0.3 <0.1 mg/dL mg/dL] (02/28/18 10:20 PM) Eosinophils [0.0-4.0 2.5 % 2.7 % %] (03/02/18 4:32 AM) (02/28/18 10:20 PM) Globulin [2.7-4.2 4.9 g/dL g/dL] *HI* (02/28/18 10:20 PM) Glucose Lvl [70-99 113 mg/dL 106 mg/dL mg/dL] *HI* *HI* (03/02/18 4:32 AM) (02/28/18 10:20 PM) Hct [36.0-48.0 %] 40.5 % 41.0 % (03/02/18 4:32 AM) (02/28/18 10:20 PM) Hgb [12.0-16.0 g/dL] 13.5 g/dL 13.7 g/dL (03/02/18 4:32 AM) (02/28/18 10:20 PM) Hgb A1C [<=5.6 %] 6.3 % *HI* (02/28/18 10:20 PM) INR [0.85-1.17] 1.06 (02/28/18 10:20 PM) Potassium Lvl 4.2 mEq/L 4.3 mEq/L [3.5-5.1 mEq/L] (03/02/18 4:32 AM) (02/28/18 10:20 PM) Lactic Acid Lvl 1.0 mMol/L [0.5-2.2 mMol/L] (02/28/18 10:20 PM) Lymphocytes 39.5 % 41.3 % [20.0-40.0 %] (03/02/18 4:32 AM) *HI* (02/28/18 10:20 PM) MCH [27.0-31.0 pg] 28.3 pg 28.4 pg (03/02/18 4:32 AM) (02/28/18 10:20 PM) MCHC [32.0-36.0 33.3 g/dL 33.5 g/dL g/dL] (03/02/18 4:32 AM) (02/28/18 10:20 PM) MCV [80.0-98.0 fL] 85.0 fL 84.8 fL (03/02/18 4:32 AM) (02/28/18 10:20 PM) Magnesium Lvl 2.2 mg/dL 2.3 mg/dL [1.8-2.4 mg/dL] (03/02/18 4:32 AM) (02/28/18 10:20 PM) Monocytes [2.0-12.0 10.7 % 10.6 % %] (03/02/18 4:32 AM) (02/28/18 10:20 PM) MPV [7.4-10.4 fL] 8.4 fL 8.5 fL (03/02/18 4:32 AM) (02/28/18 10:20 PM) Sodium Lvl [135-145 136 mEq/L 133 mEq/L mEq/L] (03/02/18 4:32 AM) *LOW* (02/28/18 10:20 PM) Phosphorus [2.5-4.5 3.5 mg/dL 3.6 mg/dL mg/dL] (03/02/18 4:32 AM) (02/28/18 10:20 PM) Platelet [133-450 382 K/CMM 373 K/CMM K/CMM] (03/02/18 4:32 AM) (02/28/18 10:20 PM) Segs [45.0-75.0 %] 46.9 % 44.8 % (03/02/18 4:32 AM) *LOW* (02/28/18 10:20 PM) Total Protein 8.5 g/dL [6.4-8.4 g/dL] *HI* (02/28/18 10:20 PM) PT [12.0-14.7 13.6 seconds seconds] (02/28/18 10:20 PM) PTT [22.9-35.8 30.7 seconds seconds] (02/28/18 10:20 PM) RBC [4.20-5.40 4.76 M/CMM 4.83 M/CMM M/CMM] (03/02/18 4:32 AM) (02/28/18 10:20 PM) RDW [11.5-14.5 %] 13.9 % 14.2 % (03/02/18 4:32 AM) (02/28/18 10:20 PM) Bili Total [0.2-1.3 0.4 mg/dL mg/dL] (02/28/18 10:20 PM) UA Bacteria [None Occasional /HPF Seen /HPF] *NA* (03/01/18 4:48 PM) UA Bili [Negative] Negative *NA* (03/01/18 4:48 PM) UA Blood [Negative] Negative (03/01/18 4:48 PM) UA Color [Yellow] Yellow *NA* (03/01/18 4:48 PM) UA Glucose [Negative Negative mg/dL mg/dL] *NA* (03/01/18 4:48 PM) UA Ketones [Negative Negative mg/dL mg/dL] *NA* (03/01/18 4:48 PM) UA Leuk Est Moderate [Negative] *ABN* (03/01/18 4:48 PM) UA Nitrite Negative [Negative] (03/01/18 4:48 PM) UA pH [5.0-8.0] 7.0 (03/01/18 4:48 PM) UA Protein [Negative 20 mg/dL mg/dL] *ABN* (03/01/18 4:48 PM) UA RBC [0-2 /HPF] 1 /HPF (03/01/18 4:48 PM) UA Renal Epi [<=0] RARE *NA* (03/01/18 4:48 PM) UA Spec Grav 1.007 [<=1.030] (03/01/18 4:48 PM) UA Sq Epi [Few /LPF] Occasional /LPF *NA* (03/01/18 4:48 PM) UA Turbidity [Clear] Clear (03/01/18 4:48 PM) UA Urobilinogen <=1.0 mg/dL [0.1-1.0 mg/dL] *NA* (03/01/18 4:48 PM) UA WBC [0-5 /HPF] 6 /HPF *HI* (03/01/18 4:48 PM) WBC [3.7-10.4 K/CMM] 8.7 K/CMM 8.0 K/CMM (03/02/18 4:32 AM) (02/28/18 10:20 PM) Ca Ion WB [1.05-1.25 1.08 mMol/L mMol/L] (03/02/18 4:32 AM) Ca Norm WB 1.06 mMol/L [1.05-1.25 mMol/L] (03/02/18 4:32 AM) Micro? Performed *NA* (03/01/18 4:48 PM) 1Result Comment: The eGFR is calculated [...] be mul tiplied by the estimated BMI. 2Result Comment: The eGFR is calculated using the [...] be mul tiplied by the estimated BMI. Microbiology Reports TEST: Culture: Urine STATUS: Auth (Verified) BODY SITE: SOURCE: Urine, Clean Catch COLLECTED DATE/TIME: 03/01/18 4:48 PM FINAL REPORT No Growth Immunizations No data available for this section [...] Yes entered on: 04/14/18 Assessment and Plan Extracted from: Title: Discharge Summary * Author: Jose Trevino MD [...] Signs (last 24 hrs) Last Charted Temp Oral98 DegF (MAR 02:) Heart Rate Tchiddcbvj96 bpm (MAR 02:) Resp Rate 18 BRMIN (MAR 02:) QTQ972 mmHg (MAR 02:) DBP88 mmHg (MAR 02:) GdL310 % (MAR 02:) General: awake, alert, mild [...] tenosynovitis, and anxiety who was transferred from [facility] due to hospital machinery issues and initially presented with concerns for L pyelnonephritis. On 02/09/18, patient presented [facility] ED with hematuria and dysuria, for which she received cefuroxamine for UTI; however, patient did not improve. On 02/22/18, patient presented to [facility] ED for severe L flank pain, persistent dysuria, F/C, dizziness while standing, and nausea and vomiting; she was found to be febrile with leukocytosis. 02/22 UA notable for +leukocyte esterase, nitrites, bacteria, and microcytic hematuria with 8wbc/hpf. 02/22 CT showed no hydronephrosis or nephrolithiasis. 02/28 CT with contrast showed R kidney scarring. 02/23 Patient was started on meropenem 1g Q8h. Upon arrival to [facility], patient was continued on meropenem, and given phenazopyridine and morphine for symptomatic relief. At time of admission, patient endorsed L flank pain. [facility] was called to attain urine culture results on arrival; however, could not be reached. 03/02 renal ultrasound was negative; [facility] was able to be reached, and patient's urine culture from [facility] was found to be negative; meropenem was subsequently discontinued given the negative urine culture from [facility] and normal renal ultrasound and multiple CT [...] Pt was also advised to f/u with [facility] docs for her abnormal PAP smear. She has been advised that even though the CT abdomen did not reveal any lesions, it would be important that she follow up with [facility] docs to clarify that this is not a gynecological origin for her pain. Discharge Plan Discharge Summary Plan Discharge Status: stable. Discharge instructions given: to patient. Discharge disposition: discharge to home. Prescriptions: As noted in discharge medical reconciliation.. Education and Follow-up Counseled: patient. Addendum ATTENDING NOTE: by Becky, I saw and examined this medically complex patient ; reviewed the labs; independently Demar PATIÑO on visualized radiographic images and reports , and agree with this discharge note. 03/02/2018 Demar Pena MD 22:06 Extracted from: Title: Resident Progress Note Author: Shruthi Hayward Date: 03/01/18 Robel PATIÑO Ms. Souza is a 52yo woman with PMH chronic UTI, HTN, migraine headaches, allergy-induced asthma, and anxiety who presents as a transfer from [facility] due to concerns for pyelonephritis. She has been admitted to [facility] since 02/22/2018 for complicated UTI - wbc [...] Pending Diet Regular Shruthi Hayward MD PGY2 [facility] Extracted from: Title: Team A - History and Author: Jose Trevino MD Date: 03/01/18 Physical - Transfer Acceptance Basic Information 02/28/18 Transfer from [facility] Chief Complaint L flank pain, pyelonephritis History of Present Illness Patient is a 52-year-old female with a PMH significant for chronic UTI, HTN, migraines, allergy-induced asthma, L sided sciata, R sided De Quervian tenosynovitis, and anxiety who was transferred from [facility] due to hospital machinery issues and initially presented with concerns for L pyelnonephritis. On 02/09/18, patient presented to [facility] ED with hematuria and dysuria, for which she received cefuroxamine for UTI; however, patient did not improve. On 02/22/18, patient presented to [facility] ED for severe L flank pain, persistent dysuria, F/C, dizziness while standing, and nausea and vomiting; was found to be febrile with leukocytosis. 02/22 UA +LE, nitrites, and bacteria, and microcytic hematuria with 8wbc/hpf. 02/22 CT showed no hydronephrosis or nephrolithiasis. 02/28 CT with contrast showed R kidney scarring. 02/23 Patient was started on meropenem 1g Q8h. Upon arrival to [facility], patient was continued on meropenem, and given [...] NKDA- No reactions were documented., Allergies (1) ActiveReaction AllegraNone Documented Current medications: (Selected) Inpatient Medications Ordered Acetaminophen/ASA/caffeine 250 mg-250 mg-65 mg oral tablet: 1 tab, PO, Q6H, PRN: Headache 1-5 Dextrose 50% Syringe: 12.5 gm, 25 mL, IVP, PRN, PRN: Blood Glucose Results Dextrose 50% Syringe: 25 gm, 50 mL, IVP, PRN, PRN: Blood Glucose Results Saline 5/325 oral tablet: 1 tab, PO, Q6H, [...] mg, 2 mL, IVP, Q8H, PRN: Nausea & Vomiting pantoprazole: 40 mg, 1 tab, PO, [...] mg, 1 cap, PO, Daily, 0 Refill(s) Saline 5/325 oral tablet: 1 tab, PO, Q6H, [...] ml, IV, PRN, Q8H PRN, PRN: Nausea & Vomiting, 1 ea, 0 Refill(s) ondansetron 4 [...] All Problems Acid reflux / SNOMED CT [id number] / Confirmed Anemia / SNOMED CT 839229187 / Confirmed Anxiety depression / SNOMED CT 489389085 / Confirmed Asthma / SNOMED CT 168891073 / Confirmed Cervical dysplasia / SNOMED CT 312474124 / Confirmed Frequent UTI / SNOMED CT [id number] / Confirmed HTN - Hypertension / SNOMED CT 8646333402 / Confirmed SOBOE - Shortness of breath on exertion / SNOMED CT 7997831253 / Confirmed, Active Problems (8) Acid reflux Anemia Anxiety depression Asthma Cervical dysplasia Frequent UTI HTN - Hypertension SOBOE - Shortness of breath on exertion Histories Past Medical History: Active Asthma (822456083) Frequent UTI ([id number]) Anemia (079763865) Acid reflux ([id number]) Cervical dysplasia (651028000) Anxiety depression (647959241) HTN - Hypertension (4365234986) SOBOE - Shortness of breath on exertion (5028176477) Family History: Cataract Mother Asthma Mother High blood pressure Mother Grandparent Type 2 diabetes mellitus Mother Grandparent Heart attack Grandparent Heartburn Mother Sister Osteoarthritis Mother Cancer of prostate Father Procedure history: Excision of vocal cord polyp (4475527682) on 07/27/2014 at 48 Years. Ankle joint operations (417985447) in 2004 at 39 Years. Fibroids (642022200). Social History Social & Psychosocial Habits Alcohol 02/28/2018 Use: Current Type: [...] Signs (last 24 hrs) Last Charted Temp Oral98.3 DegF (FEB 28:38) Heart Rate Tvkvjwkuxo48 bpm (FEB 28:) Resp Rate 18 BRMIN (FEB 28:) SBPH 145mmHg (FEB 28:) DBP83 mmHg (FEB 28:) GvN107 % (FEB 28:) Gznvik05.483 kg (FEB 28:) Dvuwni299.02 cm (FEB 28:) BMI35.34 (FEB 28:) , Measurements from flowsheet : [...] review: Labs (Last four charted values) WBC 8.0(FEB 28) Hgb 13.7(FEB 28) Hct 41.0(FEB 28) Plt 373(FEB 28) Na L 133(FEB 28) K 4.3(FEB 28) CO2 28(FEB 28) Cl 99(FEB 28) Cr 0.92(FEB 28) BUN 17(FEB 28) Glucose Random H 106(FEB 28) Mg 2.3(FEB 28) Phos 3.6(FEB 28) Ca 9.4(FEB 28) PT 13.6(FEB 28) INR 1.06(FEB 28) PTT 30.7(FEB 28). Impression and Plan Patient is a 52-year-old female with a PMH significant for chronic UTI, HTN, migraines, allergy-induced asthma, L sided sciata, R sided De Quervian tenosynovitis, and anxiety who was transferred from [facility] due to hospital machinery issues and here for a complicated UTI with concerns for L pyelonephritis. Continues to have L flank pain but clinically improving on meropenem and stable. #Complicated UTI -02/22 UA +LE, nitrites, bacteria, microscopic hematuria, 8wbc/hpf -Urine Gram Stain +GPR, UCx +mixed ba likely 2/2 contamination -02/22 febrile 101.3F on admission to [facility] -leukocytosis downtrending admission 10.4>8.2 -02/22 CT - no hydronephrosis or pyelonephritis -02/28 CT w/ contrast - R kidney scarring only -02/23 Meropenem initiated - Day 6 on day of transfer to [facility] (02/28/18) -Cont. meropenem 1g Q8h -f/u 02/28 UA, UCx, BCx, CBC -Pain control: morphine 2mg IV Q4h, Tylenol 650mg PO Q4h, Saline held (received 1 dose) because patient doesn't [...] of IV Abx, possible transfer back to [facility] INTERNAL MEDICINE ATTENDING NOTE: by I saw and evaluated this patient, reviewed the past and current laboratory and radiology Karla, bonifacio, discussed the case at length with the medicine team A on 03/01/2018 and I agree with Edna PATIÑO the plan documented in the note. on 14 point ROS is negative except that is mentioned in the above note. 03/01/2018 Please also see Team A admitting resident Dr. Hayward's note. 13:37 Patient was extremely unhappy with her care [...]
--- OUTSIDE RECORDS SUMMARY | 2018-10-18 03:54 | XMS REPORT | Summary of Care ---
Author Author [facility] Unknown Phone Unavailable Encounter HQ Gueror_andrea(FIN) [id number] Date(s): 06/16/18 - 07/15/18 [facility] Discharge Disposition: Home or Self Care Attending [...]
[2018-10-18] MEDS ORDERED: PREDNISONE20 MG PO (04:22)
--- NOTE | 2018-10-18 04:25 | NUR ---
US TECH NOTIFIED. 45 ETA
[2018-10-18] MEDS ORDERED: KETOROLAC TROMETHAMINE 30 MG/ML VIAL ONE (04:28)
[2018-10-18] MEDS ORDERED: KETOROLAC TROMETHAMINE 60 MG/2 ML VIAL IM ONE (04:30)
[2018-10-18] MEDS ORDERED: CYCLOBENZAPRINE5 MG PO (04:33)
[2018-10-18] MEDS ORDERED: NAPROSYN500 MG PO (04:34)
--- NOTE | 2018-10-18 05:00 | NUR ---
us at bedside
--- NOTE | 2018-10-18 05:45 | Diagnostic Imaging Report ---
EXAMINATION :Left lower extremity venous Doppler exam. CLINICAL INDICATION: Lower extremity swelling COMPARISON: None DISCUSSION: Ruano scale, color Doppler and spectral waveform analysis of the left lower extremity deep venous system was performed. The left common femoral, superficial femoral and popliteal veins are compressible and demonstrate normal spontaneous phasic waveforms and normal response to augmentation. No filling defects are seen. IMPRESSION: No evidence of deep venous thrombosis above the left calf. Signed by: Dr. Wander Vann M.D. on 10/18/2018 5:41 AM
[2018-10-18 05:56] VITALS: BP 120/71
== END 2018-10-18 06:13 | disposition home or self-care (01) ==
LOC: FSED 03:48
DX: M79.605 Pain in left leg (principal); M54.32 Sciatica, left side; M79.89 Other specified soft tissue disorders; I10 Essential (primary) hypertension; M54.9 Dorsalgia, unspecified; G89.29 Other chronic pain
CPT/HCPCS: 93970; 93971; 99283; J1885

== ENCOUNTER 2019-05-02 20:52 | Emergency (ER) | payer OTHER ==
[~2019-05-02] VITALS: Ht 158.8 cm; Wt 83.9 kg
[~2019-05-02 20:52] MED LIST: CYCLOBENZAPRINE5 MG PO; NAPROSYN500 MG PO; PREDNISONE20 MG PO
--- OUTSIDE RECORDS SUMMARY | 2019-05-02 21:23 | XMS REPORT ---
Author [facility] Address Unknown Phone Unavailable Care Team Providers Care Welder Setter Electron Beam Machine Name Role Phone МАРИНА COLES Unavailable Unavailable Dejan WARE Unavailable Unavailable Problems This patient has no known problems. Allergies, Adverse Reactions, Alerts This patient has no known allergies or adverse reactions. Medications This patient has no known medications. Encounters Start Date/Time End Date/Time Encounter Type Admission Type Attending Clinicians Care Facility Care Department Encounter ID 2018-12-27 12:07:00 Inpatient C Danielito COLES [facility] PT [id number] Results Test Description Test Time Test Comments Text Results Atomic Results Result Comments US EXREMEITY VEINS UNI-HOPD 2018-10-18 05:41:00 [place] [address] Patient Name: ANNA LEONARDO MR #: [id number] : 1965 Age/Sex: 52/F Req #: [id number] Adm Physician: Ordered by: GLENN WARE MD Report #: [id number] Location: [facility] Room/Bed: Procedure: HOPD/US EXREMEITY VEINS UNI-HOPD Exam Date: Exam Time: REPORT STATUS: Signed EXAMINATION :Left lower extremity venous Doppler exam. CLINICAL INDICATION: Lower extremity swelling COMPARISON: None DISCUSSION: Ruano scale, color Doppler and spectral waveform analysis of the left lower extremity deep venous system was performed. The left common femoral, superficial femoral and popliteal veins are compressible and demonstrate normal spontaneous phasic waveforms and normal response to augmentation. No filling defects are seen. IMPRESSION: No evidence of deep venous thrombosis above the left calf. Signed by: Dr. Nicola Ross M.D. on 10/18/2018 5:41 AM Dictated By: NICOLA ROSS MD 0 Transcribed By: CHEMA on 10/18/18540 COPY TO: GLENN WARE MD
--- OUTSIDE RECORDS SUMMARY | 2019-05-02 21:23 | XMS REPORT | Summary of Care ---
Author Author Francy Dobbs M.A. Unknown Address Unknown Phone Unavailable Care Team Providers Care Procurement Coordinator Name Role Phone MACY Chopra, ANTELMO Unavailable Unavailable ANTONIA Chopra, DAINA Unavailable Unavailable KYMBERLY Chopra, ROSAS Unavailable Unavailable BO PATIÑO, MICHAEL Davis Unavailable Unavailable KYMBERLY PATIÑO, ROSAS Unavailable Unavailable MACY PATIÑO, ANTELMO Unavailable Unavailable ANTONIA PATIÑO MI, DAINA Unavailable Unavailable Unavailable Unavailable Functional Status Name Dates Details Functional status health issues are not documented Status: Name Dates Details Cognitive status health issues are not documented Status: Problems Name Dates Details De Quervain's tenosynovitis, right (727.04, M65.4) Status: Active Bulging lumbar disc (722.10, M51.26) Status: Active Degeneration of intervertebral disc of lumbosacral region (722.52, M51.37) Status: Active 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 Quantity: 30 KYMBERLY Naren.ROSAS Higgins * Start : 18-Aug-2017 Active methylPREDNISolone 4 MG Oral Tablet Therapy Pack TAKE DIRECTED * Quantity: 1 Refills: 0 CUPIC M.D., DAINA * Start : 02-Jun-2018 Active 21 Tablet Pack Sulindac 200 MG Oral Tablet TAKE ONE TABLET BY MOUTH TWICE A DAY BEFORE MEALS....TAKE AFTER STERIOD PACK * Quantity: 60 Refills: 4 CUPIC M.D., DAINA * Start : 02-Jun-2018 Active Cyclobenzaprine HCl - 10 MG Oral Tablet TAKE 1 TABLET BY MOUTH EVERY NIGHT AT BEDTIME * Quantity: 30 Refills: 4 CUPIC M.D., DAINA * Start : 02-Jun-2018 Active Etodolac 400 MG Oral Tablet TAKE 1 TABLET BY MOUTH TWICE A DAY NEEDED * Quantity: 60 Refills: 3 CUPIC M.D., DAINA * Start : 06-Aug-2018 Active Baclofen 20 MG Oral Tablet TAKE ONE TABLET BY MOUTH TWICE DAILY AFTER A MEAL * Quantity: 60 Refills: 2 CUPIC M.D., DAINA * Start : 06-Aug-2018 Active Naproxen 500 MG Oral Tablet TAKE 1 TABLET BY MOUTH TWICE DAILY AFTER A MEAL * Quantity: 60 Refills: 3 CUPIC M.D., DAINA * Start : 14-Sep-2018 Active tiZANidine HCl - 4 MG Oral Tablet TAKE 1 TABLET 3 TIMES DAILY NEEDED. * Quantity: 90 Refills: 4 CUPIC M.D., DAINA * Start : 14-Sep-2018 Active Allergies and Adverse Reactions Name Dates Details Allergy history not documented Status: Past Medical History Name Dates Details History of arthritis (V13.4, Z87.39) Status: Resolved History of asthma (V12.69, Z87.09) Status: Resolved History of backache (V13.59, Z87.39) Status: Resolved History of depression (V11.8, Z86.59) Status: Resolved History of hemorrhoids (V13.89, Z87.19) Status: Resolved History of hypertension (V12.59, Z86.79) Status: Resolved Procedures Procedure Dates Details [U] XRAY FOOT MIN 3 VWS LEFT [id number] Date: 09-Mar-2019 History of Ankle surgery Completed Immunization Name Dates Details Immunizations not documented Family History Name Dates Details Family history of diabetes mellitus (V18.0, Z83.3) Comments: Other Status: Active Family history of hypertension (V17.49, Z82.49) Comments: Other Status: Active Family history of arthritis (V17.7, Z82.61) Comments: Other Status: Active Family history of malignant neoplasm (V16.9, Z80.9) Comments: Other Status: Active Social History Name Dates Details Unknown if ever smoked Vital Signs Date Test Result Details No Known Vitals to report Results Date Description Value Details Results not documented Plan of Care Name Dates Details Planned Observations Planned Goals not documented Interventions Provided Labs/Procedures/Imaging* [U] XRAY FOOT MIN 3 VWS LEFT [id number]; To Be Done: 09 Mar 2019 Instructions Name Dates Details Instructions not documented Encounters Appointment; ROSAS TRAYLOR M.D. Encounter Diagnosis: Problem not documented On: 18-Aug-2017 13:00 Appointment; ROSAS TRAYLOR M.D. Encounter Diagnosis: Problem not documented On: 09-Sep-2017 13:45 Appointment; ROSAS TRAYLOR M.D. Encounter Diagnosis: Problem not documented On: 30-Sep-2017 11:30 Appointment; ROSAS TRAYLOR M.D. Encounter Diagnosis: Problem not documented On: 14-Oct-2017 11:45 Appointment; ROSAS TRAYLOR M.D. Encounter Diagnosis: Problem not documented On: 14-Oct-2017 13:15 Appointment; DAINA KNIGHT M.D. Encounter Diagnosis: Problem not documented On: 02-Jun-2018 13:00 Appointment; DAINA KNIGHT M.D. Encounter Diagnosis: Problem not documented On: 11-Jun-2018 13:00 Appointment; DAINA KNIGHT M.D. Encounter Diagnosis: Problem not documented On: 06-Aug-2018 10:30 Appointment; DAINA KNIGHT M.D. Encounter Diagnosis: Problem not documented On: 14-Sep-2018 11:30 Appointment; ROSAS TRAYLOR M.D. Encounter Diagnosis: Problem not documented On: 03-Nov-2018 14:15 Appointment; DAINA KNIGHT M.D. Encounter Diagnosis: Problem not documented On: 16-Nov-2018 11:15 Appointment; DAINA KNIGHT M.D. Encounter Diagnosis: Problem not documented On: 16-Nov-2018 11:15 Appointment; ROSAS TRAYLOR M.D. Encounter Diagnosis: Problem not documented On: 01-Dec-2018 14:00 Appointment; DAINA KNIGHT M.D. Encounter Diagnosis: Problem not documented On: 09-Dec-2018 10:15 Appointment; ANTELMO CAVAZOS M.D. Encounter Diagnosis: Problem not documented On: 03-Feb-2019 14:00 Appointment; ANTELMO CAVAZOS M.D. Encounter Diagnosis: Problem not documented On: 09-Mar-2019 11:00
[2019-05-02] MEDS ORDERED: CEFTRIAXONE SOD 1 GM VIAL IV ONE (21:30)
[2019-05-02] MEDS ORDERED: CEFTRIAXONE SOD 1 GM VIAL ONE (21:36)
--- NOTE | 2019-05-02 21:40 | NUR ---
PT TOLERATED INJECTION WELL.
[2019-05-02 21:47] VITALS: BP 129/73
== END 2019-05-02 21:45 | disposition home or self-care (01) ==
LOC: FSED 20:52
DX: R10.2 Pelvic and perineal pain (principal); R30.0 Dysuria; M54.5 Low back pain; N30.91 Cystitis, unspecified with hematuria; I10 Essential (primary) hypertension
CPT/HCPCS: 81003; 96372; 99283; J0696